=== PATIENT | female | born 1950 | race Caucasian/White ===

== ENCOUNTER 2016-05-12 07:06 | Outpatient (CLI) | payer MEDICARE, OTHER ==
[~2016-05-12] VITALS: Ht 160 cm; Wt 61.2 kg
[~2016-05-12 07:06] MED LIST: ACYC200C PO; ALPR1TAB6 PO; AMIO200T2 PO; AMLO5TAB2 PO; AMLO5TAB4 PO; AMOX1TAB10 PO; AMOX1TAB11 PO; ASPI-482 PO; ASPI81TA9 PO; AZIT250T6 PO; CALC0.25 PO; CETI10TA16 PO; CHOL20004 PO; DOXY100T PO; DOXY25TA PO; FLUT12HF2 IH; FLUT1DIS IH; FLUT1DIS5 IH; HYDR-2762 PO; HYDR-971 PO; IRON1TAB35 PO; LENA5CAP PO; MAGN400T3 PO; METH750T2 PO; MONT10TA9 PO; MULT1TAB52 PO; OMEG1CAP16 PO; PRED20TA PO; ROFL500T PO; TIOT18CA IH; VITA1TAB3 PO; WARF2TAB7 PO; WARF3TAB7 PO; WARF5TAB PO; ZOLP10TA4 PO
[2016-05-12 07:30] VITALS: BP 90/44
[2016-05-12] MEDS ORDERED: LIDOCAINE 1% / SOD BICARB 8.4% 20 ML VIAL. IJ ONE (07:50)
[2016-05-12] MEDS ORDERED: HEPARIN for ARTERIAL LINE 0 ML ONE (07:51)
[2016-05-12] MEDS ORDERED: IODIXANOL 320 MG/ML 100 ML VIAL. ONE (07:51)
[2016-05-12] MEDS ORDERED: IODIXANOL 320MG/ML 50ML VIAL. ONE (07:51)
[2016-05-12 08:00] VITALS: BP 96/47
[2016-05-12 08:09] LABS: BASO # 0.1 x10^3/uL (0.0-0.2); BASO % 3 % (0-3); EOS % 7 % (0-3); HEMATOCRIT 25.9 % (36.0-47.0); HEMOGLOBIN 8.3 g/dL (12.0-15.5); LYMPH # 0.4 x10^3/uL (1.0-4.8); LYMPH % 8 % (24-48); MEAN CORPUSCULAR HEMOGLOBIN 33 pg (25-35); MEAN CORPUSCULAR HGB CONC 32 g/dL (31-37); MEAN CORPUSCULAR VOLUME 102 fL (79-100); MONO % 19 % (0-9); NEUT % 63 % (31-73); PLATELET COUNT 92 x10^3/uL (140-400); RED BLOOD COUNT 2.53 x10^6/uL (3.50-5.40); WHITE BLOOD COUNT 4.8 x10^3/uL (4.0-11.0)
[2016-05-12 08:23] LABS: CREATININE 3.4 mg/dL (0.6-1.0); GFR 13.4; POTASSIUM 3.9 mmol/L (3.5-5.1)
[2016-05-12 08:26] LABS: PROTHROMBIN TIME PATIENT 42.5 SEC (11.7-14.0)
[2016-05-12 08:30] VITALS: BP 91/41
[2016-05-12 08:43] LABS: INR 4.8 (0.8-1.1)
[2016-05-12 09:00] VITALS: BP 100/48
[2016-05-12 09:12] LABS: PROTHROMBIN TIME PATIENT 43.9 SEC (11.7-14.0)
--- NOTE | 2016-05-12 09:58 | PDOC ---
Provider Note Provider Note IR Note: Angela was scheduled for SVF gram +/- intervention today. Her pre procedure INR was 4.8, repeated at 5.0. She is on low dose Coumadin at 2 mg daily. Will cancel procedure today. Home from [facility]. Hold po Coumadin. Reschedule 05/19/16. VILMA WOOD MD May 12, 2016 09:58
[2016-05-12] MEDS ORDERED: HEPARIN PF 500 UNIT/5 ML DISP.SYRIN. IV ONE (10:00)
[2016-05-12 11:08] LABS: % BASOS 1 % (0-3); % EOS 6 % (0-5); ANISOCYTOSIS MOD; PLT ESTIMATE DECREASED (ADEQUATE); POIKILOCYTOSIS PRESENT; POLYCHROMASIA PRESENT
[2016-05-12 11:09] LABS: BURR CELLS FEW; OVALOCYTES FEW; SCHISTOCYTES OCC; TEAR DROP CELLS FEW
== END 2016-05-12 09:50 | disposition home or self-care (01) ==
LOC: INTRAD 07:06
PROVIDERS: ATTEND Surgery Vascular Surgery
DX: N18.6 End stage renal disease (principal); Z53.8 Procedure and treatment not carried out for other reasons
CPT/HCPCS: 36415; 80048; 85007; 85027; 85610

== ENCOUNTER 2016-05-19 07:09 | Outpatient (CLI) | payer MEDICARE, OTHER ==
[2016-05-19] VITALS (9 sets, daily range): BP systolic 87–138; BP diastolic 56–69
[~2016-05-19] VITALS: Ht 157.5 cm; Wt 61.2 kg
[2016-05-19] MEDS ORDERED: IODIXANOL 320MG/ML 50ML VIAL. ONE (08:03)
[2016-05-19] MEDS ORDERED: LIDOCAINE 1% / SOD BICARB 8.4% 20 ML VIAL. IJ ONE ×2 (08:03→09:00)
[2016-05-19] MEDS ORDERED: IODIXANOL 320 MG/ML 100 ML VIAL. ONE (08:04)
[2016-05-19 08:05] LABS: BASO # 0.1 x10^3/uL (0.0-0.2); BASO % 2 % (0-3); EOS % 5 % (0-3); HEMATOCRIT 28.5 % (36.0-47.0); LYMPH # 0.5 x10^3/uL (1.0-4.8); LYMPH % 6 % (24-48); MEAN CORPUSCULAR HEMOGLOBIN 32 pg (25-35); MEAN CORPUSCULAR HGB CONC 32 g/dL (31-37); MEAN CORPUSCULAR VOLUME 102 fL (79-100); MONO % 10 % (0-9); NEUT % 77 % (31-73); PLATELET COUNT 127 x10^3/uL (140-400); RED BLOOD COUNT 2.79 x10^6/uL (3.50-5.40); RED CELL DISTRIBUTION WIDTH 22.4 % (11.5-14.5); WHITE BLOOD COUNT 7.8 x10^3/uL (4.0-11.0)
[2016-05-19 08:08] LABS: INR 1.2 (0.8-1.1); PROTHROMBIN TIME PATIENT 14.5 SEC (11.7-14.0)
--- NOTE | 2016-05-19 08:38 | PDOC1 ---
History and Physical Date of Procedure Date of Admission 05/19/16 Procedure Procedure Left arm AVF gram +/- intervention Indication Indication ESRD. Previously thrombosed AVF, s/p thrombectomy. AVF stenosis by U/S. AVF gram +/- intervention requested by Vascular Surgery. Past Medical History Past Medical History See Nursing pre procedure PMH Past Surgical History Past Surgical History See Nursing Pre procedure PSH. Current Medications Current Medications Current Medications Lidocaine/Sodium Bicarbonate (Buffered Lidocaine 1%) 20 ml STK-MED ONCE IJ ; Start 05/19/16 at 08:03; Stop 05/19/16 at 08:04; Status DC Iodixanol 50 ml 50 ml STK-MED ONCE .ROUTE ; Start 05/19/16 at 08:03; Stop at 08:04; Status DC Heparin Sodium/ Sodium Chloride 500 ml @ As Directed STK-MED ONCE .ROUTE ; Start 05/19/16 at 08:03; Stop 05/19/16 at 08:04; Status DC Iodixanol (Visipaque 320) 100 ml STK-MED ONCE .ROUTE ; Start 05/19/16 at 08:04; Stop 05/19/16 at 08:05; Status DC Active Scripts Active Prednisone 20 Mg Tablet 40 Mg PO DAILY Doxycycline Hyclate 100 Mg Tablet 100 Mg PO BID Reported Amiodarone Hcl 200 Mg Tablet 1 Tab PO DAILY Warfarin Sodium 2 Mg Tablet 2 Mg PO DAILY16 Acyclovir 200 Mg Capsule 200 Mg PO BID Magnesium Oxide 400 Mg Tablet 800 Mg PO BID Alprazolam 1 Mg Tablet 1 Mg PO PRN Q6HRS PRN Hydrocodone-Apap 7.5-325 (Hydrocodone Bit/Acetaminophen) 1 Each Tablet 1 Tab PO PRN Q6HRS PRN Advair 100-50 Diskus (Fluticasone/Salmeterol) 1 Each Disk.w.dev 1 Inh IH BID Vitron-C Tablet (Iron,Carbonyl/Ascorbic Acid) 1 Each Tablet.dr 1 Each PO DAILY Fish Oil 1,000 Mg Softgel ([place]-3 Fatty Acids/Fish Oil) 1 Each Capsule 1 Each PO DAILY Vitamin D-3 (Cholecalciferol (Vitamin D3)) 2,000 Unit Capsule 2,000 Unit PO DAILY Vitamin B Complex 1 Each Tablet 1 Each PO DAILY Multivitamins (Multivitamin) 1 Each Tablet 1 Tab PO DAILY Montelukast Sodium Tablet (Montelukast Sodium) 10 Mg Tablet 1 Tab PO DAILY Calcitriol 0.25 Mcg Capsule 1 Cap PO 3X/WEEK Revlimid (Lenalidomide) 5 Mg Capsule 5 Mg PO 3X/WEEK Methocarbamol 750 Mg Tablet 750 Mg PO PRN Spiriva (Tiotropium [place]) 18 Mcg Cap.w.dev 18 Mcg IH DAILY08 Allergies Allergies: Coded Allergies: No Known Drug Allergies (Unverified , 01/17/16) Physical Exam Lungs: Clear to auscultation Heart: Regular rate Psych/Mental Status: Mental status NL Vascular Strong thrill thruout patent left arm transposed brachiocephalic AVF Diagnostic Data/Imaging Images PMC AVF gram images from 04/22/16 reviewed. Assessment Assessment ESRD with stenosis within previously thrombosed AVF. Problems: Plan Plan AVF gram +/- intervention. VILMA WOOD MD May 19, 2016 08:38
[2016-05-19] MEDS ORDERED: FENTANYL PF 250 MCG/5 ML VIAL. ONE (08:39)
[2016-05-19] MEDS ORDERED: MIDAZOLAM HCL/PF 5 MG/5 ML VIAL ONE (08:39)
[2016-05-19] MEDS ORDERED: HEPARIN for IV BOLUS 10,000 UNIT/10 ML VIAL. ONE (08:58)
[2016-05-19] MEDS ORDERED: MIDAZOLAM HCL/PF 5 MG/5 ML VIAL IV ONE (09:00)
[2016-05-19] MEDS ORDERED: IODIXANOL 320 MG/ML 100 ML VIAL. IART ONE (09:00)
[2016-05-19] MEDS ORDERED: FENTANYL PF 250 MCG/5 ML VIAL. IV ONE (09:00)
[2016-05-19] MEDS ORDERED: HEPARIN for IV BOLUS 10,000 UNIT/10 ML VIAL. IART ONE (09:00)
--- NOTE | 2016-05-19 09:39 | PDOC ---
MODERATE SEDATION ASSESSMENT RISKS/ALTERNATIVES Risks/Alternatives Risks and alternatives of this type of sedation and procedure discussed with: RISK/ALTERNATIVES: Patient H & P ON CHART H & P H & P on chart and reviewed for co-morbid conditions and appropriate labs. H&P ON CHART: Yes STATUS PREG STATUS ASSESSED: N/A MEDS/ALLERGIES REVIEWED Meds/Allergies Reviewed Medications and Allergies including time and route of recently administered narcotics and sedatives. MEDS/ALLERGIES REVIEWED: Yes ASA RATING ASA RATING: III AIRWAY ASSESSMENT Airway Assessment Airway patency, oral function limitations, presence of caps, crowns, dentures, partials, and ability to extend neck assessed. AIRWAY ASSESSMENT: Yes MALLAMPATI SCORE MALLAMPATI SCORE: II PRE-SEDATION ASSESSMENT PRE-SEDATION ASSESSMENT: Yes VILMA WOOD MD May 19, 2016 09:39
--- NOTE | 2016-05-19 09:54 | PDOC ---
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 She is s/p creation of left arm BC AVF 07/16/15, followed by transposition and branch ligation 01/17/16. She is s/p AVF thrombectomy 04/22/16. She returns with U/S evidence of cephalic vein stenosis. AVF gram +/- intervention has been requested. Post-Procedure Diagnosis Post-Procedure Diagnosis Same Procedure Performed Procedure Performed Sono guided left arm transposed BC AVF gram. DCB PLANT CYTOLOGIST of cephalic outflow vein stenosis. Viabahn stent placement across post PLANT CYTOLOGIST cephalic vein rupture. Type of Anesthesia Type of Anesthesia Local + Mod sedation. Estimated Blood Loss EBL: Minimal Condition of Patient Condition of Patient Stable. Small left upper arm hematoma following cephalic vein post PLANT CYTOLOGIST rupture- ---hematoma limited with balloon occlusion, followed by covered stent deployment. Disposition Disposition Home from [facility] post recovery, if no further bleeding or other problem. F/U with Renal and Vascular Surgery. OK to use AVF for HD---patient prefers to wait until next week. OK to resume PO Coumadin tonight. Full report to follow. VILMA WOOD MD May 19, 2016 09:53
--- NOTE | 2016-05-20 08:00 | RAD ---
Left arm brachiocephalic AV fistulogram DCB MULTIMEDIA EDUCATIONAL SPECIALIST cephalic outflow vein Viabahn stent deployment across post angioplasty cephalic vein rupture Indication: 66-year-old female with end stage renal disease. A brachiocephalic AV fistula was initially created 07/16/2015, followed by transposition and a branch ligation 01/17/2016. AV fistula declot procedure was performed 04/22/2016. The patient now returns with elevated venous pressures and cephalic vein stenosis demonstrated at ultrasound. Fluoroscopy time: 5.9 minutes Kerma-area Product: 7 Gycm2 Contrast material: 80 cc Visipaque 320 Anesthesia: 37 minutes moderate sedation was provided utilizing a total of 3 mg Versed and 100 mcg fentanyl, IV. The patient was appropriately monitored by a qualified independent observer throughout the time of moderate sedation. Consent: The procedure was explained in its entirety to the patient and/or the patient's designated customer assistance representative by a member of the treatment team. This included a discussion of risks and benefits and commonly accepted alternatives to the procedure, as well as expected consequences of no treatment at all. Discussion of risks included, but was not limited to, those that are most frequent and those that are rare, but possibly severe or life-threatening, as well as the possibility of unforeseen complications. Sterility: All elements of maximal sterile barrier technique were utilized, including cap, mask, sterile gown, sterile gloves, large sterile sheet, appropriate hand hygiene, and 2% chlorhexidine for cutaneous antisepsis. Procedure: Informed consent was obtained from the patient. She was placed supine on the angiography table. Left upper arm was prepped and draped in the usual sterile fashion, utilizing all elements of maximal sterile barrier technique, as described above. Moderate sedation was provided with IV Versed and fentanyl. AV fistulogram: Preliminary physical examination revealed strongly palpable thrill throughout left arm brachiocephalic AV fistula. Preliminary ultrasound examination confirmed wide patency of the AV fistula, apart from a 3 to 4 cm segment of at least moderate cephalic vein stenosis at the level of upper-mid humerus. A site suitable for AV fistula sheath placement was selected, marked, and documented with a single hard copy ultrasound image. Using aseptic technique, local anesthesia, direct ultrasound guidance, and the micropuncture system, a 4 Estonian sheath was successfully introduced into the patient's left arm AV fistula, approximately 4 cm above AV anastomosis, with its tip directed centrally. Several hand injections of Visipaque 320 were performed and AV fistulogram DSA images were obtained from elbow through right atrium. Findings: Brachiocephalic AV anastomosis appears widely patent. A 3 to 4 cm segment of at least moderate smooth narrowing lies within transposed cephalic outflow vein, at the level of mid-upper humerus. No additional significant cephalic outflow vein stenosis was demonstrated. Left subclavian vein, innominate vein, and superior vena cava are widely patent. Right IJ port catheter and right IJ tunneled hemodialysis catheter are noted. DCB MULTIMEDIA EDUCATIONAL SPECIALIST followed by Viabahn stenting of cephalic outflow vein: Following the diagnostic AV fistula gram, the decision was made to proceed with balloon angioplasty of the significantly narrowed cephalic vein segment. The 4 Estonian AV fistula sheath was exchanged over a guidewire for a short 7 Estonian sheath. Following IV bolus administration of 2500 units heparin, a 7 mm x 40 mm request MULTIMEDIA EDUCATIONAL SPECIALIST balloon was advanced through the 7 Estonian sheath over a Bentson wire under fluoroscopic guidance, and was utilized to perform prolonged (5 minutes) medium pressure (15 nilay) balloon dilatation of the cephalic vein stenosis. The 7 mm conquest MULTIMEDIA EDUCATIONAL SPECIALIST balloon was then exchanged for a 7 mm x 60 mm [employer] paclitaxel-coated MULTIMEDIA EDUCATIONAL SPECIALIST balloon, which was inflated across the cephalic vein lesion to a peak pressure of 8 nilay for 3 minutes. The drug coated MULTIMEDIA EDUCATIONAL SPECIALIST balloon was then deflated and removed. Visipaque 320 was injected through the 7 Estonian sheath and post angioplasty DSA images were obtained. Those images revealed essentially complete resolution of the cephalic vein stenosis, however, extravasation of injected contrast material was seen at the angioplasty site, consistent with vessel perforation/rupture. The 7 mm conquest MULTIMEDIA EDUCATIONAL SPECIALIST balloon was rapidly reinserted through the 7 [place]ian sheath over the Bentson wire and was inflated across the site of rupture, preventing further extravasation. An 8 mm x 15 mm Viabahn covered stent was selected and was prepared for insertion. The Bentson wire was removed from the inflated conquest MULTIMEDIA EDUCATIONAL SPECIALIST balloon catheter, and was replaced with a grand slam microguidewire. The conquest MULTIMEDIA EDUCATIONAL SPECIALIST balloon was then rapidly deflated and was quickly exchanged over the grand slam wire through the 7 [place]ian sheath for the Viabahn covered stent, which was successfully deployed across the area of perforation. Post dilatation of the Viabahn stent was then performed utilizing a 7 mm conquest MULTIMEDIA EDUCATIONAL SPECIALIST balloon, which was then deflated and removed. Visipaque 320 was again injected through the 7 Estonian sheath and post stent DSA images were obtained, which revealed widely patent cephalic outflow vein, without further contrast extravasation. Patient tolerated the procedure well. The 7 [place]ian sheath was removed and hemostasis was achieved utilizing 2-0 silk in a pursestring fashion. Impression: 1. Transposed left brachiocephalic AV fistulogram was significant for a 3 to 4 cm segment of significant narrowing within cephalic outflow vein. Left upper extremity central veins appeared widely patent. 2. DCB MULTIMEDIA EDUCATIONAL SPECIALIST of cephalic outflow vein produced resolution of the stenosis, but resulted in focal vessel perforation/rupture with contrast extravasation----this was quickly controlled with balloon occlusion, followed by successful exclusion with Viabahn covered stent.
== END 2016-05-19 11:45 | disposition home or self-care (01) ==
LOC: INTRAD 07:09
PROVIDERS: ATTEND Surgery Vascular Surgery
DX: N18.6 End stage renal disease (principal); I42.9 Cardiomyopathy, unspecified; I10 Essential (primary) hypertension; J44.9 Chronic obstructive pulmonary disease, unspecified; D21.9 Benign neoplasm of connective and other soft tissue, unspecified; Z90.710 Acquired absence of both cervix and uterus; Z90.721 Acquired absence of ovaries, unilateral; N28.9 Disorder of kidney and ureter, unspecified; Z99.2 Dependence on renal dialysis; D56.9 Thalassemia, unspecified; F41.9 Anxiety disorder, unspecified; F32.9 Major depressive disorder, single episode, unspecified; F17.200 Nicotine dependence, unspecified, uncomplicated; D64.9 Anemia, unspecified; Z08 Encounter for follow-up examination after completed treatment for malignant neoplasm
CPT/HCPCS: 36147; 36415; 37238; 76937; 85027; 85610; C1758; C1769; C1894; C2623; J2250; J3010

== ENCOUNTER → 2016-05-20 | Outpatient (CLI) | payer MEDICARE, OTHER ==
[2016-05-19 11:20] VITALS: BP 138/64
--- NOTE | 2016-05-20 14:18 | KCIC ---
PROCEDURE Two-view chest HISTORY COPD with acute exacerbation, extreme shortness of air, previous smoker for 30 years COMPARISON March 12, 2016 FINDINGS Two views of the chest are submitted. There is right internal jugular venous catheter with tips in the region of right atrium. There is also right internal jugular port catheter with the tip in the region of superior vena cava. Heart size is considered within normal limits. There is atherosclerotic calcification near the aortic arch. There is no dependent pleural fluid or pneumothorax. There is emphysema. No lobar consolidation is identified. IMPRESSION 1. There is emphysema. No lobar infiltrate is identified. Electronically signed by: Cosmo Eli MD (May 20, 2016 14:16:49)
== END | disposition home or self-care (01) ==
LOC: KCIC 13:40
PROVIDERS: ATTEND Family Medicine
DX: J44.1 Chronic obstructive pulmonary disease with (acute) exacerbation (principal)
CPT/HCPCS: 71020

== ENCOUNTER → 2016-05-29 | Outpatient (CLI) | payer MEDICARE, OTHER ==
[2016-05-19 11:20] VITALS: BP 138/64
[2016-05-29 14:44] LABS: PROTHROMBIN TIME PATIENT 21.9 SEC (11.7-14.0)
== END | disposition home or self-care (01) ==
LOC: LAB 14:11
PROVIDERS: ATTEND Internal Medicine Nephrology
DX: N18.6 End stage renal disease (principal); Z99.2 Dependence on renal dialysis
CPT/HCPCS: 36415; 85610

== ENCOUNTER → 2016-07-23 | Outpatient (CLI) | payer MEDICARE, OTHER ==
[2016-05-19 11:20] VITALS: BP 138/64
--- NOTE | 2016-07-24 10:04 | CARD ---
APPROVED REPORT EXAM: Two-dimensional and M-mode echocardiogram with Doppler and color Doppler. Other Information Quality : Average Rhythm : NSR INDICATION Cardiomyopathy NICM 2D DIMENSIONS RVDd2.6 (2.9-3.5cm)Left Atrium(2D)3.2 (1.6-4.0cm) IVSd0.9 (0.7-1.1cm)Aortic Root(2D)2.7 (2.0-3.7cm) LVDd5.1 (3.9-5.9cm)LVOT Diameter2.1 (1.8-2.4cm) PWd0.9 (0.7-1.1cm)LVDs3.4 (2.5-4.0cm) SV75.5 mlLVEF(%)40.9 (>50%) Aortic Valve AoV Peak Kenneth.143.4cm/sAoV VTI22.1cm AO Peak GR.8.2mmHgLVOT Peak Kenneth.91.9cm/s LVOT VTI 15.90cmAO Mean GR.4mmHg CRISPIN (VMAX)2.16ty6TGU (VTI)2.39cm2 Mitral Valve MV E Uizxcajj62.0cm/sMV DECEL VPKR098aj MV A Thglfimp33.3cm/sMV E Mean Gr.1mmHg MV ZBI49ubB/A Ratio0.6 MV A Ptwgocip937zkQJR (PHT)2.93cm2 TDI E/Lateral E'12.1E/Medial E'10.5 Pulmonary Valve PV Peak Xpqosmdr11.6cm/sPV Peak Grad.4mmHg RVOT VTI15.8cm Tricuspid Valve TR P. Jzgdlcxz232re/sRAP NRRSYHEI6wvWb TR Peak Gr.72iwQsNNUE49rhYu LEFT VENTRICLE The left ventricle is normal size. There is normal left ventricular wall thickness. Left ventricle sy stolic function is mildly impaired. The Ejection Fraction is estimated at 40%. There is mild global h ypokinesis of the left ventricle. Tissue Doppler imaging reveals mild left ventricular diastolic dysf unction. Transmitral Doppler flow pattern is Grade I-abnormal relaxation pattern. RIGHT VENTRICLE The right ventricle is normal size. The right ventricular systolic function is normal. ATRIA The left atrium size is normal. The right atrium size is normal. The interatrial septum is intact wit h no evidence for an atrial septal defect or patent foramen ovale as noted on 2-D or Doppler imaging. AORTIC VALVE The aortic valve is normal in structure and function. The aortic valve is trileaflet. Doppler and Col or Flow revealed no significant aortic regurgitation. There is no significant aortic valvular stenosi s. MITRAL VALVE The mitral valve is normal in structure and function. There is no mitral valve stenosis. Doppler and Color Flow revealed mild mitral regurgitation. TRICUSPID VALVE The tricuspid valve is normal in structure and function. Doppler and Color Flow revealed mild tricusp id regurgitation. The PA pressure was estimated at 37 mmHg. There is no tricuspid valve stenosis. PULMONIC VALVE The pulmonic valve is not well visualized. Doppler and Color Flow revealed no pulmonic valvular regur gitation. There is no pulmonic valvular stenosis. GREAT VESSELS The aortic root is normal in size. The IVC is normal in size and collapses >50% with inspiration. PERICARDIAL EFFUSION There is no evidence of significant pericardial effusion. Critical Notification Critical Value: No <Conclusion> The left ventricle is normal size. Left ventricle systolic function is mildly impaired. The Ejection Fraction is estimated at 40%. There is mild global hypokinesis of the left ventricle. There is no significant aortic valvular stenosis. Doppler and Color Flow revealed no significant aortic regurgitation. Doppler and Color Flow revealed mild mitral regurgitation. Doppler and Color Flow revealed mild tricuspid regurgitation. The PA pressure was estimated at 37 mmHg.
== END | disposition home or self-care (01) ==
LOC: ECHO 13:05
PROVIDERS: ATTEND Nurse Practitioner
DX: I42.9 Cardiomyopathy, unspecified (principal); I34.0 Nonrheumatic mitral (valve) insufficiency; I07.1 Rheumatic tricuspid insufficiency
CPT/HCPCS: 93306

== ENCOUNTER → 2016-08-17 | Outpatient (CLI) | payer MEDICARE, OTHER ==
[2016-05-19 11:20] VITALS: BP 138/64
[~2016-08-17] MED LIST changes: +CEPH500C; +FOLI0.8T21 PO; +IOHEXOL 300 MG/ML 100ML VIAL. IV ONE; +MAGN400T22 PO; +MIRT45TA3 PO; +POTA20TA4; -ROFL500T PO; +ROFL500T7 PO; +TERB250T8; +TIOT4MIS2; +TRAZ50TA15; +VANC125C2 PO; +VITA150T PO; +WARF-78 PO; -WARF5TAB PO
--- NOTE | 2016-08-17 13:54 | KCIC ---
PQRS STATEMENT One or more of the following individualized dose reduction techniques were utilized for this study: 1.Automated exposure control 2.Adjustment of the mA and/or kV according to patient size 3.Use of iterative reconstruction technique CT NECK WITH CONTRAST HISTORY:Reason For Study Reason: TONGUE MASS. LUMP IN THROAT RT SIDE, HOARSENESS / Spl. Instructions: 80cc Omni 300-pt receiving dialysis after CT / History: COMPARISON: None TECHNIQUE: 2.5 mm contiguous axial images were obtained from the region of the paranasal sinuses through the thoracic inlet after the administration of iodinated intravenous contrast material. Additional sagittal and coronal reconstructions were performed. FINDINGS: There is a hyper enhancing solid mass at the base of the tongue centered slightly eccentric to the left. The mass measures 3.5 centimeters transverse by 4.0 centimeters AP by 2.3 centimeters AP. The mass appears to extend into the vallecula pushing the epiglottis posteriorly. This could is cause symptoms of dysphagia. A necrotic right level 2 lymph node measures 3.0 by 2.1 centimeters. On the left there is a partially necrotic node in the level 2 space that measures 2.0 x 1.6 centimeters. There are other numerous enlarged cervical lymph nodes bilaterally which demonstrate a small amount of central necrosis. There is centrilobular emphysema. Vascular structures are within normal limits. Mild carotid bulb calcifications are noted. Limited intracranial evaluation is within normal limits globes orbits are unremarkable. Paranasal sinuses and mastoid air cells are clear. 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 The mass extends into the valleculae a and pushes the epiglottis posteriorly. This could cause symptoms of dysphagia. - There are bilateral necrotic cervical lymph nodes likely representing metastatic disease. Electronically signed by: Vinay Campbell (Aug 17, 2016 13:53:04)
== END | disposition home or self-care (01) ==
LOC: KCIC CT 12:47
PROVIDERS: ATTEND Otolaryngology Plastic Surgery within the Head & Neck
DX: J02.9 Acute pharyngitis, unspecified (principal); R22.0 Localized swelling, mass and lump, head; R49.0 Dysphonia; H90.3 Sensorineural hearing loss, bilateral
CPT/HCPCS: 70492; Q9967

== ENCOUNTER 2016-08-31 18:01 | Emergency (ER) | payer MEDICARE, OTHER ==
[2016-05-19 11:20] VITALS: BP 138/64
[~2016-08-31] VITALS: Ht 160 cm; Wt 56.7 kg
[~2016-08-31 18:01] MED LIST changes: -CEPH500C; -FOLI0.8T21 PO; -IOHEXOL 300 MG/ML 100ML VIAL. IV ONE; -MAGN400T22 PO; -MIRT45TA3 PO; -POTA20TA4; +ROFL500T PO; -ROFL500T7 PO; -TERB250T8; -TIOT4MIS2; -TRAZ50TA15; -VANC125C2 PO; -VITA150T PO; -WARF-78 PO; +WARF5TAB PO
[2016-08-31] MEDS ORDERED: ACETAMINOPHEN 325 MG TABLET. PO ONE (19:00)
--- NOTE | 2016-08-31 19:00 | PHYS DOC ---
Past Medical History Past Medical History: Cancer, COPD, Hypertension, Renal Failure Additional Past Medical Histor: MULTIPLE MYELOMA, SHINGLES, BLOOD CLOTS IN ARM FROM CHEMO MED Past Surgical History: No Surgical History Additional Past Surgical Histo: Portacath in right chest for CA treatments, SHUNT LUE Alcohol Use: None Drug Use: None Adult General Chief Complaint Chief Complaint: SKIN PROBLEM HPI HPI Patient is a 66 year old female presents to emergency department stating that he can May she had fallen and hit her head. She states that this is happened in the middle the night and she felt fine and therefore was not seen. Patient states that within the last few weeks she's noticed this lump on the back of her head the left basal part proximal size 2 x 2 cm. Patient states he has increased pain and discomfort with dialysis. She states that they can be a throbbing 10 aching type pain. She states she has not taken anything for the pain and discomfort. She denies any blurred vision. She denies any loss of consciousness when she fell in May. Review of Systems Review of Systems Constitutional: Denies fever or chills [] Eyes: Denies change in visual acuity, redness, or eye pain [] HENT: Denies nasal congestion or sore throat [] Respiratory: Denies cough or shortness of breath [] Cardiovascular: No additional information not addressed in HPI [] GI: Denies abdominal pain, nausea, vomiting, bloody stools or diarrhea [] : Denies dysuria or hematuria [] Musculoskeletal: Denies back pain or joint pain [] Integument: Denies rash or skin lesions. C/o lump to the back of the head Neurologic: Denies headache, focal weakness or sensory changes [] Current Medications Current Medications Current Medications Medications (Trade) Dose Ordered Sig/[facility] Start Time Stop Time Status Last Admin Dose Admin Acetaminophen (Tylenol) 650 mg 1X ONCE 08/31/16 19:00 08/31/16 19:01 DC 08/31/16 19:00 650 MG Allergies Allergies Allergies Coded Allergies Type Severity Reaction Last Updated Verified No Known Drug Allergies 01/17/16 No Physical Exam Physical Exam Constitutional: Well developed, well nourished, no acute distress, non-toxic appearance. [] HENT: Normocephalic, atraumatic, bilateral external ears normal, oropharynx moist, no oral exudates, nose normal. Bilateral tympanic membranes appear to be normal. Eyes: PERRLA, EOMI, conjunctiva normal, no discharge. [] Neck: Normal range of motion, no tenderness, supple, no stridor. [] Cardiovascular:Heart rate regular rhythm, no murmur [] Lungs & Thorax: Bilateral breath sounds clear to auscultation [] Abdomen: Bowel sounds normal, soft, no tenderness, no masses, no pulsatile masses. [] Skin: Warm, dry, no erythema, no rash. Patient with a 2 cm x 2 cm soft lump noted on the back of the head. No redness drainage or discharge noted from the site. Back: No tenderness Extremities: No tenderness, no cyanosis, no clubbing, ROM intact, no edema. [] Neurologic: Alert and oriented X 3, normal motor function, normal sensory function, no focal deficits noted. Cranial nerves II through XII intact Psychologic: Affect normal, judgement normal, mood normal. [] Current Patient Data Vital Signs Vital Signs Date Time Temp Pulse Resp B/P Pulse Ox O2 Delivery O2 Flow Rate FiO2 08/31/16 18:37 97.9 80 20 92 Room Air 97.9 EKG EKG [] Radiology/Procedures Radiology/Procedures [][facility] [address] [place] [address] IMAGING REPORT Signed PATIENT: CHRIS MEJIA ACCOUNT: [id number] : 1950 LOCATION: ER AGE: 66 SEX: F EXAM STATUS: REG ER ORD. PHYSICIAN: RAVEN BILLINGSLEY APRN REASON: lump on the back of head increase pain with dialysis PROCEDURE: CT HEAD WO CONTRAST Examination: CT head without contrast. HISTORY History of lump in the back of the head, increasing pain with dialysis Exposure: One or more of the following dose reduction technique were utilized for this examination: 1. Automated exposure control. 2.Adjustment of MA and /or KV according to patient size. 3. Use of iterative reconstruction technique. COMPARISON None available. Findings : There is no evidence of midline shift. There is no acute intracranial bleed or extra-axial fluid collection identified.The ray-white matter differentiation is maintained. The visualized lateral ventricles, 3rd ventricle, 4th ventricle appropriate for age. The basal cisterns are not effaced. Visualized paranasal sinuses, mastoid air cells are clear. Impression: No acute intracranial findings. Electronically signed by: Eliseo Machuca (Aug 31, 2016 20:05:46) DICTATED and SIGNED BY: ELISEO MACHUCA MD DATE: 08/31/162004 CC: RAVEN BILLINGSLEY APRN; ELANA ACEVEDO MD ~ Course & Med Decision Making Course & Med Decision Making Pertinent Labs and Imaging studies reviewed. (See chart for details) CT scan of the head was negative for any abnormalities. Patient will be discharged home with recommendations to use Tylenol for pain and discomfort ice packs on the area on 20 minutes off 20 minutes several times a day. Also recommended patient to follow up with primary care physician in the next 3-5 days. Since symptoms to return back to emergency department been provided. Patient agrees with discharge instructions treatment regimens and follow-up recommendations. [] Dragon Disclaimer Dragon Disclaimer This electronic medical record was generated, in whole or in part, using a voice recognition dictation system. Departure Departure Impression: Primary Impression: Head lump Disposition: 01 HOME, SELF-CARE Condition: STABLE Patient Instructions: General Headache Without Cause, [id number] Additional Instructions: CT scan of the head was negative for any abnormalities. Tylenol for pain and discomfort. Follow-up to primary care physician in the next 3-5 days. Return back to the emergency department for signs and symptoms of become worse. RAVEN BILLINGSLEY APRN Aug 31, 2016 19:00
--- NOTE | 2016-08-31 20:07 | RAD ---
Examination: CT head without contrast. HISTORY History of lump in the back of the head, increasing pain with dialysis Exposure: One or more of the following dose reduction technique were utilized for this examination: 1. Automated exposure control. 2.Adjustment of MA and /or KV according to patient size. 3. Use of iterative reconstruction technique. COMPARISON None available. Findings : There is no evidence of midline shift. There is no acute intracranial bleed or extra-axial fluid collection identified.The ray-white matter differentiation is maintained. The visualized lateral ventricles, 3rd ventricle, 4th ventricle appropriate for age. The basal cisterns are not effaced. Visualized paranasal sinuses, mastoid air cells are clear. Impression: No acute intracranial findings. Electronically signed by: Eliseo Machuca (Aug 31, 2016 20:05:46)
== END 2016-08-31 20:25 | disposition home or self-care (01) ==
LOC: ER 18:01
DX: R22.0 Localized swelling, mass and lump, head (principal); J44.9 Chronic obstructive pulmonary disease, unspecified; I12.9 Hypertensive chronic kidney disease with stage 1 through stage 4 chronic kidney disease, or unspecified chronic kidney disease; N18.9 Chronic kidney disease, unspecified; Z99.2 Dependence on renal dialysis
CPT/HCPCS: 70450; 99284-25

== ENCOUNTER 2016-09-07 15:00 | Inpatient (IN) | payer MEDICARE, OTHER ==
[~2016-09-07] VITALS: Ht 160 cm; Wt 53.1 kg
[~2016-09-07 15:00] MED LIST changes: -ROFL500T PO; +ROFL500T7 PO; +WARF-78 PO; -WARF5TAB PO
[2016-09-07 18:04] LABS: BASO # 0.1 x10^3/uL (0.0-0.2); BASO % 0 % (0-3); EOS % 0 % (0-3); HEMATOCRIT 37.4 % (36.0-47.0); HEMOGLOBIN 11.9 g/dL (12.0-15.5); LYMPH # 0.4 x10^3/uL (1.0-4.8); LYMPH % 2 % (24-48); MEAN CORPUSCULAR HEMOGLOBIN 32 pg (25-35); MEAN CORPUSCULAR HGB CONC 32 g/dL (31-37); MEAN CORPUSCULAR VOLUME 102 fL (79-100); MONO % 13 % (0-9); NEUT % 85 % (31-73); PLATELET COUNT 231 x10^3/uL (140-400); RED BLOOD COUNT 3.66 x10^6/uL (3.50-5.40); RED CELL DISTRIBUTION WIDTH 15.8 % (11.5-14.5); WHITE BLOOD COUNT 25.9 x10^3/uL (4.0-11.0)
[2016-09-07] MEDS ORDERED: IOHEXOL 300 MG/ML 75 ML VIAL IV ONE (18:30)
[2016-09-07] MEDS ORDERED: CONTRAST GIVEN MC PRN (18:30)
--- NOTE | 2016-09-07 18:44 | ED.ADGEN ---
Past Medical History Past Medical History: Cancer, COPD, Renal Failure Additional Past Medical Histor: MULTIPLE MYELOMA, SHINGLES, BLOOD CLOTS IN ARM FROM CHEMO MED Past Surgical History: No Surgical History Additional Past Surgical Histo: Portacath in right chest for CA treatments, SHUNT LUE Alcohol Use: None Drug Use: None Adult General Chief Complaint Chief Complaint: MULTIPLE COMPLAINTS HPI HPI Patient is a 66 year old woman, history of end-stage renal disease on hemodialysis, multiple myeloma, DVT on anticoagulation, hypertension, hyperlipidemia, who presents to the emergency department with multiple complaints. Patient states that she began feeling ill, with generalized malaise , developed diarrhea she describes as loose brown stool yesterday. States he had also experienced diarrhea since that time, denies any blood in her stool, denies any vomiting, or nausea, however she has experienced crampy abdominal pain with diarrhea. Patient denies similar symptoms previously. Denies any recent travel, any surgery, any sick contacts or exposures. She was treated last week with an antibiotic for a "cold". Patient states that today after multiple sodas of diarrhea, when she stood up to use the telephone she became very dizzy, and she fell down, landing on "her whole body", in the kitchen rug. She denies striking her head or neck, denies loss of consciousness. States that she is feeling less dizzy now when lying down. She does not take any blood thinners. She denies any focal weakness in this or tingling, any headache, still is feeling cramping in her abdomen, and took an Imodium a few hours before coming to the ED, and has not had any diarrhea since that time. Patient did miss her dialysis session, due to the diarrhea and fall. Review of Systems Review of Systems Constitutional: Denies fever or chills. [] Eyes: Denies change in visual acuity. [] HENT: Denies nasal congestion or sore throat. [] Respiratory: Denies cough or shortness of breath. [] Cardiovascular: Denies chest pain or edema. [] GI: Abdominal pain, diarrhea, no nausea, no vomiting. No blood in stool. : Denies dysuria. [] Musculoskeletal: Denies back pain or joint pain. [] Integument: Denies rash. [] Neurologic: Denies headache, focal weakness or sensory changes. [] Endocrine: Denies polyuria or polydipsia. [] Lymphatic: Denies swollen glands. [] Psychiatric: Denies depression or anxiety. [] Current Medications Current Medications Current Medications Medications (Trade) Dose Ordered Sig/Seth Start Time Stop Time Status Last Admin Dose Admin Info (Do NOT chart on this entry -- for MONITORING) 1 each PRN DAILY PRN 09/07/16 18:30 09/09/16 18:29 Iohexol (Omnipaque 300 Mg/ml) 60 ml 1X ONCE 09/07/16 18:30 09/07/16 18:31 DC Allergies Allergies Allergies Coded Allergies Type Severity Reaction Last Updated Verified No Known Drug Allergies 01/17/16 No Physical Exam Physical Exam Constitutional: Well developed, well nourished, no acute distress, non-toxic appearance. [] HENT: Normocephalic, atraumatic, bilateral external ears normal, oropharynx moist, no oral exudates, nose normal. [] Eyes: PERRLA, EOMI, conjunctiva normal, no discharge. [] Neck: Normal range of motion, no tenderness, supple, no stridor. [] Cardiovascular:Heart rate regular rhythm, no murmur, S1, S2, rubs or gallops. [] Lungs & Thorax: Bilateral breath sounds clear to auscultation, no wheezing, rhonchi, rales. No chest or crepitus or tenderness. [] Abdomen: Bowel sounds normal, soft, moderate tenderness palpation diffusely, no rebound, rigidity, no guarding,, no masses, no pulsatile masses. [] Skin: Warm, dry, no erythema, no rash. [] Back: No tenderness, no CVA tenderness. [] Extremities: No tenderness, no cyanosis, no clubbing, ROM intact, no edema. [] Patient with AV fistula in place in the left upper extremity, with good thrill, site is clean dry and intact. Neurologic: Alert and oriented X 3, normal motor function, normal sensory function, no focal deficits noted. [] Psychologic: Affect normal, judgement normal, mood normal. [] Current Patient Data Vital Signs Vital Signs Date Time Temp Pulse Resp B/P Pulse Ox O2 Delivery O2 Flow Rate FiO2 09/07/16 20:30 87 18 101/56 95 Room Air 09/07/16 16:41 98.4 98.4 Lab Values Laboratory Tests Test 09/07/16 17:55 White Blood Count 25.9x10^3/uL (4.0-11.0) H Red Blood Count 3.66x10^6/uL (3.50-5.40) Hemoglobin 11.9g/dL (12.0-15.5) L Hematocrit 37.4% (36.0-47.0) Mean Corpuscular Volume 102fL (79-100) H Mean Corpuscular Hemoglobin 32pg (25-35) Mean Corpuscular Hemoglobin Concent 32g/dL (31-37) Red Cell Distribution Width 15.8% (11.5-14.5) H Platelet Count 231x10^3/uL (140-400) Neutrophils (%) (Auto) 85% (31-73) H Lymphocytes (%) (Auto) 2% (24-48) L Monocytes (%) (Auto) 13% (0-9) H Eosinophils (%) (Auto) 0% (0-3) Basophils (%) (Auto) 0% (0-3) Neutrophils # (Auto) 22.1x10^3uL (1.8-7.7) H Lymphocytes # (Auto) 0.4x10^3/uL (1.0-4.8) L Monocytes # (Auto) 3.3x10^3/uL (0.0-1.1) H Eosinophils # (Auto) 0.0x10^3/uL (0.0-0.7) Basophils # (Auto) 0.1x10^3/uL (0.0-0.2) Segmented Neutrophils % 90% (35-66) H Band Neutrophils % 1% (0-9) Lymphocytes % 1% (24-48) L Monocytes % 7% (0-10) Eosinophils % 1% (0-5) Platelet Estimate Adequate (ADEQUATE) Polychromasia Slight Ovalocytes Occ Crenated Cell Present Schistocytes Occ Sodium Level 132mmol/L (136-145) L Potassium Level 4.3mmol/L (3.5-5.1) Chloride Level 95mmol/L (98-107) L Carbon Dioxide Level 24mmol/L (21-32) Anion Gap 13 (6-14) Blood Urea Nitrogen 58mg/dL (7-20) H Creatinine 7.5mg/dL (0.6-1.0) H Estimated GFR (Cockcroft-Gault) 5.4 BUN/Creatinine Ratio 8 (6-20) Glucose Level 115mg/dL (70-99) H Calcium Level 9.2mg/dL (8.5-10.1) Total Bilirubin 0.5mg/dL (0.2-1.0) Aspartate Amino Transferase (AST) 12U/L (15-37) L Alanine Aminotransferase (ALT) 17U/L (14-59) Alkaline Phosphatase 84U/L (46-116) Total Protein 6.0g/dL (6.4-8.2) L Albumin 2.3g/dL (3.4-5.0) L Albumin/Globulin Ratio 0.6 (1.0-1.7) L Lipase 45U/L (73-393) L Laboratory Tests 09/07/16 17:55 Laboratory Tests 09/07/16 17:55 EKG EKG EC: Sinus rhythm, heart rate 89 bpm, left axis deviation with left anterior fascicular block noted, moderate baseline artifact noted, QTc of 432, MN 158, QRS of 114, evidence of left internal hypertrophy, abnormal ECG, does not meet STEMI criteria. As interpreted by me. [] Radiology/Procedures Radiology/Procedures [] [facility] [address] [place] [address] IMAGING REPORT Signed PATIENT: CHRIS MEJIA ACCOUNT: [id number] : 1950 LOCATION: ER AGE: 66 SEX: F EXAM STATUS: REG ER ORD. PHYSICIAN: BHAVIK OROZCO DO REASON: Dizziness/fall, NO CONTRAST PER RAD, LABS AND PT HX PROCEDURE: CT ABDOMEN PELVIS WO CONTRAST PROCEDURE CT abdomen pelvis without contrast. HISTORY Extreme diarrhea with standing or moving, abdominal pain, fall, history multiple myeloma TECHNIQUE Noncontrast CT imaging was performed of the abdomen pelvis, multiplanar reconstruction images submitted. Exposure: One or more of the following individualized dose reduction techniques were utilized for this exam: 1. Automated exposure control. 2. Adjustment of the mA and/or kV according to patient size. 3. Use of iterative reconstruction technique. COMPARISON None FINDINGS There is mild likely fibrotic change of the visualized right middle lobe near the base. Accurate evaluation of the abdominal visceral organs is limited without intravenous contrast. There is no obvious focal abnormality of the liver or spleen, splenic granulomas present. There is a small quantity of free fluid in the spleen. Gallbladder is present with mild dependent hyperdensity present. There is no hydronephrosis of either kidney. There is likely exophytic cyst of the inferior left kidney up to 1.4 centimeters. There is also a small simple cyst of the mid right kidney. There is a hyperdense lesion arising from the mid right kidney up to 1.6 centimeters, density measurements greater than adjacent renal parenchyma. There is scattered atherosclerotic calcification of the abdominal aorta as well as iliac arteries. There is no significant adrenal nodularity. Evaluation of pancreas is limited, could be somewhat hypodense without obvious defined focal fluid collection. Accurate evaluation of bowel is limited without oral contrast. However there is fairly prominent diffuse wall thickening of the colon from the ascending to the sigmoid colon with adjacent hazy and strandy inflammatory type change most notable ascending through the descending colon. No abscess or free air is identified. There is a small quantity of dependent free fluid in the pelvis. Urinary bladder is distended. IMPRESSION 1. There is diffuse prominent wall thickening most notable ascending through descending colon although also some involvement of the sigmoid colon. There is adjacent inflammatory type change most notable ascending through descending colon, overall findings of colitis. There is a small quantity of free fluid in the abdomen and pelvis, no free air identified. 2. There is distention of the urinary bladder. 3. There are bilateral renal cysts, also likely a hemorrhagic or proteinaceous cyst of the right kidney although a solid lesion would be difficult to exclude by this exam. 4. There is nonspecific dependent density in the gallbladder. Electronically signed by: Cosmo Rowland MD (September 07, 2016 20:25:46) DICTATED and SIGNED BY: ASTON ROWLAND MD DATE: 09/07/162024 CC: BHAVIK OROZCO DO; ELANA ACEVEDO MD ~ Impressions: [facility] [address] [place] [address] IMAGING REPORT Signed PATIENT: CHRIS MEJIA ACCOUNT: [id number] : 1950 LOCATION: ER AGE: 66 SEX: F EXAM STATUS: REG ER ORD. PHYSICIAN: BHAVIK OROZCO DO REASON: Dizziness/fall, PROCEDURE: CT HEAD AND CERVICAL SPINE WO PQRS STATEMENT One or more of the following individualized dose reduction techniques were utilized for this study: 1.Automated exposure control 2.Adjustment of the mA and/or kV according to patient size 3.Use of iterative reconstruction technique CT HEAD Indication: fall, dizziness and headache
priors sentReason: Dizziness/fall, / Spl. Instructions: / History: COMPARISON: None TECHNIQUE: 5 mm contiguous axial images were obtained from the skull base to the vertex in both bone and soft tissue algorithm. FINDINGS: No abnormal attenuation within the brain parenchyma. No evidence of acute intracranial hemorrhage. No extra-axial fluid collections. No mass effect or midline shift.][Ventricular size is appropriate. Basal cisterns are patent. No fractures identified. Globes and orbits are within normal limits. Paranasal sinuses and mastoid air cells are clear. IMPRESSION: No acute intracranial abnormality. PQRS STATEMENT One or more of the following individualized dose reduction techniques were utilized for this study: 1.Automated exposure control 2.Adjustment of the mA and/or kV according to patient size 3.Use of iterative reconstruction technique CT cervical spine Indication:fall, dizziness and headache
priors sent Reason: Dizziness/fall, / Spl. Instructions: / History: Comparison: None Technique: Multiple contiguous axial images were obtained through the cervical spine. Coronal and sagittal reformations were created. Findings: There is no cervical spine fracture. The occipital condyles articulate normally with the lateral masses of C1. The odontoid is intact. There is no cervical spine fracture. No perching of the facets. There is multilevel degenerative disc disease greatest at C5-C6. Visualized soft tissues of the neck demonstrates a possible fluid collection or mass in the right neck at approximately the level of the hyoid. This is incompletely imaged. Impression: - Negative for cervical spine fracture. - There is a possible fluid collection or mass in the right aspect of the neck but this is incompletely visualized. Recommend follow-up CT neck with contrast when clinically appropriate. Course & Med Decision Making Course & Med Decision Making Pertinent Labs and Imaging studies reviewed. (See chart for details) Patient with abdominal tenderness, and pulses diarrhea, also with fall and dizziness. Due to patient's risk for occult intracranial and cervical injury, CT of the head, and also CT of the neck obtained, did not reveal any evidence of abnormality. Patient's CT of the abdomen and pelvis revealed diffuse colitis , laboratory studies reveal a leukocytosis of 25. Patient has been antibiotics in the past month, prior to the development of this diarrhea. Findings as above discussed with Dr. Padilla of internal medicine, will cover patient for possible C. difficile colitis, and also with broad-spectrum coverage, will consult GI for additional evaluation, patient was accepted his service as a full admission to the medical telemetry floor. Patient was evaluated by Dr. Padilla in the emergency department. Patient was agreeable plan as stated, bridge orders entered per discussion, patient remained stable in the emergency department awaiting transport to the floor. Dragon Disclaimer Dragon Disclaimer This electronic medical record was generated, in whole or in part, using a voice recognition dictation system. Departure Impression: Primary Impression: Colitis Additional Impressions: Diarrhea Abdominal pain Disposition: 09 ADMITTED INPATIENT Admitting Physician: Radha Padilla Condition: IMPROVED Problem Qualifiers BHAVIK OROZCO DO September 07, 2016 18:44
[2016-09-07 18:46] LABS: CALCIUM 9.2 mg/dL (8.5-10.1); CREATININE 7.5 mg/dL (0.6-1.0); GFR 5.4; POTASSIUM 4.3 mmol/L (3.5-5.1)
[2016-09-07 18:52] LABS: ALBUMIN 2.3 g/dL (3.4-5.0); ALBUMIN/GLOBULIN RATIO 0.6 (1.0-1.7); TOTAL BILIRUBIN 0.5 mg/dL (0.2-1.0)
[2016-09-07 18:53] LABS: % EOS 1 % (0-5)
[2016-09-07 18:55] LABS: CRENATED RBC PRESENT; OVALOCYTES OCC; PLT ESTIMATE ADEQUATE (ADEQUATE); POLYCHROMASIA SLIGHT; SCHISTOCYTES OCC
--- NOTE | 2016-09-07 20:18 | RAD ---
PQRS STATEMENT One or more of the following individualized dose reduction techniques were utilized for this study: 1.Automated exposure control 2.Adjustment of the mA and/or kV according to patient size 3.Use of iterative reconstruction technique CT HEAD Indication: fall, dizziness and headache
priors sentReason: Dizziness/fall, / Spl. Instructions: / History: COMPARISON: None TECHNIQUE: 5 mm contiguous axial images were obtained from the skull base to the vertex in both bone and soft tissue algorithm. FINDINGS: No abnormal attenuation within the brain parenchyma. No evidence of acute intracranial hemorrhage. No extra-axial fluid collections. No mass effect or midline shift.][Ventricular size is appropriate. Basal cisterns are patent. No fractures identified. Globes and orbits are within normal limits. Paranasal sinuses and mastoid air cells are clear. IMPRESSION: No acute intracranial abnormality. PQRS STATEMENT One or more of the following individualized dose reduction techniques were utilized for this study: 1.Automated exposure control 2.Adjustment of the mA and/or kV according to patient size 3.Use of iterative reconstruction technique CT cervical spine Indication:fall, dizziness and headache
priors sent Reason: Dizziness/fall, / Spl. Instructions: / History: Comparison: None Technique: Multiple contiguous axial images were obtained through the cervical spine. Coronal and sagittal reformations were created. Findings: There is no cervical spine fracture. The occipital condyles articulate normally with the lateral masses of C1. The odontoid is intact. There is no cervical spine fracture. No perching of the facets. There is multilevel degenerative disc disease greatest at C5-C6. Visualized soft tissues of the neck demonstrates a possible fluid collection or mass in the right neck at approximately the level of the hyoid. This is incompletely imaged. Impression: - Negative for cervical spine fracture. - There is a possible fluid collection or mass in the right aspect of the neck but this is incompletely visualized. Recommend follow-up CT neck with contrast when clinically appropriate. Electronically signed by: Vinay Campbell (September 07, 2016 20:16:14)
--- NOTE | 2016-09-07 20:27 | RAD ---
PROCEDURE CT abdomen pelvis without contrast. HISTORY Extreme diarrhea with standing or moving, abdominal pain, fall, history multiple myeloma TECHNIQUE Noncontrast CT imaging was performed of the abdomen pelvis, multiplanar reconstruction images submitted. Exposure: One or more of the following individualized dose reduction techniques were utilized for this exam: 1. Automated exposure control. 2. Adjustment of the mA and/or kV according to patient size. 3. Use of iterative reconstruction technique. COMPARISON None FINDINGS There is mild likely fibrotic change of the visualized right middle lobe near the base. Accurate evaluation of the abdominal visceral organs is limited without intravenous contrast. There is no obvious focal abnormality of the liver or spleen, splenic granulomas present. There is a small quantity of free fluid in the spleen. Gallbladder is present with mild dependent hyperdensity present. There is no hydronephrosis of either kidney. There is likely exophytic cyst of the inferior left kidney up to 1.4 centimeters. There is also a small simple cyst of the mid right kidney. There is a hyperdense lesion arising from the mid right kidney up to 1.6 centimeters, density measurements greater than adjacent renal parenchyma. There is scattered atherosclerotic calcification of the abdominal aorta as well as iliac arteries. There is no significant adrenal nodularity. Evaluation of pancreas is limited, could be somewhat hypodense without obvious defined focal fluid collection. Accurate evaluation of bowel is limited without oral contrast. However there is fairly prominent diffuse wall thickening of the colon from the ascending to the sigmoid colon with adjacent hazy and strandy inflammatory type change most notable ascending through the descending colon. No abscess or free air is identified. There is a small quantity of dependent free fluid in the pelvis. Urinary bladder is distended. IMPRESSION 1. There is diffuse prominent wall thickening most notable ascending through descending colon although also some involvement of the sigmoid colon. There is adjacent inflammatory type change most notable ascending through descending colon, overall findings of colitis. There is a small quantity of free fluid in the abdomen and pelvis, no free air identified. 2. There is distention of the urinary bladder. 3. There are bilateral renal cysts, also likely a hemorrhagic or proteinaceous cyst of the right kidney although a solid lesion would be difficult to exclude by this exam. 4. There is nonspecific dependent density in the gallbladder. Electronically signed by: Cosmo Eli MD (September 07, 2016 20:25:46)
[2016-09-07] MEDS ORDERED: VANCOMYCIN 125 MG/2.5 ML ORAL SOLUTION. PO ONE (21:00)
[2016-09-07 22:50] LABS: BILIRUBIN,URINE NEGATIVE (NEG); GLUCOSE,URINE NEGATIVE (NEG); NITRITE,URINE NEGATIVE (NEG); PROTEIN,URINE 100 mg/dL (NEG-TRACE); UROBILINOGEN,URINE 0.2 mg/dL (0.2 mg/dL)
[2016-09-07 22:57] LABS: BARBITURATES NEG (NEG); BENZODIAZEPINES POS (NEG); CANNABINOIDS NEG (NEG); COCAINE NEG (NEG); METHADONE NEG (NEG); OPIATES POS (NEG); PHENCYCLIDINE NEG (NEG)
[2016-09-07] MEDS ORDERED: ONDANSETRON PF 4 MG/2 ML VIAL. IV PRN (23:00)
[2016-09-07] MEDS ORDERED: ACETAMINOPHEN 325 MG TABLET. PO PRN (23:00)
[2016-09-07] MEDS ORDERED: fentaNYL PF VIAL 100 MCG/2 ML VIAL IV PRN (23:00)
[2016-09-07 23:01] LABS: BACTERIA,URINE MODERATE /HPF (0-FEW); RBC,URINE 0 /HPF (0-2); WBC,URINE >40 /HPF (0-4)
[2016-09-08] VITALS (7 sets, daily range): BP systolic 89–111; BP diastolic 50–66
--- NOTE | 2016-09-08 00:09 | HP ---
ADMIT DATE: 09/07/2016 CHIEF COMPLAINT: Diarrhea. HISTORY OF PRESENT ILLNESS: The patient is a pleasant 66-year-old female, well known to our service. She is on dialysis now. She has some mild nausea, vomiting and severe diarrhea. She did receive some antibiotics recently. We suspect she has got C. diff. I have discussed the case with the ER physician. We are going to admit the patient with p.o. vancomycin and p.o. Flagyl and consult her catalyst operator. PAST MEDICAL HISTORY: End-stage renal disease on dialysis, diabetes, hypertension, hyperlipidemia. ALLERGIES: None. FAMILY HISTORY: Diabetes. SOCIAL HISTORY: She does not drink, smoke or take drugs. MEDICATIONS: Reviewed. REVIEW OF SYSTEMS: GENERAL: No history of weight change, weakness or fevers. SKIN: No bruising, hair changes or rashes. EYES: No blurred, double or loss of vision. NOSE AND THROAT: No history of nosebleeds, hoarseness or sore throat. HEART: No history of palpitations, chest pain or shortness of breath on exertion. LUNGS: Denies cough, hemoptysis, wheezing or shortness of breath. GASTROINTESTINAL: She complains of nausea and some severe diarrhea. GENITOURINARY: No history of frequency, urgency, hesitancy or nocturia. NEUROLOGIC: Denies history of numbness, tingling, tremor or weakness. PSYCHIATRIC: No history of panic, anxiety or depression. ENDOCRINE: No history of heat or cold intolerance, polyuria or polydipsia. EXTREMITIES: Denies muscle weakness, joint pain, pain on walking or stiffness. PHYSICAL EXAMINATION: VITAL SIGNS: Temperature afebrile, pulse 67, respirations 18, blood pressure 118/90. GENERAL: She is alert, cooperative. HEART: Normal S1, S2. LUNGS: Clear. ABDOMEN: Soft. Decreased bowel sounds, tender. EXTREMITIES: Trace edema. SKIN: No rashes. PSYCHIATRIC: She is stable. VASCULAR: Good capillary refill. ENDOCRINE: No thyromegaly. LYMPHATICS: No cervical nodes. HEMATOPOIETIC: No bruising. ASSESSMENT AND PLAN: Probable Clostridium difficile in an elderly female who has end-stage renal disease and received antibiotics for upper respiratory tract infection recently. We will start p.o. vancomycin, p.o. Flagyl. Consult her catalyst operator. Continue her home medicines, gentle IV fluids. ELLAL Vince GAMEZ DO DR: Frank JOB#: [id number] / [id number]
--- NOTE | 2016-09-08 01:00 | ACF ---
Admission Forms Criteria GASTROENTEROLOGY GRG Clinical Indications for Admission to Inpatient Care (Place 'X' for any and all applicable criteria): Hospital admission is needed for appropriate care of the patient because of ANY ONE of the following: [ ]I. Hemoperitoneum(7) [ ]II. Ascites requiring acute treatment indicated by ANY ONE of the following( 8)(9): [ ]a) Hemodynamic instability remaining after emergency or observation level care (as appropriate) [ ]b) Peritoneal signs present (eg, abdominal rigidity, rebound tenderness, absent bowel sounds) [ ]c) Tachypnea, Hypoxemia, or other respiratory symptoms remain after emergency or observation level care (as appropriate) [ ]d) Suspected infected ascites as indicated by ANY ONE of the following: [ ]i) Temperature greater than 100 degrees F (37.8 degrees C) [ ]ii) Abdominal pain or tenderness not relieved by paracentesis [ ]iii) Systemic signs of infection (eg, elevated WBC count, fever) [ ]iv) Ascitic fluid analysis consistent with infection ( eg, elevated WBC count): [ ]v) Vital sign abnormality [ ]III. Suspected acute intra-abdominal process indicated by ANY ONE of the following(1)(2)(3)(4)(5): [ ]a) Hemodynamic instability [ ]b) Peritoneal signs present (eg, abdominal rigidity, rebound tenderness, absent bowel sounds) [ ]c) Bowel obstruction suspected (eg, severe vomiting, abdominal distension) [ ]d) Suspected mesenteric ischemia or ischemic colitis(6) [ ]e) Other signs or symptoms of acute abdominal disease (eg, severe pain, free air): [ ]IV. Severe liver disease indicated by ANY ONE of the following(8)(9)(10)(11)( 12)(13)(14): [ ]a) Acute hepatitis (eg, transaminase level greater than 1000 IU/L) [ ]b) Acute elevation of prothrombin time to more than 50% above normal or INR greater than 1.5 [ ]c) Bilirubin greater than 20 mg/dL (342 micromoles/L) (15) [ ]d) New-onset or worsening hepatic encephalopathy [ ]e) Acute liver necrosis [ ]f) Vomiting or dehydration that is severe of persistent [ ]g) Hemodynamic instability due to liver disease [ ]h) Acute renal failure [ ]i) Hepatic abscess [ ]j) Dehydration that is severe or persistent [ ]k) Hepatic hydrothorax(21) [ ]l) Other indications of severe liver disease (eg, persistent fever , ingestion of hepatotoxin) [X]V. Severe diarrhea indicated by ANY ONE of the following(17)(18)(19)(20)(21)( 22)(23): [ ]a) High fever or other high-risk infection situation [ ]b) Intractable bloody diarrhea (eg, more than 6 bloody stools per day) [X]c) Suspected Clostridium difficile-associated diarrhea(24) [ ]d) Change in mental status that persists after emergency or observation level care (as appropriate) [ ]e) Severe dehydration (eg, greater than 9% loss of body weight in children) [ ]f) Inability to maintain hydration [ ]g) Peritoneal signs present (eg, abdominal rigidity, rebound tenderness, absent bowel sounds) [ ]h) Abdominal ischemia suspected(6) [ ]i) Hemodynamic instability that persists after emergency or observation level care (as appropriate) [ ]j) Severe electrolyte abnormalities requiring inpatient care [ ]k) Acute renal failure [ ]. Suspected toxic megacolon(5)(6) [ ]VII.Severe dysphagia indicated by ANY ONE of the following(25)(26): [ ]a) Suspected esophageal perforation or fistula(27) [ ]b) Suspected cause that requires inpatient care (eg, caustic ingestion, severe esophagitis) (28) [ ]c) Severe dehydration (eg, greater than 9% loss of body weight in children) [ ]d) Inability to manage secretions or maintain hydration [ ]e) Hemodynamic instability that persists after emergency or observation level care (as appropriate) [ ]f) Severe electrolyte abnormalities requiring inpatient care [ ]g) Acute renal failure [ ]VIII.Vomiting and ANY ONE of the following (29)(30)(31)(32): [ ]a) High fever or other high-risk infection situation [ ]b) Change in mental status that persists after emergency or observation level care (as appropriate) [ ]c) Severe dehydration (e.g., greater than 9% loss of body weight in children) [ ]d) Peritoneal signs present (e.g., abdominal rigidity, rebound tenderness, absent bowel sounds) [ ]e) Hemodynamic instability that persists after emergency or observation level care (as appropriate) [ ]f) Severe electrolyte abnormalities requiring inpatient care [ ]g) Acute renal failure [ ]h) Bowel obstruction suspected (e.g., severe vomiting, abdominal distension) [ ]i) Vomiting that is severe or persistent after medical treatment [ ]IX. Significant dehydration indicated by ANY ONE of the following(23)(24)(25) [ ]a) Clinical findings of severe dehydration indicated by ANY ONE of the following: [ ]i) Acute loss of weight from baseline (5% of body weight in adults, 9% in pediatric patients) [ ]ii) Hemodynamic instability [ ]iii) Acute renal failure [ ]iv) Serum sodium greater than 150 mEq/L (mmol/L) [ ]b) Dehydration that is persistent indicated by ALL of the following: [ ]i) Oral rehydration therapy not tolerated or insufficient to adequately correct dehydration [ ]ii) Appropriate intravenous treatment (eg, fluids) does not readily correct dehydration hours of (ie, after 12 to 24 of treatment) [ ]X. Gastroparesis and ANY ONE of the following(37)(38)(39): [ ]a) Dehydration that is severe or persistent [ ]b) Severe electrolyte abnormalities requiring inpatient care [ ]c) Acute renal failure [ ]d) Vomiting that is severe or persistent [ ]XI. Complications of transplanted liver indicated by ANY ONE of the following (40)(41): [ ]a) Acute graft rejection requiring inpatient management (eg, intravenous immunosuppression)(42) [ ]b) Failure of transplanted liver as indicated by ANY ONE of the following: [ ]i) Acute hepatitis (eg, transaminase level greater than 1000 International Units per liter (IU/L)) [ ]ii) Acute elevation of prothrombin time to more than 50% above baseline or INR greater than 1.5 [ ]iii) Bilirubin greater than 20 mg/dL (342 micromoles/L) [ ]iv) New-onset or worsening hepatic encephalopathy [ ]v) Acute elevation of serum ammonia level (eg, greater than 210 mcg/dL (150 micromoles/L)) [ ]vi) Acute liver necrosis [ ]c) Infection requiring inpatient management (eg, Hemodynamic instability, need for intravenous antimicrobial treatment)(43)(44)(45)(46)(47)(48)(49)(50) [ ]d) Other complication of transplanted liver (eg, thrombosis, autoimmune hepatitis, variceal bleeding) requiring inpatient management(51)(52) [ ]XII Complications of transplanted pancreas indicated by ANY ONE of the following(53): [ ]a) Acute graft rejection requiring inpatient management (eg, intravenous immunosuppression)(42)(54) [ ]b) Failure of transplanted pancreas as indicated by ANY ONE of the following: [ ]i) Serum amylase greater than 3 times the upper limit of normal or baseline [ ]ii) Serum lipase greater than 3 times the upper limit of normal or baseline [ ]iii) Imaging findings consistent with pancreatic inflammation or necrosis [ ]c) Infection requiring inpatient management (eg, Hemodynamic instability, need for intravenous antimicrobial treatment)(43)(44)(45)(46)(47)(48)(49)(50) [ ]d) Other complication of transplanted liver (eg, thrombosis, autoimmune hepatitis, variceal bleeding) requiring inpatient management(51)(52) [ ]X. Gastroenterology condition and ALL of the following: [ ]a) Symptom or finding for which emergency and observation care have failed or are not considered appropriate (Also use General Criteria: Observation Care as appropriate) [ ]b) Presence of ANY ONE of the following: [ ]i) A General Admission Criteria [ ]ii) A Pediatric General Admission Criteria. The original [facility] [employer] content created by [facility] has been revised. The portions of the content which have been revised are identified through the use of italic text or in bold,and [facility] has neither reviewed nor approved the modified material. All other unmodified content is copyright [facility]. Please see references footnoted in the original [facility] edition 2016 Admission Criteria Met?: Yes ALICE ACOSTA September 08, 2016 01:00
[2016-09-08] MEDS ORDERED: MIRT45TA3 PO (02:18)
[2016-09-08] MEDS ORDERED: ALPRAZolam 1 MG TABLET PO PRN (03:15)
[2016-09-08] MEDS ORDERED: DICYCLOMINE HCL 10 MG CAPSULE PO PRN (03:15)
[2016-09-08 05:08] LABS: BASO # 0.1 x10^3/uL (0.0-0.2); BASO % 0 % (0-3); EOS % 0 % (0-3); HEMATOCRIT 34.1 % (36.0-47.0); LYMPH # 0.5 x10^3/uL (1.0-4.8); LYMPH % 2 % (24-48); MEAN CORPUSCULAR HEMOGLOBIN 33 pg (25-35); MEAN CORPUSCULAR HGB CONC 32 g/dL (31-37); MEAN CORPUSCULAR VOLUME 101 fL (79-100); MONO % 12 % (0-9); NEUT % 85 % (31-73); PLATELET COUNT 218 x10^3/uL (140-400); RED BLOOD COUNT 3.37 x10^6/uL (3.50-5.40); RED CELL DISTRIBUTION WIDTH 16.3 % (11.5-14.5); WHITE BLOOD COUNT 25.5 x10^3/uL (4.0-11.0)
[2016-09-08 05:34] LABS: CALCIUM 8.3 mg/dL (8.5-10.1); CREATININE 7.9 mg/dL (0.6-1.0); GFR 5.1; POTASSIUM 4.3 mmol/L (3.5-5.1)
--- NOTE | 2016-09-08 06:25 | EKG ---
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
--- NOTE | 2016-09-08 09:14 | PDOC2 ---
GI CONSULT Reason For Consult: Colitis HPI: HPI: 66 y/o female evaluated in the ER for malaise, dizziness, and diarrhea. A rather poor historian, she relates that she has always had a little diarrhea ( about 2 loose stools daily) which has been much worse since Wednesday or Wednesday. She has even had to wear a diaper due to incontinence issues. She denies precipitating events, although she has had a h/o sore throat and "a cold" and it seems has taken multiple rounds of antibiotics for this. Additionally, she apparently had a biopsy of a mass on her tongue 3-4 days ago at [facility] and was told it was likely malignant. Has some lower abd cramping. Also has h/o heartburn and generally takes Tums TID. No previous EGD or colonoscopy. Denies n/v, hematochezia, melena. Estimates a 5-10 pound weight loss recently despite unchanged appetite. CT A/P showed colitis and C Diff is pending. She has been given vancomycin, Flagyl, and Rocephin. PMH: PMH: HTN, HLD, CHF, COPD, DVT, ESRD on HD MWF, multiple myeloma s/p stem cell transplant, herpes zoster, hysterectomy FH: Family History: No pertinent hx (denies GI cancers) Social History: Smoke: Quit ALCOHOL: none Drugs: None ROS: GEN: Denies fevers, chills, sweats HEENT: +sore throat CV: Denies chest pain RESP: +shortness of air +cough GI: Per HPI : Denies hematuria, dysuria ENDO: +weight loss NEURO: +dizziness MSK: +weakness SKIN: Denies jaundice, pruritus VItals: Vitals: Vital Signs Date Time Temp Pulse Resp B/P Pulse Ox O2 Delivery O2 Flow Rate FiO2 09/08/16 08:41 Room Air 09/08/16 07:30 97.7 78 14 99/50 95 97.7 Labs: Labs: Laboratory Tests Test 09/07/16 17:55 09/07/16 22:44 09/08/16 04:30 White Blood Count 25.9x10^3/uL (4.0-11.0) 25.5x10^3/uL (4.0-11.0) Red Blood Count 3.66x10^6/uL (3.50-5.40) 3.37x10^6/uL (3.50-5.40) Hemoglobin 11.9g/dL (12.0-15.5) 11.0g/dL (12.0-15.5) Hematocrit 37.4% (36.0-47.0) 34.1% (36.0-47.0) Mean Corpuscular Volume 102fL (79-100) 101fL (79-100) Mean Corpuscular Hemoglobin 32pg (25-35) 33pg (25-35) Mean Corpuscular Hemoglobin Concent 32g/dL (31-37) 32g/dL (31-37) Red Cell Distribution Width 15.8% (11.5-14.5) 16.3% (11.5-14.5) Platelet Count 231x10^3/uL (140-400) 218x10^3/uL (140-400) Neutrophils (%) (Auto) 85% (31-73) 85% (31-73) Lymphocytes (%) (Auto) 2% (24-48) 2% (24-48) Monocytes (%) (Auto) 13% (0-9) 12% (0-9) Eosinophils (%) (Auto) 0% (0-3) 0% (0-3) Basophils (%) (Auto) 0% (0-3) 0% (0-3) Neutrophils # (Auto) 22.1x10^3uL (1.8-7.7) 21.8x10^3uL (1.8-7.7) Lymphocytes # (Auto) 0.4x10^3/uL (1.0-4.8) 0.5x10^3/uL (1.0-4.8) Monocytes # (Auto) 3.3x10^3/uL (0.0-1.1) 3.1x10^3/uL (0.0-1.1) Eosinophils # (Auto) 0.0x10^3/uL (0.0-0.7) 0.0x10^3/uL (0.0-0.7) Basophils # (Auto) 0.1x10^3/uL (0.0-0.2) 0.1x10^3/uL (0.0-0.2) Segmented Neutrophils % 90% (35-66) Band Neutrophils % 1% (0-9) Lymphocytes % 1% (24-48) Monocytes % 7% (0-10) Eosinophils % 1% (0-5) Platelet Estimate Adequate (ADEQUATE) Polychromasia Slight Ovalocytes Occ Crenated Cell Present Schistocytes Occ Sodium Level 132mmol/L (136-145) 131mmol/L (136-145) Potassium Level 4.3mmol/L (3.5-5.1) 4.3mmol/L (3.5-5.1) Chloride Level 95mmol/L (98-107) 97mmol/L (98-107) Carbon Dioxide Level 24mmol/L (21-32) 21mmol/L (21-32) Anion Gap 13 (6-14) 13 (6-14) Blood Urea Nitrogen 58mg/dL (7-20) 67mg/dL (7-20) Creatinine 7.5mg/dL (0.6-1.0) 7.9mg/dL (0.6-1.0) Estimated GFR (Cockcroft-Gault) 5.4 5.1 BUN/Creatinine Ratio 8 (6-20) Glucose Level 115mg/dL (70-99) 109mg/dL (70-99) Calcium Level 9.2mg/dL (8.5-10.1) 8.3mg/dL (8.5-10.1) Total Bilirubin 0.5mg/dL (0.2-1.0) Aspartate Amino Transf (AST/SGOT) 12U/L (15-37) Alanine Aminotransferase (ALT/SGPT) 17U/L (14-59) Alkaline Phosphatase 84U/L (46-116) Total Protein 6.0g/dL (6.4-8.2) Albumin 2.3g/dL (3.4-5.0) Albumin/Globulin Ratio 0.6 (1.0-1.7) Lipase 45U/L (73-393) Urine Collection Type Unknown Urine Color Yellow Urine Clarity Clear Urine pH 6.0 Urine Specific [place] 1.015 Urine Protein 100mg/dL (NEG-TRACE) Urine Glucose (UA) Negativemg/dL (NEG) Urine Ketones (Stick) Negativemg/dL (NEG) Urine Blood Negative (NEG) Urine Nitrite Negative (NEG) Urine Bilirubin Negative (NEG) Urine Urobilinogen Dipstick 0.2mg/dL (0.2 mg/dL) Urine Leukocyte Esterase Moderate (NEG) Urine RBC 0/HPF (0-2) Urine WBC >40/HPF (0-4) Urine Bacteria Moderate/HPF (0-FEW) Urine Mucus Mod/LPF Urine Opiates Screen Pos (NEG) Urine Methadone Screen Neg (NEG) Urine Barbiturates Neg (NEG) Urine Phencyclidine Screen Neg (NEG) Urine Amphetamine/Methamphetamine Neg (NEG) Urine Benzodiazepines Screen Pos (NEG) Urine Cocaine Screen Neg (NEG) Urine Cannabinoids Screen Neg (NEG) Urine Ethyl Alcohol Neg (NEG) Allergies: Coded Allergies: No Known Drug Allergies (Unverified , 01/17/16) Medications: Current Medications Medications (Trade) Dose Ordered Sig/Seth Route PRN Reason Start Time Stop Time Status Last Admin Dose Admin Vancomycin HCl 125 mg 125 mg 1X ONCE PO 09/07/16 21:00 09/07/16 21:01 DC 09/07/16 20:58 Ceftriaxone Sodium 50 ml @ 100 mls/hr 1X ONCE IV 09/07/16 21:00 09/07/16 21:29 DC 09/07/16 20:58 Metronidazole 100 ml @ 100 mls/hr 1X ONCE IV 09/07/16 21:00 09/07/16 21:59 DC 09/07/16 21:40 Metronidazole (FLAGYL 500Mmg PREMIX) 100 ml @ 100 mls/hr Q8HRS IV 09/08/16 06:00 09/08/16 06:32 Ondansetron HCl (Zofran) 4 mg PRN Q8HRS PRN IV NAUSEA/VOMITING 09/07/16 23:00 09/08/16 22:59 09/08/16 00:02 Fentanyl Citrate (Fentanyl 2ml Vial) 50 mcg PRN Q2HR PRN IV SEVERE PAIN 09/07/16 23:00 09/08/16 22:59 09/08/16 00:01 Alprazolam (Xanax) 1 mg PRN Q6HRS PRN PO ANXIETY / AGITATION 09/08/16 03:15 09/08/16 03:29 Dicyclomine HCl (Bentyl) 10 mg PRN QID PRN PO GI SYMPTOMS 09/08/16 03:15 09/08/16 03:29 Imaging: Imaging: Head, C spine CT 09/07/16 IMPRESSION: No acute intracranial abnormality. Impression: - Negative for cervical spine fracture. - There is a possible fluid collection or mass in the right aspect of the neck but this is incompletely visualized. Recommend follow-up CT neck with contrast when clinically appropriate. CT A/P w/o contrast 09/07/16 IMPRESSION 1. There is diffuse prominent wall thickening most notable ascending through descending colon although also some involvement of the sigmoid colon. There is adjacent inflammatory type change most notable ascending through descending colon, overall findings of colitis. There is a small quantity of free fluid in the abdomen and pelvis, no free air identified. 2. There is distention of the urinary bladder. 3. There are bilateral renal cysts, also likely a hemorrhagic or proteinaceous cyst of the right kidney although a solid lesion would be difficult to exclude by this exam. 4. There is nonspecific dependent density in the gallbladder. PE: GEN: NAD, sitting on edge of bed eating breakfast HEENT: Atraumatic, PERRL LUNGS: decreased, wet cough HEART: RRR ABD: NABS, S/ND, BLQ/suprapubic discomfort EXTREMITY: No edema SKIN: No rashes, no jaundice NEURO/PSYCH: A & O 3 A/P: A/P: Diarrhea, colitis, lower abd discomfort, leukocytosis -onset over the weekend, has taken a few rounds of antibiotics for sore throat -CT as above, C Diff pending -has been give Flagyl and vanco here for suspected C Diff Heartburn -takes Tums TID, no previous EGD ?tongue mass -reports recent biopsy at [facility], was told likely malignant -per primary CRC screen -no previous colonoscopy -- Would continue PO vanco, await C Diff. Note also on Rocephin for UTI. Will add PPI for heartburn. Other per Dr. Spence. MOMO TOVAR September 08, 2016 09:14
[2016-09-08] MEDS: VANCOMYCIN 125 MG/2.5 ML ORAL SOLUTION. PO SCH ×4 (09:36→21:00)
[2016-09-08] MEDS ORDERED: MAGNESIUM SULFATE 2GM 50 ML IV PRN (10:00)
--- NOTE | 2016-09-08 10:04 | PDOC2 ---
CONSULT Date of Consult Date of Consult DATE: 09/08/16 TIME: 09:53 Reason for Consult Reason for Consult: ESRD Referring Physician Referring Physician: Dr Padilla Identification/Chief Complaint Chief Complaint NVD and Throat tumor Problems: Source Source: Chart review, Patient History of Present Illness Reason for Visit: as dictated Past Medical History Cardiovascular: HTN Pulmonary: COPD GI: No pertinent hx, Constipation Heme/Onc: Anemia NOS, Cancer, Other Hepatobiliary: No pertinent hx Psych: Anxiety Rheumatologic: No pertinent hx Infectious disease: No pertinent hx Renal/: Chronic renal failure Endocrine: No pertinent hx, Hyperparathyroidism Past Surgical History Past Surgical History: Hysterectomy, Other Family History Family History: Diabetes, Hypertension Social History Quit ALCOHOL: none Drugs: None Lives: with Family Current Problem List Problem List Problems Medical Problems: (1) Abdominal pain Status: Acute (2) Colitis Status: Acute (3) Diarrhea Status: Acute Current Medications Current Medications Current Medications Iohexol (Omnipaque 300 Mg/ml) 60 ml 1X ONCE IV ; Start 09/07/16 at 18:30; Stop 09/07/16 at 18:31; Status DC Info (Do NOT chart on this entry -- for MONITORING) 1 each PRN DAILY PRN MC SEE COMMENTS; Start 09/07/16 at 18:30; Stop 09/09/16 at 18:29 Vancomycin HCl 125 mg [id number] PO Last administered on 09/08/16 09:36; Admin Dose 125 MG; Start 09/08/16 at 09:00 Vancomycin HCl 125 mg 125 mg 1X ONCE PO Last administered on 09/07/16 20:58; Admin Dose 125 MG; Start 09/07/16 at 21:00; Stop 09/07/16 at 21:01; Status DC Ceftriaxone Sodium 50 ml @ 100 mls/hr 1X ONCE IV Last administered on 20:58; Admin Dose 100 MLS/HR; Start 09/07/16 at 21:00; Stop 09/07/16 at 21:29 ; Status DC Ceftriaxone Sodium 1 gm/ Sodium Chloride 50 ml @ 100 mls/hr Q24H IV ; Start 09/08/16 at 21:00 Metronidazole 100 ml @ 100 mls/hr 1X ONCE IV Last administered on 09/07/16 21 :40; Admin Dose 100 MLS/HR; Start 09/07/16 at 21:00; Stop 09/07/16 at 21:59; Status DC Metronidazole (FLAGYL 500Mmg PREMIX) 100 ml @ 100 mls/hr Q8HRS IV Last administered on 09/08/16 06:32; Admin Dose 100 MLS/HR; Start 09/08/16 at 06:00; Stop 09/08/16 at 09:01; Status DC Ondansetron HCl (Zofran) 4 mg PRN Q8HRS PRN IV NAUSEA/VOMITING Last administered on 09/08/16 00:02; Admin Dose 4 MG; Start 09/07/16 at 23:00; Stop at 22:59 Fentanyl Citrate (Fentanyl 2ml Vial) 50 mcg PRN Q2HR PRN IV SEVERE PAIN Last administered on 09/08/16 00:01; Admin Dose 50 MCG; Start 09/07/16 at 23:00; Stop 09/08/16 at 22:59 Acetaminophen (Tylenol) 650 mg PRN Q4HRS PRN PO FEVER; Start 09/07/16 at 23:00; Stop 09/08/16 at 22:59 Alprazolam (Xanax) 1 mg PRN Q6HRS PRN PO ANXIETY / AGITATION Last administered on 09/08/16 03:29; Admin Dose 1 MG; Start 09/08/16 at 03:15 Dicyclomine HCl (Bentyl) 10 mg PRN QID PRN PO GI SYMPTOMS Last administered on 09/08/16 03:29; Admin Dose 10 MG; Start 09/08/16 at 03:15 Active Scripts Active Prednisone 20 Mg Tablet 40 Mg PO DAILY Doxycycline Hyclate 100 Mg Tablet 100 Mg PO BID Reported Mirtazapine 45 Mg Tablet 45 Mg PO HS Amiodarone Hcl 200 Mg Tablet 1 Tab PO DAILY Warfarin Sodium 2 Mg Tablet 2 Mg PO DAILY16 Acyclovir 200 Mg Capsule 200 Mg PO BID Magnesium Oxide 400 Mg Tablet 800 Mg PO BID Alprazolam 1 Mg Tablet 1 Mg PO PRN Q6HRS PRN Hydrocodone-Apap 7.5-325 (Hydrocodone Bit/Acetaminophen) 1 Each Tablet 1 Tab PO PRN Q6HRS PRN Advair 100-50 Diskus (Fluticasone/Salmeterol) 1 Each Disk.w.dev 1 Inh IH BID Vitron-C Tablet (Iron,Carbonyl/Ascorbic Acid) 1 Each Tablet.dr 1 Each PO DAILY Fish Oil 1,000 Mg Softgel ([place]-3 Fatty Acids/Fish Oil) 1 Each Capsule 1 Each PO DAILY Vitamin D-3 (Cholecalciferol (Vitamin D3)) 2,000 Unit Capsule 2,000 Unit PO DAILY Vitamin B Complex 1 Each Tablet 1 Each PO DAILY Multivitamins (Multivitamin) 1 Each Tablet 1 Tab PO DAILY Montelukast Sodium Tablet (Montelukast Sodium) 10 Mg Tablet 1 Tab PO DAILY Calcitriol 0.25 Mcg Capsule 1 Cap PO 3X/WEEK Revlimid (Lenalidomide) 5 Mg Capsule 5 Mg PO 3X/WEEK Methocarbamol 750 Mg Tablet 750 Mg PO PRN Spiriva (Tiotropium [place]) 18 Mcg Cap.w.dev 18 Mcg IH DAILY08 Allergies Allergies: Coded Allergies: No Known Drug Allergies (Unverified , 01/17/16) ROS Review of System GEN: no Fevers no Chills EYES: no new Visual Complaints ENT: no EN Drainage no Hearing deficiets Hoarseness CVS: no Orthopnea no CP RESP: no SOB no LOVELACE GI: + Nausea + Vomiting + Diarrhea : no Dysuria no Urgency HEME: no easy bruising no Palp Ly Nodes NEURO no Focal Weakness no Sz PSYCH: no Suicidal Ideation no Depression SKIN: no Rashes ENDO: no Polyuria or Polydipsia no Hot/Cold Intolerance MU SK: ch Arthraigia no Myalgia Physical Exam Physical Exam General Appearance: Awake Alert Oriented x 3 In no Distress Eyes: VIsion Unchanged Conjunctiva Normal EN: No EN Drainage Mucous Memb. moist Neck: no JVD min JVP Supple no Thyromegaly CVS: S1 S2 soft Murmur No Gallop No Rub no Edema Resp: no Rales no Rhonchi no Acc. Muscle use GI: BAS +ve NO Bruit Non Tender Non Distended : no CVA tenderness; no Suprapubic Tenderness SKIN: no Rashes Breast Exam deferred Mu.Sk: Adequate ROM min Muscle Atrophy Heme: Unable to palpate Obvious LAD no palp Splenomegaly NEURO: Good Strength and Tone Cranial Nerves II - XII grossly intact Psych: somewhat Depressed no Active hallucination Vital Signs Vital Signs Date Time Temp Pulse Resp B/P Pulse Ox O2 Delivery O2 Flow Rate FiO2 09/08/16 08:41 Room Air 09/08/16 07:30 97.7 78 14 99/50 95 97.7 Assessment & Plan ESRD: Current FLuid and E-lyte status does not necessitate emergent need for Dialysis. Will re-evaluate for Dialysis in am and continue on MWF schedule. Vol dpeltion - IVF if needed Marginal Na - IV NS x 1 , ? due to Poor PO intake and NVD/ Vol depeltion Anemia: no Epogen for hgb > 10 for now; Transfuse with next HD as needed. HTN: Current BP meds reviewed. See orders for changes. ? NEck Mass/ Tumor - OK to Use IVC if needed - Next HD in am hypAlbuminemia - POOR PO intake as reported by pt . Discussed Plan of Care and prognosis etc. at length with family. Labs Labs Laboratory Tests Test 09/07/16 17:55 09/07/16 22:44 09/08/16 04:30 White Blood Count 25.9x10^3/uL (4.0-11.0) 25.5x10^3/uL (4.0-11.0) Red Blood Count 3.66x10^6/uL (3.50-5.40) 3.37x10^6/uL (3.50-5.40) Hemoglobin 11.9g/dL (12.0-15.5) 11.0g/dL (12.0-15.5) Hematocrit 37.4% (36.0-47.0) 34.1% (36.0-47.0) Mean Corpuscular Volume 102fL (79-100) 101fL (79-100) Mean Corpuscular Hemoglobin 32pg (25-35) 33pg (25-35) Mean Corpuscular Hemoglobin Concent 32g/dL (31-37) 32g/dL (31-37) Red Cell Distribution Width 15.8% (11.5-14.5) 16.3% (11.5-14.5) Platelet Count 231x10^3/uL (140-400) 218x10^3/uL (140-400) Neutrophils (%) (Auto) 85% (31-73) 85% (31-73) Lymphocytes (%) (Auto) 2% (24-48) 2% (24-48) Monocytes (%) (Auto) 13% (0-9) 12% (0-9) Eosinophils (%) (Auto) 0% (0-3) 0% (0-3) Basophils (%) (Auto) 0% (0-3) 0% (0-3) Neutrophils # (Auto) 22.1x10^3uL (1.8-7.7) 21.8x10^3uL (1.8-7.7) Lymphocytes # (Auto) 0.4x10^3/uL (1.0-4.8) 0.5x10^3/uL (1.0-4.8) Monocytes # (Auto) 3.3x10^3/uL (0.0-1.1) 3.1x10^3/uL (0.0-1.1) Eosinophils # (Auto) 0.0x10^3/uL (0.0-0.7) 0.0x10^3/uL (0.0-0.7) Basophils # (Auto) 0.1x10^3/uL (0.0-0.2) 0.1x10^3/uL (0.0-0.2) Segmented Neutrophils % 90% (35-66) Band Neutrophils % 1% (0-9) Lymphocytes % 1% (24-48) Monocytes % 7% (0-10) Eosinophils % 1% (0-5) Platelet Estimate Adequate (ADEQUATE) Polychromasia Slight Ovalocytes Occ Crenated Cell Present Schistocytes Occ Sodium Level 132mmol/L (136-145) 131mmol/L (136-145) Potassium Level 4.3mmol/L (3.5-5.1) 4.3mmol/L (3.5-5.1) Chloride Level 95mmol/L (98-107) 97mmol/L (98-107) Carbon Dioxide Level 24mmol/L (21-32) 21mmol/L (21-32) Anion Gap 13 (6-14) 13 (6-14) Blood Urea Nitrogen 58mg/dL (7-20) 67mg/dL (7-20) Creatinine 7.5mg/dL (0.6-1.0) 7.9mg/dL (0.6-1.0) Estimated GFR (Cockcroft-Gault) 5.4 5.1 BUN/Creatinine Ratio 8 (6-20) Glucose Level 115mg/dL (70-99) 109mg/dL (70-99) Calcium Level 9.2mg/dL (8.5-10.1) 8.3mg/dL (8.5-10.1) Total Bilirubin 0.5mg/dL (0.2-1.0) Aspartate Amino Transf (AST/SGOT) 12U/L (15-37) Alanine Aminotransferase (ALT/SGPT) 17U/L (14-59) Alkaline Phosphatase 84U/L (46-116) Total Protein 6.0g/dL (6.4-8.2) Albumin 2.3g/dL (3.4-5.0) Albumin/Globulin Ratio 0.6 (1.0-1.7) Lipase 45U/L (73-393) Urine Collection Type Unknown Urine Color Yellow Urine Clarity Clear Urine pH 6.0 Urine Specific [place] 1.015 Urine Protein 100mg/dL (NEG-TRACE) Urine Glucose (UA) Negativemg/dL (NEG) Urine Ketones (Stick) Negativemg/dL (NEG) Urine Blood Negative (NEG) Urine Nitrite Negative (NEG) Urine Bilirubin Negative (NEG) Urine Urobilinogen Dipstick 0.2mg/dL (0.2 mg/dL) Urine Leukocyte Esterase Moderate (NEG) Urine RBC 0/HPF (0-2) Urine WBC >40/HPF (0-4) Urine Bacteria Moderate/HPF (0-FEW) Urine Mucus Mod/LPF Urine Opiates Screen Pos (NEG) Urine Methadone Screen Neg (NEG) Urine Barbiturates Neg (NEG) Urine Phencyclidine Screen Neg (NEG) Urine Amphetamine/Methamphetamine Neg (NEG) Urine Benzodiazepines Screen Pos (NEG) Urine Cocaine Screen Neg (NEG) Urine Cannabinoids Screen Neg (NEG) Urine Ethyl Alcohol Neg (NEG) Laboratory Tests Test 09/07/16 17:55 09/07/16 22:44 09/08/16 04:30 White Blood Count 25.9x10^3/uL (4.0-11.0) 25.5x10^3/uL (4.0-11.0) Red Blood Count 3.66x10^6/uL (3.50-5.40) 3.37x10^6/uL (3.50-5.40) Hemoglobin 11.9g/dL (12.0-15.5) 11.0g/dL (12.0-15.5) Hematocrit 37.4% (36.0-47.0) 34.1% (36.0-47.0) Mean Corpuscular Volume 102fL (79-100) 101fL (79-100) Mean Corpuscular Hemoglobin 32pg (25-35) 33pg (25-35) Mean Corpuscular Hemoglobin Concent 32g/dL (31-37) 32g/dL (31-37) Red Cell Distribution Width 15.8% (11.5-14.5) 16.3% (11.5-14.5) Platelet Count 231x10^3/uL (140-400) 218x10^3/uL (140-400) Neutrophils (%) (Auto) 85% (31-73) 85% (31-73) Lymphocytes (%) (Auto) 2% (24-48) 2% (24-48) Monocytes (%) (Auto) 13% (0-9) 12% (0-9) Eosinophils (%) (Auto) 0% (0-3) 0% (0-3) Basophils (%) (Auto) 0% (0-3) 0% (0-3) Neutrophils # (Auto) 22.1x10^3uL (1.8-7.7) 21.8x10^3uL (1.8-7.7) Lymphocytes # (Auto) 0.4x10^3/uL (1.0-4.8) 0.5x10^3/uL (1.0-4.8) Monocytes # (Auto) 3.3x10^3/uL (0.0-1.1) 3.1x10^3/uL (0.0-1.1) Eosinophils # (Auto) 0.0x10^3/uL (0.0-0.7) 0.0x10^3/uL (0.0-0.7) Basophils # (Auto) 0.1x10^3/uL (0.0-0.2) 0.1x10^3/uL (0.0-0.2) Segmented Neutrophils % 90% (35-66) Band Neutrophils % 1% (0-9) Lymphocytes % 1% (24-48) Monocytes % 7% (0-10) Eosinophils % 1% (0-5) Platelet Estimate Adequate (ADEQUATE) Polychromasia Slight Ovalocytes Occ Crenated Cell Present Schistocytes Occ Sodium Level 132mmol/L (136-145) 131mmol/L (136-145) Potassium Level 4.3mmol/L (3.5-5.1) 4.3mmol/L (3.5-5.1) Chloride Level 95mmol/L (98-107) 97mmol/L (98-107) Carbon Dioxide Level 24mmol/L (21-32) 21mmol/L (21-32) Anion Gap 13 (6-14) 13 (6-14) Blood Urea Nitrogen 58mg/dL (7-20) 67mg/dL (7-20) Creatinine 7.5mg/dL (0.6-1.0) 7.9mg/dL (0.6-1.0) Estimated GFR (Cockcroft-Gault) 5.4 5.1 BUN/Creatinine Ratio 8 (6-20) Glucose Level 115mg/dL (70-99) 109mg/dL (70-99) Calcium Level 9.2mg/dL (8.5-10.1) 8.3mg/dL (8.5-10.1) Total Bilirubin 0.5mg/dL (0.2-1.0) Aspartate Amino Transf (AST/SGOT) 12U/L (15-37) Alanine Aminotransferase (ALT/SGPT) 17U/L (14-59) Alkaline Phosphatase 84U/L (46-116) Total Protein 6.0g/dL (6.4-8.2) Albumin 2.3g/dL (3.4-5.0) Albumin/Globulin Ratio 0.6 (1.0-1.7) Lipase 45U/L (73-393) Urine Collection Type Unknown Urine Color Yellow Urine Clarity Clear Urine pH 6.0 Urine Specific [place] 1.015 Urine Protein 100mg/dL (NEG-TRACE) Urine Glucose (UA) Negativemg/dL (NEG) Urine Ketones (Stick) Negativemg/dL (NEG) Urine Blood Negative (NEG) Urine Nitrite Negative (NEG) Urine Bilirubin Negative (NEG) Urine Urobilinogen Dipstick 0.2mg/dL (0.2 mg/dL) Urine Leukocyte Esterase Moderate (NEG) Urine RBC 0/HPF (0-2) Urine WBC >40/HPF (0-4) Urine Bacteria Moderate/HPF (0-FEW) Urine Mucus Mod/LPF Urine Opiates Screen Pos (NEG) Urine Methadone Screen Neg (NEG) Urine Barbiturates Neg (NEG) Urine Phencyclidine Screen Neg (NEG) Urine Amphetamine/Methamphetamine Neg (NEG) Urine Benzodiazepines Screen Pos (NEG) Urine Cocaine Screen Neg (NEG) Urine Cannabinoids Screen Neg (NEG) Urine Ethyl Alcohol Neg (NEG) Images Images 1. There is diffuse prominent wall thickening most notable ascending through descending colon although also some involvement of the sigmoid colon. There is adjacent inflammatory type change most notable ascending through descending colon, overall findings of colitis. There is a small quantity of free fluid in the abdomen and pelvis, no free air identified. 2. There is distention of the urinary bladder. 3. There are bilateral renal cysts, also likely a hemorrhagic or proteinaceous cyst of the right kidney although a solid lesion would be difficult to exclude by this exam. 4. There is nonspecific dependent density in the gallbladder. Impression: - Negative for cervical spine fracture. - There is a possible fluid collection or mass in the right aspect of the neck but this is incompletely visualized. Recommend follow-up CT neck with contrast when clinically appropriate. EJ CARROLL MD September 08, 2016 10:04
[2016-09-08] MEDS ORDERED: IV NORMAL SALINE 500ML BAG 500 ML IV PRN (10:15)
[2016-09-08] MEDS ORDERED: IV NORMAL SALINE 1000ML BAG 1,000 ML IV SCH (10:15)
--- NOTE | 2016-09-08 12:49 | PDOC ---
PROGRESS NOTES Chief Complaint Chief Complaint 1. Diarrhea/Colitis 2. End-stage renal disease on dialysis 3. Diabetes 4. Hypertension 5. Hyperlipidemia History of Present Illness History of Present Illness Patient stable and in no distress. Continues to have diarrhea. Patient mentioned today she will have dialysis. Educated patient on possible C. Diff causing colitis. Vitals Vitals Vital Signs Date Time Temp Pulse Resp B/P Pulse Ox O2 Delivery O2 Flow Rate FiO2 09/08/16 10:43 72 16 90/51 94 Room Air 09/08/16 07:30 97.7 97.7 Physical Exam General: Alert, Oriented X3, Cooperative Heart: Regular rate, Normal S1, Normal S2 Lungs: Clear, Other Abdomen: No hepatosplenomegaly, No masses Extremities: No clubbing, No cyanosis Skin: No breakdown, No significant lesion Labs LABS Laboratory Tests Test 09/07/16 17:55 09/07/16 22:44 09/08/16 04:30 White Blood Count 25.9x10^3/uL (4.0-11.0) 25.5x10^3/uL (4.0-11.0) Red Blood Count 3.66x10^6/uL (3.50-5.40) 3.37x10^6/uL (3.50-5.40) Hemoglobin 11.9g/dL (12.0-15.5) 11.0g/dL (12.0-15.5) Hematocrit 37.4% (36.0-47.0) 34.1% (36.0-47.0) Mean Corpuscular Volume 102fL (79-100) 101fL (79-100) Mean Corpuscular Hemoglobin 32pg (25-35) 33pg (25-35) Mean Corpuscular Hemoglobin Concent 32g/dL (31-37) 32g/dL (31-37) Red Cell Distribution Width 15.8% (11.5-14.5) 16.3% (11.5-14.5) Platelet Count 231x10^3/uL (140-400) 218x10^3/uL (140-400) Neutrophils (%) (Auto) 85% (31-73) 85% (31-73) Lymphocytes (%) (Auto) 2% (24-48) 2% (24-48) Monocytes (%) (Auto) 13% (0-9) 12% (0-9) Eosinophils (%) (Auto) 0% (0-3) 0% (0-3) Basophils (%) (Auto) 0% (0-3) 0% (0-3) Neutrophils # (Auto) 22.1x10^3uL (1.8-7.7) 21.8x10^3uL (1.8-7.7) Lymphocytes # (Auto) 0.4x10^3/uL (1.0-4.8) 0.5x10^3/uL (1.0-4.8) Monocytes # (Auto) 3.3x10^3/uL (0.0-1.1) 3.1x10^3/uL (0.0-1.1) Eosinophils # (Auto) 0.0x10^3/uL (0.0-0.7) 0.0x10^3/uL (0.0-0.7) Basophils # (Auto) 0.1x10^3/uL (0.0-0.2) 0.1x10^3/uL (0.0-0.2) Segmented Neutrophils % 90% (35-66) Band Neutrophils % 1% (0-9) Lymphocytes % 1% (24-48) Monocytes % 7% (0-10) Eosinophils % 1% (0-5) Platelet Estimate Adequate (ADEQUATE) Polychromasia Slight Ovalocytes Occ Crenated Cell Present Schistocytes Occ Sodium Level 132mmol/L (136-145) 131mmol/L (136-145) Potassium Level 4.3mmol/L (3.5-5.1) 4.3mmol/L (3.5-5.1) Chloride Level 95mmol/L (98-107) 97mmol/L (98-107) Carbon Dioxide Level 24mmol/L (21-32) 21mmol/L (21-32) Anion Gap 13 (6-14) 13 (6-14) Blood Urea Nitrogen 58mg/dL (7-20) 67mg/dL (7-20) Creatinine 7.5mg/dL (0.6-1.0) 7.9mg/dL (0.6-1.0) Estimated GFR (Cockcroft-Gault) 5.4 5.1 BUN/Creatinine Ratio 8 (6-20) Glucose Level 115mg/dL (70-99) 109mg/dL (70-99) Calcium Level 9.2mg/dL (8.5-10.1) 8.3mg/dL (8.5-10.1) Total Bilirubin 0.5mg/dL (0.2-1.0) Aspartate Amino Transf (AST/SGOT) 12U/L (15-37) Alanine Aminotransferase (ALT/SGPT) 17U/L (14-59) Alkaline Phosphatase 84U/L (46-116) Total Protein 6.0g/dL (6.4-8.2) Albumin 2.3g/dL (3.4-5.0) Albumin/Globulin Ratio 0.6 (1.0-1.7) Lipase 45U/L (73-393) Urine Collection Type Unknown Urine Color Yellow Urine Clarity Clear Urine pH 6.0 Urine Specific Allen 1.015 Urine Protein 100mg/dL (NEG-TRACE) Urine Glucose (UA) Negativemg/dL (NEG) Urine Ketones (Stick) Negativemg/dL (NEG) Urine Blood Negative (NEG) Urine Nitrite Negative (NEG) Urine Bilirubin Negative (NEG) Urine Urobilinogen Dipstick 0.2mg/dL (0.2 mg/dL) Urine Leukocyte Esterase Moderate (NEG) Urine RBC 0/HPF (0-2) Urine WBC >40/HPF (0-4) Urine Bacteria Moderate/HPF (0-FEW) Urine Mucus Mod/LPF Urine Opiates Screen Pos (NEG) Urine Methadone Screen Neg (NEG) Urine Barbiturates Neg (NEG) Urine Phencyclidine Screen Neg (NEG) Urine Amphetamine/Methamphetamine Neg (NEG) Urine Benzodiazepines Screen Pos (NEG) Urine Cocaine Screen Neg (NEG) Urine Cannabinoids Screen Neg (NEG) Urine Ethyl Alcohol Neg (NEG) Review of Systems Review of Systems No LUNDBERG/blurry vision No vomiting Assessment and Plan Assessmemt and Plan Problems Medical Problems: (1) Abdominal pain Status: Acute (2) Colitis Status: Acute (3) Diarrhea Status: Acute 4. End-stage renal disease on dialysis 5. Diabetes 6. Hypertension 7. Hyperlipidemia Plan: -Continue current medications and adjust accordingly -Vancomycin 125 mg qd PO for C. Diff coverage -Await C. Diff results from lab -Consult GI for diarrhea if C. Diff results are negative -Dialyze patient today because of ESRD -Involve PT/OT with patient Problems: Comment Review of Relevant I have reviewed the following items molly (where applicable) has been applied. Labs Laboratory Tests Test 09/07/16 17:55 09/07/16 22:44 09/08/16 04:30 White Blood Count 25.9x10^3/uL (4.0-11.0) 25.5x10^3/uL (4.0-11.0) Red Blood Count 3.66x10^6/uL (3.50-5.40) 3.37x10^6/uL (3.50-5.40) Hemoglobin 11.9g/dL (12.0-15.5) 11.0g/dL (12.0-15.5) Hematocrit 37.4% (36.0-47.0) 34.1% (36.0-47.0) Mean Corpuscular Volume 102fL (79-100) 101fL (79-100) Mean Corpuscular Hemoglobin 32pg (25-35) 33pg (25-35) Mean Corpuscular Hemoglobin Concent 32g/dL (31-37) 32g/dL (31-37) Red Cell Distribution Width 15.8% (11.5-14.5) 16.3% (11.5-14.5) Platelet Count 231x10^3/uL (140-400) 218x10^3/uL (140-400) Neutrophils (%) (Auto) 85% (31-73) 85% (31-73) Lymphocytes (%) (Auto) 2% (24-48) 2% (24-48) Monocytes (%) (Auto) 13% (0-9) 12% (0-9) Eosinophils (%) (Auto) 0% (0-3) 0% (0-3) Basophils (%) (Auto) 0% (0-3) 0% (0-3) Neutrophils # (Auto) 22.1x10^3uL (1.8-7.7) 21.8x10^3uL (1.8-7.7) Lymphocytes # (Auto) 0.4x10^3/uL (1.0-4.8) 0.5x10^3/uL (1.0-4.8) Monocytes # (Auto) 3.3x10^3/uL (0.0-1.1) 3.1x10^3/uL (0.0-1.1) Eosinophils # (Auto) 0.0x10^3/uL (0.0-0.7) 0.0x10^3/uL (0.0-0.7) Basophils # (Auto) 0.1x10^3/uL (0.0-0.2) 0.1x10^3/uL (0.0-0.2) Segmented Neutrophils % 90% (35-66) Band Neutrophils % 1% (0-9) Lymphocytes % 1% (24-48) Monocytes % 7% (0-10) Eosinophils % 1% (0-5) Platelet Estimate Adequate (ADEQUATE) Polychromasia Slight Ovalocytes Occ Crenated Cell Present Schistocytes Occ Sodium Level 132mmol/L (136-145) 131mmol/L (136-145) Potassium Level 4.3mmol/L (3.5-5.1) 4.3mmol/L (3.5-5.1) Chloride Level 95mmol/L (98-107) 97mmol/L (98-107) Carbon Dioxide Level 24mmol/L (21-32) 21mmol/L (21-32) Anion Gap 13 (6-14) 13 (6-14) Blood Urea Nitrogen 58mg/dL (7-20) 67mg/dL (7-20) Creatinine 7.5mg/dL (0.6-1.0) 7.9mg/dL (0.6-1.0) Estimated GFR (Cockcroft-Gault) 5.4 5.1 BUN/Creatinine Ratio 8 (6-20) Glucose Level 115mg/dL (70-99) 109mg/dL (70-99) Calcium Level 9.2mg/dL (8.5-10.1) 8.3mg/dL (8.5-10.1) Total Bilirubin 0.5mg/dL (0.2-1.0) Aspartate Amino Transf (AST/SGOT) 12U/L (15-37) Alanine Aminotransferase (ALT/SGPT) 17U/L (14-59) Alkaline Phosphatase 84U/L (46-116) Total Protein 6.0g/dL (6.4-8.2) Albumin 2.3g/dL (3.4-5.0) Albumin/Globulin Ratio 0.6 (1.0-1.7) Lipase 45U/L (73-393) Urine Collection Type Unknown Urine Color Yellow Urine Clarity Clear Urine pH 6.0 Urine Specific Allen 1.015 Urine Protein 100mg/dL (NEG-TRACE) Urine Glucose (UA) Negativemg/dL (NEG) Urine Ketones (Stick) Negativemg/dL (NEG) Urine Blood Negative (NEG) Urine Nitrite Negative (NEG) Urine Bilirubin Negative (NEG) Urine Urobilinogen Dipstick 0.2mg/dL (0.2 mg/dL) Urine Leukocyte Esterase Moderate (NEG) Urine RBC 0/HPF (0-2) Urine WBC >40/HPF (0-4) Urine Bacteria Moderate/HPF (0-FEW) Urine Mucus Mod/LPF Urine Opiates Screen Pos (NEG) Urine Methadone Screen Neg (NEG) Urine Barbiturates Neg (NEG) Urine Phencyclidine Screen Neg (NEG) Urine Amphetamine/Methamphetamine Neg (NEG) Urine Benzodiazepines Screen Pos (NEG) Urine Cocaine Screen Neg (NEG) Urine Cannabinoids Screen Neg (NEG) Urine Ethyl Alcohol Neg (NEG) Laboratory Tests Test 09/07/16 17:55 09/07/16 22:44 09/08/16 04:30 White Blood Count 25.9x10^3/uL (4.0-11.0) 25.5x10^3/uL (4.0-11.0) Red Blood Count 3.66x10^6/uL (3.50-5.40) 3.37x10^6/uL (3.50-5.40) Hemoglobin 11.9g/dL (12.0-15.5) 11.0g/dL (12.0-15.5) Hematocrit 37.4% (36.0-47.0) 34.1% (36.0-47.0) Mean Corpuscular Volume 102fL (79-100) 101fL (79-100) Mean Corpuscular Hemoglobin 32pg (25-35) 33pg (25-35) Mean Corpuscular Hemoglobin Concent 32g/dL (31-37) 32g/dL (31-37) Red Cell Distribution Width 15.8% (11.5-14.5) 16.3% (11.5-14.5) Platelet Count 231x10^3/uL (140-400) 218x10^3/uL (140-400) Neutrophils (%) (Auto) 85% (31-73) 85% (31-73) Lymphocytes (%) (Auto) 2% (24-48) 2% (24-48) Monocytes (%) (Auto) 13% (0-9) 12% (0-9) Eosinophils (%) (Auto) 0% (0-3) 0% (0-3) Basophils (%) (Auto) 0% (0-3) 0% (0-3) Neutrophils # (Auto) 22.1x10^3uL (1.8-7.7) 21.8x10^3uL (1.8-7.7) Lymphocytes # (Auto) 0.4x10^3/uL (1.0-4.8) 0.5x10^3/uL (1.0-4.8) Monocytes # (Auto) 3.3x10^3/uL (0.0-1.1) 3.1x10^3/uL (0.0-1.1) Eosinophils # (Auto) 0.0x10^3/uL (0.0-0.7) 0.0x10^3/uL (0.0-0.7) Basophils # (Auto) 0.1x10^3/uL (0.0-0.2) 0.1x10^3/uL (0.0-0.2) Segmented Neutrophils % 90% (35-66) Band Neutrophils % 1% (0-9) Lymphocytes % 1% (24-48) Monocytes % 7% (0-10) Eosinophils % 1% (0-5) Platelet Estimate Adequate (ADEQUATE) Polychromasia Slight Ovalocytes Occ Crenated Cell Present Schistocytes Occ Sodium Level 132mmol/L (136-145) 131mmol/L (136-145) Potassium Level 4.3mmol/L (3.5-5.1) 4.3mmol/L (3.5-5.1) Chloride Level 95mmol/L (98-107) 97mmol/L (98-107) Carbon Dioxide Level 24mmol/L (21-32) 21mmol/L (21-32) Anion Gap 13 (6-14) 13 (6-14) Blood Urea Nitrogen 58mg/dL (7-20) 67mg/dL (7-20) Creatinine 7.5mg/dL (0.6-1.0) 7.9mg/dL (0.6-1.0) Estimated GFR (Cockcroft-Gault) 5.4 5.1 BUN/Creatinine Ratio 8 (6-20) Glucose Level 115mg/dL (70-99) 109mg/dL (70-99) Calcium Level 9.2mg/dL (8.5-10.1) 8.3mg/dL (8.5-10.1) Total Bilirubin 0.5mg/dL (0.2-1.0) Aspartate Amino Transf (AST/SGOT) 12U/L (15-37) Alanine Aminotransferase (ALT/SGPT) 17U/L (14-59) Alkaline Phosphatase 84U/L (46-116) Total Protein 6.0g/dL (6.4-8.2) Albumin 2.3g/dL (3.4-5.0) Albumin/Globulin Ratio 0.6 (1.0-1.7) Lipase 45U/L (73-393) Urine Collection Type Unknown Urine Color Yellow Urine Clarity Clear Urine pH 6.0 Urine Specific Allen 1.015 Urine Protein 100mg/dL (NEG-TRACE) Urine Glucose (UA) Negativemg/dL (NEG) Urine Ketones (Stick) Negativemg/dL (NEG) Urine Blood Negative (NEG) Urine Nitrite Negative (NEG) Urine Bilirubin Negative (NEG) Urine Urobilinogen Dipstick 0.2mg/dL (0.2 mg/dL) Urine Leukocyte Esterase Moderate (NEG) Urine RBC 0/HPF (0-2) Urine WBC >40/HPF (0-4) Urine Bacteria Moderate/HPF (0-FEW) Urine Mucus Mod/LPF Urine Opiates Screen Pos (NEG) Urine Methadone Screen Neg (NEG) Urine Barbiturates Neg (NEG) Urine Phencyclidine Screen Neg (NEG) Urine Amphetamine/Methamphetamine Neg (NEG) Urine Benzodiazepines Screen Pos (NEG) Urine Cocaine Screen Neg (NEG) Urine Cannabinoids Screen Neg (NEG) Urine Ethyl Alcohol Neg (NEG) Medications Current Medications Iohexol (Omnipaque 300 Mg/ml) 60 ml 1X ONCE IV ; Start 09/07/16 at 18:30; Stop 09/07/16 at 18:31; Status DC Info (Do NOT chart on this entry -- for MONITORING) 1 each PRN DAILY PRN MC SEE COMMENTS; Start 09/07/16 at 18:30; Stop 09/09/16 at 18:29 Vancomycin HCl 125 mg [id number] PO Last administered on 09/08/16 09:36; Start 09/08/16 at 09:00 Vancomycin HCl 125 mg 125 mg 1X ONCE PO Last administered on 09/07/16 20:58; Start 09/07/16 at 21:00; Stop 09/07/16 at 21:01; Status DC Ceftriaxone Sodium 50 ml @ 100 mls/hr 1X ONCE IV Last administered on 20:58; Start 09/07/16 at 21:00; Stop 09/07/16 at 21:29; Status DC Ceftriaxone Sodium 1 gm/ Sodium Chloride 50 ml @ 100 mls/hr Q24H IV ; Start 09/08/16 at 21:00 Metronidazole 100 ml @ 100 mls/hr 1X ONCE IV Last administered on 09/07/16 21 :40; Start 09/07/16 at 21:00; Stop 09/07/16 at 21:59; Status DC Metronidazole (FLAGYL 500Mmg PREMIX) 100 ml @ 100 mls/hr Q8HRS IV Last administered on 09/08/16 06:32; Start 09/08/16 at 06:00; Stop 09/08/16 at 09:01; Status DC Ondansetron HCl (Zofran) 4 mg PRN Q8HRS PRN IV NAUSEA/VOMITING Last administered on 09/08/16 00:02; Start 09/07/16 at 23:00; Stop 09/08/16 at 22:59 Fentanyl Citrate (Fentanyl 2ml Vial) 50 mcg PRN Q2HR PRN IV SEVERE PAIN Last administered on 09/08/16 00:01; Start 09/07/16 at 23:00; Stop 09/08/16 at 22:59 Acetaminophen (Tylenol) 650 mg PRN Q4HRS PRN PO FEVER; Start 09/07/16 at 23:00; Stop 09/08/16 at 22:59 Alprazolam (Xanax) 1 mg PRN Q6HRS PRN PO ANXIETY / AGITATION Last administered on 09/08/16 03:29; Start 09/08/16 at 03:15 Dicyclomine HCl 10 mg 10 mg PRN QID PRN PO GI SYMPTOMS Last administered on 09/08 03:29; Start 09/08/16 at 03:15 Magnesium Sulfate/ Dextrose 50 ml @ 25 mls/hr PRN DAILY PRN IV for Mag < 1.7 on am labs; Start 09/08/16 at 10:00 Sodium Chloride 500 ml @ 0 mls/hr PRN QID PRN IV for MAP < 65 or SBP < 100 Last administered on 09/08/16 10:31; Start 09/08/16 at 10:15 Sodium Chloride (Iv Sodium Chloride 0.9% 1000ml Bag) 1,000 ml @ 100 mls/hr Q10H IV Last administered on 09/08/16 10:31; Start 09/08/16 at 10:15; Stop at 20:14 Active Scripts Active Prednisone 20 Mg Tablet 40 Mg PO DAILY Doxycycline Hyclate 100 Mg Tablet 100 Mg PO BID Reported Mirtazapine 45 Mg Tablet 45 Mg PO HS Amiodarone Hcl 200 Mg Tablet 1 Tab PO DAILY Warfarin Sodium 2 Mg Tablet 2 Mg PO DAILY16 Acyclovir 200 Mg Capsule 200 Mg PO BID Magnesium Oxide 400 Mg Tablet 800 Mg PO BID Alprazolam 1 Mg Tablet 1 Mg PO PRN Q6HRS PRN Hydrocodone-Apap 7.5-325 (Hydrocodone Bit/Acetaminophen) 1 Each Tablet 1 Tab PO PRN Q6HRS PRN Advair 100-50 Diskus (Fluticasone/Salmeterol) 1 Each Disk.w.dev 1 Inh IH BID Vitron-C Tablet (Iron,Carbonyl/Ascorbic Acid) 1 Each Tablet.dr 1 Each PO DAILY Fish Oil 1,000 Mg Softgel ([place]-3 Fatty Acids/Fish Oil) 1 Each Capsule 1 Each PO DAILY Vitamin D-3 (Cholecalciferol (Vitamin D3)) 2,000 Unit Capsule 2,000 Unit PO DAILY Vitamin B Complex 1 Each Tablet 1 Each PO DAILY Multivitamins (Multivitamin) 1 Each Tablet 1 Tab PO DAILY Montelukast Sodium Tablet (Montelukast Sodium) 10 Mg Tablet 1 Tab PO DAILY Calcitriol 0.25 Mcg Capsule 1 Cap PO 3X/WEEK Revlimid (Lenalidomide) 5 Mg Capsule 5 Mg PO 3X/WEEK Methocarbamol 750 Mg Tablet 750 Mg PO PRN Spiriva (Tiotropium [place]) 18 Mcg Cap.w.dev 18 Mcg IH DAILY08 Vitals/I & O Vital Sign - Last 24 Hours 09/07/16 09/07/16 09/07/16 09/07/16 16:41 17:30 18:30 19:30 Temp 98.4 98.4 Pulse 89 89 86 88 Resp 16 18 B/P 102/51 96/55 101/56 102/50 Pulse Ox 100 96 97 96 O2 Delivery Room Air Room Air Room Air Room Air 09/07/16 09/07/16 09/08/16 09/08/16 20:30 21:30 00:01 00:35 Pulse 87 86 Resp 22 B/P 101/56 106/53 Pulse Ox 95 95 95 96 O2 Delivery Room Air Room Air Room Air Room Air 09/08/16 09/08/16 09/08/16 09/08/16 00:38 00:38 01:40 03:07 Temp 98.5 98.5 98.6 98.5 98.5 98.6 Pulse 84 84 83 Resp 18 B/P 95/50 95/50 111/66 Pulse Ox 96 96 94 O2 Delivery Room Air Room Air Room Air Room Air 09/08/16 09/08/16 09/08/16 07:30 08:41 10:43 Temp 97.7 97.7 Pulse 78 72 Resp 16 B/P 99/50 90/51 Pulse Ox 95 94 O2 Delivery Room Air Room Air Room Air Intake and Output 09/07/16 09/07/16 09/08/16 15:00 23:00 07:00 Intake Total 150 ml Balance 150 ml ELLA GAMEZL K III DO September 08, 2016 12:49
[2016-09-08] MEDS ORDERED: DIALYSIS PATIENT. MC PRN (16:15)
[2016-09-08] MEDS ORDERED: TIOT18CA IH (18:10)
[2016-09-08] MEDS ORDERED: VITA150T PO (18:10)
[2016-09-08] MEDS ORDERED: FOLI0.8T21 PO (18:10)
[2016-09-08] MEDS ORDERED: MAGN400T22 PO (18:11)
--- NOTE | 2016-09-09 00:37 | CONS ---
DATE OF CONSULTATION: PRIMARY PHYSICIAN: Dr. Padilla and . REASON FOR CONSULTATION: ESRD dialysis. HISTORY OF PRESENT ILLNESS: The patient is a 66-year-old old female who I have known since her days. She was known to have underlying multiple myeloma and was treated for the same. She had gone out to eat over the weekend and developed nausea, vomiting, diarrhea and presented to the ER for further evaluation. She was pretty weak, dizzy and lightheaded. She thinks she may have sustained a fall in the kitchen. The patient claims that she had upper respiratory tract infection, was treated with antibiotics recently and was also seen by ENT doctor. She claims she has a tumor in her neck that is being investigated. Her p.o. intake recently had been somewhat poor. She did have some cramping abdominal pain also. She is now admitted and she missed her dialysis yesterday; however, blood pressure is 99/55, she is feeling weak and fatigued. She has had another bout of nausea, vomiting. PAST MEDICAL HISTORY: Other than as outlined in her electronic renal consult note includes multiple myeloma, cardiomyopathy, history of DVTs, sleep apnea, GERD, now possible neck cancer, history of fibroids, status post hysterectomy, salpingo-oophorectomy, also appeared she has started dialysis, questionable history of thalassemia. For rest of details, see electronic records. EJ CARROLL MD DR: FRANCISCO JAVIER/kadie JOB#: [id number] / [id number]
[2016-09-09] MEDS ORDERED: POTA20TA4 (05:57)
[2016-09-09] MEDS ORDERED: TRAZ50TA15 (05:57)
[2016-09-09] MEDS ORDERED: CEPH500C (05:57)
[2016-09-09] MEDS ORDERED: TERB250T8 (05:57)
[2016-09-09] MEDS ORDERED: TIOT4MIS2 (05:57)
[2016-09-09 06:42] LABS: BASO % 0 % (0-3); EOS % 0 % (0-3); HEMATOCRIT 31.4 % (36.0-47.0); HEMOGLOBIN 10.3 g/dL (12.0-15.5); LYMPH # 0.6 x10^3/uL (1.0-4.8); LYMPH % 2 % (24-48); MEAN CORPUSCULAR HEMOGLOBIN 33 pg (25-35); MEAN CORPUSCULAR HGB CONC 33 g/dL (31-37); MEAN CORPUSCULAR VOLUME 100 fL (79-100); MONO % 9 % (0-9); NEUT % 89 % (31-73); PLATELET COUNT 233 x10^3/uL (140-400); RED BLOOD COUNT 3.16 x10^6/uL (3.50-5.40); RED CELL DISTRIBUTION WIDTH 16.4 % (11.5-14.5); WHITE BLOOD COUNT 25.3 x10^3/uL (4.0-11.0)
[2016-09-09 06:47] LABS: ALBUMIN 1.8 g/dL (3.4-5.0); CALCIUM 7.3 mg/dL (8.5-10.1); CREATININE 8.2 mg/dL (0.6-1.0); GFR 4.9; PHOSPHORUS 4.9 mg/dL (2.6-4.7); POTASSIUM 3.7 mmol/L (3.5-5.1)
[2016-09-09 07:00] VITALS: BP 94/45
[2016-09-09] MEDS: VANCOMYCIN 125 MG/2.5 ML ORAL SOLUTION. PO SCH ×4 (07:53→21:17)
--- NOTE | 2016-09-09 09:53 | PDOC ---
G I PROGRESS NOTE Subjective Mostly small volume "squirts" with occasional larger volume stools. Continence issues. Physical Exam Lungs clear. RRR Abdomen soft, not distended nor tender. Review of Relevant I have reviewed the following items molly (where applicable) has been applied. Labs Laboratory Tests Test 09/07/16 17:55 09/07/16 22:44 09/08/16 01:06 09/08/16 04:30 White Blood Count 25.9x10^3/uL (4.0-11.0) 25.5x10^3/uL (4.0-11.0) Red Blood Count 3.66x10^6/uL (3.50-5.40) 3.37x10^6/uL (3.50-5.40) Hemoglobin 11.9g/dL (12.0-15.5) 11.0g/dL (12.0-15.5) Hematocrit 37.4% (36.0-47.0) 34.1% (36.0-47.0) Mean Corpuscular Volume 102fL (79-100) 101fL (79-100) Mean Corpuscular Hemoglobin 32pg (25-35) 33pg (25-35) Mean Corpuscular Hemoglobin Concent 32g/dL (31-37) 32g/dL (31-37) Red Cell Distribution Width 15.8% (11.5-14.5) 16.3% (11.5-14.5) Platelet Count 231x10^3/uL (140-400) 218x10^3/uL (140-400) Neutrophils (%) (Auto) 85% (31-73) 85% (31-73) Lymphocytes (%) (Auto) 2% (24-48) 2% (24-48) Monocytes (%) (Auto) 13% (0-9) 12% (0-9) Eosinophils (%) (Auto) 0% (0-3) 0% (0-3) Basophils (%) (Auto) 0% (0-3) 0% (0-3) Neutrophils # (Auto) 22.1x10^3uL (1.8-7.7) 21.8x10^3uL (1.8-7.7) Lymphocytes # (Auto) 0.4x10^3/uL (1.0-4.8) 0.5x10^3/uL (1.0-4.8) Monocytes # (Auto) 3.3x10^3/uL (0.0-1.1) 3.1x10^3/uL (0.0-1.1) Eosinophils # (Auto) 0.0x10^3/uL (0.0-0.7) 0.0x10^3/uL (0.0-0.7) Basophils # (Auto) 0.1x10^3/uL (0.0-0.2) 0.1x10^3/uL (0.0-0.2) Segmented Neutrophils % 90% (35-66) Band Neutrophils % 1% (0-9) Lymphocytes % 1% (24-48) Monocytes % 7% (0-10) Eosinophils % 1% (0-5) Platelet Estimate Adequate (ADEQUATE) Polychromasia Slight Ovalocytes Occ Crenated Cell Present Schistocytes Occ Sodium Level 132mmol/L (136-145) 131mmol/L (136-145) Potassium Level 4.3mmol/L (3.5-5.1) 4.3mmol/L (3.5-5.1) Chloride Level 95mmol/L (98-107) 97mmol/L (98-107) Carbon Dioxide Level 24mmol/L (21-32) 21mmol/L (21-32) Anion Gap 13 (6-14) 13 (6-14) Blood Urea Nitrogen 58mg/dL (7-20) 67mg/dL (7-20) Creatinine 7.5mg/dL (0.6-1.0) 7.9mg/dL (0.6-1.0) Estimated GFR (Cockcroft-Gault) 5.4 5.1 BUN/Creatinine Ratio 8 (6-20) Glucose Level 115mg/dL (70-99) 109mg/dL (70-99) Calcium Level 9.2mg/dL (8.5-10.1) 8.3mg/dL (8.5-10.1) Total Bilirubin 0.5mg/dL (0.2-1.0) Aspartate Amino Transf (AST/SGOT) 12U/L (15-37) Alanine Aminotransferase (ALT/SGPT) 17U/L (14-59) Alkaline Phosphatase 84U/L (46-116) Total Protein 6.0g/dL (6.4-8.2) Albumin 2.3g/dL (3.4-5.0) Albumin/Globulin Ratio 0.6 (1.0-1.7) Lipase 45U/L (73-393) Urine Collection Type Unknown Urine Color Yellow Urine Clarity Clear Urine pH 6.0 Urine Specific [place] 1.015 Urine Protein 100mg/dL (NEG-TRACE) Urine Glucose (UA) Negativemg/dL (NEG) Urine Ketones (Stick) Negativemg/dL (NEG) Urine Blood Negative (NEG) Urine Nitrite Negative (NEG) Urine Bilirubin Negative (NEG) Urine Urobilinogen Dipstick 0.2mg/dL (0.2 mg/dL) Urine Leukocyte Esterase Moderate (NEG) Urine RBC 0/HPF (0-2) Urine WBC >40/HPF (0-4) Urine Bacteria Moderate/HPF (0-FEW) Urine Mucus Mod/LPF Urine Opiates Screen Pos (NEG) Urine Methadone Screen Neg (NEG) Urine Barbiturates Neg (NEG) Urine Phencyclidine Screen Neg (NEG) Urine Amphetamine/Methamphetamine Neg (NEG) Urine Benzodiazepines Screen Pos (NEG) Urine Cocaine Screen Neg (NEG) Urine Cannabinoids Screen Neg (NEG) Urine Ethyl Alcohol Neg (NEG) Clostridium difficile Toxin (PCR) Positive (Negative) Test 09/09/16 05:45 White Blood Count 25.3x10^3/uL (4.0-11.0) Red Blood Count 3.16x10^6/uL (3.50-5.40) Hemoglobin 10.3g/dL (12.0-15.5) Hematocrit 31.4% (36.0-47.0) Mean Corpuscular Volume 100fL (79-100) Mean Corpuscular Hemoglobin 33pg (25-35) Mean Corpuscular Hemoglobin Concent 33g/dL (31-37) Red Cell Distribution Width 16.4% (11.5-14.5) Platelet Count 233x10^3/uL (140-400) Neutrophils (%) (Auto) 89% (31-73) Lymphocytes (%) (Auto) 2% (24-48) Monocytes (%) (Auto) 9% (0-9) Eosinophils (%) (Auto) 0% (0-3) Basophils (%) (Auto) 0% (0-3) Neutrophils # (Auto) 22.5x10^3uL (1.8-7.7) Lymphocytes # (Auto) 0.6x10^3/uL (1.0-4.8) Monocytes # (Auto) 2.1x10^3/uL (0.0-1.1) Eosinophils # (Auto) 0.1x10^3/uL (0.0-0.7) Basophils # (Auto) 0.0x10^3/uL (0.0-0.2) Sodium Level 134mmol/L (136-145) Potassium Level 3.7mmol/L (3.5-5.1) Chloride Level 100mmol/L (98-107) Carbon Dioxide Level 20mmol/L (21-32) Anion Gap 14 (6-14) Blood Urea Nitrogen 74mg/dL (7-20) Creatinine 8.2mg/dL (0.6-1.0) Estimated GFR (Cockcroft-Gault) 4.9 Glucose Level 88mg/dL (70-99) Calcium Level 7.3mg/dL (8.5-10.1) Phosphorus Level 4.9mg/dL (2.6-4.7) Magnesium Level 2.4mg/dL (1.8-2.4) Albumin 1.8g/dL (3.4-5.0) Laboratory Tests Test 09/09/16 05:45 White Blood Count 25.3x10^3/uL (4.0-11.0) Red Blood Count 3.16x10^6/uL (3.50-5.40) Hemoglobin 10.3g/dL (12.0-15.5) Hematocrit 31.4% (36.0-47.0) Mean Corpuscular Volume 100fL (79-100) Mean Corpuscular Hemoglobin 33pg (25-35) Mean Corpuscular Hemoglobin Concent 33g/dL (31-37) Red Cell Distribution Width 16.4% (11.5-14.5) Platelet Count 233x10^3/uL (140-400) Neutrophils (%) (Auto) 89% (31-73) Lymphocytes (%) (Auto) 2% (24-48) Monocytes (%) (Auto) 9% (0-9) Eosinophils (%) (Auto) 0% (0-3) Basophils (%) (Auto) 0% (0-3) Neutrophils # (Auto) 22.5x10^3uL (1.8-7.7) Lymphocytes # (Auto) 0.6x10^3/uL (1.0-4.8) Monocytes # (Auto) 2.1x10^3/uL (0.0-1.1) Eosinophils # (Auto) 0.1x10^3/uL (0.0-0.7) Basophils # (Auto) 0.0x10^3/uL (0.0-0.2) Sodium Level 134mmol/L (136-145) Potassium Level 3.7mmol/L (3.5-5.1) Chloride Level 100mmol/L (98-107) Carbon Dioxide Level 20mmol/L (21-32) Anion Gap 14 (6-14) Blood Urea Nitrogen 74mg/dL (7-20) Creatinine 8.2mg/dL (0.6-1.0) Estimated GFR (Cockcroft-Gault) 4.9 Glucose Level 88mg/dL (70-99) Calcium Level 7.3mg/dL (8.5-10.1) Phosphorus Level 4.9mg/dL (2.6-4.7) Magnesium Level 2.4mg/dL (1.8-2.4) Albumin 1.8g/dL (3.4-5.0) Still leukocytosis. Medications Current Medications Iohexol (Omnipaque 300 Mg/ml) 60 ml 1X ONCE IV ; Start 09/07/16 at 18:30; Stop 09/07/16 at 18:31; Status DC Info (Do NOT chart on this entry -- for MONITORING) 1 each PRN DAILY PRN MC SEE COMMENTS; Start 09/07/16 at 18:30; Stop 09/09/16 at 18:29 Vancomycin HCl 125 mg [id number] PO Last administered on 09/09/16 07:53; Start 09/08/16 at 09:00 Vancomycin HCl 125 mg 125 mg 1X ONCE PO Last administered on 09/07/16 20:58; Start 09/07/16 at 21:00; Stop 09/07/16 at 21:01; Status DC Ceftriaxone Sodium 50 ml @ 100 mls/hr 1X ONCE IV Last administered on 20:58; Start 09/07/16 at 21:00; Stop 09/07/16 at 21:29; Status DC Ceftriaxone Sodium 1 gm/ Sodium Chloride 50 ml @ 100 mls/hr Q24H IV Last administered on 09/08/16 21:00; Start 09/08/16 at 21:00 Metronidazole 100 ml @ 100 mls/hr 1X ONCE IV Last administered on 09/07/16 21 :40; Start 09/07/16 at 21:00; Stop 09/07/16 at 21:59; Status DC Metronidazole (FLAGYL 500Mmg PREMIX) 100 ml @ 100 mls/hr Q8HRS IV Last administered on 09/08/16 06:32; Start 09/08/16 at 06:00; Stop 09/08/16 at 09:01; Status DC Ondansetron HCl (Zofran) 4 mg PRN Q8HRS PRN IV NAUSEA/VOMITING Last administered on 09/08/16 00:02; Start 09/07/16 at 23:00; Stop 09/08/16 at 22:59; Status DC Fentanyl Citrate (Fentanyl 2ml Vial) 50 mcg PRN Q2HR PRN IV SEVERE PAIN Last administered on 09/08/16 00:01; Start 09/07/16 at 23:00; Stop 09/08/16 at 22:59; Status DC Acetaminophen (Tylenol) 650 mg PRN Q4HRS PRN PO FEVER; Start 09/07/16 at 23:00; Stop 09/08/16 at 22:59; Status DC Alprazolam (Xanax) 1 mg PRN Q6HRS PRN PO ANXIETY / AGITATION Last administered on 09/08/16 03:29; Start 09/08/16 at 03:15 Dicyclomine HCl 10 mg 10 mg PRN QID PRN PO GI SYMPTOMS Last administered on 09/08 03:29; Start 09/08/16 at 03:15 Magnesium Sulfate/ Dextrose 50 ml @ 25 mls/hr PRN DAILY PRN IV for Mag < 1.7 on am labs; Start 09/08/16 at 10:00 Sodium Chloride 500 ml @ 0 mls/hr PRN QID PRN IV for MAP < 65 or SBP < 100 Last administered on 09/08/16 10:31; Start 09/08/16 at 10:15 Sodium Chloride (Iv Sodium Chloride 0.9% 1000ml Bag) 1,000 ml @ 100 mls/hr Q10H IV Last administered on 09/08/16 10:31; Start 09/08/16 at 10:15; Stop at 20:14; Status DC Info (PHARMACY MONITORING -- do not chart) 1 each PRN DAILY PRN MC SEE COMMENTS ; Start 09/08/16 at 16:15 Active Scripts Active Reported Terbinafine Hcl 250 Mg Tablet Trazodone Hcl 50 Mg Tablet Klor-Con M20 (Potassium Chloride) 20 Meq Tab.er.prt Spiriva Respimat (Tiotropium [place]) 4 Gm Mist.inhal Cephalexin 500 Mg Capsule Mag-Oxide (Magnesium Oxide) 400 Mg Tablet 400 Mg PO [id number] Emily-Ayesha Tablet (Folic Acid/Vitamin B Comp W-C) 0.8 Mg Tablet 0.8 Mg PO DAILY Spiriva (Tiotropium [place]) 18 Mcg Cap.w.dev 1 Cap IH DAILY Super B Complex (Vitamin B Complex & Vit C No.4) 150 Mg Tablet 150 Mg PO DAILY Mirtazapine 45 Mg Tablet 45 Mg PO HS Amiodarone Hcl 200 Mg Tablet 1 Tab PO DAILY Warfarin Sodium 2 Mg Tablet 2 Mg PO DAILY16 Acyclovir 200 Mg Capsule 200 Mg PO BID Alprazolam 1 Mg Tablet 1 Mg PO PRN Q6HRS PRN Hydrocodone-Apap 7.5-325 (Hydrocodone Bit/Acetaminophen) 1 Each Tablet 1 Tab PO PRN Q6HRS PRN Advair 100-50 Diskus (Fluticasone/Salmeterol) 1 Each Disk.w.dev 1 Inh IH BID Vitron-C Tablet (Iron,Carbonyl/Ascorbic Acid) 1 Each Tablet.dr 1 Each PO DAILY Fish Oil 1,000 Mg Softgel ([place]-3 Fatty Acids/Fish Oil) 1 Each Capsule 1 Each PO DAILY Vitamin D-3 (Cholecalciferol (Vitamin D3)) 2,000 Unit Capsule 2,000 Unit PO DAILY Multivitamins (Multivitamin) 1 Each Tablet 1 Tab PO DAILY Montelukast Sodium Tablet (Montelukast Sodium) 10 Mg Tablet 1 Tab PO DAILY Calcitriol 0.25 Mcg Capsule 1 Cap PO 3X/WEEK Revlimid (Lenalidomide) 5 Mg Capsule 5 Mg PO 3X/WEEK Methocarbamol 750 Mg Tablet 750 Mg PO PRN Vitals/I & O Vital Sign - Last 24 Hours 09/08/16 09/08/16 09/08/16 09/08/16 10:43 14:25 19:00 20:00 Temp 97.6 98.4 97.6 98.4 Pulse 72 76 73 Resp 16 17 20 B/P 90/51 89/52 100/58 Pulse Ox 94 93 92 O2 Delivery Room Air Room Air Room Air Room Air 09/08/16 09/09/16 09/09/16 23:00 07:00 08:00 Temp 97.8 97.8 97.8 97.8 Pulse 74 75 Resp 20 18 B/P 102/52 94/45 Pulse Ox 93 96 O2 Delivery Room Air Room Air Room Air Intake and Output 09/08/16 09/08/16 09/09/16 14:59 22:59 06:59 Intake Total 500 ml 200 ml Output Total 300 ml Balance 500 ml -100 ml Problem List Problems Medical Problems: (1) Abdominal pain Status: Acute (2) Colitis Status: Acute (3) Diarrhea Status: Acute Assessment C.diff, likely improved with fewer large stools. Plan of Care: Continue current Tx, Mgmt Plan of Care Note At least 2 weeks of vanc. CHELSEA GIORDANO MD September 09, 2016 09:53
--- NOTE | 2016-09-09 10:36 | PDOC ---
Infectious Disease Note Vital Sign Vital Signs Vital Signs Date Time Temp Pulse Resp B/P Pulse Ox O2 Delivery O2 Flow Rate FiO2 09/09/16 08:00 Room Air 09/09/16 07:00 97.8 75 18 94/45 96 97.8 Labs Lab Laboratory Tests Test 09/09/16 05:45 White Blood Count 25.3x10^3/uL (4.0-11.0) Red Blood Count 3.16x10^6/uL (3.50-5.40) Hemoglobin 10.3g/dL (12.0-15.5) Hematocrit 31.4% (36.0-47.0) Mean Corpuscular Volume 100fL (79-100) Mean Corpuscular Hemoglobin 33pg (25-35) Mean Corpuscular Hemoglobin Concent 33g/dL (31-37) Red Cell Distribution Width 16.4% (11.5-14.5) Platelet Count 233x10^3/uL (140-400) Neutrophils (%) (Auto) 89% (31-73) Lymphocytes (%) (Auto) 2% (24-48) Monocytes (%) (Auto) 9% (0-9) Eosinophils (%) (Auto) 0% (0-3) Basophils (%) (Auto) 0% (0-3) Neutrophils # (Auto) 22.5x10^3uL (1.8-7.7) Lymphocytes # (Auto) 0.6x10^3/uL (1.0-4.8) Monocytes # (Auto) 2.1x10^3/uL (0.0-1.1) Eosinophils # (Auto) 0.1x10^3/uL (0.0-0.7) Basophils # (Auto) 0.0x10^3/uL (0.0-0.2) Sodium Level 134mmol/L (136-145) Potassium Level 3.7mmol/L (3.5-5.1) Chloride Level 100mmol/L (98-107) Carbon Dioxide Level 20mmol/L (21-32) Anion Gap 14 (6-14) Blood Urea Nitrogen 74mg/dL (7-20) Creatinine 8.2mg/dL (0.6-1.0) Estimated GFR (Cockcroft-Gault) 4.9 Glucose Level 88mg/dL (70-99) Calcium Level 7.3mg/dL (8.5-10.1) Phosphorus Level 4.9mg/dL (2.6-4.7) Magnesium Level 2.4mg/dL (1.8-2.4) Albumin 1.8g/dL (3.4-5.0) Objective Assessment C diff colitis COPD ESRD Leukocytosis Plan Plan of Care po vanc supportive care avoid antibiotics education done recurrence education done TIFFANIE CARROLL MD September 09, 2016 10:36
[2016-09-09 10:50] VITALS: BP 98/49
[2016-09-09] MEDS ORDERED: ONDANSETRON PF 4 MG/2 ML VIAL. IV PRN (11:00)
[2016-09-09] MEDS ORDERED: ACETAMINOPHEN 325 MG TABLET. PO PRN (11:00)
[2016-09-09] MEDS: AMIODARONE HCL 200 MG TABLET. PO SCH (11:07)
[2016-09-09] MEDS: MAGNESIUM OXIDE 400 MG TABLET PO SCH ×2 (11:18→16:36)
[2016-09-09] MEDS: FERROUS SULFATE 325 MG TABLET. PO SCH (11:18)
[2016-09-09] MEDS: MONTELUKAST SODIUM 10 MG TABLET. PO SCH (11:18)
[2016-09-09] MEDS: FOLIC/VIT B COMP W-C (RENAL) TABLET. PO SCH (11:18)
[2016-09-09] MEDS: ASCORBIC ACID 500 MG TABLET PO SCH (11:18)
[2016-09-09] MEDS: CALCITRIOL 0.25 MCG CAPSULE. PO SCH (11:18)
[2016-09-09] MEDS: ACYCLOVIR 200 MG CAPSULE. PO SCH ×2 (11:18→21:15)
[2016-09-09] MEDS: OMEGA-3 FATTY ACIDS/FISH OIL 1,000 MG CAPSULE. PO SCH (11:18)
[2016-09-09] MEDS: CHOLECALCIFEROL (VITAMIN D3) 1,000 UNIT TABLET PO SCH (11:18)
[2016-09-09] MEDS: VITAMIN B COMPLEX TABLET. PO SCH (11:18)
[2016-09-09] MEDS: BUDESONIDE 0.5 MG/2 ML NEBU. NEB SCH ×2 (11:30→19:24)
[2016-09-09] MEDS: IPRATRPIUM/ALBUTEROL 0.5/2.5MG 3 ML NEBU. NEB SCH ×3 (12:00→19:24)
[2016-09-09] MEDS: ALPRAZolam 1 MG TABLET PO PRN (12:17)
--- NOTE | 2016-09-09 13:08 | PDOC ---
SUBJECTIVE ROS ESRD Pt was in HD suite but found to have clotted access; she feels like "Crap" unable to elaborate if due to diarrhea or lack of dialysis CVS: no Orthopnea, no CP RESP: no SOB, no LOVELACE GI: min Nausea, no Vomiting + Diarrhea : no Dysuria, no Urgency OBJECTIVE Vital Signs Vital Signs Date Time Temp Pulse Resp B/P Pulse Ox O2 Delivery O2 Flow Rate FiO2 09/09/16 10:50 97.8 74 18 98/49 96 Room Air 97.8 I & 0 Intake and Output 09/09/16 07:00 Intake Total 700 ml Output Total 300 ml Balance 400 ml Intake Oral 700 ml Output Urine Total 300 ml # Bowel Movements 2 PHYSICAL EXAM Physical Exam General Appearance: Awake Alert Oriented x 3 In no Distress Eyes: VIsion Unchanged Conjunctiva Normal EN: No EN Drainage Mucous Memb. moist Neck: no JVD min JVP Supple no Thyromegaly CVS: S1 S2 soft Murmur No Gallop No Rub no Edema Resp: no Rales no Rhonchi no Acc. Muscle use GI: BAS +ve NO Bruit Non Tender Non Distended : no CVA tenderness; no Suprapubic Tenderness SKIN: no Rashes Breast Exam deferred Mu.Sk: Adequate ROM min Muscle Atrophy Heme: Unable to palpate Obvious LAD no palp Splenomegaly NEURO: Good Strength and Tone Cranial Nerves II - XII grossly intact Psych: somewhat Depressed no Active hallucination Assessment & Plan ESRD: Dialysis as below after HD Access is avail F 180 NR 3.0 Hrs 4 K 2.5 Ca 140 Na 40 HC03 Qb 350 + Qd 500+ Heparin 0 Units Uf 0 Kgs or to dry weight as tolerated May give 25-50 gms of 25% Albumin if needed to maintain Hemodynamic stability Treatment plan reviewed and discussed with cras Vol depletion - IVF with bicarb if needed (cathryn if unable to get HD later) Clotted AV Access - Declott vs Temp line today by IR Marginal Na - better today ^ THirst - suspect VOl Dpeltion - IVF as ordered Mild MEt Acidosis - suspect due to Diarrhea ; IVF with bicarb if needed (cathryn if unable to get HD later) Anemia: no Epogen for hgb > 10 for now; Transfuse with next HD as needed. HypoTN: IVF bolus as ordered ? NEck Mass/ Tumor - OK to Use IVC if needed - Next HD in am hypAlbuminemia - POOR PO intake as reported by pt . Discussed Plan of Care and prognosis etc. at length with family. COMMENT/RELEVANT DATA Meds Current Medications Medications (Trade) Dose Ordered Sig/Seth Start Time Stop Time Status Last Admin Dose Admin Acetaminophen (Tylenol) 650 mg PRN Q6HRS PRN 09/09/16 11:00 Acetaminophen/ Hydrocodone Bitart (Lortab 7.5/325) 1 tab PRN Q6HRS PRN 09/09/16 11:00 Acyclovir (Zovirax) 200 mg BID 09/09/16 11:30 09/09/16 11:18 200 MG Albuterol/ Ipratropium (Duoneb) 3 ml RTQID 09/09/16 12:00 Alprazolam (Xanax) 1 mg PRN Q6HRS PRN 09/09/16 11:00 09/09/16 12:17 1 MG Amiodarone HCl (Cordarone) 200 mg DAILY 09/09/16 11:30 Ascorbic Acid (Vitamin C) 500 mg DAILY 09/09/16 11:30 09/09/16 11:18 500 MG Budesonide (Pulmicort) 0.5 mg RTBID 09/09/16 11:30 Calcitriol (Rocaltrol) 0.25 mcg 3X/WEEK 09/09/16 11:30 09/09/16 11:18 0.25 MCG Ceftriaxone Sodium 1 gm/ Sodium Chloride 50 ml @ 100 mls/hr Q24H 09/08/16 21:00 09/09/16 10:37 DC 09/08/16 21:00 100 MLS/HR Ceftriaxone Sodium 50 ml @ 100 mls/hr 1X ONCE 09/07/16 21:00 09/07/16 21:29 DC 09/07/16 20:58 100 MLS/HR Dicyclomine HCl 10 mg 10 mg PRN QID PRN 09/08/16 03:15 09/08/16 03:29 10 MG Fentanyl Citrate (Fentanyl 2ml Vial) 50 mcg PRN Q2HR PRN 09/07/16 23:00 09/08/16 22:59 DC 09/08/16 00:01 50 MCG Ferrous Sulfate (Feosol) 325 mg [id number] 09/09/16 11:30 09/09/16 11:18 325 MG Fish Oil (Fish Oil) 1,000 mg DAILY 09/09/16 11:30 09/09/16 11:18 1,000 MG Info (Do NOT chart on this entry -- for MONITORING) 1 each PRN DAILY PRN 09/07/16 18:30 09/09/16 18:29 Info (PHARMACY MONITORING -- do not chart) 1 each PRN DAILY PRN 09/08/16 16:15 Iohexol (Omnipaque 300 Mg/ml) 60 ml 1X ONCE 09/07/16 18:30 09/07/16 18:31 DC Magnesium Oxide (Magnesium Oxide) 400 mg [id number] 09/09/16 11:30 09/09/16 11:18 400 MG Magnesium Sulfate/ Dextrose 50 ml @ 25 mls/hr PRN DAILY PRN 09/08/16 10:00 Metronidazole (FLAGYL 500Mmg PREMIX) 100 ml @ 100 mls/hr Q8HRS 09/08/16 06:00 09/08/16 09:01 DC 09/08/16 06:32 100 MLS/HR Mirtazapine (Remeron) 45 mg QHS 09/09/16 21:00 Montelukast Sodium (Singulair) 10 mg DAILY 09/09/16 11:30 09/09/16 11:18 10 MG Multivitamins (Thera M Plus) 1 tab DAILY 09/10/16 09:00 Non-Formulary Medication 1 cap DAILY 09/10/16 09:00 UNV Ondansetron HCl (Zofran) 4 mg PRN Q6HRS PRN 09/09/16 11:00 Sodium Chloride (Iv Sodium Chloride 0.9% 1000ml Bag) 1,000 ml @ 100 mls/hr Q10H 09/08/16 10:15 09/08/16 20:14 DC 09/08/16 10:31 100 MLS/HR Vancomycin HCl 125 mg 125 mg 1X ONCE 09/07/16 21:00 09/07/16 21:01 DC 09/07/16 20:58 125 MG Vitamin B Complex (Carter B) 1 tab DAILY 09/09/16 11:30 09/09/16 11:18 1 TAB Vitamin B Complex/ Vitamin C (Emily-Ayesha) 1 tab DAILY 09/09/16 11:30 09/09/16 11:18 1 TAB Vitamin D (Vitamin D3) 2,000 unit DAILY 09/09/16 11:30 09/09/16 11:18 2,000 UNIT Lab Laboratory Tests Test 09/09/16 05:45 White Blood Count 25.3x10^3/uL (4.0-11.0) Red Blood Count 3.16x10^6/uL (3.50-5.40) Hemoglobin 10.3g/dL (12.0-15.5) Hematocrit 31.4% (36.0-47.0) Mean Corpuscular Volume 100fL (79-100) Mean Corpuscular Hemoglobin 33pg (25-35) Mean Corpuscular Hemoglobin Concent 33g/dL (31-37) Red Cell Distribution Width 16.4% (11.5-14.5) Platelet Count 233x10^3/uL (140-400) Neutrophils (%) (Auto) 89% (31-73) Lymphocytes (%) (Auto) 2% (24-48) Monocytes (%) (Auto) 9% (0-9) Eosinophils (%) (Auto) 0% (0-3) Basophils (%) (Auto) 0% (0-3) Neutrophils # (Auto) 22.5x10^3uL (1.8-7.7) Lymphocytes # (Auto) 0.6x10^3/uL (1.0-4.8) Monocytes # (Auto) 2.1x10^3/uL (0.0-1.1) Eosinophils # (Auto) 0.1x10^3/uL (0.0-0.7) Basophils # (Auto) 0.0x10^3/uL (0.0-0.2) Sodium Level 134mmol/L (136-145) Potassium Level 3.7mmol/L (3.5-5.1) Chloride Level 100mmol/L (98-107) Carbon Dioxide Level 20mmol/L (21-32) Anion Gap 14 (6-14) Blood Urea Nitrogen 74mg/dL (7-20) Creatinine 8.2mg/dL (0.6-1.0) Estimated GFR (Cockcroft-Gault) 4.9 Glucose Level 88mg/dL (70-99) Calcium Level 7.3mg/dL (8.5-10.1) Phosphorus Level 4.9mg/dL (2.6-4.7) Magnesium Level 2.4mg/dL (1.8-2.4) Albumin 1.8g/dL (3.4-5.0) EJ CARROLL MD September 09, 2016 13:08
--- NOTE | 2016-09-09 13:40 | PDOC ---
PROGRESS NOTES Chief Complaint Chief Complaint 1. cdiff colitis 2. stable Chronic systolic HF; LVEF 40% per cath 03/16/16. 3. sepsis with 1 4. H/o NSVT on Amiodarone therapy 5. ESRD on HD MWF 6. Anemia with ESRD 7. Multiple myeloma on remission 8. H/o DVT on warfarin therapy 9. DLP 10. Hypothyroidism 11. 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 Nonischemic Cardiomyopathy plan: fu with gi, id, renal on vanco qid hd MWF hold coumadin will discuss with pt tmr to see if want onco consult cont home meds History of Present Illness History of Present Illness still severe diarrhea looks very tired and miserable with diarrhea saying not taking coumadin since she was found recurrent tongue Ca ,but no treatment yet Vitals Vitals Vital Signs Date Time Temp Pulse Resp B/P Pulse Ox O2 Delivery O2 Flow Rate FiO2 09/09/16 10:50 97.8 74 18 98/49 96 Room Air 97.8 Physical Exam General: Alert, Oriented X3, Cooperative Heart: Regular rate, Normal S1, Normal S2 Lungs: Clear, Other Abdomen: Normal bowel sounds, Soft, No hepatosplenomegaly, No masses Extremities: No clubbing, No cyanosis Skin: No breakdown, No significant lesion Labs LABS Laboratory Tests Test 09/09/16 05:45 White Blood Count 25.3x10^3/uL (4.0-11.0) Red Blood Count 3.16x10^6/uL (3.50-5.40) Hemoglobin 10.3g/dL (12.0-15.5) Hematocrit 31.4% (36.0-47.0) Mean Corpuscular Volume 100fL (79-100) Mean Corpuscular Hemoglobin 33pg (25-35) Mean Corpuscular Hemoglobin Concent 33g/dL (31-37) Red Cell Distribution Width 16.4% (11.5-14.5) Platelet Count 233x10^3/uL (140-400) Neutrophils (%) (Auto) 89% (31-73) Lymphocytes (%) (Auto) 2% (24-48) Monocytes (%) (Auto) 9% (0-9) Eosinophils (%) (Auto) 0% (0-3) Basophils (%) (Auto) 0% (0-3) Neutrophils # (Auto) 22.5x10^3uL (1.8-7.7) Lymphocytes # (Auto) 0.6x10^3/uL (1.0-4.8) Monocytes # (Auto) 2.1x10^3/uL (0.0-1.1) Eosinophils # (Auto) 0.1x10^3/uL (0.0-0.7) Basophils # (Auto) 0.0x10^3/uL (0.0-0.2) Sodium Level 134mmol/L (136-145) Potassium Level 3.7mmol/L (3.5-5.1) Chloride Level 100mmol/L (98-107) Carbon Dioxide Level 20mmol/L (21-32) Anion Gap 14 (6-14) Blood Urea Nitrogen 74mg/dL (7-20) Creatinine 8.2mg/dL (0.6-1.0) Estimated GFR (Cockcroft-Gault) 4.9 Glucose Level 88mg/dL (70-99) Calcium Level 7.3mg/dL (8.5-10.1) Phosphorus Level 4.9mg/dL (2.6-4.7) Magnesium Level 2.4mg/dL (1.8-2.4) Albumin 1.8g/dL (3.4-5.0) Review of Systems Review of Systems no fever, chills, sob or chest pain Assessment and Plan Assessmemt and Plan Problems Medical Problems: (1) Abdominal pain Status: Acute (2) Colitis Status: Acute (3) Diarrhea Status: Acute Problems: Comment Review of Relevant I have reviewed the following items molly (where applicable) has been applied. Labs Laboratory Tests Test 09/07/16 17:55 09/07/16 22:44 09/08/16 01:06 09/08/16 04:30 White Blood Count 25.9x10^3/uL (4.0-11.0) 25.5x10^3/uL (4.0-11.0) Red Blood Count 3.66x10^6/uL (3.50-5.40) 3.37x10^6/uL (3.50-5.40) Hemoglobin 11.9g/dL (12.0-15.5) 11.0g/dL (12.0-15.5) Hematocrit 37.4% (36.0-47.0) 34.1% (36.0-47.0) Mean Corpuscular Volume 102fL (79-100) 101fL (79-100) Mean Corpuscular Hemoglobin 32pg (25-35) 33pg (25-35) Mean Corpuscular Hemoglobin Concent 32g/dL (31-37) 32g/dL (31-37) Red Cell Distribution Width 15.8% (11.5-14.5) 16.3% (11.5-14.5) Platelet Count 231x10^3/uL (140-400) 218x10^3/uL (140-400) Neutrophils (%) (Auto) 85% (31-73) 85% (31-73) Lymphocytes (%) (Auto) 2% (24-48) 2% (24-48) Monocytes (%) (Auto) 13% (0-9) 12% (0-9) Eosinophils (%) (Auto) 0% (0-3) 0% (0-3) Basophils (%) (Auto) 0% (0-3) 0% (0-3) Neutrophils # (Auto) 22.1x10^3uL (1.8-7.7) 21.8x10^3uL (1.8-7.7) Lymphocytes # (Auto) 0.4x10^3/uL (1.0-4.8) 0.5x10^3/uL (1.0-4.8) Monocytes # (Auto) 3.3x10^3/uL (0.0-1.1) 3.1x10^3/uL (0.0-1.1) Eosinophils # (Auto) 0.0x10^3/uL (0.0-0.7) 0.0x10^3/uL (0.0-0.7) Basophils # (Auto) 0.1x10^3/uL (0.0-0.2) 0.1x10^3/uL (0.0-0.2) Segmented Neutrophils % 90% (35-66) Band Neutrophils % 1% (0-9) Lymphocytes % 1% (24-48) Monocytes % 7% (0-10) Eosinophils % 1% (0-5) Platelet Estimate Adequate (ADEQUATE) Polychromasia Slight Ovalocytes Occ Crenated Cell Present Schistocytes Occ Sodium Level 132mmol/L (136-145) 131mmol/L (136-145) Potassium Level 4.3mmol/L (3.5-5.1) 4.3mmol/L (3.5-5.1) Chloride Level 95mmol/L (98-107) 97mmol/L (98-107) Carbon Dioxide Level 24mmol/L (21-32) 21mmol/L (21-32) Anion Gap 13 (6-14) 13 (6-14) Blood Urea Nitrogen 58mg/dL (7-20) 67mg/dL (7-20) Creatinine 7.5mg/dL (0.6-1.0) 7.9mg/dL (0.6-1.0) Estimated GFR (Cockcroft-Gault) 5.4 5.1 BUN/Creatinine Ratio 8 (6-20) Glucose Level 115mg/dL (70-99) 109mg/dL (70-99) Calcium Level 9.2mg/dL (8.5-10.1) 8.3mg/dL (8.5-10.1) Total Bilirubin 0.5mg/dL (0.2-1.0) Aspartate Amino Transf (AST/SGOT) 12U/L (15-37) Alanine Aminotransferase (ALT/SGPT) 17U/L (14-59) Alkaline Phosphatase 84U/L (46-116) Total Protein 6.0g/dL (6.4-8.2) Albumin 2.3g/dL (3.4-5.0) Albumin/Globulin Ratio 0.6 (1.0-1.7) Lipase 45U/L (73-393) Urine Collection Type Unknown Urine Color Yellow Urine Clarity Clear Urine pH 6.0 Urine Specific [place] 1.015 Urine Protein 100mg/dL (NEG-TRACE) Urine Glucose (UA) Negativemg/dL (NEG) Urine Ketones (Stick) Negativemg/dL (NEG) Urine Blood Negative (NEG) Urine Nitrite Negative (NEG) Urine Bilirubin Negative (NEG) Urine Urobilinogen Dipstick 0.2mg/dL (0.2 mg/dL) Urine Leukocyte Esterase Moderate (NEG) Urine RBC 0/HPF (0-2) Urine WBC >40/HPF (0-4) Urine Bacteria Moderate/HPF (0-FEW) Urine Mucus Mod/LPF Urine Opiates Screen Pos (NEG) Urine Methadone Screen Neg (NEG) Urine Barbiturates Neg (NEG) Urine Phencyclidine Screen Neg (NEG) Urine Amphetamine/Methamphetamine Neg (NEG) Urine Benzodiazepines Screen Pos (NEG) Urine Cocaine Screen Neg (NEG) Urine Cannabinoids Screen Neg (NEG) Urine Ethyl Alcohol Neg (NEG) Clostridium difficile Toxin (PCR) Positive (Negative) Test 09/09/16 05:45 White Blood Count 25.3x10^3/uL (4.0-11.0) Red Blood Count 3.16x10^6/uL (3.50-5.40) Hemoglobin 10.3g/dL (12.0-15.5) Hematocrit 31.4% (36.0-47.0) Mean Corpuscular Volume 100fL (79-100) Mean Corpuscular Hemoglobin 33pg (25-35) Mean Corpuscular Hemoglobin Concent 33g/dL (31-37) Red Cell Distribution Width 16.4% (11.5-14.5) Platelet Count 233x10^3/uL (140-400) Neutrophils (%) (Auto) 89% (31-73) Lymphocytes (%) (Auto) 2% (24-48) Monocytes (%) (Auto) 9% (0-9) Eosinophils (%) (Auto) 0% (0-3) Basophils (%) (Auto) 0% (0-3) Neutrophils # (Auto) 22.5x10^3uL (1.8-7.7) Lymphocytes # (Auto) 0.6x10^3/uL (1.0-4.8) Monocytes # (Auto) 2.1x10^3/uL (0.0-1.1) Eosinophils # (Auto) 0.1x10^3/uL (0.0-0.7) Basophils # (Auto) 0.0x10^3/uL (0.0-0.2) Sodium Level 134mmol/L (136-145) Potassium Level 3.7mmol/L (3.5-5.1) Chloride Level 100mmol/L (98-107) Carbon Dioxide Level 20mmol/L (21-32) Anion Gap 14 (6-14) Blood Urea Nitrogen 74mg/dL (7-20) Creatinine 8.2mg/dL (0.6-1.0) Estimated GFR (Cockcroft-Gault) 4.9 Glucose Level 88mg/dL (70-99) Calcium Level 7.3mg/dL (8.5-10.1) Phosphorus Level 4.9mg/dL (2.6-4.7) Magnesium Level 2.4mg/dL (1.8-2.4) Albumin 1.8g/dL (3.4-5.0) Laboratory Tests Test 09/09/16 05:45 White Blood Count 25.3x10^3/uL (4.0-11.0) Red Blood Count 3.16x10^6/uL (3.50-5.40) Hemoglobin 10.3g/dL (12.0-15.5) Hematocrit 31.4% (36.0-47.0) Mean Corpuscular Volume 100fL (79-100) Mean Corpuscular Hemoglobin 33pg (25-35) Mean Corpuscular Hemoglobin Concent 33g/dL (31-37) Red Cell Distribution Width 16.4% (11.5-14.5) Platelet Count 233x10^3/uL (140-400) Neutrophils (%) (Auto) 89% (31-73) Lymphocytes (%) (Auto) 2% (24-48) Monocytes (%) (Auto) 9% (0-9) Eosinophils (%) (Auto) 0% (0-3) Basophils (%) (Auto) 0% (0-3) Neutrophils # (Auto) 22.5x10^3uL (1.8-7.7) Lymphocytes # (Auto) 0.6x10^3/uL (1.0-4.8) Monocytes # (Auto) 2.1x10^3/uL (0.0-1.1) Eosinophils # (Auto) 0.1x10^3/uL (0.0-0.7) Basophils # (Auto) 0.0x10^3/uL (0.0-0.2) Sodium Level 134mmol/L (136-145) Potassium Level 3.7mmol/L (3.5-5.1) Chloride Level 100mmol/L (98-107) Carbon Dioxide Level 20mmol/L (21-32) Anion Gap 14 (6-14) Blood Urea Nitrogen 74mg/dL (7-20) Creatinine 8.2mg/dL (0.6-1.0) Estimated GFR (Cockcroft-Gault) 4.9 Glucose Level 88mg/dL (70-99) Calcium Level 7.3mg/dL (8.5-10.1) Phosphorus Level 4.9mg/dL (2.6-4.7) Magnesium Level 2.4mg/dL (1.8-2.4) Albumin 1.8g/dL (3.4-5.0) Medications Current Medications Iohexol (Omnipaque 300 Mg/ml) 60 ml 1X ONCE IV ; Start 09/07/16 at 18:30; Stop 09/07/16 at 18:31; Status DC Info (Do NOT chart on this entry -- for MONITORING) 1 each PRN DAILY PRN MC SEE COMMENTS; Start 09/07/16 at 18:30; Stop 09/09/16 at 18:29 Vancomycin HCl 125 mg [id number] PO Last administered on 09/09/16 11:17; Start 09/08/16 at 09:00 Vancomycin HCl 125 mg 125 mg 1X ONCE PO Last administered on 09/07/16 20:58; Start 09/07/16 at 21:00; Stop 09/07/16 at 21:01; Status DC Ceftriaxone Sodium 50 ml @ 100 mls/hr 1X ONCE IV Last administered on 20:58; Start 09/07/16 at 21:00; Stop 09/07/16 at 21:29; Status DC Ceftriaxone Sodium 1 gm/ Sodium Chloride 50 ml @ 100 mls/hr Q24H IV Last administered on 09/08/16 21:00; Start 09/08/16 at 21:00; Stop 09/09/16 at 10:37; Status DC Metronidazole 100 ml @ 100 mls/hr 1X ONCE IV Last administered on 09/07/16 21 :40; Start 09/07/16 at 21:00; Stop 09/07/16 at 21:59; Status DC Metronidazole (FLAGYL 500Mmg PREMIX) 100 ml @ 100 mls/hr Q8HRS IV Last administered on 09/08/16 06:32; Start 09/08/16 at 06:00; Stop 09/08/16 at 09:01; Status DC Ondansetron HCl (Zofran) 4 mg PRN Q8HRS PRN IV NAUSEA/VOMITING Last administered on 09/08/16 00:02; Start 09/07/16 at 23:00; Stop 09/08/16 at 22:59; Status DC Fentanyl Citrate (Fentanyl 2ml Vial) 50 mcg PRN Q2HR PRN IV SEVERE PAIN Last administered on 09/08/16 00:01; Start 09/07/16 at 23:00; Stop 09/08/16 at 22:59; Status DC Acetaminophen (Tylenol) 650 mg PRN Q4HRS PRN PO FEVER; Start 09/07/16 at 23:00; Stop 09/08/16 at 22:59; Status DC Alprazolam (Xanax) 1 mg PRN Q6HRS PRN PO ANXIETY / AGITATION Last administered on 09/08/16 03:29; Start 09/08/16 at 03:15; Stop 09/09/16 at 11:00; Status DC Dicyclomine HCl 10 mg 10 mg PRN QID PRN PO GI SYMPTOMS Last administered on 09/08 03:29; Start 09/08/16 at 03:15 Magnesium Sulfate/ Dextrose 50 ml @ 25 mls/hr PRN DAILY PRN IV for Mag < 1.7 on am labs; Start 09/08/16 at 10:00 Sodium Chloride 500 ml @ 0 mls/hr PRN QID PRN IV for MAP < 65 or SBP < 100 Last administered on 09/08/16 10:31; Start 09/08/16 at 10:15 Sodium Chloride (Iv Sodium Chloride 0.9% 1000ml Bag) 1,000 ml @ 100 mls/hr Q10H IV Last administered on 09/08/16 10:31; Start 09/08/16 at 10:15; Stop at 20:14; Status DC Info (PHARMACY MONITORING -- do not chart) 1 each PRN DAILY PRN MC SEE COMMENTS ; Start 09/08/16 at 16:15 Acyclovir (Zovirax) 200 mg BID PO Last administered on 09/09/16 11:18; Start at 11:30 Alprazolam (Xanax) 1 mg PRN Q6HRS PRN PO ANXIETY / AGITATION Last administered on 09/09/16 12:17; Start 09/09/16 at 11:00 Amiodarone HCl (Cordarone) 200 mg DAILY PO ; Start 09/09/16 at 11:30 Calcitriol (Rocaltrol) 0.25 mcg 3X/WEEK PO Last administered on 09/09/16 11:18 ; Start 09/09/16 at 11:30 Vitamin B Complex/ Vitamin C (Emily-Ayesha) 1 tab DAILY PO Last administered on 11:18; Start 09/09/16 at 11:30 Acetaminophen/ Hydrocodone Bitart (Lortab 7.5/325) 1 tab PRN Q6HRS PRN PO PAIN ; Start 09/09/16 at 11:00 Magnesium Oxide (Magnesium Oxide) 400 mg [id number] PO Last administered on 11:18; Start 09/09/16 at 11:30 Montelukast Sodium (Singulair) 10 mg DAILY PO Last administered on 09/09/16 11: 18; Start 09/09/16 at 11:30 Vitamin D (Vitamin D3) 2,000 unit DAILY PO Last administered on 09/09/16 11:18 ; Start 09/09/16 at 11:30 Non-Formulary Medication 1 inh BID IH ; Start 09/09/16 at 21:00; Status UNV Non-Formulary Medication 1 each DAILY PO ; Start 09/10/16 at 09:00; Status UNV Non-Formulary Medication 5 mg 3X/WEEK PO ; Start 09/11/16 at 09:00; Status UNV Mirtazapine (Remeron) 45 mg QHS PO ; Start 09/09/16 at 21:00 Multivitamins (Thera M Plus) 1 tab DAILY PO ; Start 09/10/16 at 09:00 Fish Oil (Fish Oil) 1,000 mg DAILY PO Last administered on 09/09/16 11:18; Start 09/09/16 at 11:30 Non-Formulary Medication 1 cap DAILY IH ; Start 09/10/16 at 09:00; Status UNV Vitamin B Complex (Carter B) 1 tab DAILY PO Last administered on 09/09/16 11:18; Start 09/09/16 at 11:30 Acetaminophen (Tylenol) 650 mg PRN Q6HRS PRN PO FEVER; Start 09/09/16 at 11:00 Ondansetron HCl (Zofran) 4 mg PRN Q6HRS PRN IV NAUSEA/VOMITING; Start 09/09/16 at 11:00 Albuterol/ Ipratropium (Duoneb) 3 ml RTQID NEB ; Start 09/09/16 at 12:00 Budesonide (Pulmicort) 0.5 mg RTBID NEB ; Start 09/09/16 at 11:30 Ferrous Sulfate (Feosol) 325 mg DAILYWBKFT PO Last administered on 09/09/16 11: 18; Start 09/09/16 at 11:30 Ascorbic Acid 500 mg 500 mg DAILY PO Last administered on 09/09/16 11:18; Start 09/09/16 at 11:30 Sodium Bicarbonate/ Dextrose 1,150 ml @ 100 mls/hr [id number] IV ; Start 09/09/16 at 14:00 Active Scripts Active Reported Terbinafine Hcl 250 Mg Tablet Trazodone Hcl 50 Mg Tablet Klor-Con M20 (Potassium Chloride) 20 Meq Tab.er.prt Spiriva Respimat (Tiotropium [place]) 4 Gm Mist.inhal Cephalexin 500 Mg Capsule Mag-Oxide (Magnesium Oxide) 400 Mg Tablet 400 Mg PO [id number] Emily-Ayesha Tablet (Folic Acid/Vitamin B Comp W-C) 0.8 Mg Tablet 0.8 Mg PO DAILY Spiriva (Tiotropium [place]) 18 Mcg Cap.w.dev 1 Cap IH DAILY Super B Complex (Vitamin B Complex & Vit C No.4) 150 Mg Tablet 150 Mg PO DAILY Mirtazapine 45 Mg Tablet 45 Mg PO HS Amiodarone Hcl 200 Mg Tablet 1 Tab PO DAILY Warfarin Sodium 2 Mg Tablet 2 Mg PO DAILY16 Acyclovir 200 Mg Capsule 200 Mg PO BID Alprazolam 1 Mg Tablet 1 Mg PO PRN Q6HRS PRN Hydrocodone-Apap 7.5-325 (Hydrocodone Bit/Acetaminophen) 1 Each Tablet 1 Tab PO PRN Q6HRS PRN Advair 100-50 Diskus (Fluticasone/Salmeterol) 1 Each Disk.w.dev 1 Inh IH BID Vitron-C Tablet (Iron,Carbonyl/Ascorbic Acid) 1 Each Tablet.dr 1 Each PO DAILY Fish Oil 1,000 Mg Softgel ([place]-3 Fatty Acids/Fish Oil) 1 Each Capsule 1 Each PO DAILY Vitamin D-3 (Cholecalciferol (Vitamin D3)) 2,000 Unit Capsule 2,000 Unit PO DAILY Multivitamins (Multivitamin) 1 Each Tablet 1 Tab PO DAILY Montelukast Sodium Tablet (Montelukast Sodium) 10 Mg Tablet 1 Tab PO DAILY Calcitriol 0.25 Mcg Capsule 1 Cap PO 3X/WEEK Revlimid (Lenalidomide) 5 Mg Capsule 5 Mg PO 3X/WEEK Methocarbamol 750 Mg Tablet 750 Mg PO PRN Vitals/I & O Vital Sign - Last 24 Hours 09/08/16 09/08/16 09/08/16 09/08/16 14:25 19:00 20:00 23:00 Temp 97.6 98.4 97.8 97.6 98.4 97.8 Pulse 76 73 74 Resp 17 20 20 B/P 89/52 100/58 102/52 Pulse Ox 93 92 93 O2 Delivery Room Air Room Air Room Air Room Air 09/09/16 09/09/16 09/09/16 07:00 08:00 10:50 Temp 97.8 97.8 97.8 97.8 Pulse 75 74 Resp 18 18 B/P 94/45 98/49 Pulse Ox 96 96 O2 Delivery Room Air Room Air Room Air Intake and Output 09/08/16 09/08/16 09/09/16 15:00 23:00 07:00 Intake Total 500 ml 200 ml Output Total 300 ml Balance 500 ml -100 ml Nutrition Consultation Dietary Evaluation: Recommendations by RD: Increase Calorie Intake, Protein supplementation Comments: Novasource renal TID - 475kcal and 21.6g protein per serving Expected Outcomes/Goals: to meet >75% est nutr needs Malnutrition Findings: Body Fat Depletion (Non Severe: Mild Depletion Weight Status: Appropriate ENA QUEEN MD September 09, 2016 13:40
[2016-09-09] MEDS ORDERED: SODIUM BICARBONATE VIAL 150 MEQ in IV DEXTROSE 5% 1,000 ML IV SCH (14:00)
[2016-09-09 15:05] VITALS: BP 99/51
[2016-09-09 19:00] VITALS: BP 101/56
[2016-09-09] MEDS ORDERED: NON FORMULARY ITEM (Fluticasone/Salmeterol (Advair 100-50 Diskus) 1 INH) IH SCH (21:00)
[2016-09-09] MEDS: MIRTAZAPINE 15 MG TABLET PO SCH (21:16)
[2016-09-09 23:00] VITALS: BP 95/52
--- NOTE | 2016-09-09 23:51 | CONS ---
DATE OF CONSULTATION: 09/09/2016 REQUESTING PHYSICIAN: Dr. Padilla. REASON FOR CONSULTATION: C. diff colitis. HISTORY OF PRESENT ILLNESS: This is a 66-year-old female who has end-stage renal disease on hemodialysis, who also has COPD and recurrent antibiotic use. In fact, she says a week or two ago, she had a sore throat and she got antibiotics. The patient came in with abdominal cramping and diarrhea. The patient's CT showed extensive colitis, C. diff is positive. The patient is currently receiving Rocephin and p.o. vancomycin and consult has been requested. PAST MEDICAL HISTORY: Positive for diabetes mellitus, hypertension, hyperlipidemia, end-stage renal disease and COPD. ALLERGIES: No known drug allergies. SOCIAL HISTORY: Negative for smoking, alcohol, illicit drug use. CURRENT MEDICATIONS: Reviewed. REVIEW OF SYSTEMS: As per HPI, all other systems reviewed are negative. PHYSICAL EXAMINATION: GENERAL: Alert, oriented female, not in distress. VITAL SIGNS: Stable, afebrile. HEENT: NAD. NECK: Supple, no JVP, no lymphadenopathy. LUNGS: Clear. HEART: S1, S2 regular. ABDOMEN: Soft, mild diffuse tenderness present. No rebound, guarding. No organomegaly. EXTREMITIES: No edema, cyanosis. SKIN: Unremarkable. NEUROLOGIC: The patient is neurologically intact. LABORATORY DATA: White count is 25,000. BUN 74, creatinine 8.2. Urinalysis showed more than 40 wbc's. C. diff is positive. CT scan of the abdomen and pelvis noted. IMPRESSION: 1. Clostridium difficile colitis. 2. Leukocytosis. 3. End-stage renal disease, on hemodialysis. 4. Multiple myeloma. 5. Chronic obstructive pulmonary disease. PLAN: I would discontinue Rocephin. Continue p.o. vancomycin. Supportive care. The patient is going to need to avoid antibiotics, i.e. as I discussed sore throat was not a good enough reason to take antibiotics or bronchitis is not good enough to take antibiotics because she will continue to have problem with C. diff. Again recurrence on C. diff education done. We will continue to follow and adjust as more as things change. Thank you very much, Dr. Padilla for giving me the opportunity to participate in this patient's care. TIFFANIE CARROLL MD DR: CURLY/kadie JOB#: [id number] / [id number]
[2016-09-10] VITALS (9 sets, daily range): BP systolic 91–121; BP diastolic 41–76
[2016-09-10] MEDS: BUDESONIDE 0.5 MG/2 ML NEBU. NEB SCH ×2 (07:21→19:51)
[2016-09-10] MEDS: IPRATRPIUM/ALBUTEROL 0.5/2.5MG 3 ML NEBU. NEB SCH ×4 (07:21→19:51)
[2016-09-10 07:30] LABS: ALBUMIN 1.9 g/dL (3.4-5.0); CALCIUM 7.6 mg/dL (8.5-10.1); CREATININE 7.9 mg/dL (0.6-1.0); GFR 5.1; PHOSPHORUS 4.1 mg/dL (2.6-4.7)
[2016-09-10 07:42] LABS: POTASSIUM 2.9 mmol/L (3.5-5.1)
[2016-09-10] MEDS: FERROUS SULFATE 325 MG TABLET. PO SCH (08:00)
[2016-09-10 08:05] LABS: INR 1.2 (0.8-1.1); PROTHROMBIN TIME PATIENT 14.6 SEC (11.7-14.0)
[2016-09-10 08:09] LABS: BASO # 0.1 x10^3/uL (0.0-0.2); BASO % 0 % (0-3); EOS % 1 % (0-3); HEMATOCRIT 31.5 % (36.0-47.0); HEMOGLOBIN 10.2 g/dL (12.0-15.5); LYMPH # 0.5 x10^3/uL (1.0-4.8); LYMPH % 3 % (24-48); MEAN CORPUSCULAR HEMOGLOBIN 32 pg (25-35); MEAN CORPUSCULAR HGB CONC 32 g/dL (31-37); MEAN CORPUSCULAR VOLUME 100 fL (79-100); MONO % 8 % (0-9); NEUT % 88 % (31-73); PLATELET COUNT 240 x10^3/uL (140-400); RED BLOOD COUNT 3.15 x10^6/uL (3.50-5.40); RED CELL DISTRIBUTION WIDTH 16.4 % (11.5-14.5); WHITE BLOOD COUNT 16.6 x10^3/uL (4.0-11.0)
[2016-09-10] MEDS: MULTIVITAMIN with MINERAL TABLET. PO SCH (09:00)
[2016-09-10] MEDS ORDERED: NON FORMULARY ITEM (Tiotropium Bromide (Spiriva) 1 CAP) IH SCH (09:00)
[2016-09-10] MEDS: OMEGA-3 FATTY ACIDS/FISH OIL 1,000 MG CAPSULE. PO SCH (09:00)
[2016-09-10] MEDS: FOLIC/VIT B COMP W-C (RENAL) TABLET. PO SCH (09:00)
[2016-09-10] MEDS ORDERED: IRON CARBONYL PO SCH (09:00)
[2016-09-10] MEDS: VITAMIN B COMPLEX TABLET. PO SCH (09:00)
[2016-09-10] MEDS: VANCOMYCIN 125 MG/2.5 ML ORAL SOLUTION. PO SCH ×4 (09:00→20:35)
[2016-09-10] MEDS: CHOLECALCIFEROL (VITAMIN D3) 1,000 UNIT TABLET PO SCH (09:00)
[2016-09-10] MEDS ORDERED: ASCORBIC ACID PO SCH (09:00)
[2016-09-10] MEDS: MAGNESIUM OXIDE 400 MG TABLET PO SCH ×2 (09:00→16:00)
[2016-09-10] MEDS: MONTELUKAST SODIUM 10 MG TABLET. PO SCH (09:00)
[2016-09-10] MEDS: ASCORBIC ACID 500 MG TABLET PO SCH (09:00)
[2016-09-10] MEDS ORDERED: IODIXANOL 320 MG/ML 100 ML VIAL. ONE (09:54)
[2016-09-10] MEDS ORDERED: LIDOCAINE 1% / SOD BICARB 8.4% 20 ML VIAL. IJ ONE ×2 (09:54→12:15)
[2016-09-10] MEDS ORDERED: IODIXANOL 320MG/ML 50ML VIAL. ONE (09:54)
--- NOTE | 2016-09-10 10:10 | PDOC ---
Infectious Disease Note Subjective Subjective pt is bit confused, HD graft is not working ROS ROS GEN: Denies fevers, chills, sweats HEENT: Denies blurred vision, sore throat CV: Denies chest pain RESP: Denies shortness of air, cough GI: Denies n/v/d NEURO: Denies confusion, dizziness MSK: Denies weakness, joint pain/swelling Vital Sign Vital Signs Vital Signs Date Time Temp Pulse Resp B/P (MAP) Pulse Ox O2 Delivery O2 Flow Rate FiO2 09/10/16 07:22 Room Air 09/10/16 07:00 98.0 77 16 112/76 (88) 94 98.0 Physical Exam PHYSICAL EXAM GENERAL: NAD, Alert HEENT: PERRL, OC/OP NECK: Supple, no JVD, no LN LUNGS: Clear HEART: S1S2, no gallop, no murmur ABD: Soft, NT, no organomegaly, no rebound EXT: No edema, no cyanosis NOTE TAKER: Alert, oriented x 3, no focal neurologic deficit SKIN: No rash IV: ok Labs Lab Laboratory Tests Test 09/10/16 05:50 White Blood Count 16.6 x10^3/uL (4.0-11.0) Red Blood Count 3.15 x10^6/uL (3.50-5.40) Hemoglobin 10.2 g/dL (12.0-15.5) Hematocrit 31.5 % (36.0-47.0) Mean Corpuscular Volume 100 fL (79-100) Mean Corpuscular Hemoglobin 32 pg (25-35) Mean Corpuscular Hemoglobin Concent 32 g/dL (31-37) Red Cell Distribution Width 16.4 % (11.5-14.5) Platelet Count 240 x10^3/uL (140-400) Neutrophils (%) (Auto) 88 % (31-73) Lymphocytes (%) (Auto) 3 % (24-48) Monocytes (%) (Auto) 8 % (0-9) Eosinophils (%) (Auto) 1 % (0-3) Basophils (%) (Auto) 0 % (0-3) Neutrophils # (Auto) 14.6 x10^3uL (1.8-7.7) Lymphocytes # (Auto) 0.5 x10^3/uL (1.0-4.8) Monocytes # (Auto) 1.4 x10^3/uL (0.0-1.1) Eosinophils # (Auto) 0.1 x10^3/uL (0.0-0.7) Basophils # (Auto) 0.1 x10^3/uL (0.0-0.2) Prothrombin Time 14.6 SEC (11.7-14.0) Prothromb Time International Ratio 1.2 (0.8-1.1) Sodium Level 137 mmol/L (136-145) Potassium Level 2.9 mmol/L (3.5-5.1) Chloride Level 98 mmol/L (98-107) Carbon Dioxide Level 26 mmol/L (21-32) Anion Gap 13 (6-14) Blood Urea Nitrogen 73 mg/dL (7-20) Creatinine 7.9 mg/dL (0.6-1.0) Estimated GFR (Cockcroft-Gault) 5.1 Glucose Level 93 mg/dL (70-99) Calcium Level 7.6 mg/dL (8.5-10.1) Phosphorus Level 4.1 mg/dL (2.6-4.7) Magnesium Level 2.4 mg/dL (1.8-2.4) Albumin 1.9 g/dL (3.4-5.0) Objective Assessment C diff colitis COPD ESRD Leukocytosis Plan Plan of Care po vanc supportive care avoid antibiotics education done recurrence education done TIFFANIE CARROLL MD September 10, 2016 10:10
[2016-09-10] MEDS ORDERED: MIDAZOLAM HCL/PF 5 MG/5 ML VIAL. ONE (10:52)
[2016-09-10] MEDS ORDERED: fentaNYL PF VIAL 250 MCG/5 ML VIAL ONE (10:52)
[2016-09-10] MEDS ORDERED: HEPARIN for IV BOLUS 10,000 UNIT/10 ML VIAL. ONE (10:52)
[2016-09-10] MEDS ORDERED: ALTEPLASE 2 MG VIAL INT CAT ONE (11:15)
--- NOTE | 2016-09-10 11:24 | PDOC ---
Objective: Objective: Per RN - AV shunt clotted, out of room for this. Problems w/ IV access. Confused. Ongoing diarrhea - 10 stools charted. Vital Signs: Vital Signs Date Time Temp Pulse Resp B/P (MAP) Pulse Ox O2 Delivery O2 Flow Rate FiO2 09/10/16 11:00 off unit 09/10/16 07:00 98.0 77 16 112/76 (88) 94 98.0 Labs: Laboratory Tests Test 09/10/16 05:50 White Blood Count 16.6 x10^3/uL Red Blood Count 3.15 x10^6/uL Hemoglobin 10.2 g/dL Hematocrit 31.5 % Mean Corpuscular Volume 100 fL Mean Corpuscular Hemoglobin 32 pg Mean Corpuscular Hemoglobin Concent 32 g/dL Red Cell Distribution Width 16.4 % Platelet Count 240 x10^3/uL Neutrophils (%) (Auto) 88 % Lymphocytes (%) (Auto) 3 % Monocytes (%) (Auto) 8 % Eosinophils (%) (Auto) 1 % Basophils (%) (Auto) 0 % Neutrophils # (Auto) 14.6 x10^3uL Lymphocytes # (Auto) 0.5 x10^3/uL Monocytes # (Auto) 1.4 x10^3/uL Eosinophils # (Auto) 0.1 x10^3/uL Basophils # (Auto) 0.1 x10^3/uL Prothrombin Time 14.6 SEC Prothromb Time International Ratio 1.2 Sodium Level 137 mmol/L Potassium Level 2.9 mmol/L Chloride Level 98 mmol/L Carbon Dioxide Level 26 mmol/L Anion Gap 13 Blood Urea Nitrogen 73 mg/dL Creatinine 7.9 mg/dL Estimated GFR (Cockcroft-Gault) 5.1 Glucose Level 93 mg/dL Calcium Level 7.6 mg/dL Phosphorus Level 4.1 mg/dL Magnesium Level 2.4 mg/dL Albumin 1.9 g/dL PE: no exam A/P: C Diff -ID following on po vanc -leukocytosis improved ESRD on HD -AV shunt clotted Hypokalemia Confusion -- Continue vanc for C Diff, will review w/ Dr. Spence. MOMO TOVAR September 10, 2016 11:24
[2016-09-10] MEDS ORDERED: MIDAZOLAM HCL/PF 5 MG/5 ML VIAL. IV ONE (12:15)
[2016-09-10] MEDS ORDERED: IODIXANOL 320 MG/ML 100 ML VIAL. IV ONE (12:15)
[2016-09-10] MEDS ORDERED: HEPARIN for IV BOLUS 10,000 UNIT/10 ML VIAL. IV ONE (12:15)
[2016-09-10] MEDS ORDERED: fentaNYL PF VIAL 100 MCG/2 ML VIAL IV ONE (12:15)
--- NOTE | 2016-09-10 12:15 | PDOC ---
PROGRESS NOTES Chief Complaint Chief Complaint 1. cdiff colitis 2. delirium with ESRD, sepsis 3. sepsis with 1 4. H/o NSVT on Amiodarone therapy 5. ESRD on HD MWF 6. Anemia with ESRD 7. Multiple myeloma on remission 8. H/o DVT on warfarin therapy 9. DLP 10. Hypothyroidism 11. 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 Nonischemic Cardiomyopathy 15. non function AVF 09/09 16. HYPOKalemia 17. stable Chronic systolic HF; LVEF 40% per cath 03/16/16. plan: fu with gi, id, renal, vascular, angiogram and maybe thrombolysis as per vascular 09/10 on vanco qid hd MWF hold coumadin will discuss with pt tmr to see if want onco consult cont home meds replete K History of Present Illness History of Present Illness still severe diarrhea looks very tired and miserable with diarrhea saying not taking coumadin since she was found recurrent tongue Ca ,but no treatment yet HD AVF not working on 09/09 with clots, angiogram 09/10 confused on 09/10 Vitals Vitals Vital Signs Date Time Temp Pulse Resp B/P (MAP) Pulse Ox O2 Delivery O2 Flow Rate FiO2 09/10/16 11:00 off unit 09/10/16 07:00 98.0 77 16 112/76 (88) 94 98.0 Physical Exam General: Alert, Oriented X3, Cooperative Heart: Regular rate, Normal S1, Normal S2 Lungs: Clear, Other Abdomen: Normal bowel sounds, Soft, No hepatosplenomegaly, No masses Extremities: No clubbing, No cyanosis Skin: No breakdown, No significant lesion Labs LABS Laboratory Tests Test 09/10/16 05:50 White Blood Count 16.6 x10^3/uL (4.0-11.0) Red Blood Count 3.15 x10^6/uL (3.50-5.40) Hemoglobin 10.2 g/dL (12.0-15.5) Hematocrit 31.5 % (36.0-47.0) Mean Corpuscular Volume 100 fL (79-100) Mean Corpuscular Hemoglobin 32 pg (25-35) Mean Corpuscular Hemoglobin Concent 32 g/dL (31-37) Red Cell Distribution Width 16.4 % (11.5-14.5) Platelet Count 240 x10^3/uL (140-400) Neutrophils (%) (Auto) 88 % (31-73) Lymphocytes (%) (Auto) 3 % (24-48) Monocytes (%) (Auto) 8 % (0-9) Eosinophils (%) (Auto) 1 % (0-3) Basophils (%) (Auto) 0 % (0-3) Neutrophils # (Auto) 14.6 x10^3uL (1.8-7.7) Lymphocytes # (Auto) 0.5 x10^3/uL (1.0-4.8) Monocytes # (Auto) 1.4 x10^3/uL (0.0-1.1) Eosinophils # (Auto) 0.1 x10^3/uL (0.0-0.7) Basophils # (Auto) 0.1 x10^3/uL (0.0-0.2) Prothrombin Time 14.6 SEC (11.7-14.0) Prothromb Time International Ratio 1.2 (0.8-1.1) Sodium Level 137 mmol/L (136-145) Potassium Level 2.9 mmol/L (3.5-5.1) Chloride Level 98 mmol/L (98-107) Carbon Dioxide Level 26 mmol/L (21-32) Anion Gap 13 (6-14) Blood Urea Nitrogen 73 mg/dL (7-20) Creatinine 7.9 mg/dL (0.6-1.0) Estimated GFR (Cockcroft-Gault) 5.1 Glucose Level 93 mg/dL (70-99) Calcium Level 7.6 mg/dL (8.5-10.1) Phosphorus Level 4.1 mg/dL (2.6-4.7) Magnesium Level 2.4 mg/dL (1.8-2.4) Albumin 1.9 g/dL (3.4-5.0) Review of Systems Review of Systems no fever, chills, sob or chest pain Assessment and Plan Assessmemt and Plan Problems Medical Problems: (1) Abdominal pain Status: Acute (2) Colitis Status: Acute (3) Diarrhea Status: Acute Problems: Comment Review of Relevant I have reviewed the following items molly (where applicable) has been applied. Labs Laboratory Tests Test 09/09/16 05:45 09/10/16 05:50 White Blood Count 25.3 x10^3/uL (4.0-11.0) 16.6 x10^3/uL (4.0-11.0) Red Blood Count 3.16 x10^6/uL (3.50-5.40) 3.15 x10^6/uL (3.50-5.40) Hemoglobin 10.3 g/dL (12.0-15.5) 10.2 g/dL (12.0-15.5) Hematocrit 31.4 % (36.0-47.0) 31.5 % (36.0-47.0) Mean Corpuscular Volume 100 fL (79-100) 100 fL (79-100) Mean Corpuscular Hemoglobin 33 pg (25-35) 32 pg (25-35) Mean Corpuscular Hemoglobin Concent 33 g/dL (31-37) 32 g/dL (31-37) Red Cell Distribution Width 16.4 % (11.5-14.5) 16.4 % (11.5-14.5) Platelet Count 233 x10^3/uL (140-400) 240 x10^3/uL (140-400) Neutrophils (%) (Auto) 89 % (31-73) 88 % (31-73) Lymphocytes (%) (Auto) 2 % (24-48) 3 % (24-48) Monocytes (%) (Auto) 9 % (0-9) 8 % (0-9) Eosinophils (%) (Auto) 0 % (0-3) 1 % (0-3) Basophils (%) (Auto) 0 % (0-3) 0 % (0-3) Neutrophils # (Auto) 22.5 x10^3uL (1.8-7.7) 14.6 x10^3uL (1.8-7.7) Lymphocytes # (Auto) 0.6 x10^3/uL (1.0-4.8) 0.5 x10^3/uL (1.0-4.8) Monocytes # (Auto) 2.1 x10^3/uL (0.0-1.1) 1.4 x10^3/uL (0.0-1.1) Eosinophils # (Auto) 0.1 x10^3/uL (0.0-0.7) 0.1 x10^3/uL (0.0-0.7) Basophils # (Auto) 0.0 x10^3/uL (0.0-0.2) 0.1 x10^3/uL (0.0-0.2) Sodium Level 134 mmol/L (136-145) 137 mmol/L (136-145) Potassium Level 3.7 mmol/L (3.5-5.1) 2.9 mmol/L (3.5-5.1) Chloride Level 100 mmol/L (98-107) 98 mmol/L (98-107) Carbon Dioxide Level 20 mmol/L (21-32) 26 mmol/L (21-32) Anion Gap 14 (6-14) 13 (6-14) Blood Urea Nitrogen 74 mg/dL (7-20) 73 mg/dL (7-20) Creatinine 8.2 mg/dL (0.6-1.0) 7.9 mg/dL (0.6-1.0) Estimated GFR (Cockcroft-Gault) 4.9 5.1 Glucose Level 88 mg/dL (70-99) 93 mg/dL (70-99) Calcium Level 7.3 mg/dL (8.5-10.1) 7.6 mg/dL (8.5-10.1) Phosphorus Level 4.9 mg/dL (2.6-4.7) 4.1 mg/dL (2.6-4.7) Magnesium Level 2.4 mg/dL (1.8-2.4) 2.4 mg/dL (1.8-2.4) Albumin 1.8 g/dL (3.4-5.0) 1.9 g/dL (3.4-5.0) Prothrombin Time 14.6 SEC (11.7-14.0) Prothromb Time International Ratio 1.2 (0.8-1.1) Laboratory Tests Test 09/10/16 05:50 White Blood Count 16.6 x10^3/uL (4.0-11.0) Red Blood Count 3.15 x10^6/uL (3.50-5.40) Hemoglobin 10.2 g/dL (12.0-15.5) Hematocrit 31.5 % (36.0-47.0) Mean Corpuscular Volume 100 fL (79-100) Mean Corpuscular Hemoglobin 32 pg (25-35) Mean Corpuscular Hemoglobin Concent 32 g/dL (31-37) Red Cell Distribution Width 16.4 % (11.5-14.5) Platelet Count 240 x10^3/uL (140-400) Neutrophils (%) (Auto) 88 % (31-73) Lymphocytes (%) (Auto) 3 % (24-48) Monocytes (%) (Auto) 8 % (0-9) Eosinophils (%) (Auto) 1 % (0-3) Basophils (%) (Auto) 0 % (0-3) Neutrophils # (Auto) 14.6 x10^3uL (1.8-7.7) Lymphocytes # (Auto) 0.5 x10^3/uL (1.0-4.8) Monocytes # (Auto) 1.4 x10^3/uL (0.0-1.1) Eosinophils # (Auto) 0.1 x10^3/uL (0.0-0.7) Basophils # (Auto) 0.1 x10^3/uL (0.0-0.2) Prothrombin Time 14.6 SEC (11.7-14.0) Prothromb Time International Ratio 1.2 (0.8-1.1) Sodium Level 137 mmol/L (136-145) Potassium Level 2.9 mmol/L (3.5-5.1) Chloride Level 98 mmol/L (98-107) Carbon Dioxide Level 26 mmol/L (21-32) Anion Gap 13 (6-14) Blood Urea Nitrogen 73 mg/dL (7-20) Creatinine 7.9 mg/dL (0.6-1.0) Estimated GFR (Cockcroft-Gault) 5.1 Glucose Level 93 mg/dL (70-99) Calcium Level 7.6 mg/dL (8.5-10.1) Phosphorus Level 4.1 mg/dL (2.6-4.7) Magnesium Level 2.4 mg/dL (1.8-2.4) Albumin 1.9 g/dL (3.4-5.0) Microbiology 09/07/16 Urine Culture - Preliminary, Resulted 09/07/16 Urine Culture Result 1 (DIRK) - Preliminary, Resulted Medications Current Medications Iohexol (Omnipaque 300 Mg/ml) 60 ml 1X ONCE IV ; Start 09/07/16 at 18:30; Stop 09/07/16 at 18:31; Status DC Info (Do NOT chart on this entry -- for MONITORING) 1 each PRN DAILY PRN MC SEE COMMENTS; Start 09/07/16 at 18:30; Stop 09/09/16 at 18:29; Status DC Vancomycin HCl 125 mg [id number] PO Last administered on 09/09/16 21:17; Start 09/08/16 at 09:00 Vancomycin HCl 125 mg 1X ONCE PO Last administered on 09/07/16 20:58; Start at 21:00; Stop 09/07/16 at 21:01; Status DC Ceftriaxone Sodium 50 ml @ 100 mls/hr 1X ONCE IV Last administered on 20:58; Start 09/07/16 at 21:00; Stop 09/07/16 at 21:29; Status DC Ceftriaxone Sodium 1 gm/ Sodium Chloride 50 ml @ 100 mls/hr Q24H IV Last administered on 09/08/16 21:00; Start 09/08/16 at 21:00; Stop 09/09/16 at 10:37; Status DC Metronidazole 100 ml @ 100 mls/hr 1X ONCE IV Last administered on 09/07/16 21 :40; Start 09/07/16 at 21:00; Stop 09/07/16 at 21:59; Status DC Metronidazole 100 ml @ 100 mls/hr Q8HRS IV Last administered on 09/08/16 06:32 ; Start 09/08/16 at 06:00; Stop 09/08/16 at 09:01; Status DC Ondansetron HCl (Zofran) 4 mg PRN Q8HRS PRN IV NAUSEA/VOMITING Last administered on 09/08/16 00:02; Start 09/07/16 at 23:00; Stop 09/08/16 at 22:59; Status DC Fentanyl Citrate (Fentanyl 2ml Vial) 50 mcg PRN Q2HR PRN IV SEVERE PAIN Last administered on 09/08/16 00:01; Start 09/07/16 at 23:00; Stop 09/08/16 at 22:59; Status DC Acetaminophen (Tylenol) 650 mg PRN Q4HRS PRN PO FEVER; Start 09/07/16 at 23:00; Stop 09/08/16 at 22:59; Status DC Alprazolam (Xanax) 1 mg PRN Q6HRS PRN PO ANXIETY / AGITATION Last administered on 09/08/16 03:29; Start 09/08/16 at 03:15; Stop 09/09/16 at 11:00; Status DC Dicyclomine HCl (Bentyl) 10 mg PRN QID PRN PO GI SYMPTOMS Last administered on 09/08/16 03:29; Start 09/08/16 at 03:15 Magnesium Sulfate/ Dextrose 50 ml @ 25 mls/hr PRN DAILY PRN IV for Mag < 1.7 on am labs; Start 09/08/16 at 10:00 Sodium Chloride 500 ml @ 0 mls/hr PRN QID PRN IV for MAP < 65 or SBP < 100 Last administered on 09/08/16 10:31; Start 09/08/16 at 10:15 Sodium Chloride 1,000 ml @ 100 mls/hr Q10H IV Last administered on 09/08/16 10 :31; Start 09/08/16 at 10:15; Stop 09/08/16 at 20:14; Status DC Info (PHARMACY MONITORING -- do not chart) 1 each PRN DAILY PRN MC SEE COMMENTS ; Start 09/08/16 at 16:15 Acyclovir (Zovirax) 200 mg BID PO Last administered on 09/09/16 21:15; Start at 11:30 Alprazolam (Xanax) 1 mg PRN Q6HRS PRN PO ANXIETY / AGITATION Last administered on 09/09/16 12:17; Start 09/09/16 at 11:00 Amiodarone HCl (Cordarone) 200 mg DAILY PO ; Start 09/09/16 at 11:30 Calcitriol (Rocaltrol) 0.25 mcg 3X/WEEK PO Last administered on 09/09/16 11:18 ; Start 09/09/16 at 11:30 Vitamin B Complex/ Vitamin C (Emily-Ayesha) 1 tab DAILY PO Last administered on 11:18; Start 09/09/16 at 11:30 Acetaminophen/ Hydrocodone Bitart (Lortab 7.5/325) 1 tab PRN Q6HRS PRN PO PAIN ; Start 09/09/16 at 11:00 Magnesium Oxide (Magnesium Oxide) 400 mg [id number] PO Last administered on 16:36; Start 09/09/16 at 11:30 Montelukast Sodium (Singulair) 10 mg DAILY PO Last administered on 09/09/16 11: 18; Start 09/09/16 at 11:30 Vitamin D (Vitamin D3) 2,000 unit DAILY PO Last administered on 09/09/16 11:18 ; Start 09/09/16 at 11:30 Non-Formulary Medication 1 inh BID IH ; Start 09/09/16 at 21:00; Status UNV Non-Formulary Medication 1 each DAILY PO ; Start 09/10/16 at 09:00; Status UNV Non-Formulary Medication 5 mg 3X/WEEK PO ; Start 09/11/16 at 09:00; Status UNV Mirtazapine (Remeron) 45 mg QHS PO Last administered on 09/09/16 21:16; Start 09/09/16 at 21:00 Multivitamins (Thera M Plus) 1 tab DAILY PO ; Start 09/10/16 at 09:00 Fish Oil (Fish Oil) 1,000 mg DAILY PO Last administered on 09/09/16 11:18; Start 09/09/16 at 11:30 Non-Formulary Medication 1 cap DAILY IH ; Start 09/10/16 at 09:00; Status UNV Vitamin B Complex (Carter B) 1 tab DAILY PO Last administered on 09/09/16 11:18; Start 09/09/16 at 11:30 Acetaminophen (Tylenol) 650 mg PRN Q6HRS PRN PO FEVER; Start 09/09/16 at 11:00 Ondansetron HCl (Zofran) 4 mg PRN Q6HRS PRN IV NAUSEA/VOMITING; Start 09/09/16 at 11:00 Albuterol/ Ipratropium (Duoneb) 3 ml RTQID NEB Last administered on 09/10/16 07 :21; Start 09/09/16 at 12:00 Budesonide (Pulmicort) 0.5 mg RTBID NEB Last administered on 09/10/16 07:21; Start 09/09/16 at 11:30 Ferrous Sulfate (Feosol) 325 mg [id number] PO Last administered on 09/09/16 11: 18; Start 09/09/16 at 11:30 Ascorbic Acid (Vitamin C) 500 mg DAILY PO Last administered on 09/09/16 11:18; Start 09/09/16 at 11:30 Sodium Bicarbonate 150 meq/Dextrose 1,150 ml @ 100 mls/hr [id number] IV Last administered on 09/09/16 14:00; Start 09/09/16 at 14:00; Stop 09/10/16 at 01:29; Status DC Potassium Chloride 100 ml @ 100 mls/hr Q1H IV ; Start 09/10/16 at 09:00; Stop at 12:59 Iodixanol (Visipaque 320) 50 ml STK-MED ONCE .ROUTE ; Start 09/10/16 at 09:54; Stop 09/10/16 at 09:55; Status DC Lidocaine/Sodium Bicarbonate (Buffered Lidocaine 1%) 20 ml STK-MED ONCE IJ ; Start 09/10/16 at 09:54; Stop 09/10/16 at 09:55; Status DC Heparin Sodium/ Sodium Chloride 1,000 ml @ As Directed STK-MED ONCE .ROUTE ; Start 09/10/16 at 09:54; Stop 09/10/16 at 09:55; Status DC Iodixanol (Visipaque 320) 100 ml STK-MED ONCE .ROUTE ; Start 09/10/16 at 09:54; Stop 09/10/16 at 09:55; Status DC Heparin Sodium (Porcine) (Heparin Sodium) 10,000 unit STK-MED ONCE .ROUTE ; Start 09/10/16 at 10:52; Stop 09/10/16 at 10:53; Status DC Midazolam HCl (Versed) 5 mg STK-MED ONCE .ROUTE ; Start 09/10/16 at 10:52; Stop 09/10/16 at 10:53; Status DC Fentanyl Citrate (Fentanyl 5ml Vial) 250 mcg STK-MED ONCE .ROUTE ; Start at 10:52; Stop 09/10/16 at 10:53; Status DC Alteplase, Recombinant (Cathflo) 6 mg 1X ONCE INT CAT ; Start 09/10/16 at 11:15 ; Stop 09/10/16 at 11:16; Status DC Active Scripts Active Reported Terbinafine Hcl 250 Mg Tablet Trazodone Hcl 50 Mg Tablet Klor-Con M20 (Potassium Chloride) 20 Meq Tab.er.prt Spiriva Respimat (Tiotropium [place]) 4 Gm Mist.inhal Cephalexin 500 Mg Capsule Mag-Oxide (Magnesium Oxide) 400 Mg Tablet 400 Mg PO [id number] Emily-Ayesha Tablet (Folic Acid/Vitamin B Comp W-C) 0.8 Mg Tablet 0.8 Mg PO DAILY Spiriva (Tiotropium [place]) 18 Mcg Cap.w.dev 1 Cap IH DAILY Super B Complex (Vitamin B Complex & Vit C No.4) 150 Mg Tablet 150 Mg PO DAILY Mirtazapine 45 Mg Tablet 45 Mg PO HS Amiodarone Hcl 200 Mg Tablet 1 Tab PO DAILY Warfarin Sodium 2 Mg Tablet 2 Mg PO DAILY16 Acyclovir 200 Mg Capsule 200 Mg PO BID Alprazolam 1 Mg Tablet 1 Mg PO PRN Q6HRS PRN Hydrocodone-Apap 7.5-325 (Hydrocodone Bit/Acetaminophen) 1 Each Tablet 1 Tab PO PRN Q6HRS PRN Advair 100-50 Diskus (Fluticasone/Salmeterol) 1 Each Disk.w.dev 1 Inh IH BID Vitron-C Tablet (Iron,Carbonyl/Ascorbic Acid) 1 Each Tablet. 1 Each PO DAILY Fish Oil 1,000 Mg Softgel (Jansen-3 Fatty Acids/Fish Oil) 1 Each Capsule 1 Each PO DAILY Vitamin D-3 (Cholecalciferol (Vitamin D3)) 2,000 Unit Capsule 2,000 Unit PO DAILY Multivitamins (Multivitamin) 1 Each Tablet 1 Tab PO DAILY Montelukast Sodium Tablet (Montelukast Sodium) 10 Mg Tablet 1 Tab PO DAILY Calcitriol 0.25 Mcg Capsule 1 Cap PO 3X/WEEK Revlimid (Lenalidomide) 5 Mg Capsule 5 Mg PO 3X/WEEK Methocarbamol 750 Mg Tablet 750 Mg PO PRN Vitals/I & O Vital Sign - Last 24 Hours 09/09/16 09/09/16 09/09/16 09/09/16 15:05 15:41 19:00 19:26 Temp 97.8 97.5 97.8 97.5 Pulse 74 78 Resp 18 18 B/P (MAP) 99/51 (67) 101/56 (71) Pulse Ox 96 92 94 92 O2 Delivery Nasal Cannula Room Air Room Air Room Air 09/09/16 09/09/16 09/09/16 09/10/16 19:28 20:00 23:00 02:45 Temp 97.7 96.8 97.7 96.8 Pulse 79 82 Resp 18 18 B/P (MAP) 95/52 (66) 111/60 (77) Pulse Ox 92 92 91 O2 Delivery Room Air Room Air Room Air Room Air 09/10/16 09/10/16 09/10/16 09/10/16 07:00 07:22 08:00 11:00 Temp 98.0 98.0 Pulse 77 Resp 16 B/P (MAP) 112/76 (88) Pulse Ox 94 O2 Delivery Room Air Room Air Room Air off unit Intake and Output 09/09/16 09/09/16 09/10/16 15:00 23:00 07:00 Intake Total 240 ml 250 ml Balance 240 ml 250 ml Nutrition Consultation Dietary Evaluation: Recommendations by RD: Increase Calorie Intake, Protein supplementation Comments: Novasource renal TID - 475kcal and 21.6g protein per serving Expected Outcomes/Goals: to meet >75% est nutr needs Malnutrition Findings: Body Fat Depletion (Non Severe: Mild Depletion Weight Status: Appropriate ENA QUEEN MD September 10, 2016 12:15
--- NOTE | 2016-09-10 12:57 | PDOC ---
MODERATE SEDATION ASSESSMENT RISKS/ALTERNATIVES Risks/Alternatives Risks and alternatives of this type of sedation and procedure discussed with: RISK/ALTERNATIVES: Patient H & P ON CHART H & P H & P on chart and reviewed for co-morbid conditions and appropriate labs. H&P ON CHART: Yes STATUS PREG STATUS ASSESSED: Yes MEDS/ALLERGIES REVIEWED Meds/Allergies Reviewed Medications and Allergies including time and route of recently administered narcotics and sedatives. MEDS/ALLERGIES REVIEWED: Yes ASA RATING ASA RATING: II AIRWAY ASSESSMENT Airway Assessment Airway patency, oral function limitations, presence of caps, crowns, dentures, partials, and ability to extend neck assessed. AIRWAY ASSESSMENT: Yes MALLAMPATI SCORE MALLAMPATI SCORE: II PRE-SEDATION ASSESSMENT PRE-SEDATION ASSESSMENT: Yes AKI BRISENO MD September 10, 2016 12:57
--- NOTE | 2016-09-10 12:58 | PDOC ---
BRIEF OPERATIVE NOTE Pre-Op Diagnosis CRF and thrombosed AVF Post-Op Diagnosis same Procedure Performed Shuntogram, fistula decot, angioplasy and stent Surgeon Rojelio Anesthesia Type: Conscious Sedation Findings Thrombosis, tandem edge stent restenoses, arterial anastomosis stenosis, all improved after thrombolysis, angioplasty and stenting with buddhist of brisk flow Complications No immediate AKI BRISENO MD September 10, 2016 12:58
[2016-09-10] MEDS: POTASSIUM CHLORIDE 10MEQ 100 ML IV SCH (14:00)
[2016-09-10] MEDS: HYDROcodone/APAP 7.5/325MG 1 TAB TABLET PO PRN ×2 (14:29→20:35)
[2016-09-10] MEDS: AMIODARONE HCL 200 MG TABLET. PO SCH (14:29)
[2016-09-10] MEDS: ACYCLOVIR 200 MG CAPSULE. PO SCH ×2 (14:30→20:35)
[2016-09-10] MEDS ORDERED: DIALYSIS PATIENT. MC PRN ×2 (16:30)
--- NOTE | 2016-09-10 16:59 | PDOC ---
Dialysis Progress Note Dialysis Note Dialysis Note Seen on Hemodialysis, tolerating treatment Okay so far Vitals on Hemodialysis : 99/46 88 AFEB General Appearance: Awake: Alert Oriented x 1-2 Neck: No JVD or JVP Chest: CTA Kory Heart: S1 S2 Abdomen - Soft NTND Extremities - No Edema ESRD: Dialysis as below F 180 NR 3.0 Hrs 4 K 2.5 Ca 140 Na 40 HC03 Qb 350 + Qd 500+ Heparin Units Uf 0-1 Kgs or to dry weight as tolerated May give 25-50 gms of 25% Albumin if needed to maintain Hemodynamic stability Treatment plan reviewed and discussed with finisher operator Vitals Vital Signs Vital Signs Date Time Temp Pulse Resp B/P (MAP) Pulse Ox O2 Delivery O2 Flow Rate FiO2 09/10/16 16:26 Room Air 09/10/16 14:29 108/65 09/10/16 13:15 98.1 87 14 90 2.0 98.1 Labs Last Labs Laboratory Tests Test 09/09/16 05:45 09/10/16 05:50 White Blood Count 25.3 x10^3/uL (4.0-11.0) 16.6 x10^3/uL (4.0-11.0) Red Blood Count 3.16 x10^6/uL (3.50-5.40) 3.15 x10^6/uL (3.50-5.40) Hemoglobin 10.3 g/dL (12.0-15.5) 10.2 g/dL (12.0-15.5) Hematocrit 31.4 % (36.0-47.0) 31.5 % (36.0-47.0) Mean Corpuscular Volume 100 fL (79-100) 100 fL (79-100) Mean Corpuscular Hemoglobin 33 pg (25-35) 32 pg (25-35) Mean Corpuscular Hemoglobin Concent 33 g/dL (31-37) 32 g/dL (31-37) Red Cell Distribution Width 16.4 % (11.5-14.5) 16.4 % (11.5-14.5) Platelet Count 233 x10^3/uL (140-400) 240 x10^3/uL (140-400) Neutrophils (%) (Auto) 89 % (31-73) 88 % (31-73) Lymphocytes (%) (Auto) 2 % (24-48) 3 % (24-48) Monocytes (%) (Auto) 9 % (0-9) 8 % (0-9) Eosinophils (%) (Auto) 0 % (0-3) 1 % (0-3) Basophils (%) (Auto) 0 % (0-3) 0 % (0-3) Neutrophils # (Auto) 22.5 x10^3uL (1.8-7.7) 14.6 x10^3uL (1.8-7.7) Lymphocytes # (Auto) 0.6 x10^3/uL (1.0-4.8) 0.5 x10^3/uL (1.0-4.8) Monocytes # (Auto) 2.1 x10^3/uL (0.0-1.1) 1.4 x10^3/uL (0.0-1.1) Eosinophils # (Auto) 0.1 x10^3/uL (0.0-0.7) 0.1 x10^3/uL (0.0-0.7) Basophils # (Auto) 0.0 x10^3/uL (0.0-0.2) 0.1 x10^3/uL (0.0-0.2) Sodium Level 134 mmol/L (136-145) 137 mmol/L (136-145) Potassium Level 3.7 mmol/L (3.5-5.1) 2.9 mmol/L (3.5-5.1) Chloride Level 100 mmol/L (98-107) 98 mmol/L (98-107) Carbon Dioxide Level 20 mmol/L (21-32) 26 mmol/L (21-32) Anion Gap 14 (6-14) 13 (6-14) Blood Urea Nitrogen 74 mg/dL (7-20) 73 mg/dL (7-20) Creatinine 8.2 mg/dL (0.6-1.0) 7.9 mg/dL (0.6-1.0) Estimated GFR (Cockcroft-Gault) 4.9 5.1 Glucose Level 88 mg/dL (70-99) 93 mg/dL (70-99) Calcium Level 7.3 mg/dL (8.5-10.1) 7.6 mg/dL (8.5-10.1) Phosphorus Level 4.9 mg/dL (2.6-4.7) 4.1 mg/dL (2.6-4.7) Magnesium Level 2.4 mg/dL (1.8-2.4) 2.4 mg/dL (1.8-2.4) Albumin 1.8 g/dL (3.4-5.0) 1.9 g/dL (3.4-5.0) Prothrombin Time 14.6 SEC (11.7-14.0) Prothromb Time International Ratio 1.2 (0.8-1.1) Laboratory Tests Test 09/10/16 05:50 White Blood Count 16.6 x10^3/uL (4.0-11.0) Red Blood Count 3.15 x10^6/uL (3.50-5.40) Hemoglobin 10.2 g/dL (12.0-15.5) Hematocrit 31.5 % (36.0-47.0) Mean Corpuscular Volume 100 fL (79-100) Mean Corpuscular Hemoglobin 32 pg (25-35) Mean Corpuscular Hemoglobin Concent 32 g/dL (31-37) Red Cell Distribution Width 16.4 % (11.5-14.5) Platelet Count 240 x10^3/uL (140-400) Neutrophils (%) (Auto) 88 % (31-73) Lymphocytes (%) (Auto) 3 % (24-48) Monocytes (%) (Auto) 8 % (0-9) Eosinophils (%) (Auto) 1 % (0-3) Basophils (%) (Auto) 0 % (0-3) Neutrophils # (Auto) 14.6 x10^3uL (1.8-7.7) Lymphocytes # (Auto) 0.5 x10^3/uL (1.0-4.8) Monocytes # (Auto) 1.4 x10^3/uL (0.0-1.1) Eosinophils # (Auto) 0.1 x10^3/uL (0.0-0.7) Basophils # (Auto) 0.1 x10^3/uL (0.0-0.2) Prothrombin Time 14.6 SEC (11.7-14.0) Prothromb Time International Ratio 1.2 (0.8-1.1) Sodium Level 137 mmol/L (136-145) Potassium Level 2.9 mmol/L (3.5-5.1) Chloride Level 98 mmol/L (98-107) Carbon Dioxide Level 26 mmol/L (21-32) Anion Gap 13 (6-14) Blood Urea Nitrogen 73 mg/dL (7-20) Creatinine 7.9 mg/dL (0.6-1.0) Estimated GFR (Cockcroft-Gault) 5.1 Glucose Level 93 mg/dL (70-99) Calcium Level 7.6 mg/dL (8.5-10.1) Phosphorus Level 4.1 mg/dL (2.6-4.7) Magnesium Level 2.4 mg/dL (1.8-2.4) Albumin 1.9 g/dL (3.4-5.0) Assessment Assessment Problems Medical Problems: (1) Abdominal pain Status: Acute (2) Colitis Status: Acute (3) Diarrhea Status: Acute Problems: Plan Plan of Care Problems Medical Problems: (1) Abdominal pain Status: Acute (2) Colitis Status: Acute (3) Diarrhea Status: Acute EJ CARROLL MD September 10, 2016 16:59
[2016-09-10] MEDS: MIRTAZAPINE 15 MG TABLET PO SCH (20:34)
[2016-09-10] MEDS: ALPRAZolam 1 MG TABLET PO PRN (20:35)
[2016-09-11 03:00] VITALS: BP 115/58
[2016-09-11] MEDS: POTASSIUM CHLORIDE 10MEQ 100 ML IV SCH ×3 (04:30→12:09)
[2016-09-11 04:57] LABS: BASO # 0.1 x10^3/uL (0.0-0.2); BASO % 1 % (0-3); EOS % 0 % (0-3); HEMATOCRIT 29.9 % (36.0-47.0); HEMOGLOBIN 9.6 g/dL (12.0-15.5); LYMPH # 0.5 x10^3/uL (1.0-4.8); LYMPH % 4 % (24-48); MEAN CORPUSCULAR HEMOGLOBIN 32 pg (25-35); MEAN CORPUSCULAR HGB CONC 32 g/dL (31-37); MEAN CORPUSCULAR VOLUME 100 fL (79-100); MONO % 10 % (0-9); NEUT % 85 % (31-73); PLATELET COUNT 192 x10^3/uL (140-400); RED BLOOD COUNT 2.99 x10^6/uL (3.50-5.40); RED CELL DISTRIBUTION WIDTH 16.2 % (11.5-14.5); WHITE BLOOD COUNT 11.3 x10^3/uL (4.0-11.0)
[2016-09-11 05:28] LABS: CALCIUM 7.8 mg/dL (8.5-10.1); CREATININE 4.9 mg/dL (0.6-1.0); GFR 8.8; PHOSPHORUS 3.2 mg/dL (2.6-4.7); POTASSIUM 3.2 mmol/L (3.5-5.1)
[2016-09-11] MEDS: IPRATRPIUM/ALBUTEROL 0.5/2.5MG 3 ML NEBU. NEB SCH ×4 (07:00→19:39)
[2016-09-11] MEDS: BUDESONIDE 0.5 MG/2 ML NEBU. NEB SCH ×2 (07:01→19:42)
[2016-09-11] MEDS ORDERED: IV NORMAL SALINE 1000ML BAG 1,000 ML IV PRN (07:15)
[2016-09-11] MEDS ORDERED: diphenhydrAMINE 50 MG/ML VIAL IV PRN ×2 (07:15)
[2016-09-11] MEDS ORDERED: ACETAMINOPHEN 500 MG TABLET PO PRN (07:15)
[2016-09-11] MEDS ORDERED: 0.9 % SODIUM CHLORIDE 10 ML DISP.SYRIN. IV PRN ×2 (07:15)
[2016-09-11] MEDS ORDERED: ALBUMIN HUMAN 25% 200 ML IV PRN (07:15)
[2016-09-11] MEDS ORDERED: DIALYSIS PATIENT. MC PRN ×3 (07:15)
[2016-09-11 07:23] VITALS: BP 86/43
[2016-09-11] MEDS: VANCOMYCIN 125 MG/2.5 ML ORAL SOLUTION. PO SCH ×5 (09:00→21:17)
[2016-09-11] MEDS: AMIODARONE HCL 200 MG TABLET. PO SCH (09:00)
[2016-09-11] MEDS ORDERED: LENALIDOMIDE 5 MG PO SCH (09:00)
--- NOTE | 2016-09-11 09:21 | PDOC ---
Dialysis Progress Note Dialysis Note Dialysis Note Seen on Hemodialysis, tolerating treatment Okay so far Vitals on Hemodialysis : 100/50 84 AFEB General Appearance: Awake: Alert Oriented x 2-3 Neck: No JVD or JVP Chest: CTA [place] Heart: S1 S2 Abdomen - Soft NTND Extremities - No Edema ESRD: Dialysis as below F 180 NR 3.5 Hrs 4 K 2.5 Ca 140 Na 30 HC03 Qb 350 + Qd 500+ Heparin Units Uf 0 Kgs or to dry weight as tolerated May give 25-50 gms of 25% Albumin if needed to maintain Hemodynamic stability Treatment plan reviewed and discussed with supply chain assistant Vitals Vital Signs Vital Signs Date Time Temp Pulse Resp B/P (MAP) Pulse Ox O2 Delivery O2 Flow Rate FiO2 09/11/16 07:23 96.4 87 18 86/43 (57) 100 Room Air 96.4 09/10/16 13:15 2.0 Labs Last Labs Laboratory Tests Test 09/10/16 05:50 09/11/16 04:25 White Blood Count 16.6 x10^3/uL (4.0-11.0) 11.3 x10^3/uL (4.0-11.0) Red Blood Count 3.15 x10^6/uL (3.50-5.40) 2.99 x10^6/uL (3.50-5.40) Hemoglobin 10.2 g/dL (12.0-15.5) 9.6 g/dL (12.0-15.5) Hematocrit 31.5 % (36.0-47.0) 29.9 % (36.0-47.0) Mean Corpuscular Volume 100 fL (79-100) 100 fL (79-100) Mean Corpuscular Hemoglobin 32 pg (25-35) 32 pg (25-35) Mean Corpuscular Hemoglobin Concent 32 g/dL (31-37) 32 g/dL (31-37) Red Cell Distribution Width 16.4 % (11.5-14.5) 16.2 % (11.5-14.5) Platelet Count 240 x10^3/uL (140-400) 192 x10^3/uL (140-400) Neutrophils (%) (Auto) 88 % (31-73) 85 % (31-73) Lymphocytes (%) (Auto) 3 % (24-48) 4 % (24-48) Monocytes (%) (Auto) 8 % (0-9) 10 % (0-9) Eosinophils (%) (Auto) 1 % (0-3) 0 % (0-3) Basophils (%) (Auto) 0 % (0-3) 1 % (0-3) Neutrophils # (Auto) 14.6 x10^3uL (1.8-7.7) 9.6 x10^3uL (1.8-7.7) Lymphocytes # (Auto) 0.5 x10^3/uL (1.0-4.8) 0.5 x10^3/uL (1.0-4.8) Monocytes # (Auto) 1.4 x10^3/uL (0.0-1.1) 1.1 x10^3/uL (0.0-1.1) Eosinophils # (Auto) 0.1 x10^3/uL (0.0-0.7) 0.0 x10^3/uL (0.0-0.7) Basophils # (Auto) 0.1 x10^3/uL (0.0-0.2) 0.1 x10^3/uL (0.0-0.2) Prothrombin Time 14.6 SEC (11.7-14.0) Prothromb Time International Ratio 1.2 (0.8-1.1) Sodium Level 137 mmol/L (136-145) 139 mmol/L (136-145) Potassium Level 2.9 mmol/L (3.5-5.1) 3.2 mmol/L (3.5-5.1) Chloride Level 98 mmol/L (98-107) 99 mmol/L (98-107) Carbon Dioxide Level 26 mmol/L (21-32) 32 mmol/L (21-32) Anion Gap 13 (6-14) 8 (6-14) Blood Urea Nitrogen 73 mg/dL (7-20) 38 mg/dL (7-20) Creatinine 7.9 mg/dL (0.6-1.0) 4.9 mg/dL (0.6-1.0) Estimated GFR (Cockcroft-Gault) 5.1 8.8 Glucose Level 93 mg/dL (70-99) 96 mg/dL (70-99) Calcium Level 7.6 mg/dL (8.5-10.1) 7.8 mg/dL (8.5-10.1) Phosphorus Level 4.1 mg/dL (2.6-4.7) 3.2 mg/dL (2.6-4.7) Magnesium Level 2.4 mg/dL (1.8-2.4) 1.9 mg/dL (1.8-2.4) Albumin 1.9 g/dL (3.4-5.0) 2.0 g/dL (3.4-5.0) Laboratory Tests Test 09/11/16 04:25 White Blood Count 11.3 x10^3/uL (4.0-11.0) Red Blood Count 2.99 x10^6/uL (3.50-5.40) Hemoglobin 9.6 g/dL (12.0-15.5) Hematocrit 29.9 % (36.0-47.0) Mean Corpuscular Volume 100 fL (79-100) Mean Corpuscular Hemoglobin 32 pg (25-35) Mean Corpuscular Hemoglobin Concent 32 g/dL (31-37) Red Cell Distribution Width 16.2 % (11.5-14.5) Platelet Count 192 x10^3/uL (140-400) Neutrophils (%) (Auto) 85 % (31-73) Lymphocytes (%) (Auto) 4 % (24-48) Monocytes (%) (Auto) 10 % (0-9) Eosinophils (%) (Auto) 0 % (0-3) Basophils (%) (Auto) 1 % (0-3) Neutrophils # (Auto) 9.6 x10^3uL (1.8-7.7) Lymphocytes # (Auto) 0.5 x10^3/uL (1.0-4.8) Monocytes # (Auto) 1.1 x10^3/uL (0.0-1.1) Eosinophils # (Auto) 0.0 x10^3/uL (0.0-0.7) Basophils # (Auto) 0.1 x10^3/uL (0.0-0.2) Sodium Level 139 mmol/L (136-145) Potassium Level 3.2 mmol/L (3.5-5.1) Chloride Level 99 mmol/L (98-107) Carbon Dioxide Level 32 mmol/L (21-32) Anion Gap 8 (6-14) Blood Urea Nitrogen 38 mg/dL (7-20) Creatinine 4.9 mg/dL (0.6-1.0) Estimated GFR (Cockcroft-Gault) 8.8 Glucose Level 96 mg/dL (70-99) Calcium Level 7.8 mg/dL (8.5-10.1) Phosphorus Level 3.2 mg/dL (2.6-4.7) Magnesium Level 1.9 mg/dL (1.8-2.4) Albumin 2.0 g/dL (3.4-5.0) Assessment Assessment Problems Medical Problems: (1) Abdominal pain Status: Acute (2) Colitis Status: Acute (3) Diarrhea Status: Acute Problems: Plan Plan of Care Problems Medical Problems: (1) Abdominal pain Status: Acute (2) Colitis Status: Acute (3) Diarrhea Status: Acute EJ CARROLL MD September 11, 2016 09:21
--- NOTE | 2016-09-11 10:07 | PDOC ---
Subjective: Subjective: Says diarrhea better, ate yesterday, no abd pain, feeling better. Objective: Objective: Per healthcare management - confusion, situational. 10 stools charted yesterday. Vital Signs: Vital Signs Date Time Temp Pulse Resp B/P (MAP) Pulse Ox O2 Delivery O2 Flow Rate FiO2 09/11/16 07:23 96.4 87 18 86/43 (57) 100 Room Air 96.4 09/10/16 13:15 2.0 Labs: Laboratory Tests Test 09/11/16 04:25 White Blood Count 11.3 x10^3/uL Red Blood Count 2.99 x10^6/uL Hemoglobin 9.6 g/dL Hematocrit 29.9 % Mean Corpuscular Volume 100 fL Mean Corpuscular Hemoglobin 32 pg Mean Corpuscular Hemoglobin Concent 32 g/dL Red Cell Distribution Width 16.2 % Platelet Count 192 x10^3/uL Neutrophils (%) (Auto) 85 % Lymphocytes (%) (Auto) 4 % Monocytes (%) (Auto) 10 % Eosinophils (%) (Auto) 0 % Basophils (%) (Auto) 1 % Neutrophils # (Auto) 9.6 x10^3uL Lymphocytes # (Auto) 0.5 x10^3/uL Monocytes # (Auto) 1.1 x10^3/uL Eosinophils # (Auto) 0.0 x10^3/uL Basophils # (Auto) 0.1 x10^3/uL Sodium Level 139 mmol/L Potassium Level 3.2 mmol/L Chloride Level 99 mmol/L Carbon Dioxide Level 32 mmol/L Anion Gap 8 Blood Urea Nitrogen 38 mg/dL Creatinine 4.9 mg/dL Estimated GFR (Cockcroft-Gault) 8.8 Glucose Level 96 mg/dL Calcium Level 7.8 mg/dL Phosphorus Level 3.2 mg/dL Magnesium Level 1.9 mg/dL Albumin 2.0 g/dL Imagin09/10/16: shuntogram, fistula decot, angioplasty and stent PE: GEN: NAD LUNGS:coarse HEART: RRR ABD: NABS, S/ND/NT NEURO/PSYCH: knows hospital name, year, and president A/P: C Diff -ID following on po vanc -leukocytosis improving still Confusion -- Will review w/ Dr. Spence. MOMO TOVAR September 11, 2016 10:07
--- NOTE | 2016-09-11 10:20 | PDOC ---
Infectious Disease Note Subjective Subjective feeling much better ROS ROS GEN: Denies fevers, chills, sweats HEENT: Denies blurred vision, sore throat CV: Denies chest pain RESP: Denies shortness of air, cough GI: Denies n/v/d NEURO: Denies confusion, dizziness MSK: Denies weakness, joint pain/swelling Vital Sign Vital Signs Vital Signs Date Time Temp Pulse Resp B/P (MAP) Pulse Ox O2 Delivery O2 Flow Rate FiO2 09/11/16 07:23 96.4 87 18 86/43 (57) 100 Room Air 96.4 09/10/16 13:15 2.0 Physical Exam PHYSICAL EXAM GENERAL: NAD, Alert HEENT: PERRL, OC/OP NECK: Supple, no JVD, no LN LUNGS: Clear HEART: S1S2, no gallop, no murmur ABD: Soft, NT, no organomegaly, no rebound EXT: No edema, no cyanosis FRONT DESK ATTENDANT: Alert, oriented x 3, no focal neurologic deficit SKIN: No rash IV: ok Labs Lab Laboratory Tests Test 09/11/16 04:25 White Blood Count 11.3 x10^3/uL (4.0-11.0) Red Blood Count 2.99 x10^6/uL (3.50-5.40) Hemoglobin 9.6 g/dL (12.0-15.5) Hematocrit 29.9 % (36.0-47.0) Mean Corpuscular Volume 100 fL (79-100) Mean Corpuscular Hemoglobin 32 pg (25-35) Mean Corpuscular Hemoglobin Concent 32 g/dL (31-37) Red Cell Distribution Width 16.2 % (11.5-14.5) Platelet Count 192 x10^3/uL (140-400) Neutrophils (%) (Auto) 85 % (31-73) Lymphocytes (%) (Auto) 4 % (24-48) Monocytes (%) (Auto) 10 % (0-9) Eosinophils (%) (Auto) 0 % (0-3) Basophils (%) (Auto) 1 % (0-3) Neutrophils # (Auto) 9.6 x10^3uL (1.8-7.7) Lymphocytes # (Auto) 0.5 x10^3/uL (1.0-4.8) Monocytes # (Auto) 1.1 x10^3/uL (0.0-1.1) Eosinophils # (Auto) 0.0 x10^3/uL (0.0-0.7) Basophils # (Auto) 0.1 x10^3/uL (0.0-0.2) Sodium Level 139 mmol/L (136-145) Potassium Level 3.2 mmol/L (3.5-5.1) Chloride Level 99 mmol/L (98-107) Carbon Dioxide Level 32 mmol/L (21-32) Anion Gap 8 (6-14) Blood Urea Nitrogen 38 mg/dL (7-20) Creatinine 4.9 mg/dL (0.6-1.0) Estimated GFR (Cockcroft-Gault) 8.8 Glucose Level 96 mg/dL (70-99) Calcium Level 7.8 mg/dL (8.5-10.1) Phosphorus Level 3.2 mg/dL (2.6-4.7) Magnesium Level 1.9 mg/dL (1.8-2.4) Albumin 2.0 g/dL (3.4-5.0) Objective Assessment C diff colitis COPD ESRD Leukocytosis Plan Plan of Care po vanc for total 10 days supportive care avoid antibiotics education done recurrence education done ok to d/c TIFFANIE CARROLL MD September 11, 2016 10:20
[2016-09-11] MEDS: FOLIC/VIT B COMP W-C (RENAL) TABLET. PO SCH (12:14)
[2016-09-11] MEDS: FERROUS SULFATE 325 MG TABLET. PO SCH (12:15)
[2016-09-11] MEDS: MULTIVITAMIN with MINERAL TABLET. PO SCH (12:15)
[2016-09-11] MEDS: ASCORBIC ACID 500 MG TABLET PO SCH (12:15)
[2016-09-11] MEDS: MAGNESIUM OXIDE 400 MG TABLET PO SCH ×2 (12:15→18:17)
[2016-09-11] MEDS: CALCITRIOL 0.25 MCG CAPSULE. PO SCH (12:15)
[2016-09-11] MEDS: VITAMIN B COMPLEX TABLET. PO SCH (12:15)
[2016-09-11] MEDS: OMEGA-3 FATTY ACIDS/FISH OIL 1,000 MG CAPSULE. PO SCH (12:16)
[2016-09-11] MEDS: ACYCLOVIR 200 MG CAPSULE. PO SCH ×2 (12:16→21:11)
[2016-09-11] MEDS: MONTELUKAST SODIUM 10 MG TABLET. PO SCH (12:16)
[2016-09-11] MEDS: CHOLECALCIFEROL (VITAMIN D3) 1,000 UNIT TABLET PO SCH (12:16)
[2016-09-11] MEDS: AMINO AC 3%/ELECTROLYTE/GLYCER 1,000 ML IV SCH ×2 (12:19→21:17)
--- NOTE | 2016-09-11 12:29 | PDOC ---
PROGRESS NOTES Chief Complaint Chief Complaint 1. cdiff colitis 2. delirium with ESRD, sepsis 3. sepsis with 1 4. H/o NSVT on Amiodarone therapy 5. ESRD on HD MWF 6. Anemia with ESRD 7. Multiple myeloma on remission 8. H/o DVT on warfarin therapy 9. DLP 10. Hypothyroidism 11. 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 Nonischemic Cardiomyopathy 15. non function AVF 09/09 16. HYPOKalemia 17. stable Chronic systolic HF; LVEF 40% per cath 03/16/16. plan: fu with gi, id, renal, vascular, angiogram and thrombolysis by vascular 09/10 on vanco qid hd MWF, HD today hold coumadin would like to discuss with pt to see if want onco consult, but pt has been mild confused now cont home meds replete K ppn as per renal consider dc pt if mental gets better, may need to discuss with her about the tongue Ca plan which can be addressed as outpt tho. History of Present Illness History of Present Illness still severe diarrhea, slightly better today, wbc better looks very tired and miserable with diarrhea saying not taking coumadin since she was found recurrent tongue Ca ,but no treatment plan yet HD AVF not working on 09/09 with clots, angiogram 09/10 confused on 09/10 Vitals Vitals Vital Signs Date Time Temp Pulse Resp B/P (MAP) Pulse Ox O2 Delivery O2 Flow Rate FiO2 09/11/16 10:52 Room Air 09/11/16 07:23 96.4 87 18 86/43 (57) 100 96.4 09/10/16 13:15 2.0 Physical Exam General: Alert, Oriented X3, Cooperative Heart: Regular rate, Normal S1, Normal S2 Lungs: Clear, Other Abdomen: Normal bowel sounds, Soft, No hepatosplenomegaly, No masses Extremities: No clubbing, No cyanosis Skin: No breakdown, No significant lesion Labs LABS Laboratory Tests Test 09/11/16 04:25 White Blood Count 11.3 x10^3/uL (4.0-11.0) Red Blood Count 2.99 x10^6/uL (3.50-5.40) Hemoglobin 9.6 g/dL (12.0-15.5) Hematocrit 29.9 % (36.0-47.0) Mean Corpuscular Volume 100 fL (79-100) Mean Corpuscular Hemoglobin 32 pg (25-35) Mean Corpuscular Hemoglobin Concent 32 g/dL (31-37) Red Cell Distribution Width 16.2 % (11.5-14.5) Platelet Count 192 x10^3/uL (140-400) Neutrophils (%) (Auto) 85 % (31-73) Lymphocytes (%) (Auto) 4 % (24-48) Monocytes (%) (Auto) 10 % (0-9) Eosinophils (%) (Auto) 0 % (0-3) Basophils (%) (Auto) 1 % (0-3) Neutrophils # (Auto) 9.6 x10^3uL (1.8-7.7) Lymphocytes # (Auto) 0.5 x10^3/uL (1.0-4.8) Monocytes # (Auto) 1.1 x10^3/uL (0.0-1.1) Eosinophils # (Auto) 0.0 x10^3/uL (0.0-0.7) Basophils # (Auto) 0.1 x10^3/uL (0.0-0.2) Sodium Level 139 mmol/L (136-145) Potassium Level 3.2 mmol/L (3.5-5.1) Chloride Level 99 mmol/L (98-107) Carbon Dioxide Level 32 mmol/L (21-32) Anion Gap 8 (6-14) Blood Urea Nitrogen 38 mg/dL (7-20) Creatinine 4.9 mg/dL (0.6-1.0) Estimated GFR (Cockcroft-Gault) 8.8 Glucose Level 96 mg/dL (70-99) Calcium Level 7.8 mg/dL (8.5-10.1) Phosphorus Level 3.2 mg/dL (2.6-4.7) Magnesium Level 1.9 mg/dL (1.8-2.4) Albumin 2.0 g/dL (3.4-5.0) Review of Systems Review of Systems no fever, chills, sob or chest pain Assessment and Plan Assessmemt and Plan Problems Medical Problems: (1) Abdominal pain Status: Acute (2) Colitis Status: Acute (3) Diarrhea Status: Acute Problems: Comment Review of Relevant I have reviewed the following items molly (where applicable) has been applied. Labs Laboratory Tests Test 09/10/16 05:50 09/11/16 04:25 White Blood Count 16.6 x10^3/uL (4.0-11.0) 11.3 x10^3/uL (4.0-11.0) Red Blood Count 3.15 x10^6/uL (3.50-5.40) 2.99 x10^6/uL (3.50-5.40) Hemoglobin 10.2 g/dL (12.0-15.5) 9.6 g/dL (12.0-15.5) Hematocrit 31.5 % (36.0-47.0) 29.9 % (36.0-47.0) Mean Corpuscular Volume 100 fL (79-100) 100 fL (79-100) Mean Corpuscular Hemoglobin 32 pg (25-35) 32 pg (25-35) Mean Corpuscular Hemoglobin Concent 32 g/dL (31-37) 32 g/dL (31-37) Red Cell Distribution Width 16.4 % (11.5-14.5) 16.2 % (11.5-14.5) Platelet Count 240 x10^3/uL (140-400) 192 x10^3/uL (140-400) Neutrophils (%) (Auto) 88 % (31-73) 85 % (31-73) Lymphocytes (%) (Auto) 3 % (24-48) 4 % (24-48) Monocytes (%) (Auto) 8 % (0-9) 10 % (0-9) Eosinophils (%) (Auto) 1 % (0-3) 0 % (0-3) Basophils (%) (Auto) 0 % (0-3) 1 % (0-3) Neutrophils # (Auto) 14.6 x10^3uL (1.8-7.7) 9.6 x10^3uL (1.8-7.7) Lymphocytes # (Auto) 0.5 x10^3/uL (1.0-4.8) 0.5 x10^3/uL (1.0-4.8) Monocytes # (Auto) 1.4 x10^3/uL (0.0-1.1) 1.1 x10^3/uL (0.0-1.1) Eosinophils # (Auto) 0.1 x10^3/uL (0.0-0.7) 0.0 x10^3/uL (0.0-0.7) Basophils # (Auto) 0.1 x10^3/uL (0.0-0.2) 0.1 x10^3/uL (0.0-0.2) Prothrombin Time 14.6 SEC (11.7-14.0) Prothromb Time International Ratio 1.2 (0.8-1.1) Sodium Level 137 mmol/L (136-145) 139 mmol/L (136-145) Potassium Level 2.9 mmol/L (3.5-5.1) 3.2 mmol/L (3.5-5.1) Chloride Level 98 mmol/L (98-107) 99 mmol/L (98-107) Carbon Dioxide Level 26 mmol/L (21-32) 32 mmol/L (21-32) Anion Gap 13 (6-14) 8 (6-14) Blood Urea Nitrogen 73 mg/dL (7-20) 38 mg/dL (7-20) Creatinine 7.9 mg/dL (0.6-1.0) 4.9 mg/dL (0.6-1.0) Estimated GFR (Cockcroft-Gault) 5.1 8.8 Glucose Level 93 mg/dL (70-99) 96 mg/dL (70-99) Calcium Level 7.6 mg/dL (8.5-10.1) 7.8 mg/dL (8.5-10.1) Phosphorus Level 4.1 mg/dL (2.6-4.7) 3.2 mg/dL (2.6-4.7) Magnesium Level 2.4 mg/dL (1.8-2.4) 1.9 mg/dL (1.8-2.4) Albumin 1.9 g/dL (3.4-5.0) 2.0 g/dL (3.4-5.0) Laboratory Tests Test 09/11/16 04:25 White Blood Count 11.3 x10^3/uL (4.0-11.0) Red Blood Count 2.99 x10^6/uL (3.50-5.40) Hemoglobin 9.6 g/dL (12.0-15.5) Hematocrit 29.9 % (36.0-47.0) Mean Corpuscular Volume 100 fL (79-100) Mean Corpuscular Hemoglobin 32 pg (25-35) Mean Corpuscular Hemoglobin Concent 32 g/dL (31-37) Red Cell Distribution Width 16.2 % (11.5-14.5) Platelet Count 192 x10^3/uL (140-400) Neutrophils (%) (Auto) 85 % (31-73) Lymphocytes (%) (Auto) 4 % (24-48) Monocytes (%) (Auto) 10 % (0-9) Eosinophils (%) (Auto) 0 % (0-3) Basophils (%) (Auto) 1 % (0-3) Neutrophils # (Auto) 9.6 x10^3uL (1.8-7.7) Lymphocytes # (Auto) 0.5 x10^3/uL (1.0-4.8) Monocytes # (Auto) 1.1 x10^3/uL (0.0-1.1) Eosinophils # (Auto) 0.0 x10^3/uL (0.0-0.7) Basophils # (Auto) 0.1 x10^3/uL (0.0-0.2) Sodium Level 139 mmol/L (136-145) Potassium Level 3.2 mmol/L (3.5-5.1) Chloride Level 99 mmol/L (98-107) Carbon Dioxide Level 32 mmol/L (21-32) Anion Gap 8 (6-14) Blood Urea Nitrogen 38 mg/dL (7-20) Creatinine 4.9 mg/dL (0.6-1.0) Estimated GFR (Cockcroft-Gault) 8.8 Glucose Level 96 mg/dL (70-99) Calcium Level 7.8 mg/dL (8.5-10.1) Phosphorus Level 3.2 mg/dL (2.6-4.7) Magnesium Level 1.9 mg/dL (1.8-2.4) Albumin 2.0 g/dL (3.4-5.0) Microbiology 09/07/16 Urine Culture - Final, Complete 09/07/16 Urine Culture Result 1 (DIRK) - Final, Complete Medications Current Medications Iohexol (Omnipaque 300 Mg/ml) 60 ml 1X ONCE IV ; Start 09/07/16 at 18:30; Stop 09/07/16 at 18:31; Status DC Info (Do NOT chart on this entry -- for MONITORING) 1 each PRN DAILY PRN MC SEE COMMENTS; Start 09/07/16 at 18:30; Stop 09/09/16 at 18:29; Status DC Vancomycin HCl 125 mg [id number] PO Last administered on 09/10/16 20:35; Start 09/08/16 at 09:00 Vancomycin HCl 125 mg 1X ONCE PO Last administered on 09/07/16 20:58; Start at 21:00; Stop 09/07/16 at 21:01; Status DC Ceftriaxone Sodium 50 ml @ 100 mls/hr 1X ONCE IV Last administered on 20:58; Start 09/07/16 at 21:00; Stop 09/07/16 at 21:29; Status DC Ceftriaxone Sodium 1 gm/ Sodium Chloride 50 ml @ 100 mls/hr Q24H IV Last administered on 09/08/16 21:00; Start 09/08/16 at 21:00; Stop 09/09/16 at 10:37; Status DC Metronidazole 100 ml @ 100 mls/hr 1X ONCE IV Last administered on 09/07/16 21 :40; Start 09/07/16 at 21:00; Stop 09/07/16 at 21:59; Status DC Metronidazole 100 ml @ 100 mls/hr Q8HRS IV Last administered on 09/08/16 06:32 ; Start 09/08/16 at 06:00; Stop 09/08/16 at 09:01; Status DC Ondansetron HCl (Zofran) 4 mg PRN Q8HRS PRN IV NAUSEA/VOMITING Last administered on 09/08/16 00:02; Start 09/07/16 at 23:00; Stop 09/08/16 at 22:59; Status DC Fentanyl Citrate (Fentanyl 2ml Vial) 50 mcg PRN Q2HR PRN IV SEVERE PAIN Last administered on 09/08/16 00:01; Start 09/07/16 at 23:00; Stop 09/08/16 at 22:59; Status DC Acetaminophen (Tylenol) 650 mg PRN Q4HRS PRN PO FEVER; Start 09/07/16 at 23:00; Stop 09/08/16 at 22:59; Status DC Alprazolam (Xanax) 1 mg PRN Q6HRS PRN PO ANXIETY / AGITATION Last administered on 09/08/16 03:29; Start 09/08/16 at 03:15; Stop 09/09/16 at 11:00; Status DC Dicyclomine HCl (Bentyl) 10 mg PRN QID PRN PO GI SYMPTOMS Last administered on 09/08/16 03:29; Start 09/08/16 at 03:15 Magnesium Sulfate/ Dextrose 50 ml @ 25 mls/hr PRN DAILY PRN IV for Mag < 1.7 on am labs; Start 09/08/16 at 10:00 Sodium Chloride 500 ml @ 0 mls/hr PRN QID PRN IV for MAP < 65 or SBP < 100 Last administered on 09/08/16 10:31; Start 09/08/16 at 10:15 Sodium Chloride 1,000 ml @ 100 mls/hr Q10H IV Last administered on 09/08/16 10 :31; Start 09/08/16 at 10:15; Stop 09/08/16 at 20:14; Status DC Info (PHARMACY MONITORING -- do not chart) 1 each PRN DAILY PRN MC SEE COMMENTS ; Start 09/08/16 at 16:15; Stop 09/11/16 at 07:22; Status DC Acyclovir (Zovirax) 200 mg BID PO Last administered on 09/11/16 12:16; Start at 11:30 Alprazolam (Xanax) 1 mg PRN Q6HRS PRN PO ANXIETY / AGITATION Last administered on 09/10/16 20:35; Start 09/09/16 at 11:00 Amiodarone HCl (Cordarone) 200 mg DAILY PO Last administered on 09/10/16 14:29 ; Start 09/09/16 at 11:30 Calcitriol (Rocaltrol) 0.25 mcg 3X/WEEK PO Last administered on 09/11/16 12:15 ; Start 09/09/16 at 11:30 Vitamin B Complex/ Vitamin C (Emily-Ayesha) 1 tab DAILY PO Last administered on 12:14; Start 09/09/16 at 11:30 Acetaminophen/ Hydrocodone Bitart (Lortab 7.5/325) 1 tab PRN Q6HRS PRN PO PAIN Last administered on 09/10/16 20:35; Start 09/09/16 at 11:00 Magnesium Oxide (Magnesium Oxide) 400 mg [id number] PO Last administered on 12:15; Start 09/09/16 at 11:30 Montelukast Sodium (Singulair) 10 mg DAILY PO Last administered on 09/11/16 12: 16; Start 09/09/16 at 11:30 Vitamin D (Vitamin D3) 2,000 unit DAILY PO Last administered on 09/11/16 12:16 ; Start 09/09/16 at 11:30 Non-Formulary Medication 1 inh BID IH ; Start 09/09/16 at 21:00; Status UNV Non-Formulary Medication 1 each DAILY PO ; Start 09/10/16 at 09:00; Status UNV Non-Formulary Medication 5 mg 3X/WEEK PO ; Start 09/11/16 at 09:00; Status UNV Mirtazapine (Remeron) 45 mg QHS PO Last administered on 09/10/16 20:34; Start 09/09/16 at 21:00 Multivitamins (Thera M Plus) 1 tab DAILY PO Last administered on 09/11/16 12:15 ; Start 09/10/16 at 09:00 Fish Oil (Fish Oil) 1,000 mg DAILY PO Last administered on 09/11/16 12:16; Start 09/09/16 at 11:30 Non-Formulary Medication 1 cap DAILY IH ; Start 09/10/16 at 09:00; Status UNV Vitamin B Complex (Carter B) 1 tab DAILY PO Last administered on 09/11/16 12:15; Start 09/09/16 at 11:30 Acetaminophen (Tylenol) 650 mg PRN Q6HRS PRN PO FEVER; Start 09/09/16 at 11:00 Ondansetron HCl (Zofran) 4 mg PRN Q6HRS PRN IV NAUSEA/VOMITING; Start 09/09/16 at 11:00 Albuterol/ Ipratropium (Duoneb) 3 ml RTQID NEB Last administered on 09/11/16 10 :52; Start 09/09/16 at 12:00 Budesonide (Pulmicort) 0.5 mg RTBID NEB Last administered on 09/11/16 07:01; Start 09/09/16 at 11:30 Ferrous Sulfate (Feosol) 325 mg DAILYWBKFT PO Last administered on 09/11/16 12: 15; Start 09/09/16 at 11:30 Ascorbic Acid (Vitamin C) 500 mg DAILY PO Last administered on 09/11/16 12:15; Start 09/09/16 at 11:30 Sodium Bicarbonate 150 meq/Dextrose 1,150 ml @ 100 mls/hr [id number] IV Last administered on 09/09/16 14:00; Start 09/09/16 at 14:00; Stop 09/10/16 at 01:29; Status DC Potassium Chloride 100 ml @ 100 mls/hr Q1H IV Last administered on 09/11/16 12 :09; Start 09/10/16 at 09:00; Stop 09/10/16 at 12:59; Status DC Iodixanol (Visipaque 320) 50 ml STK-MED ONCE .ROUTE ; Start 09/10/16 at 09:54; Stop 09/10/16 at 09:55; Status DC Lidocaine/Sodium Bicarbonate (Buffered Lidocaine 1%) 20 ml STK-MED ONCE IJ ; Start 09/10/16 at 09:54; Stop 09/10/16 at 09:55; Status DC Heparin Sodium/ Sodium Chloride 1,000 ml @ As Directed STK-MED ONCE .ROUTE ; Start 09/10/16 at 09:54; Stop 09/10/16 at 09:55; Status DC Iodixanol (Visipaque 320) 100 ml STK-MED ONCE .ROUTE ; Start 09/10/16 at 09:54; Stop 09/10/16 at 09:55; Status DC Heparin Sodium (Porcine) (Heparin Sodium) 10,000 unit STK-MED ONCE .ROUTE ; Start 09/10/16 at 10:52; Stop 09/10/16 at 10:53; Status DC Midazolam HCl (Versed) 5 mg STK-MED ONCE .ROUTE ; Start 09/10/16 at 10:52; Stop 09/10/16 at 10:53; Status DC Fentanyl Citrate (Fentanyl 5ml Vial) 250 mcg STK-MED ONCE .ROUTE ; Start at 10:52; Stop 09/10/16 at 10:53; Status DC Alteplase, Recombinant (Cathflo) 6 mg 1X ONCE INT CAT Last administered on 09/10 12:40; Start 09/10/16 at 11:15; Stop 09/10/16 at 11:16; Status DC Lidocaine/Sodium Bicarbonate (Buffered Lidocaine 1%) 4 ml 1X ONCE IJ Last administered on 09/10/16 12:40; Start 09/10/16 at 12:15; Stop 09/10/16 at 12:22; Status DC Heparin Sodium/ Sodium Chloride 1,000 unit 1X ONCE IV Last administered on 09/10 12:39; Start 09/10/16 at 12:15; Stop 09/10/16 at 12:22; Status DC Heparin Sodium/ Sodium Chloride 1,000 unit 1X ONCE IV Last administered on 09/10 12:39; Start 09/10/16 at 12:15; Stop 09/10/16 at 12:22; Status DC Heparin Sodium (Porcine) (Heparin Sodium) 5,000 unit 1X ONCE IV Last administered on 09/10/16 12:41; Start 09/10/16 at 12:15; Stop 09/10/16 at 12:22; Status DC Midazolam HCl (Versed) 5 mg 1X ONCE IV Last administered on 09/10/16 12:41; Start 09/10/16 at 12:15; Stop 09/10/16 at 12:22; Status DC Iodixanol (Visipaque 320) 100 ml 1X ONCE IV Last administered on 09/10/16 12: 39; Start 09/10/16 at 12:15; Stop 09/10/16 at 12:22; Status DC Fentanyl Citrate (Fentanyl 2ml Vial) 75 mcg 1X ONCE IV Last administered on 12:15; Start 09/10/16 at 12:15; Stop 09/10/16 at 12:22; Status DC Cefazolin Sodium 50 ml @ As Directed STK-MED ONCE IV ; Start 09/10/16 at 12:30; Stop 09/10/16 at 12:31; Status DC Cefazolin Sodium 50 ml @ 100 mls/hr 1X ONCE IV Last administered on 09/10/16t 12:35; Start 09/10/16 at 12:45; Stop 09/10/16 at 13:14; Status DC Info (PHARMACY MONITORING -- do not chart) 1 each PRN DAILY PRN MC SEE COMMENTS ; Start 09/10/16 at 16:30; Stop 09/11/16 at 07:22; Status DC Info (PHARMACY MONITORING -- do not chart) 1 each PRN DAILY PRN MC SEE COMMENTS ; Start 09/10/16 at 16:30; Status UNV Sodium Chloride 1,000 ml @ 1,000 mls/hr Q1H PRN IV hypotension; Start 09/11/16 at 07:15; Stop 09/11/16 at 13:14 Albumin Human 200 ml @ 200 mls/hr 1X PRN PRN IV Hypotension; Start 09/11/16 at 07:15; Stop 09/11/16 at 13:14 Acetaminophen (Tylenol) 500 mg 1X PRN PRN PO MILD PAIN / TEMP; Start 09/11/16 at 07:15; Stop 09/12/16 at 07:14 Diphenhydramine HCl (Benadryl) 25 mg 1X PRN PRN IV ITCHING; Start 09/11/16 at 07 :15; Stop 09/12/16 at 07:14 Diphenhydramine HCl (Benadryl) 25 mg 1X PRN PRN IV ITCHING; Start 09/11/16 at 07 :15; Stop 09/12/16 at 07:14 Sodium Chloride (Normal Saline Flush) 10 ml 1X PRN PRN IV AP catheter pack; Start 09/11/16 at 07:15; Stop 09/12/16 at 07:14 Sodium Chloride (Normal Saline Flush) 10 ml 1X PRN PRN IV PHILOSOPHY PROFESSOR catheter pack; Start 09/11/16 at 07:15; Stop 09/12/16 at 07:14 Info (PHARMACY MONITORING -- do not chart) 1 each PRN DAILY PRN MC SEE COMMENTS ; Start 09/11/16 at 07:15; Stop 09/11/16 at 07:23; Status DC Info (PHARMACY MONITORING -- do not chart) 1 each PRN DAILY PRN MC SEE COMMENTS ; Start 09/11/16 at 07:15; Stop 09/11/16 at 07:23; Status DC Info (PHARMACY MONITORING -- do not chart) 1 each PRN DAILY PRN MC SEE COMMENTS ; Start 09/11/16 at 07:15 Amino Acids/ Glycerin/ Electrolytes 1,000 ml @ 100 mls/hr Q10H IV Last administered on 09/11/16t 12:19; Start 09/11/16 at 09:30 Active Scripts Active Reported Terbinafine Hcl 250 Mg Tablet Trazodone Hcl 50 Mg Tablet Klor-Con M20 (Potassium Chloride) 20 Meq Tab.er.prt Spiriva Respimat (Tiotropium [place]) 4 Gm Mist.inhal Cephalexin 500 Mg Capsule Mag-Oxide (Magnesium Oxide) 400 Mg Tablet 400 Mg PO [id number] Emily-Ayesha Tablet (Folic Acid/Vitamin B Comp W-C) 0.8 Mg Tablet 0.8 Mg PO DAILY Spiriva (Tiotropium [place]) 18 Mcg Cap.w.dev 1 Cap IH DAILY Super B Complex (Vitamin B Complex & Vit C No.4) 150 Mg Tablet 150 Mg PO DAILY Mirtazapine 45 Mg Tablet 45 Mg PO HS Amiodarone Hcl 200 Mg Tablet 1 Tab PO DAILY Warfarin Sodium 2 Mg Tablet 2 Mg PO DAILY16 Acyclovir 200 Mg Capsule 200 Mg PO BID Alprazolam 1 Mg Tablet 1 Mg PO PRN Q6HRS PRN Hydrocodone-Apap 7.5-325 (Hydrocodone Bit/Acetaminophen) 1 Each Tablet 1 Tab PO PRN Q6HRS PRN Advair 100-50 Diskus (Fluticasone/Salmeterol) 1 Each Disk.w.dev 1 Inh IH BID Vitron-C Tablet (Iron,Carbonyl/Ascorbic Acid) 1 Each Tablet.dr 1 Each PO DAILY Fish Oil 1,000 Mg Softgel (Castor-3 Fatty Acids/Fish Oil) 1 Each Capsule 1 Each PO DAILY Vitamin D-3 (Cholecalciferol (Vitamin D3)) 2,000 Unit Capsule 2,000 Unit PO DAILY Multivitamins (Multivitamin) 1 Each Tablet 1 Tab PO DAILY Montelukast Sodium Tablet (Montelukast Sodium) 10 Mg Tablet 1 Tab PO DAILY Calcitriol 0.25 Mcg Capsule 1 Cap PO 3X/WEEK Revlimid (Lenalidomide) 5 Mg Capsule 5 Mg PO 3X/WEEK Methocarbamol 750 Mg Tablet 750 Mg PO PRN Vitals/I & O Vital Sign - Last 24 Hours 09/10/16 09/10/16 09/10/16 09/10/16 12:51 13:00 13:15 13:30 Temp 97.5 98.1 97.5 98.1 Pulse 83 85 87 Resp 20 16 14 B/P (MAP) 113/41 (65) 106/56 (73) 106/49 (68) Pulse Ox 97 93 90 O2 Delivery Nasal Cannula Nasal Cannula Nasal Cannula O2 Flow Rate 2.0 2.0 2.0 09/10/16 09/10/16 09/10/16 09/10/16 13:45 14:29 14:29 15:00 B/P (MAP) 121/68 (85) 108/65 O2 Delivery Room Air off unit 09/10/16 09/10/16 09/10/16 09/10/16 16:26 19:00 19:40 20:00 Temp 97.8 97.8 Pulse 105 Resp 20 B/P (MAP) 95/44 (61) Pulse Ox 97 92 O2 Delivery Room Air Room Air Room Air Room Air 09/10/16 09/10/16 09/10/16 09/11/16 20:35 21:58 23:00 03:00 Temp 97.8 97.6 97.8 97.6 Pulse 88 86 Resp 18 18 20 20 B/P (MAP) 91/44 (60) 115/58 (77) Pulse Ox 91 91 O2 Delivery Room Air Room Air Room Air Room Air 09/11/16 09/11/16 09/11/16 07:01 07:23 10:52 Temp 96.4 96.4 Pulse 87 Resp 18 B/P (MAP) 86/43 (57) Pulse Ox 90 100 O2 Delivery Room Air Room Air Room Air Intake and Output 09/10/16 09/10/16 09/11/16 15:00 23:00 07:00 Intake Total 0 ml 0 ml Balance 0 ml 0 ml Nutrition Consultation Dietary Evaluation: Recommendations by RD: Increase Calorie Intake, Protein supplementation Comments: Novasource renal TID - 475kcal and 21.6g protein per serving Expected Outcomes/Goals: to meet >75% est nutr needs Malnutrition Findings: Body Fat Depletion (Non Severe: Mild Depletion Weight Status: Appropriate ENA QUEEN MD September 11, 2016 12:28
--- NOTE | 2016-09-11 13:09 | RAD ---
Procedure: Left arm fistulogram, thrombolysis, balloon angioplasty of the venous limb, balloon angioplasty of the arterial anastomosis, and stent placement. Clinical Indication: 66-year-old with thrombosed left arm AV fistula, history of prior interventions. Sedation: Conscious sedation was administered for 90 minutes. The patient was monitored by a qualified independent observer throughout the time of sedation. Please refer to the medical record for exact doses of medications utilized to achieve moderate sedation. Antibiotics: None Exposure: Kerma-Area Product: 12 Gycm2 Contrast: 39 cc of Visipaque 320 contrast media Sterility: All elements of maximal sterile barrier technique including the use of a cap, mask, sterile gown, sterile gloves, large sterile sheet, appropriate hand hygiene, and 2% chlorhexidine for cutaneous antisepsis (or acceptable alternative antiseptic per current guidelines) were followed for this procedure. Consent: The procedure was explained in its entirety to the patient or the patients designated signs sales representative by a member of the treatment team, including a discussion of the risks, benefits and commonly accepted alternatives to the procedure, as well as the expected consequences of no therapy whatsoever. Discussion of the risks included, but was not limited to, those that are most frequent and those that are rare but possibly severe or life-threatening, as well as the possibility of unforeseen complications. Technique and Findings: Following informed consent, the patient was prepped and draped in usual sterile fashion. Ultrasound interrogation of the fistula revealed a stenosis at the arterial anastomosis, followed by thrombosis throughout the entirety of the circuit. 1% lidocaine was used to achieve local anesthesia over the proximal portion of the fistula, and a 21-gauge micropuncture needle was used to gain access to the fistula under ultrasound guidance in an antegrade fashion. The needle was exchanged over a wire for 5 [place] sheath. An angled catheter and Glidewire were then advanced to the axillary level, and the catheter was exchanged for a Lyser catheter and 6 no evidence of TPA was then infused. The circuit was then massaged, and a 15 minute delay and sutured. Angiography was then performed demonstrating persistent thrombosis, with rastafari of a small flow channel. The thrombus extends to the distal margin of the stent seen at the level of the mid arm. The catheter was then advanced into the brachycephalic vein and contrast venography was performed demonstrate patency of the brachycephalic vein and SVC. The catheter was then retracted to the level of the stent seen in the mid cephalic vein, and contrast venography was performed. The cephalic vein central to the stent in the high arm is patent throughout, but diminutive, likely due to lack of inflow. A 7 mm x 80 mm angioplasty balloon was then used to angioplasty the entirety of the circuit. This revealed focal high-grade stenoses at both margins of the stent, as well as within tandem regions of the proximal portion of the fistula. Venography performed following removal of the balloon demonstrated some improvement patency with a large amount of residual thrombus. Using ultrasound guidance, a second access was obtained in a retrograde fashion into the fistula. This 21-gauge micropuncture needle was exchanged for a 5 [place] sheath, and a Glidewire and angled catheter were then advanced across the arteriovenous anastomosis. The patient was administered 5000 unit heparin intravenously. A 5 mm x 20 mm angioplasty balloon was then inflated in the brachial artery and withdrawn through the anastomosis to pull the plug of thrombus. A high-grade focal stenosis is present at the arteriovenous anastomosis. Consequently, the balloon was then positioned across the stenosis and used to angioplasty this region for 3 minutes. The balloon was then removed and angiography was performed. Fistulography at this point demonstrated rastafari of flow throughout the fistula which is fairly brisk, however there does remain a moderate amount of residual thrombus proximal to the stent, and there are 2 areas of persistent tandem moderate stenosis proximal to the stent. An 8 mm x 40 mm angioplasty balloon was then used to angioplasty these regions of the fistula. Fistulography demonstrated improved appearance, however moderate residual stenoses persist at the edges of the stent, and a small amount of residual thrombus remains within the circuit. An 8 mm x 100 mm Viabahn covered stent was then advanced into the fistula and deployed through the existing stent, extending both margins by approximately 2.5 cm. This was postdilated using 8 mm x 40 mm angioplasty balloon. Final fistulogram demonstrates brisk flow through the fistula, with wide patency of the stented regions. Couple tandem areas of [id number] residual stenosis are present within the proximal portion of the fistula, but are improved. No flow-limiting lesions are identified. A small amount of thrombus remains at the proximal margin of the stent but is also not flow limiting. The arterial venous anastomosis is widely patent. Pursestring sutures were then applied and the sheaths were removed and hemostasis was achieved with manual compression. Complications: No immediate Impression: 1. Thrombosis left brachycephalic AV fistula, with flow restored following thrombolysis. 2. Multiple unmasked proximal venous stenoses, significantly improved following angioplasty and stenting.
[2016-09-11 14:55] VITALS: BP 93/35
[2016-09-11 19:00] VITALS: BP 75/46
[2016-09-11] MEDS: ALPRAZolam 1 MG TABLET PO PRN (21:12)
[2016-09-11] MEDS: MIRTAZAPINE 15 MG TABLET PO SCH (21:12)
[2016-09-11] MEDS: HYDROcodone/APAP 7.5/325MG 1 TAB TABLET PO PRN (21:13)
[2016-09-11 23:00] VITALS: BP 77/31
[2016-09-12 05:06] LABS: BASO # 0.1 x10^3/uL (0.0-0.2); BASO % 1 % (0-3); EOS % 2 % (0-3); HEMATOCRIT 25.6 % (36.0-47.0); HEMOGLOBIN 8.3 g/dL (12.0-15.5); LYMPH # 0.6 x10^3/uL (1.0-4.8); LYMPH % 7 % (24-48); MEAN CORPUSCULAR HEMOGLOBIN 33 pg (25-35); MEAN CORPUSCULAR HGB CONC 33 g/dL (31-37); MEAN CORPUSCULAR VOLUME 101 fL (79-100); MONO % 14 % (0-9); NEUT % 76 % (31-73); PLATELET COUNT 168 x10^3/uL (140-400); RED BLOOD COUNT 2.53 x10^6/uL (3.50-5.40); RED CELL DISTRIBUTION WIDTH 16.2 % (11.5-14.5); WHITE BLOOD COUNT 8.4 x10^3/uL (4.0-11.0)
[2016-09-12 05:34] LABS: ALBUMIN 1.6 g/dL (3.4-5.0); CREATININE 2.8 mg/dL (0.6-1.0); GFR 16.8; PHOSPHORUS 2.1 mg/dL (2.6-4.7); POTASSIUM 4.3 mmol/L (3.5-5.1)
[2016-09-12 07:30] VITALS: BP 98/63
[2016-09-12] MEDS: AMINO AC 3%/ELECTROLYTE/GLYCER 1,000 ML IV SCH (07:55)
[2016-09-12] MEDS: ASCORBIC ACID 500 MG TABLET PO SCH (07:57)
[2016-09-12] MEDS: MULTIVITAMIN with MINERAL TABLET. PO SCH (07:57)
[2016-09-12] MEDS: MONTELUKAST SODIUM 10 MG TABLET. PO SCH (07:57)
[2016-09-12] MEDS: FOLIC/VIT B COMP W-C (RENAL) TABLET. PO SCH (07:57)
[2016-09-12] MEDS: OMEGA-3 FATTY ACIDS/FISH OIL 1,000 MG CAPSULE. PO SCH (07:57)
[2016-09-12] MEDS: MAGNESIUM OXIDE 400 MG TABLET PO SCH (07:57)
[2016-09-12] MEDS: FERROUS SULFATE 325 MG TABLET. PO SCH (07:57)
[2016-09-12] MEDS: CHOLECALCIFEROL (VITAMIN D3) 1,000 UNIT TABLET PO SCH (07:57)
[2016-09-12] MEDS: ACYCLOVIR 200 MG CAPSULE. PO SCH (07:57)
[2016-09-12] MEDS: VANCOMYCIN 125 MG/2.5 ML ORAL SOLUTION. PO SCH (07:58)
[2016-09-12] MEDS: VITAMIN B COMPLEX TABLET. PO SCH (07:58)
[2016-09-12] MEDS: AMIODARONE HCL 200 MG TABLET. PO SCH (07:58)
[2016-09-12] MEDS ORDERED: ADVAIR INH SCH (09:00)
[2016-09-12] MEDS ORDERED: STIOLTO IH SCH (09:00)
[2016-09-12] MEDS ORDERED: VANC125C2 PO (09:13)
--- NOTE | 2016-09-12 09:16 | PDOC3 ---
Discharge Summary Visit Information Date of Admission: September 07, 2016 Date of Discharge: September 12, 2016 Admitting Diagnosis Comment: 1. cdiff colitis 2. delirium with ESRD, sepsis 3. sepsis with 1 4. H/o NSVT on Amiodarone therapy 5. ESRD on HD MWF 6. Anemia with ESRD 7. Multiple myeloma on remission 8. H/o DVT on warfarin therapy 9. DLP 10. Hypothyroidism 11. 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 Nonischemic Cardiomyopathy 15. non function AVF 09/09 16. HYPOKalemia 17. stable Chronic systolic HF; LVEF 40% per cath 03/16/16. Final Diagnosis Problems Medical Problems: (1) Abdominal pain Status: Acute (2) Colitis Status: Acute (3) Diarrhea Status: Acute Brief Hospital Course Allergies Allergies Coded Allergies Type Severity Reaction Last Updated Verified No Known Drug Allergies 01/17/16 No Vital Signs Vital Signs Date Time Temp Pulse Resp B/P (MAP) Pulse Ox O2 Delivery O2 Flow Rate FiO2 09/12/16 08:04 Nasal Cannula 2.0 09/12/16 07:58 86 98/63 09/12/16 07:30 98.1 16 92 98.1 Lab Results Laboratory Tests Test 09/11/16 04:25 09/12/16 04:15 White Blood Count 11.3 x10^3/uL (4.0-11.0) 8.4 x10^3/uL (4.0-11.0) Red Blood Count 2.99 x10^6/uL (3.50-5.40) 2.53 x10^6/uL (3.50-5.40) Hemoglobin 9.6 g/dL (12.0-15.5) 8.3 g/dL (12.0-15.5) Hematocrit 29.9 % (36.0-47.0) 25.6 % (36.0-47.0) Mean Corpuscular Volume 100 fL (79-100) 101 fL (79-100) Mean Corpuscular Hemoglobin 32 pg (25-35) 33 pg (25-35) Mean Corpuscular Hemoglobin Concent 32 g/dL (31-37) 33 g/dL (31-37) Red Cell Distribution Width 16.2 % (11.5-14.5) 16.2 % (11.5-14.5) Platelet Count 192 x10^3/uL (140-400) 168 x10^3/uL (140-400) Neutrophils (%) (Auto) 85 % (31-73) 76 % (31-73) Lymphocytes (%) (Auto) 4 % (24-48) 7 % (24-48) Monocytes (%) (Auto) 10 % (0-9) 14 % (0-9) Eosinophils (%) (Auto) 0 % (0-3) 2 % (0-3) Basophils (%) (Auto) 1 % (0-3) 1 % (0-3) Neutrophils # (Auto) 9.6 x10^3uL (1.8-7.7) 6.4 x10^3uL (1.8-7.7) Lymphocytes # (Auto) 0.5 x10^3/uL (1.0-4.8) 0.6 x10^3/uL (1.0-4.8) Monocytes # (Auto) 1.1 x10^3/uL (0.0-1.1) 1.2 x10^3/uL (0.0-1.1) Eosinophils # (Auto) 0.0 x10^3/uL (0.0-0.7) 0.1 x10^3/uL (0.0-0.7) Basophils # (Auto) 0.1 x10^3/uL (0.0-0.2) 0.1 x10^3/uL (0.0-0.2) Sodium Level 139 mmol/L (136-145) 139 mmol/L (136-145) Potassium Level 3.2 mmol/L (3.5-5.1) 4.3 mmol/L (3.5-5.1) Chloride Level 99 mmol/L (98-107) 105 mmol/L (98-107) Carbon Dioxide Level 32 mmol/L (21-32) 28 mmol/L (21-32) Anion Gap 8 (6-14) 6 (6-14) Blood Urea Nitrogen 38 mg/dL (7-20) 25 mg/dL (7-20) Creatinine 4.9 mg/dL (0.6-1.0) 2.8 mg/dL (0.6-1.0) Estimated GFR (Cockcroft-Gault) 8.8 16.8 Glucose Level 96 mg/dL (70-99) 109 mg/dL (70-99) Calcium Level 7.8 mg/dL (8.5-10.1) 8.0 mg/dL (8.5-10.1) Phosphorus Level 3.2 mg/dL (2.6-4.7) 2.1 mg/dL (2.6-4.7) Magnesium Level 1.9 mg/dL (1.8-2.4) 1.9 mg/dL (1.8-2.4) Albumin 2.0 g/dL (3.4-5.0) 1.6 g/dL (3.4-5.0) Laboratory Tests Test 09/12/16 04:15 White Blood Count 8.4 x10^3/uL (4.0-11.0) Red Blood Count 2.53 x10^6/uL (3.50-5.40) Hemoglobin 8.3 g/dL (12.0-15.5) Hematocrit 25.6 % (36.0-47.0) Mean Corpuscular Volume 101 fL (79-100) Mean Corpuscular Hemoglobin 33 pg (25-35) Mean Corpuscular Hemoglobin Concent 33 g/dL (31-37) Red Cell Distribution Width 16.2 % (11.5-14.5) Platelet Count 168 x10^3/uL (140-400) Neutrophils (%) (Auto) 76 % (31-73) Lymphocytes (%) (Auto) 7 % (24-48) Monocytes (%) (Auto) 14 % (0-9) Eosinophils (%) (Auto) 2 % (0-3) Basophils (%) (Auto) 1 % (0-3) Neutrophils # (Auto) 6.4 x10^3uL (1.8-7.7) Lymphocytes # (Auto) 0.6 x10^3/uL (1.0-4.8) Monocytes # (Auto) 1.2 x10^3/uL (0.0-1.1) Eosinophils # (Auto) 0.1 x10^3/uL (0.0-0.7) Basophils # (Auto) 0.1 x10^3/uL (0.0-0.2) Sodium Level 139 mmol/L (136-145) Potassium Level 4.3 mmol/L (3.5-5.1) Chloride Level 105 mmol/L (98-107) Carbon Dioxide Level 28 mmol/L (21-32) Anion Gap 6 (6-14) Blood Urea Nitrogen 25 mg/dL (7-20) Creatinine 2.8 mg/dL (0.6-1.0) Estimated GFR (Cockcroft-Gault) 16.8 Glucose Level 109 mg/dL (70-99) Calcium Level 8.0 mg/dL (8.5-10.1) Phosphorus Level 2.1 mg/dL (2.6-4.7) Magnesium Level 1.9 mg/dL (1.8-2.4) Albumin 1.6 g/dL (3.4-5.0) Brief Hospital Course Ms. Garcia is a 66 old female admitted for second episode C diff, COurse remarkable for some confusion needing sitter, She also has some co morbids like ESRD on HD,. She was terated with VAnco oral and doing well, no fevers, nowhite ct, eating well PO and non toxic, Ready for dc on PO vanc x 14 days Dw RN at bedside COnsulT: ID Proc; None Pt seen and examined, dc 31 mins Discharge Information Condition at Discharge: Improved, Stable Disposition/Orders: D/C to Home Scheduled Acyclovir (Acyclovir), 200 MG PO BID, (Reported) Amiodarone Hcl (Amiodarone Hcl), 1 TAB PO DAILY, (Reported) Calcitriol (Calcitriol), 1 CAP PO 3X/WEEK, (Reported) Cholecalciferol (Vitamin D3) (Vitamin D-3), 2,000 UNIT PO DAILY, (Reported) Fluticasone/Salmeterol (Advair 100-50 Diskus), 1 INH IH BID, (Reported) Folic Acid/Vitamin B Comp W-C (Emily-Ayesha Tablet), 0.8 MG PO DAILY, (Reported) Iron,Carbonyl/Ascorbic Acid (Vitron-C Tablet), 1 EACH PO DAILY, (Reported) Lenalidomide (Revlimid), 5 MG PO 3X/WEEK, (Reported) Magnesium Oxide (Mag-Oxide), 400 MG PO BID94, (Reported) Methocarbamol (Methocarbamol), 750 MG PO PRN, (Reported) Mirtazapine (Mirtazapine), 45 MG PO HS, (Reported) Montelukast Sodium (Montelukast Sodium Tablet), 1 TAB PO DAILY, (Reported) Multivitamin (Multivitamins), 1 TAB PO DAILY, (Reported) Rice-3 Fatty Acids/Fish Oil (Fish Oil 1,000 Mg Softgel), 1 EACH PO DAILY, ( Reported) Tiotropium [place] (Spiriva), 1 CAP IH DAILY, (Reported) Vitamin B Complex & Vit C No.4 (Super B Complex), 150 MG PO DAILY, (Reported) Warfarin Sodium (Warfarin Sodium), 2 MG PO DAILY16, (Reported) Scheduled PRN Alprazolam (Alprazolam), 1 MG PO PRN Q6HRS PRN for ANXIETY / AGITATION, ( Reported) Hydrocodone Bit/Acetaminophen (Hydrocodone-Apap 7.5-325 ), 1 TAB PO PRN Q6HRS PRN for PAIN, (Reported) Miscellaneous Medications Cephalexin (Cephalexin), (Reported) Potassium Chloride (Klor-Con M20), (Reported) Terbinafine Hcl (Terbinafine Hcl), (Reported) Tiotropium [place] (Spiriva Respimat), (Reported) Trazodone Hcl (Trazodone Hcl), (Reported) MARIUM ROJAS MD September 12, 2016 09:15
--- NOTE | 2016-09-12 10:09 | PDOC ---
SUBJECTIVE ROS ESRD Doing and feeling a little better overall CVS: no Orthopnea, no CP RESP: no SOB, no LOVELACE GI: no Nausea, no Vomiting : n Dysuria, no Urgency OBJECTIVE Vital Signs Vital Signs Date Time Temp Pulse Resp B/P (MAP) Pulse Ox O2 Delivery O2 Flow Rate FiO2 09/12/16 08:04 Nasal Cannula 2.0 09/12/16 07:58 86 98/63 09/12/16 07:30 98.1 16 92 98.1 I & 0 Intake and Output 09/12/16 06:59 Intake Total 930 ml Balance 930 ml Intake Oral 930 ml # Voids 5 # Bowel Movements 3 PHYSICAL EXAM Physical Exam General Appearance: Awake Alert Oriented x 3 In no Distress Eyes: VIsion Unchanged Conjunctiva Normal EN: No EN Drainage Mucous Memb. moist Neck: no JVD min JVP Supple no Thyromegaly CVS: S1 S2 soft Murmur No Gallop No Rub no Edema Resp: no Rales no Rhonchi no Acc. Muscle use GI: BAS +ve NO Bruit Non Tender Non Distended : no CVA tenderness; no Suprapubic Tenderness SKIN: no Rashes Breast Exam deferred Mu.Sk: Adequate ROM min Muscle Atrophy Heme: Unable to palpate Obvious LAD no palp Splenomegaly NEURO: Good Strength and Tone Cranial Nerves II - XII grossly intact Psych: somewhat Depressed no Active hallucination Assessment & Plan ESRD: No emergent Indication for HD today Vol depletion - now much better after IVF and improved Diarrhea/ PO intake Clotted AV Access - Declott done. Noted to have numerous Venous stenosis Anemia: One time Epogen for hgb < 10 for now; Transfuse with next HD as needed. HypoTN: IVF bolus as ordered ? NEck / tongue Mass/ Tumor - as described by Pt - F/up [facility] ENT and or Oncology as OP hypAlbuminemia - POOR PO intake as reported by pt . now improving Discussed Plan of Care and prognosis etc. at length with family. COMMENT/RELEVANT DATA Meds Current Medications Medications (Trade) Dose Ordered Sig/Seth Start Time Stop Time Status Last Admin Dose Admin Acetaminophen (Tylenol) 500 mg 1X PRN PRN 09/11/16 07:15 09/12/16 07:14 DC Acetaminophen/ Hydrocodone Bitart (Lortab 7.5/325) 1 tab PRN Q6HRS PRN 09/09/16 11:00 09/11/16 21:13 1 TAB Acyclovir (Zovirax) 200 mg BID 09/09/16 11:30 09/12/16 07:57 200 MG Albumin Human 200 ml @ 200 mls/hr 1X PRN PRN 09/11/16 07:15 09/11/16 13:14 DC Albuterol/ Ipratropium (Duoneb) 3 ml RTQID 09/09/16 12:00 09/12/16 06:18 DC 09/11/16 19:39 3 ML Alprazolam (Xanax) 1 mg PRN Q6HRS PRN 09/09/16 11:00 09/11/16 21:12 1 MG Alteplase, Recombinant (Cathflo) 6 mg 1X ONCE 09/10/16 11:15 09/10/16 11:16 DC 09/10/16 12:40 6 MG Amino Acids/ Glycerin/ Electrolytes 1,000 ml @ 100 mls/hr Q10H 09/11/16 09:30 09/12/16 07:55 100 MLS/HR Amiodarone HCl (Cordarone) 200 mg DAILY 09/09/16 11:30 09/12/16 07:58 200 MG Ascorbic Acid (Vitamin C) 500 mg DAILY 09/09/16 11:30 09/12/16 07:57 500 MG Budesonide (Pulmicort) 0.5 mg RTBID 09/09/16 11:30 09/12/16 06:17 DC 09/11/16 19:42 0.5 MG Calcitriol (Rocaltrol) 0.25 mcg 3X/WEEK 09/09/16 11:30 09/11/16 12:15 0.25 MCG Cefazolin Sodium 50 ml @ 100 mls/hr 1X ONCE 09/10/16 12:45 09/10/16 13:14 DC 09/10/16 12:35 100 MLS/HR Ceftriaxone Sodium 1 gm/ Sodium Chloride 50 ml @ 100 mls/hr Q24H 09/08/16 21:00 09/09/16 10:37 DC 09/08/16 21:00 100 MLS/HR Ceftriaxone Sodium 50 ml @ 100 mls/hr 1X ONCE 09/07/16 21:00 09/07/16 21:29 DC 09/07/16 20:58 100 MLS/HR Dicyclomine HCl (Bentyl) 10 mg PRN QID PRN 09/08/16 03:15 09/08/16 03:29 10 MG Diphenhydramine HCl (Benadryl) 25 mg 1X PRN PRN 09/11/16 07:15 09/12/16 07:14 DC Fentanyl Citrate (Fentanyl 2ml Vial) 75 mcg 1X ONCE 09/10/16 12:15 09/10/16 12:22 DC 09/10/16 12:15 100 MCG Fentanyl Citrate (Fentanyl 5ml Vial) 250 mcg STK-MED ONCE 09/10/16 10:52 09/10/16 10:53 DC Ferrous Sulfate (Feosol) 325 mg [id number] 09/09/16 11:30 09/12/16 07:57 325 MG Fish Oil (Fish Oil) 1,000 mg DAILY 09/09/16 11:30 09/12/16 07:57 1,000 MG Heparin Sodium (Porcine) (Heparin Sodium) 5,000 unit 1X ONCE 09/10/16 12:15 09/10/16 12:22 DC 09/10/16 12:41 5,000 UNIT Heparin Sodium/ Sodium Chloride 1,000 unit 1X ONCE 09/10/16 12:15 09/10/16 12:22 DC 09/10/16 12:39 1,000 UNIT Info (Do NOT chart on this entry -- for MONITORING) 1 each PRN DAILY PRN 09/07/16 18:30 09/09/16 18:29 DC Info (PHARMACY MONITORING -- do not chart) 1 each PRN DAILY PRN 09/11/16 07:15 Iodixanol (Visipaque 320) 100 ml 1X ONCE 09/10/16 12:15 09/10/16 12:22 DC 09/10/16 12:39 39 ML Iohexol (Omnipaque 300 Mg/ml) 60 ml 1X ONCE 09/07/16 18:30 09/07/16 18:31 DC Lidocaine/Sodium Bicarbonate (Buffered Lidocaine 1%) 4 ml 1X ONCE 09/10/16 12:15 09/10/16 12:22 DC 09/10/16 12:40 4 ML Magnesium Oxide (Magnesium Oxide) 400 mg BID94 09/09/16 11:30 09/12/16 07:57 400 MG Magnesium Sulfate/ Dextrose 50 ml @ 25 mls/hr PRN DAILY PRN 09/08/16 10:00 Metronidazole 100 ml @ 100 mls/hr Q8HRS 09/08/16 06:00 09/08/16 09:01 DC 09/08/16 06:32 100 MLS/HR Midazolam HCl (Versed) 5 mg 1X ONCE 09/10/16 12:15 09/10/16 12:22 DC 09/10/16 12:41 2 MG Mirtazapine (Remeron) 45 mg QHS 09/09/16 21:00 09/11/16 21:12 45 MG Montelukast Sodium (Singulair) 10 mg DAILY 09/09/16 11:30 09/12/16 07:57 10 MG Multivitamins (Thera M Plus) 1 tab DAILY 09/10/16 09:00 09/12/16 07:57 1 TAB Non-Formulary Medication 1 inhaler DAILY 09/12/16 09:00 09/12/16 08:03 1 INHALER Ondansetron HCl (Zofran) 4 mg PRN Q6HRS PRN 09/09/16 11:00 Potassium Chloride 100 ml @ 100 mls/hr Q1H 09/10/16 09:00 09/10/16 12:59 DC 09/11/16 12:09 100 MLS/HR Sodium Bicarbonate 150 meq/Dextrose 1,150 ml @ 100 mls/hr [id number] 09/09/16 14:00 09/10/16 01:29 DC 09/09/16 14:00 100 MLS/HR Sodium Chloride (Normal Saline Flush) 10 ml 1X PRN PRN 09/11/16 07:15 09/12/16 07:14 DC Vancomycin HCl 125 mg 1X ONCE 09/07/16 21:00 09/07/16 21:01 DC 09/07/16 20:58 125 MG Vitamin B Complex (Carter B) 1 tab DAILY 09/09/16 11:30 09/12/16 07:58 1 TAB Vitamin B Complex/ Vitamin C (Emily-Ayesha) 1 tab DAILY 09/09/16 11:30 09/12/16 07:57 1 TAB Vitamin D (Vitamin D3) 2,000 unit DAILY 09/09/16 11:30 09/12/16 07:57 2,000 UNIT Lab Laboratory Tests Test 09/12/16 04:15 White Blood Count 8.4 x10^3/uL (4.0-11.0) Red Blood Count 2.53 x10^6/uL (3.50-5.40) Hemoglobin 8.3 g/dL (12.0-15.5) Hematocrit 25.6 % (36.0-47.0) Mean Corpuscular Volume 101 fL (79-100) Mean Corpuscular Hemoglobin 33 pg (25-35) Mean Corpuscular Hemoglobin Concent 33 g/dL (31-37) Red Cell Distribution Width 16.2 % (11.5-14.5) Platelet Count 168 x10^3/uL (140-400) Neutrophils (%) (Auto) 76 % (31-73) Lymphocytes (%) (Auto) 7 % (24-48) Monocytes (%) (Auto) 14 % (0-9) Eosinophils (%) (Auto) 2 % (0-3) Basophils (%) (Auto) 1 % (0-3) Neutrophils # (Auto) 6.4 x10^3uL (1.8-7.7) Lymphocytes # (Auto) 0.6 x10^3/uL (1.0-4.8) Monocytes # (Auto) 1.2 x10^3/uL (0.0-1.1) Eosinophils # (Auto) 0.1 x10^3/uL (0.0-0.7) Basophils # (Auto) 0.1 x10^3/uL (0.0-0.2) Sodium Level 139 mmol/L (136-145) Potassium Level 4.3 mmol/L (3.5-5.1) Chloride Level 105 mmol/L (98-107) Carbon Dioxide Level 28 mmol/L (21-32) Anion Gap 6 (6-14) Blood Urea Nitrogen 25 mg/dL (7-20) Creatinine 2.8 mg/dL (0.6-1.0) Estimated GFR (Cockcroft-Gault) 16.8 Glucose Level 109 mg/dL (70-99) Calcium Level 8.0 mg/dL (8.5-10.1) Phosphorus Level 2.1 mg/dL (2.6-4.7) Magnesium Level 1.9 mg/dL (1.8-2.4) Albumin 1.6 g/dL (3.4-5.0) EJ CARROLL MD September 12, 2016 10:08
[2016-09-12] MEDS ORDERED: DARBEPOETIN ALFA 60 MCG/0.3 ML DISP.SYRIN. SQ ONE (10:15)
[2016-09-12 10:41] VITALS: BP 92/42
[2016-09-15 07:25] LABS: HEP B SURFACE ABDY Non Reactive
== END 2016-09-12 12:50 | disposition home or self-care (01) | DRG 853 ==
LOC: ER 15:00 → ED HOLD 20:35 → 2 SOUTH 09-08 00:10 → 5 SOUTH 09-08 15:52
PROVIDERS: ADMIT Internal Medicine; ATTEND Internal Medicine
PROC: 5A1D60Z (ICD-10-PCS; 2016-09-09)
PROC: 057F3DZ Dilation of Left Cephalic Vein with Intraluminal Device, Percutaneous Approach (ICD-10-PCS; principal; 2016-09-10)
PROC: 03783DZ Dilation of Left Brachial Artery with Intraluminal Device, Percutaneous Approach (ICD-10-PCS; 2016-09-10)
PROC: 3E03317 Introduction of Other Thrombolytic into Peripheral Vein, Percutaneous Approach (ICD-10-PCS; 2016-09-10)
PROC: B51W1ZZ Fluoroscopy of Dialysis Shunt/Fistula using Low Osmolar Contrast (ICD-10-PCS; 2016-09-10)
DX: A41.9 Sepsis, unspecified organism (principal); N18.6 End stage renal disease; T82.868A Thrombosis due to vascular prosthetic devices, implants and grafts, initial encounter; A04.7 Enterocolitis due to Clostridium difficile; I50.22 Chronic systolic (congestive) heart failure; C90.00 Multiple myeloma not having achieved remission; I13.2 Hypertensive heart and chronic kidney disease with heart failure and with stage 5 chronic kidney disease, or end stage renal disease; I42.9 Cardiomyopathy, unspecified; Z94.84 Stem cells transplant status; B02.9 Zoster without complications; D63.1 Anemia in chronic kidney disease; E03.9 Hypothyroidism, unspecified; E11.22 Type 2 diabetes mellitus with diabetic chronic kidney disease; E78.5 Hyperlipidemia, unspecified; E87.6 Hypokalemia; F41.9 Anxiety disorder, unspecified; G47.30 Sleep apnea, unspecified; J44.9 Chronic obstructive pulmonary disease, unspecified; K21.9 Gastro-esophageal reflux disease without esophagitis; N28.1 Cyst of kidney, acquired; R32 Unspecified urinary incontinence; Y84.1 Kidney dialysis as the cause of abnormal reaction of the patient, or of later complication, without mention of misadventure at the time of the procedure; Y92.000 Kitchen of unspecified non-institutional (private) residence as the place of occurrence of the external cause; W19.XXXA Unspecified fall, initial encounter; Z79.01 Long term (current) use of anticoagulants; Z82.49 Family history of ischemic heart disease and other diseases of the circulatory system; Z83.3 Family history of diabetes mellitus; Z86.718 Personal history of other venous thrombosis and embolism; Z99.2 Dependence on renal dialysis; Z90.710 Acquired absence of both cervix and uterus
CPT/HCPCS: 36415; 36906; 51701; 70450; 72125; 74176; 80048; 80053; 80069; 81001; 83690; 83735; 85007; 85027; 85610; 86705; 86706; 87086; 87324; 87340; 87341; 93005; 94250; 94640; 94760; 96365; 96367; 96375; C1725; C1757; C1769; C1892; C1894; G0481; J0690; J0696; J2250; J2405; J2997; J3010; J3480; J3490; J7030; J7040; J7620; 99285-25

== ENCOUNTER 2016-11-04 15:37 | Inpatient (IN) | payer MEDICARE, OTHER ==
[~2016-11-04] VITALS: Ht 160 cm; Wt 54.9 kg
[~2016-11-04 15:37] MED LIST changes: +ASPI-612 PO; -ASPI81TA9 PO; +CEPH500C; -CHOL20004 PO; +CHOL200074 PO; -DOXY25TA PO; +DOXY25TA42 PO; +FOLI0.8T21 PO; +MAGN400T22 PO; +MIRT45TA3 PO; -OMEG1CAP16 PO; +OMEG1CAP27 PO; +POTA20TA4; +TERB250T8; +TIOT4MIS2; +TRAZ50TA15; +VANC125C2 PO; +VITA150T PO
[2016-11-04] MEDS ORDERED: IPRATRPIUM/ALBUTEROL 0.5/2.5MG 3 ML NEBU. NEB ONE (16:00)
[2016-11-04] MEDS ORDERED: WARFARIN 2 MG TABLET. PO ONE (16:00)
[2016-11-04] MEDS ORDERED: FUROSEMIDE 40 MG/4 ML VIAL. IVP ONE (16:00)
--- NOTE | 2016-11-04 16:17 | EKG ---
[facility] [address] [place] [address] Test Date: 2016-11-04 Test Time: 15:46:15 Pat Name: CHRSI MEJIA Department: Room: Gender: F Hat Presser: : [id number] Requested By: ANGELITA BERNAL Order Number: [id number] Reading MD: Demi Allen Measurements Intervals Mobile Rate: 108 P: ME: QRS: -114 QRSD: 186 T: 37 QT: 378 QTc: 511 Interpretive Statements SINUS RHYTHM PROBABLE PAT LEFT ANTERIOR FASCICULAR BLOCK NON SPECIFIC INTRAVENTRICULAR BLOCK RVH WITH REPOLARIZATION ABNORMALITY QRS(T) CONTOUR ABNORMALITY CONSIDER INFERIOR MYOCARDIAL DAMAGE Electronically Signed On 11-07-2016 13:50:43 CDT by Demi Allen
--- NOTE | 2016-11-04 16:21 | RAD ---
Indication: Shortness of breath. Time of exam 1606 hours. Correlation is made with prior study from 05/20/2016. The heart size is stable. The right chest wall port is noted with tip overlying the SVC. There is some patchy parenchymal density noted in the right base near the costophrenic angle. There may be some minimal infiltrate in the left base as well. The mid and upper lung russo are clear. There is no pneumothorax. Impression: Bibasilar parenchymal densities, perhaps minimal infiltrate or atelectasis. The study is otherwise unremarkable.
[2016-11-04 16:43] LABS: POTASSIUM ISTAT 7.2 mmol/L (3.5-5.0)
[2016-11-04] MEDS ORDERED: SODIUM BICARB ADULT 8.4% 50 MEQ/50 ML DISP.SYRIN. IV ONE (16:45)
[2016-11-04] MEDS ORDERED: CALCIUM GLUCONATE 1,000 MG/10 ML VIAL. IVP ONE (16:45)
[2016-11-04] MEDS ORDERED: DEXTROSE 50% 25 GM / 50ML DISP.SYRIN. IV ONE (16:45)
[2016-11-04] MEDS ORDERED: INSULIN REGULAR 100 UNIT/ML 10ML VIAL. IV ONE (16:45)
[2016-11-04 16:48] LABS: BASO % 0 % (0-3); EOS % 0 % (0-3); HEMATOCRIT 31.1 % (36.0-47.0); LYMPH # 0.1 x10^3/uL (1.0-4.8); LYMPH % 1 % (24-48); MEAN CORPUSCULAR HEMOGLOBIN 35 pg (25-35); MEAN CORPUSCULAR HGB CONC 32 g/dL (31-37); MEAN CORPUSCULAR VOLUME 107 fL (79-100); MONO % 9 % (0-9); NEUT % 89 % (31-73); PLATELET COUNT 81 x10^3/uL (140-400); RED CELL DISTRIBUTION WIDTH 16.2 % (11.5-14.5); WHITE BLOOD COUNT 7.1 x10^3/uL (4.0-11.0)
[2016-11-04] MEDS ORDERED: ALBUTEROL SULFATE 2.5 MG/3 ML NEBU. CONT NEB ONE (17:00)
[2016-11-04 17:09] LABS: ALBUMIN/GLOBULIN RATIO 1.1 (1.0-1.7); CALCIUM 8.1 mg/dL (8.5-10.1); CREATININE 4.9 mg/dL (0.6-1.0); GFR 8.8; TOTAL BILIRUBIN 0.6 mg/dL (0.2-1.0); TOTAL PROTEIN 5.7 g/dL (6.4-8.2)
[2016-11-04 17:17] LABS: CKMB MASS 2.5 ng/mL (0.0-3.6); CREATINE KINASE 102 U/L (26-192)
--- NOTE | 2016-11-04 17:20 | PHYS DOC ---
Past Medical History Past Medical History: Cancer, COPD, Renal Failure Additional Past Medical Histor: MULTIPLE MYELOMA, SHINGLES, BLOOD CLOTS IN ARM FROM CHEMO MED Past Surgical History: No Surgical History Additional Past Surgical Histo: Portacath in right chest for CA treatments, SHUNT LUE Alcohol Use: None Drug Use: None Adult General Chief Complaint Chief Complaint: SHORTNESS OF BREATH HPI HPI Patient is a 66 year old female brought to the ED by EMS from dialysis with the complaint of shortness of air. The patient states that she has dialysis once a week for fluid. She did not miss her dialysis last week. She went today that was felt to be too short of breath so she was sent in. She doesn't know when the shortness of breath started. She does have COPD. Patient denies chest pain. 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 She has a port and is getting chemotherapy. She has a dialysis fistula in her left arm. Review of Systems Review of Systems Review of systems was not able to be obtained due to the patient's critical condition Current Medications Current Medications Current Medications Medications (Trade) Dose Ordered Sig/Seth Start Time Stop Time Status Last Admin Dose Admin Albuterol/ Ipratropium (Duoneb) 3 ml 1X ONCE 11/04/16 16:00 11/04/16 16:01 DC 11/04/16 15:56 3 ML Calcium Gluconate (Calcium Gluconate) 1,000 mg 1X ONCE 11/04/16 16:45 11/04/16 16:46 DC 11/04/16 17:18 1,000 MG Dextrose (Dextrose 50%-Water Syringe) 25 gm 1X ONCE 11/04/16 16:45 11/04/16 16:46 DC 11/04/16 16:55 25 GM Furosemide (Lasix) 40 mg 1X ONCE 11/04/16 16:00 11/04/16 16:01 DC 11/04/16 16:00 40 MG Insulin Human Regular (NovoLIN R VIAL) 5 unit 1X ONCE 11/04/16 16:45 11/04/16 16:46 DC 11/04/16 16:45 5 UNIT Sodium Bicarbonate 50 meq 1X ONCE 11/04/16 16:45 11/04/16 16:46 DC 11/04/16 17:20 50 MEQ Warfarin Sodium (Coumadin) 2 mg 1X WARF ONCE 11/04/16 16:00 11/04/16 21:27 DC Allergies Allergies Allergies Coded Allergies Type Severity Reaction Last Updated Verified No Known Drug Allergies 01/17/16 No Physical Exam Physical Exam Constitutional: Thin elderly female who appears somewhat dyspneic but is alert HENT: Normocephalic, atraumatic, bilateral external ears normal, nose normal. [ ] Eyes: conjunctiva normal, no discharge. [] Neck: Normal range of motion, no stridor. [] Cardiovascular:Heart rate regular rhythm, no murmur [] Lungs & Thorax: Bilateral breath sounds clear to auscultation , no wheezes, no rales Abdomen: Bowel sounds normal, soft, no tenderness, no masses, no pulsatile masses. [] Skin: Warm, dry, no erythema, no rash. [] Extremities: No tenderness, no cyanosis, no clubbing, ROM intact, no edema. [] Neurologic: Alert and oriented X 3, normal motor function, normal sensory function, no focal deficits noted. [] Current Patient Data Vital Signs Vital Signs Date Time Temp Pulse Resp B/P (MAP) Pulse Ox O2 Delivery O2 Flow Rate FiO2 11/04/16 16:49 100 22 132/63 (86) 96 Nasal Cannula 3.0 11/04/16 15:37 97.8 97.8 Lab Values Laboratory Tests Test 11/04/16 16:35 11/04/16 16:39 11/04/16 16:40 White Blood Count 7.1 x10^3/uL (4.0-11.0) Red Blood Count 2.90 x10^6/uL (3.50-5.40) L Hemoglobin 10.0 g/dL (12.0-15.5) L Hematocrit 31.1 % (36.0-47.0) L Mean Corpuscular Volume 107 fL (79-100) H Mean Corpuscular Hemoglobin 35 pg (25-35) Mean Corpuscular Hemoglobin Concent 32 g/dL (31-37) Red Cell Distribution Width 16.2 % (11.5-14.5) H Platelet Count 81 x10^3/uL (140-400) L Neutrophils (%) (Auto) 89 % (31-73) H Lymphocytes (%) (Auto) 1 % (24-48) L Monocytes (%) (Auto) 9 % (0-9) Eosinophils (%) (Auto) 0 % (0-3) Basophils (%) (Auto) 0 % (0-3) Neutrophils # (Auto) 6.4 x10^3uL (1.8-7.7) Lymphocytes # (Auto) 0.1 x10^3/uL (1.0-4.8) L Monocytes # (Auto) 0.6 x10^3/uL (0.0-1.1) Eosinophils # (Auto) 0.0 x10^3/uL (0.0-0.7) Basophils # (Auto) 0.0 x10^3/uL (0.0-0.2) Sodium Level 137 mmol/L (136-145) Potassium Level 7.7 mmol/L (3.5-5.1) *H Chloride Level 101 mmol/L (98-107) Carbon Dioxide Level 25 mmol/L (21-32) Anion Gap 11 (6-14) 15 mmol/L (6-14) H Blood Urea Nitrogen 73 mg/dL (7-20) H Creatinine 4.9 mg/dL (0.6-1.0) H Estimated GFR (Cockcroft-Gault) 8.8 BUN/Creatinine Ratio 15 (6-20) Glucose Level 146 mg/dL (70-99) H 134 mg/dL (70-99) H Calcium Level 8.1 mg/dL (8.5-10.1) L Total Bilirubin 0.6 mg/dL (0.2-1.0) Aspartate Amino Transferase (AST) 269 U/L (15-37) H Alanine Aminotransferase (ALT) 314 U/L (14-59) H Alkaline Phosphatase 168 U/L (46-116) H Creatine Kinase 102 U/L (26-192) Creatine Kinase MB (Mass) 2.5 ng/mL (0.0-3.6) Creatine Kinase MB Relative Index 2.5 % (0-4) Troponin I Quantitative 0.313 ng/mL (0.000-0.055) UW-Fit-G-Type Natriuretic Peptide > 20282 pg/mL (0-124) H Total Protein 5.7 g/dL (6.4-8.2) L Albumin 3.0 g/dL (3.4-5.0) L Albumin/Globulin Ratio 1.1 (1.0-1.7) POC Hemoglobin 10.5 g/dL (12-15) L POC Hematocrit 31 % (36-40) L POC Sodium 133 mmol/L (135-145) L POC Potassium 7.2 mmol/L (3.5-5.0) H POC Chloride 105 mmol/L (98-110) POC Total CO2 21 mmol/L (23-32) L POC Blood Urea Nitrogen 64 mg/dL (8-26) H POC Creatinine 5.0 mg/dL (0.5-1.4) H POC Ionized Calcium (Suki) 1.00 mmol/L (1.13-1.32) L Prothrombin Time 14.8 SEC (11.7-14.0) H Prothrombin Time INR 1.2 (0.8-1.1) H Laboratory Tests 11/04/16 16:35 Laboratory Tests 11/04/16 16:35 11/04/16 16:39 EKG EKG 12-lead EKG read by me. Sinus rhythm. Heart rate 108. The QRS is widened. There is an episode of accelerated rhythm to the rate of about 100 for 6 beats. The remainder of the EKG is the same complex with a rate of about 60. I compared this EKG to a previous EKG in the patient's record. The QRS widening and morphology is a new finding. No STEMI. Concerning for hyperkalemia. 1546 Repeat 12-lead EKG read by me. The patient's heart rate has changed and EKG was repeated. Unclear rhythm. Widened QRS is again seen. Again concerning for hyperkalemia. No STEMI. 1640] Radiology/Procedures Radiology/Procedures One view portable chest x-ray read by me. No acute findings. [] Course & Med Decision Making Course & Med Decision Making Pertinent Labs and Imaging studies reviewed. (See chart for details) 66-year-old female who was brought from dialysis without having any dialysis with shortness of air. Her initial EKG tracing is worrisome for hyperkalemia with widened QRS, her heart rate accelerated and her QRS became a little bit more widened, before we were able to get any labs back. I was concerned for symptomatic hyperkalemia. I initiated treatment with IV bicarbonate, D50, insulin, calcium, as well as a continuous nebulized albuterol. Shortly after these medications were started, the QRS improved with narrowing in the patient became sinus rhythm. During this entire time, the patient remained stable, talking, and alert. I-STAT was obtained showing a potassium over 7. Feel that the patient's symptoms today and her abnormal EKG are related to hyperkalemia. I discussed the case with Dr. Todd, on-call for nephrology, and I recommended that the patient needs emergent dialysis. He will arrange that. I discussed the case with Dr. Pinto, [facility], who will admit the patient. I wrote ICU bridge orders. Critical care time 60 minutes including bedside evaluation and reevaluation, review of old records and old EKGs, evaluation and treatment of hyperkalemia, writing orders, documentation. [] Dragon Disclaimer Dragon Disclaimer This electronic medical record was generated, in whole or in part, using a voice recognition dictation system. Departure Departure Impression: Primary Impression: Hyperkalemia Additional Impression: Renal failure Disposition: ADMITTED INPATIENT Admitting Physician: Other Condition: GUARDED Referrals: ELANA ACEVEDO MD (PCP) Problem Qualifiers ANGELITA BERNAL MD Nov 04, 2016 17:20
[2016-11-04 17:23] LABS: POTASSIUM 7.7 mmol/L (3.5-5.1)
--- NOTE | 2016-11-04 17:43 | ACF ---
Admission Forms Criteria HYPONATREMIA; HYPERNATREMIA; HYPOKALEMIA; HYPERKALEMIA; HYPOCALCEMIA; HYPERCALCEMIA Clinical Indications for Inpatient Care (Place 'X' for any and all applicable criteria): Ongoing inpatient care may be indicated for ANY ONE of the following [G](1)(2)(3 )(5): [ ]I. Hyponatremia with ANY ONE of the following: [ ]a) Sodium less than 130 mEq/L (mmol/L) (new) (6)(22) [ ]b) Sodium less than 135 mEq/L (mmol/L) with ANY ONE of the following: [ ]i) Severe medical etiology requiring inpatient management (eg, heart failure, hypovolemia) [ ]ii) Altered mental status [ ]iii) Seizures [ ]II. Hypernatremia with ANY ONE of the following: [ ]a) Sodium greater than 155 mEq/L (mmol/L) [ ]b) Sodium greater than 150 mEq/L (mmol/L) with ANY ONE of the following: [ ] i) Altered mental status [ ]ii) Seizures [ ]iii) Severe medical etiology (eg, hypovolemia, diabetes insipidus) [ ]iv) Severe weakness [ ]v) Severe medical etiology (eg, hemolysis, infection, drug overdose) [ ]III. Hypokalemia with ANY ONE of the following: [ ]a) Potassium less than 2.5 mEq/L (mmol/L) despite outpatient and emergency treatment [ ]b) Potassium less than 3.0 mEq/L (mmol/L) with ANY ONE of the following: [ ]i) Weakness [ ]ii) Cardiac abnormality (eg, arrhythmia, conduction disturbance) [ ]iii) Cardiac ischemia [ ]iv) Ileus [ ]v) Ongoing medical cause requiring inpatient management. ( e.g., acute renal wasting, SIADH) [ ]vi) Other severe symptoms [X ] IV. Hyperkalemia with ANY ONE of the following: [X ]a) Potassium greater than 6.5 mEq/L (mmol/L) [ ]b) Potassium greater than 5 mEq/L (mmol/L) with ANY ONE of the following: [ ]i) Severe ECG findings [H] [ ]ii) Acute worsening of renal failure (creatinine greater than 2.5 mg/dL (221 micromoles/L) or significant elevation for age and size) [ ] V. Hypocalcemia with ANY ONE of the following: [ ]a) Calcium less than 7 mg/dL (1.75 mmol/L) despite outpatient and emergency treatment(19) [ ]b) Calcium less than 8 mg/dL (2 mmol/L) with significant symptoms or findings; examples include: [ ]i) Cardiac abnormality (eg, arrhythmia or conduction disturbance) [ ]ii) Altered mental status [ ]iii) Seizures [ ]iv) Breathing difficulty [ ]v) Muscle spasms [ ]. Hypercalcemia with ANY ONE of the following: [ ]a) Calcium greater than 14 mg/dL (3.5 mmol/L) [ ]b) Calcium greater than 12 mg/dL (3 mmol/L) with ANY ONE of the following: [ ]i) Significant dehydration or hypovolemia as indicated by ANY ONE of the following(2): [ ]1. Clinically significant dehydration as indicated by ANY ONE of the following: [ ]A. Acute loss of weight from baseline (5% of body weight in adults, 9% in pediatric patients) [ ]B. Hemodynamic instability [ ]C. Acute renal failure [ ]D. Serum sodium greater than 150 mEq/L (mmol/L) [ ]2) Dehydration that is persistent indicated by ALL of the following: [ ]A. Oral rehydration therapy not tolerated or insufficient to adequately correct dehydration [ ]B. Appropriate intravenous treatment (eg, fluids ) does not readily correct dehydration ie, after 12 to 24 hours of treatment) [ ]ii) Significant symptoms or findings; examples include: [ ]1) Altered mental status [ ]2) Cardiac abnormality (eg, arrhythmia, conduction disturbance) [ ]3) Cardiac abnormality (eg, arrhythmia, conduction disturbance) The original [facility] content created by [facility] has been revised. The portions of the content which have been revised are identified through the use of italic text or in bold, and [email or web address] has neither reviewed nor approved the modified material. All other unmodified content is copyright [email or web address] Please see references footnoted in the original [facility] edition 2016 Admission Criteria Met?: Yes SERVANDO AMADOR Nov 04, 2016 17:43
[2016-11-04 19:00] VITALS: BP 123/59
[2016-11-04 19:14] VITALS: BP 130/76
[2016-11-04] MEDS ORDERED: METHOCARBAMOL 750 MG TABLET PO PRN (19:15)
[2016-11-04] MEDS ORDERED: ALPRAZolam 1 MG TABLET PO PRN (19:15)
--- NOTE | 2016-11-04 19:38 | PDOC1 ---
History and Physical Date of Admission Date of Admission DATE: 11/04/16 TIME: 18:52 Identification/Chief Complaint Chief Complaint Malaise K 7.7 Problems: Source Source: Chart review, Patient History of Present Illness History of Present Illness Mrs Garcia is a 66 y/o woman with ESRD, on HD since March 2017, as well as CHF and COPD and laryngeal CA, who presented to her HD facility with c/ o not feeling well since Wednesday. She was found with K 7.7 and referred to ER. Her EKG showed abn c/w hyperkalemia, and she was given lasix, insulin and calcium gluconate in response. In addition, her proBNP was found at greater than 35,000. She deneid any fevers, chills, N/V. did receive her weekly chemo dose along with daily radiation yesterday, she does not know what meds she is getting. She is now admitted to the ICU for further management Past Medical History Cardiovascular: CHF, HTN Pulmonary: COPD GI: No pertinent hx, Constipation Heme/Onc: Anemia NOS, Cancer (laryngeal CA, receiving concurrent chemo/rad. Hx MM, s/p autoBMT) Hepatobiliary: No pertinent hx Psych: Anxiety Rheumatologic: No pertinent hx Renal/: Chronic renal failure Endocrine: Hyperparathyroidism Past Surgical History Past Surgical History: Hysterectomy, Other Family History Family History: Diabetes, Hypertension Social History Smoke: Quit ALCOHOL: none Drugs: None Current Medications Current Medications Current Medications Albuterol/ Ipratropium (Duoneb) 3 ml 1X ONCE NEB Last administered on 15:56; Start 11/04/16 at 16:00; Stop 11/04/16 at 16:01; Status DC Furosemide (Lasix) 40 mg 1X ONCE IVP Last administered on 11/04/16 16:00; Start 11/04/16 at 16:00; Stop 11/04/16 at 16:01; Status DC Dextrose (Dextrose 50%-Water Syringe) 25 gm 1X ONCE IV Last administered on 16:55; Start 11/04/16 at 16:45; Stop 11/04/16 at 16:46; Status DC Insulin Human Regular (NovoLIN R VIAL) 5 unit 1X ONCE IV Last administered on 11/04/16 16:45; Start 11/04/16 at 16:45; Stop 11/04/16 at 16:46; Status DC Calcium Gluconate (Calcium Gluconate) 1,000 mg 1X ONCE IVP Last administered on 11/04/16 17:18; Start 11/04/16 at 16:45; Stop 11/04/16 at 16:46; Status DC Sodium Bicarbonate 50 meq 1X ONCE IV Last administered on 11/04/16 17:20; Start 11/04/16 at 16:45; Stop 11/04/16 at 16:46; Status DC Albuterol Sulfate (Ventolin Neb Soln) 10 mg 1X ONCE CONT NEB Last administered on 11/04/16 17:00; Start 11/04/16 at 17:00; Stop 11/04/16 at 17:01 ; Status DC Active Scripts Active Vancomycin Hcl 125 Mg Capsule 125 Mg PO QID 14 Days Reported Terbinafine Hcl 250 Mg Tablet Trazodone Hcl 50 Mg Tablet Klor-Con M20 (Potassium Chloride) 20 Meq Tab.er.prt Spiriva Respimat (Tiotropium [place]) 4 Gm Mist.inhal Mag-Oxide (Magnesium Oxide) 400 Mg Tablet 400 Mg PO BID94 Emily-Ayesha Tablet (Folic Acid/Vitamin B Comp W-C) 0.8 Mg Tablet 0.8 Mg PO DAILY Spiriva (Tiotropium [place]) 18 Mcg Cap.w.dev 1 Cap IH DAILY Super B Complex (Vitamin B Complex & Vit C No.4) 150 Mg Tablet 150 Mg PO DAILY Mirtazapine 45 Mg Tablet 45 Mg PO HS Amiodarone Hcl 200 Mg Tablet 1 Tab PO DAILY Warfarin Sodium 2 Mg Tablet 2 Mg PO DAILY16 Acyclovir 200 Mg Capsule 200 Mg PO BID Alprazolam 1 Mg Tablet 1 Mg PO PRN Q6HRS PRN Hydrocodone-Apap 7.5-325 (Hydrocodone Bit/Acetaminophen) 1 Each Tablet 1 Tab PO PRN Q6HRS PRN Advair 100-50 Diskus (Fluticasone/Salmeterol) 1 Each Disk.w.dev 1 Inh IH BID Vitron-C Tablet (Iron,Carbonyl/Ascorbic Acid) 1 Each Tablet.dr 1 Each PO DAILY Fish Oil 1,000 Mg Softgel ([place]-3 Fatty Acids/Fish Oil) 1 Each Capsule 1 Each PO DAILY Vitamin D-3 (Cholecalciferol (Vitamin D3)) 2,000 Unit Capsule 2,000 Unit PO DAILY Multivitamins (Multivitamin) 1 Each Tablet 1 Tab PO DAILY Montelukast Sodium Tablet (Montelukast Sodium) 10 Mg Tablet 1 Tab PO DAILY Calcitriol 0.25 Mcg Capsule 1 Cap PO 3X/WEEK Revlimid (Lenalidomide) 5 Mg Capsule 5 Mg PO 3X/WEEK Methocarbamol 750 Mg Tablet 750 Mg PO PRN Allergies Allergies: Coded Allergies: No Known Drug Allergies (Unverified , 01/17/16) ROS General: YES: Fatigue, Malaise, No: Chills PSYCHOLOGICAL ROS: YES: Anxiety Eyes: No Blurry vision HEENT: No: Heacaches ALLERGY AND IMMUNOLOGY: YES: Nasal Congestion Hematological and Lymphatic: YES: Brusing (on coumadin) Respiratory: YES: Cough, Shortness of breath Cardiovascular: No Chest Pain, No Palpitations, No Paroxysmal Noc. Dyspnea Gastrointestinal: No Nausea, No Vomiting Genitourinary: No Dysuria Musculoskeletal: No Gait Disturbance, No Joint Swelling Skin: No Rash Physical Exam General: Alert, Oriented X3, Cooperative, No acute distress HEENT: Atraumatic, EOMI Lungs: Clear to auscultation Heart: RRR Abdomen: Normal bowel sounds, Soft, No tenderness Extremities: No clubbing, Other (trace edema B LE) Neuro: Normal speech Psych/Mental Status: Mental status NL Vitals Vitals Vital Signs Date Time Temp Pulse Resp B/P (MAP) Pulse Ox O2 Delivery O2 Flow Rate FiO2 11/04/16 17:14 Nasal Cannula 3.0 11/04/16 15:56 90 11/04/16 15:37 97.8 60 25 118/58 (78) 97.8 Labs Labs Laboratory Tests Test 11/04/16 16:35 11/04/16 16:39 White Blood Count 7.1 x10^3/uL (4.0-11.0) Red Blood Count 2.90 x10^6/uL (3.50-5.40) Hemoglobin 10.0 g/dL (12.0-15.5) Hematocrit 31.1 % (36.0-47.0) Mean Corpuscular Volume 107 fL (79-100) Mean Corpuscular Hemoglobin 35 pg (25-35) Mean Corpuscular Hemoglobin Concent 32 g/dL (31-37) Red Cell Distribution Width 16.2 % (11.5-14.5) Platelet Count 81 x10^3/uL (140-400) Neutrophils (%) (Auto) 89 % (31-73) Lymphocytes (%) (Auto) 1 % (24-48) Monocytes (%) (Auto) 9 % (0-9) Eosinophils (%) (Auto) 0 % (0-3) Basophils (%) (Auto) 0 % (0-3) Neutrophils # (Auto) 6.4 x10^3uL (1.8-7.7) Lymphocytes # (Auto) 0.1 x10^3/uL (1.0-4.8) Monocytes # (Auto) 0.6 x10^3/uL (0.0-1.1) Eosinophils # (Auto) 0.0 x10^3/uL (0.0-0.7) Basophils # (Auto) 0.0 x10^3/uL (0.0-0.2) Sodium Level 137 mmol/L (136-145) Potassium Level 7.7 mmol/L (3.5-5.1) Chloride Level 101 mmol/L (98-107) Carbon Dioxide Level 25 mmol/L (21-32) Anion Gap 11 (6-14) 15 mmol/L (6-14) Blood Urea Nitrogen 73 mg/dL (7-20) Creatinine 4.9 mg/dL (0.6-1.0) Estimated GFR (Cockcroft-Gault) 8.8 BUN/Creatinine Ratio 15 (6-20) Glucose Level 146 mg/dL (70-99) 134 mg/dL (70-99) Calcium Level 8.1 mg/dL (8.5-10.1) Total Bilirubin 0.6 mg/dL (0.2-1.0) Aspartate Amino Transf (AST/SGOT) 269 U/L (15-37) Alanine Aminotransferase (ALT/SGPT) 314 U/L (14-59) Alkaline Phosphatase 168 U/L (46-116) Creatine Kinase 102 U/L (26-192) Creatine Kinase MB (Mass) 2.5 ng/mL (0.0-3.6) Creatine Kinase MB Relative Index 2.5 % (0-4) Troponin I Quantitative 0.313 ng/mL (0.000-0.055) OP-Zvt-C-Type Natriuretic Peptide > 27836 pg/mL (0-124) Total Protein 5.7 g/dL (6.4-8.2) Albumin 3.0 g/dL (3.4-5.0) Albumin/Globulin Ratio 1.1 (1.0-1.7) Bedside Hemoglobin 10.5 g/dL (12-15) Bedside Hematocrit 31 % (36-40) Bedside Sodium 133 mmol/L (135-145) Bedside Potassium 7.2 mmol/L (3.5-5.0) Bedside Chloride 105 mmol/L (98-110) Bedside Total CO2 21 mmol/L (23-32) Bedside Blood Urea Nitrogen 64 mg/dL (8-26) Bedside Creatinine 5.0 mg/dL (0.5-1.4) Bedside Ionized Calcium (Suki) 1.00 mmol/L (1.13-1.32) Laboratory Tests Test 11/04/16 16:35 11/04/16 16:39 White Blood Count 7.1 x10^3/uL (4.0-11.0) Red Blood Count 2.90 x10^6/uL (3.50-5.40) Hemoglobin 10.0 g/dL (12.0-15.5) Hematocrit 31.1 % (36.0-47.0) Mean Corpuscular Volume 107 fL (79-100) Mean Corpuscular Hemoglobin 35 pg (25-35) Mean Corpuscular Hemoglobin Concent 32 g/dL (31-37) Red Cell Distribution Width 16.2 % (11.5-14.5) Platelet Count 81 x10^3/uL (140-400) Neutrophils (%) (Auto) 89 % (31-73) Lymphocytes (%) (Auto) 1 % (24-48) Monocytes (%) (Auto) 9 % (0-9) Eosinophils (%) (Auto) 0 % (0-3) Basophils (%) (Auto) 0 % (0-3) Neutrophils # (Auto) 6.4 x10^3uL (1.8-7.7) Lymphocytes # (Auto) 0.1 x10^3/uL (1.0-4.8) Monocytes # (Auto) 0.6 x10^3/uL (0.0-1.1) Eosinophils # (Auto) 0.0 x10^3/uL (0.0-0.7) Basophils # (Auto) 0.0 x10^3/uL (0.0-0.2) Sodium Level 137 mmol/L (136-145) Potassium Level 7.7 mmol/L (3.5-5.1) Chloride Level 101 mmol/L (98-107) Carbon Dioxide Level 25 mmol/L (21-32) Anion Gap 11 (6-14) 15 mmol/L (6-14) Blood Urea Nitrogen 73 mg/dL (7-20) Creatinine 4.9 mg/dL (0.6-1.0) Estimated GFR (Cockcroft-Gault) 8.8 BUN/Creatinine Ratio 15 (6-20) Glucose Level 146 mg/dL (70-99) 134 mg/dL (70-99) Calcium Level 8.1 mg/dL (8.5-10.1) Total Bilirubin 0.6 mg/dL (0.2-1.0) Aspartate Amino Transf (AST/SGOT) 269 U/L (15-37) Alanine Aminotransferase (ALT/SGPT) 314 U/L (14-59) Alkaline Phosphatase 168 U/L (46-116) Creatine Kinase 102 U/L (26-192) Creatine Kinase MB (Mass) 2.5 ng/mL (0.0-3.6) Creatine Kinase MB Relative Index 2.5 % (0-4) Troponin I Quantitative 0.313 ng/mL (0.000-0.055) HT-Vxh-S-Type Natriuretic Peptide > 67204 pg/mL (0-124) Total Protein 5.7 g/dL (6.4-8.2) Albumin 3.0 g/dL (3.4-5.0) Albumin/Globulin Ratio 1.1 (1.0-1.7) Bedside Hemoglobin 10.5 g/dL (12-15) Bedside Hematocrit 31 % (36-40) Bedside Sodium 133 mmol/L (135-145) Bedside Potassium 7.2 mmol/L (3.5-5.0) Bedside Chloride 105 mmol/L (98-110) Bedside Total CO2 21 mmol/L (23-32) Bedside Blood Urea Nitrogen 64 mg/dL (8-26) Bedside Creatinine 5.0 mg/dL (0.5-1.4) Bedside Ionized Calcium (Suki) 1.00 mmol/L (1.13-1.32) VTE Prophylaxis Ordered VTE Prophylaxis Devices: Yes VTE Pharmacological Prophylaxi: No Assessment/Plan Assessment/Plan Mrs Garcia is a 66 y/o woman with PMH ESRD, CHF, COPD ans well as laryngeal CA, currently undergoing chemo/rad. She was found at HD facility with K 7.7 and referred to ER for urgent admission. Hyperkalemia: did receive lasix, insulin/Ca glucoante in ER. Dr Todd has been consulted, and she will receive urgent HD tonight as well. monitor lytes. of note, pt has potassium listed as home med; was not renewed... CHF: acute on chronic, systolic (EF 40% on echo in July 2016) as well as mild diastolic dysfxn. She is symptomatic with SOB. and a massively elevated will need ultrafiltration to correct. HTN/HLD: no acute issues. continue home meds COPD: nebs Hx DVT: on coumadin Laryngeal CA: on cocurrent Chemo/rad. consult Dr Renny Walters myeloma: s/p Auto BMT, on maintenance revlimid [place] REYNOSO MD Nov 04, 2016 19:38
[2016-11-04 19:56] LABS: INR 1.2 (0.8-1.1); PROTHROMBIN TIME PATIENT 14.8 SEC (11.7-14.0)
[2016-11-04 20:00] VITALS: BP 128/64
[2016-11-04 21:00] VITALS: BP 120/53
[2016-11-04] MEDS ORDERED: IV NORMAL SALINE 1000ML BAG 1,000 ML IV PRN ×2 (21:05)
[2016-11-04] MEDS ORDERED: DIALYSIS PATIENT. MC PRN (21:15)
[2016-11-04] MEDS ORDERED: diphenhydrAMINE 50 MG/ML VIAL IV PRN ×2 (21:15)
[2016-11-04] MEDS ORDERED: WARFARIN 5 MG TABLET. PO ONE (21:30)
[2016-11-04] MEDS: ACYCLOVIR 200 MG CAPSULE. PO SCH (21:40)
[2016-11-04] MEDS: MIRTAZAPINE 15 MG TABLET PO SCH (21:41)
[2016-11-04] MEDS: traZODone 50 MG TABLET. PO SCH (21:41)
[2016-11-04] MEDS: HYDROcodone/APAP 7.5/325MG 1 TAB TABLET PO PRN (21:42)
[2016-11-04] MEDS: LIDO:MAALOX:BENADRYL 1:1:1 180 ML BOTTLE. PO PRN (21:42)
[2016-11-04 22:00] VITALS: BP 102/47
[2016-11-04 23:00] VITALS: BP 132/60
[2016-11-05] VITALS (24 sets, daily range): BP systolic 73–149; BP diastolic 43–65
[2016-11-05 06:56] LABS: BASO % 0 % (0-3); EOS % 0 % (0-3); HEMATOCRIT 25.6 % (36.0-47.0); HEMOGLOBIN 8.4 g/dL (12.0-15.5); LYMPH % 2 % (24-48); MEAN CORPUSCULAR HEMOGLOBIN 34 pg (25-35); MEAN CORPUSCULAR HGB CONC 33 g/dL (31-37); MEAN CORPUSCULAR VOLUME 105 fL (79-100); MONO % 8 % (0-9); NEUT % 89 % (31-73); PLATELET COUNT 49 x10^3/uL (140-400); RED BLOOD COUNT 2.44 x10^6/uL (3.50-5.40); RED CELL DISTRIBUTION WIDTH 15.6 % (11.5-14.5)
[2016-11-05 07:01] LABS: INR 1.7 (0.8-1.1); PROTHROMBIN TIME PATIENT 18.6 SEC (11.7-14.0)
--- NOTE | 2016-11-05 07:05 | EKG ---
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
[2016-11-05 07:15] LABS: WHITE BLOOD COUNT 1.2 x10^3/uL (4.0-11.0)
[2016-11-05 07:23] LABS: ALBUMIN/GLOBULIN RATIO 0.8 (1.0-1.7); CALCIUM 6.8 mg/dL (8.5-10.1); CREATININE 2.4 mg/dL (0.6-1.0); GFR 20.1; POTASSIUM 3.7 mmol/L (3.5-5.1); TOTAL BILIRUBIN 0.4 mg/dL (0.2-1.0); TOTAL PROTEIN 4.4 g/dL (6.4-8.2)
[2016-11-05] MEDS: AMIODARONE HCL 200 MG TABLET. PO SCH (08:48)
[2016-11-05] MEDS: MONTELUKAST SODIUM 10 MG TABLET. PO SCH (08:48)
[2016-11-05] MEDS: ACYCLOVIR 200 MG CAPSULE. PO SCH ×2 (08:48→21:00)
[2016-11-05] MEDS: FOLIC/VIT B COMP W-C (RENAL) TABLET. PO SCH (08:49)
[2016-11-05] MEDS: MAGNESIUM OXIDE 400 MG TABLET PO SCH ×2 (08:49→16:00)
[2016-11-05] MEDS: HYDROcodone/APAP 7.5/325MG 1 TAB TABLET PO PRN (08:56)
[2016-11-05] MEDS: LIDO:MAALOX:BENADRYL 1:1:1 180 ML BOTTLE. PO PRN (08:56)
[2016-11-05] MEDS ORDERED: IV NORMAL SALINE 500ML BAG 500 ML IV ONE (10:30)
--- NOTE | 2016-11-05 12:11 | PDOC2 ---
CONSULT Date of Consult Date of Consult DATE: 11/05/16 TIME: 12:06 Reason for Consult Reason for Consult: HYPERKALEMIA Referring Physician Referring Physician: EDGARDO Identification/Chief Complaint Chief Complaint LOW HR Problems: Source Source: Chart review History of Present Illness Reason for Visit: THIS IS A 66 YR OLD ADMITTED WITH BRADYCARDIA AND THEN TACHYCARDIA. POSSIBLE AFIB. SHE HAS ESRD AND WENT TO DIALYSIS AND DUE TO HER UNSTABLE STATUS SHE WAS SENT TO THE ER. HER K WAS 7.7. SHE IS ALSO NEUTROPENIC AND HAS BEEN GETTING CHEMO AND RAD FOR HER LARYNGEAL CANCER. LABS ARE C/W ESRD Past Medical History Cardiovascular: CHF, HTN Pulmonary: COPD GI: No pertinent hx, Constipation Heme/Onc: Anemia NOS, Cancer (laryngeal CA, receiving concurrent chemo/rad. Hx MM, s/p autoBMT) Hepatobiliary: No pertinent hx Psych: Anxiety Rheumatologic: No pertinent hx Renal/: Chronic renal failure Endocrine: Hyperparathyroidism Past Surgical History Past Surgical History: Hysterectomy, Other Family History Family History: Diabetes, Hypertension Social History Quit ALCOHOL: none Drugs: None Lives: with Family Current Problem List Problem List Problems Medical Problems: (1) Hyperkalemia Status: Acute (2) Renal failure Status: Acute Current Medications Current Medications Current Medications Albuterol/ Ipratropium (Duoneb) 3 ml 1X ONCE NEB Last administered on 15:56; Start 11/04/16 at 16:00; Stop 11/04/16 at 16:01; Status DC Furosemide (Lasix) 40 mg 1X ONCE IVP Last administered on 11/04/16 16:00; Start 11/04/16 at 16:00; Stop 11/04/16 at 16:01; Status DC Dextrose (Dextrose 50%-Water Syringe) 25 gm 1X ONCE IV Last administered on 16:55; Start 11/04/16 at 16:45; Stop 11/04/16 at 16:46; Status DC Insulin Human Regular (NovoLIN R VIAL) 5 unit 1X ONCE IV Last administered on 11/04/16 16:45; Start 11/04/16 at 16:45; Stop 11/04/16 at 16:46; Status DC Calcium Gluconate (Calcium Gluconate) 1,000 mg 1X ONCE IVP Last administered on 11/04/16 17:18; Start 11/04/16 at 16:45; Stop 11/04/16 at 16:46; Status DC Sodium Bicarbonate 50 meq 1X ONCE IV Last administered on 11/04/16 17:20; Start 11/04/16 at 16:45; Stop 11/04/16 at 16:46; Status DC Albuterol Sulfate (Ventolin Neb Soln) 10 mg 1X ONCE CONT NEB Last administered on 11/04/16 17:00; Start 11/04/16 at 17:00; Stop 11/04/16 at 17:01 ; Status DC Acyclovir (Zovirax) 200 mg BID PO Last administered on 11/05/16 08:48; Start 11/04/16 at 21:00 Alprazolam (Xanax) 1 mg PRN Q6HRS PRN PO ANXIETY / AGITATION; Start 11/04/16 at 19:15 Amiodarone HCl (Cordarone) 200 mg DAILY PO Last administered on 11/05/16 08:48 ; Start 11/05/16 at 09:00 Calcitriol (Rocaltrol) 0.25 mcg 3X/WEEK PO ; Start 11/06/16 at 09:00 Vitamin B Complex/ Vitamin C (Emily-Ayesha) 1 tab DAILY PO Last administered on 08:49; Start 11/05/16 at 09:00 Acetaminophen/ Hydrocodone Bitart (Lortab 7.5/325) 1 tab PRN Q6HRS PRN PO PAIN Last administered on 11/05/16 08:56; Start 11/04/16 at 19:15 Magnesium Oxide (Magnesium Oxide) 400 mg BID94 PO Last administered on 08:49; Start 11/05/16 at 09:00 Methocarbamol (Robaxin) 750 mg DAILY PRN PO muscle spasms; Start 11/04/16 at 19 :15 Montelukast Sodium (Singulair) 10 mg DAILY PO Last administered on 11/05/16 08 :48; Start 11/05/16 at 09:00 Trazodone HCl (Desyrel) 50 mg QHS PO Last administered on 11/04/16 21:41; Start 11/04/16 at 21:00 Warfarin Sodium (Coumadin) 2 mg DAILY16 PO ; Start 11/05/16 at 16:00; Stop 11/05 at 16:00; Status DC Mirtazapine (Remeron) 45 mg QHS PO Last administered on 11/04/16 21:41; Start 11/04/16 at 21:00 Warfarin Sodium (Coumadin Per Physician) 1 each PRN DAILY PRN MC SEE COMMENTS; Start 11/04/16 at 19:30; Stop 11/04/16 at 20:24; Status DC Multi-Ingredient Mouthwash/Gargle (Magic Mouthwash) 10 ml PRN QID PRN PO MOUTH PAIN Last administered on 11/05/16 08:56; Start 11/04/16 at 19:45 Warfarin Sodium (Coumadin Per Pharmacy) 1 each PRN DAILY PRN MC SEE COMMENTS Last administered on 11/05/16 09:13; Start 11/04/16 at 19:45 Warfarin Sodium (Coumadin) 2 mg 1X WARF ONCE PO ; Start 11/04/16 at 16:00; Stop 11/04/16 at 21:27; Status DC Sodium Chloride 1,000 ml @ 1,000 mls/hr Q1H PRN IV hypotension; Start 11/04/16 at 21:05; Stop 11/05/16 at 03:04; Status DC Diphenhydramine HCl (Benadryl) 25 mg 1X PRN PRN IV ITCHING; Start 11/04/16 at 21:15; Stop 11/05/16 at 21:14 Diphenhydramine HCl (Benadryl) 25 mg 1X PRN PRN IV ITCHING; Start 11/04/16 at 21:15; Stop 11/05/16 at 21:14 Sodium Chloride 1,000 ml @ 400 mls/hr Q2H30M PRN IV PATENCY; Start 11/04/16 at 21:05; Stop 11/05/16 at 09:04; Status DC Info (PHARMACY MONITORING -- do not chart) 1 each PRN DAILY PRN MC SEE COMMENTS ; Start 11/04/16 at 21:15 Warfarin Sodium (Coumadin) 5 mg 1X WARF ONCE PO Last administered on 21:40; Start 11/04/16 at 21:30; Stop 11/04/16 at 21:31; Status DC Warfarin Sodium (Coumadin) 2 mg 1X WARF ONCE PO ; Start 11/05/16 at 16:00; Stop 11/05/16 at 16:01 Sodium Chloride 500 ml @ 500 mls/hr 1X ONCE IV Last administered on t 10:30; Start 11/05/16 at 10:30; Stop 11/05/16 at 11:29; Status DC Active Scripts Active Vancomycin Hcl 125 Mg Capsule 125 Mg PO QID 14 Days Reported Terbinafine Hcl 250 Mg Tablet Trazodone Hcl 50 Mg Tablet Klor-Con M20 (Potassium Chloride) 20 Meq Tab.er.prt Spiriva Respimat (Tiotropium [place]) 4 Gm Mist.inhal Mag-Oxide (Magnesium Oxide) 400 Mg Tablet 400 Mg PO BID94 Emily-Ayesha Tablet (Folic Acid/Vitamin B Comp W-C) 0.8 Mg Tablet 0.8 Mg PO DAILY Spiriva (Tiotropium [place]) 18 Mcg Cap.w.dev 1 Cap IH DAILY Super B Complex (Vitamin B Complex & Vit C No.4) 150 Mg Tablet 150 Mg PO DAILY Mirtazapine 45 Mg Tablet 45 Mg PO HS Amiodarone Hcl 200 Mg Tablet 1 Tab PO DAILY Warfarin Sodium 2 Mg Tablet 2 Mg PO DAILY16 Acyclovir 200 Mg Capsule 200 Mg PO BID Alprazolam 1 Mg Tablet 1 Mg PO PRN Q6HRS PRN Hydrocodone-Apap 7.5-325 (Hydrocodone Bit/Acetaminophen) 1 Each Tablet 1 Tab PO PRN Q6HRS PRN Advair 100-50 Diskus (Fluticasone/Salmeterol) 1 Each Disk.w.dev 1 Inh IH BID Vitron-C Tablet (Iron,Carbonyl/Ascorbic Acid) 1 Each Tablet.dr 1 Each PO DAILY Fish Oil 1,000 Mg Softgel ([place]-3 Fatty Acids/Fish Oil) 1 Each Capsule 1 Each PO DAILY Vitamin D-3 (Cholecalciferol (Vitamin D3)) 2,000 Unit Capsule 2,000 Unit PO DAILY Multivitamins (Multivitamin) 1 Each Tablet 1 Tab PO DAILY Montelukast Sodium Tablet (Montelukast Sodium) 10 Mg Tablet 1 Tab PO DAILY Calcitriol 0.25 Mcg Capsule 1 Cap PO 3X/WEEK Revlimid (Lenalidomide) 5 Mg Capsule 5 Mg PO 3X/WEEK Methocarbamol 750 Mg Tablet 750 Mg PO PRN Allergies Allergies: Coded Allergies: No Known Drug Allergies (Unverified , 9/9/16) ROS Review of System CONFUSED Physical Exam General: Cooperative HEENT: Atraumatic, PERRLA, EOMI Heart: Regular rate Abdomen: Normal bowel sounds, No tenderness Extremities: No clubbing, No edema Skin: No breakdown Neuro: Other (NO ASYMMETRY BUT CONFUSED) Psych/Mental Status: Other (CONFUSED) MUSCULOSKELETAL: No deformity Vitals VITALS Vital Signs Date Time Temp Pulse Resp B/P (MAP) Pulse Ox O2 Delivery O2 Flow Rate FiO2 11/05/16 12:01 88 27 91/49 (63) 97 Nasal Cannula 4.0 11/05/16 08:05 99.6 99.6 Labs Labs Laboratory Tests Test 11/04/16 16:35 11/04/16 16:39 11/04/16 16:40 11/05/16 05:30 White Blood Count 7.1 x10^3/uL (4.0-11.0) 1.2 x10^3/uL (4.0-11.0) Red Blood Count 2.90 x10^6/uL (3.50-5.40) 2.44 x10^6/uL (3.50-5.40) Hemoglobin 10.0 g/dL (12.0-15.5) 8.4 g/dL (12.0-15.5) Hematocrit 31.1 % (36.0-47.0) 25.6 % (36.0-47.0) Mean Corpuscular Volume 107 fL (79-100) 105 fL (79-100) Mean Corpuscular Hemoglobin 35 pg (25-35) 34 pg (25-35) Mean Corpuscular Hemoglobin Concent 32 g/dL (31-37) 33 g/dL (31-37) Red Cell Distribution Width 16.2 % (11.5-14.5) 15.6 % (11.5-14.5) Platelet Count 81 x10^3/uL (140-400) 49 x10^3/uL (140-400) Neutrophils (%) (Auto) 89 % (31-73) 89 % (31-73) Lymphocytes (%) (Auto) 1 % (24-48) 2 % (24-48) Monocytes (%) (Auto) 9 % (0-9) 8 % (0-9) Eosinophils (%) (Auto) 0 % (0-3) 0 % (0-3) Basophils (%) (Auto) 0 % (0-3) 0 % (0-3) Neutrophils # (Auto) 6.4 x10^3uL (1.8-7.7) 1.1 x10^3uL (1.8-7.7) Lymphocytes # (Auto) 0.1 x10^3/uL (1.0-4.8) 0.0 x10^3/uL (1.0-4.8) Monocytes # (Auto) 0.6 x10^3/uL (0.0-1.1) 0.1 x10^3/uL (0.0-1.1) Eosinophils # (Auto) 0.0 x10^3/uL (0.0-0.7) 0.0 x10^3/uL (0.0-0.7) Basophils # (Auto) 0.0 x10^3/uL (0.0-0.2) 0.0 x10^3/uL (0.0-0.2) Sodium Level 137 mmol/L (136-145) 142 mmol/L (136-145) Potassium Level 7.7 mmol/L (3.5-5.1) 3.7 mmol/L (3.5-5.1) Chloride Level 101 mmol/L (98-107) 105 mmol/L (98-107) Carbon Dioxide Level 25 mmol/L (21-32) 28 mmol/L (21-32) Anion Gap 11 (6-14) 15 mmol/L (6-14) 9 (6-14) Blood Urea Nitrogen 73 mg/dL (7-20) 27 mg/dL (7-20) Creatinine 4.9 mg/dL (0.6-1.0) 2.4 mg/dL (0.6-1.0) Estimated GFR (Cockcroft-Gault) 8.8 20.1 BUN/Creatinine Ratio 15 (6-20) 11 (6-20) Glucose Level 146 mg/dL (70-99) 134 mg/dL (70-99) 73 mg/dL (70-99) Calcium Level 8.1 mg/dL (8.5-10.1) 6.8 mg/dL (8.5-10.1) Total Bilirubin 0.6 mg/dL (0.2-1.0) 0.4 mg/dL (0.2-1.0) Aspartate Amino Transf (AST/SGOT) 269 U/L (15-37) 136 U/L (15-37) Alanine Aminotransferase (ALT/SGPT) 314 U/L (14-59) 211 U/L (14-59) Alkaline Phosphatase 168 U/L (46-116) 109 U/L (46-116) Creatine Kinase 102 U/L (26-192) Creatine Kinase MB (Mass) 2.5 ng/mL (0.0-3.6) Creatine Kinase MB Relative Index 2.5 % (0-4) Troponin I Quantitative 0.313 ng/mL (0.000-0.055) BH-Kwh-S-Type Natriuretic Peptide > 39320 pg/mL (0-124) Total Protein 5.7 g/dL (6.4-8.2) 4.4 g/dL (6.4-8.2) Albumin 3.0 g/dL (3.4-5.0) 2.0 g/dL (3.4-5.0) Albumin/Globulin Ratio 1.1 (1.0-1.7) 0.8 (1.0-1.7) Bedside Hemoglobin 10.5 g/dL (12-15) Bedside Hematocrit 31 % (36-40) Bedside Sodium 133 mmol/L (135-145) Bedside Potassium 7.2 mmol/L (3.5-5.0) Bedside Chloride 105 mmol/L (98-110) Bedside Total CO2 21 mmol/L (23-32) Bedside Blood Urea Nitrogen 64 mg/dL (8-26) Bedside Creatinine 5.0 mg/dL (0.5-1.4) Bedside Ionized Calcium (Suki) 1.00 mmol/L (1.13-1.32) Prothrombin Time 14.8 SEC (11.7-14.0) 18.6 SEC (11.7-14.0) Prothromb Time International Ratio 1.2 (0.8-1.1) 1.7 (0.8-1.1) Laboratory Tests Test 11/04/16 16:35 11/04/16 16:39 11/04/16 16:40 11/05/16 05:30 White Blood Count 7.1 x10^3/uL (4.0-11.0) 1.2 x10^3/uL (4.0-11.0) Red Blood Count 2.90 x10^6/uL (3.50-5.40) 2.44 x10^6/uL (3.50-5.40) Hemoglobin 10.0 g/dL (12.0-15.5) 8.4 g/dL (12.0-15.5) Hematocrit 31.1 % (36.0-47.0) 25.6 % (36.0-47.0) Mean Corpuscular Volume 107 fL (79-100) 105 fL (79-100) Mean Corpuscular Hemoglobin 35 pg (25-35) 34 pg (25-35) Mean Corpuscular Hemoglobin Concent 32 g/dL (31-37) 33 g/dL (31-37) Red Cell Distribution Width 16.2 % (11.5-14.5) 15.6 % (11.5-14.5) Platelet Count 81 x10^3/uL (140-400) 49 x10^3/uL (140-400) Neutrophils (%) (Auto) 89 % (31-73) 89 % (31-73) Lymphocytes (%) (Auto) 1 % (24-48) 2 % (24-48) Monocytes (%) (Auto) 9 % (0-9) 8 % (0-9) Eosinophils (%) (Auto) 0 % (0-3) 0 % (0-3) Basophils (%) (Auto) 0 % (0-3) 0 % (0-3) Neutrophils # (Auto) 6.4 x10^3uL (1.8-7.7) 1.1 x10^3uL (1.8-7.7) Lymphocytes # (Auto) 0.1 x10^3/uL (1.0-4.8) 0.0 x10^3/uL (1.0-4.8) Monocytes # (Auto) 0.6 x10^3/uL (0.0-1.1) 0.1 x10^3/uL (0.0-1.1) Eosinophils # (Auto) 0.0 x10^3/uL (0.0-0.7) 0.0 x10^3/uL (0.0-0.7) Basophils # (Auto) 0.0 x10^3/uL (0.0-0.2) 0.0 x10^3/uL (0.0-0.2) Sodium Level 137 mmol/L (136-145) 142 mmol/L (136-145) Potassium Level 7.7 mmol/L (3.5-5.1) 3.7 mmol/L (3.5-5.1) Chloride Level 101 mmol/L (98-107) 105 mmol/L (98-107) Carbon Dioxide Level 25 mmol/L (21-32) 28 mmol/L (21-32) Anion Gap 11 (6-14) 15 mmol/L (6-14) 9 (6-14) Blood Urea Nitrogen 73 mg/dL (7-20) 27 mg/dL (7-20) Creatinine 4.9 mg/dL (0.6-1.0) 2.4 mg/dL (0.6-1.0) Estimated GFR (Cockcroft-Gault) 8.8 20.1 BUN/Creatinine Ratio 15 (6-20) 11 (6-20) Glucose Level 146 mg/dL (70-99) 134 mg/dL (70-99) 73 mg/dL (70-99) Calcium Level 8.1 mg/dL (8.5-10.1) 6.8 mg/dL (8.5-10.1) Total Bilirubin 0.6 mg/dL (0.2-1.0) 0.4 mg/dL (0.2-1.0) Aspartate Amino Transf (AST/SGOT) 269 U/L (15-37) 136 U/L (15-37) Alanine Aminotransferase (ALT/SGPT) 314 U/L (14-59) 211 U/L (14-59) Alkaline Phosphatase 168 U/L (46-116) 109 U/L (46-116) Creatine Kinase 102 U/L (26-192) Creatine Kinase MB (Mass) 2.5 ng/mL (0.0-3.6) Creatine Kinase MB Relative Index 2.5 % (0-4) Troponin I Quantitative 0.313 ng/mL (0.000-0.055) FB-Zen-H-Type Natriuretic Peptide > 41493 pg/mL (0-124) Total Protein 5.7 g/dL (6.4-8.2) 4.4 g/dL (6.4-8.2) Albumin 3.0 g/dL (3.4-5.0) 2.0 g/dL (3.4-5.0) Albumin/Globulin Ratio 1.1 (1.0-1.7) 0.8 (1.0-1.7) Bedside Hemoglobin 10.5 g/dL (12-15) Bedside Hematocrit 31 % (36-40) Bedside Sodium 133 mmol/L (135-145) Bedside Potassium 7.2 mmol/L (3.5-5.0) Bedside Chloride 105 mmol/L (98-110) Bedside Total CO2 21 mmol/L (23-32) Bedside Blood Urea Nitrogen 64 mg/dL (8-26) Bedside Creatinine 5.0 mg/dL (0.5-1.4) Bedside Ionized Calcium (Suki) 1.00 mmol/L (1.13-1.32) Prothrombin Time 14.8 SEC (11.7-14.0) 18.6 SEC (11.7-14.0) Prothromb Time International Ratio 1.2 (0.8-1.1) 1.7 (0.8-1.1) Assessment/Plan Assessment/Plan IMP ESRD ANEMIA HYPERKALEMIA NEUTROPENIA PROBABLE SEPSIS AFIB LARYNGEAL CANCER S/P CHEMO AND RAD TX MET ENCEPHALOPATHY PLAN ANTIBIOTICS EMERGENT HD DONE LAST NIGHT CARDIOLOGY EVAL AND TX HEME/ONC TO SEE PT NEUTROPENIC PRECAUTIONS HD MWF START ARANESP SUPPORTIVE CARE POOL YAÑEZ MD Nov 05, 2016 12:11
--- NOTE | 2016-11-05 12:43 | PDOC ---
PROGRESS NOTES Chief Complaint Chief Complaint Symptomatic hyperkalemia ASSESSMENT AND PLAN: 1. Hyperkalemia: respolved post urgent HD last night. monitor closely. 2. Laryngeal CA: currently undergoing chemo/rad, having received weekly chemo on . 3. Dysphagia: coughing with PO. high suspicion for aspiration; formal speech eval 4. Neutropenic fever: borderline on both accounts; with suspicion for aspiration (and mult causes for immunosuppression), will be proactive with starting Abx. obtain CXR. consult Dr.s Willis and Breana 5. ESRD: on HD as per nephrology. 6. CHF: acute on chronic, systolic (EF 40% on echo in July 2016) as well as mild diastolic dysfxn. fluid overload improved post HD 7. HTN/HLD: no acute issues. continue home meds 8. COPD: nebs 10. DVT: on coumadin 11. Mult myeloma: s/p Auto BMT, on maintenance revlimid (hold for now) Addendum: did fail swallow study as expected. NPO. she and daughter had d/w her oncologist, Dr Hess, about PEG in the past. she wants to go ahead. GI consult, but will need to wait for CBC improvement. switch to IV/SQ meds. History of Present Illness History of Present Illness difficulty swallowing. cough. Vitals Vitals Vital Signs Date Time Temp Pulse Resp B/P (MAP) Pulse Ox O2 Delivery O2 Flow Rate FiO2 11/05/16 12:15 Nasal Cannula 4.0 11/05/16 12:01 88 27 91/49 (63) 97 11/05/16 08:05 99.6 99.6 Physical Exam General: Alert, Cooperative, No acute distress Heart: Regular rate Lungs: Other (coarse UA rhonchi) Abdomen: Normal bowel sounds, No tenderness Extremities: No clubbing, No edema Skin: No breakdown Labs LABS Laboratory Tests Test 11/04/16 16:35 11/04/16 16:39 11/04/16 16:40 11/05/16 05:30 White Blood Count 7.1 x10^3/uL (4.0-11.0) 1.2 x10^3/uL (4.0-11.0) Red Blood Count 2.90 x10^6/uL (3.50-5.40) 2.44 x10^6/uL (3.50-5.40) Hemoglobin 10.0 g/dL (12.0-15.5) 8.4 g/dL (12.0-15.5) Hematocrit 31.1 % (36.0-47.0) 25.6 % (36.0-47.0) Mean Corpuscular Volume 107 fL (79-100) 105 fL (79-100) Mean Corpuscular Hemoglobin 35 pg (25-35) 34 pg (25-35) Mean Corpuscular Hemoglobin Concent 32 g/dL (31-37) 33 g/dL (31-37) Red Cell Distribution Width 16.2 % (11.5-14.5) 15.6 % (11.5-14.5) Platelet Count 81 x10^3/uL (140-400) 49 x10^3/uL (140-400) Neutrophils (%) (Auto) 89 % (31-73) 89 % (31-73) Lymphocytes (%) (Auto) 1 % (24-48) 2 % (24-48) Monocytes (%) (Auto) 9 % (0-9) 8 % (0-9) Eosinophils (%) (Auto) 0 % (0-3) 0 % (0-3) Basophils (%) (Auto) 0 % (0-3) 0 % (0-3) Neutrophils # (Auto) 6.4 x10^3uL (1.8-7.7) 1.1 x10^3uL (1.8-7.7) Lymphocytes # (Auto) 0.1 x10^3/uL (1.0-4.8) 0.0 x10^3/uL (1.0-4.8) Monocytes # (Auto) 0.6 x10^3/uL (0.0-1.1) 0.1 x10^3/uL (0.0-1.1) Eosinophils # (Auto) 0.0 x10^3/uL (0.0-0.7) 0.0 x10^3/uL (0.0-0.7) Basophils # (Auto) 0.0 x10^3/uL (0.0-0.2) 0.0 x10^3/uL (0.0-0.2) Sodium Level 137 mmol/L (136-145) 142 mmol/L (136-145) Potassium Level 7.7 mmol/L (3.5-5.1) 3.7 mmol/L (3.5-5.1) Chloride Level 101 mmol/L (98-107) 105 mmol/L (98-107) Carbon Dioxide Level 25 mmol/L (21-32) 28 mmol/L (21-32) Anion Gap 11 (6-14) 15 mmol/L (6-14) 9 (6-14) Blood Urea Nitrogen 73 mg/dL (7-20) 27 mg/dL (7-20) Creatinine 4.9 mg/dL (0.6-1.0) 2.4 mg/dL (0.6-1.0) Estimated GFR (Cockcroft-Gault) 8.8 20.1 BUN/Creatinine Ratio 15 (6-20) 11 (6-20) Glucose Level 146 mg/dL (70-99) 134 mg/dL (70-99) 73 mg/dL (70-99) Calcium Level 8.1 mg/dL (8.5-10.1) 6.8 mg/dL (8.5-10.1) Total Bilirubin 0.6 mg/dL (0.2-1.0) 0.4 mg/dL (0.2-1.0) Aspartate Amino Transf (AST/SGOT) 269 U/L (15-37) 136 U/L (15-37) Alanine Aminotransferase (ALT/SGPT) 314 U/L (14-59) 211 U/L (14-59) Alkaline Phosphatase 168 U/L (46-116) 109 U/L (46-116) Creatine Kinase 102 U/L (26-192) Creatine Kinase MB (Mass) 2.5 ng/mL (0.0-3.6) Creatine Kinase MB Relative Index 2.5 % (0-4) Troponin I Quantitative 0.313 ng/mL (0.000-0.055) AF-Ofp-J-Type Natriuretic Peptide > 13400 pg/mL (0-124) Total Protein 5.7 g/dL (6.4-8.2) 4.4 g/dL (6.4-8.2) Albumin 3.0 g/dL (3.4-5.0) 2.0 g/dL (3.4-5.0) Albumin/Globulin Ratio 1.1 (1.0-1.7) 0.8 (1.0-1.7) Bedside Hemoglobin 10.5 g/dL (12-15) Bedside Hematocrit 31 % (36-40) Bedside Sodium 133 mmol/L (135-145) Bedside Potassium 7.2 mmol/L (3.5-5.0) Bedside Chloride 105 mmol/L (98-110) Bedside Total CO2 21 mmol/L (23-32) Bedside Blood Urea Nitrogen 64 mg/dL (8-26) Bedside Creatinine 5.0 mg/dL (0.5-1.4) Bedside Ionized Calcium (Suki) 1.00 mmol/L (1.13-1.32) Prothrombin Time 14.8 SEC (11.7-14.0) 18.6 SEC (11.7-14.0) Prothromb Time International Ratio 1.2 (0.8-1.1) 1.7 (0.8-1.1) Nutrition Consultation Dietary Evaluation: Recommendations by RD: Increase Calorie Intake, Protein supplementation Comments: Rec. the mechanical soft diet per pt request Add Novasource Renal BID Expected Outcomes/Goals: meet 75% estimated nutrition needs Interpretation of weight loss: >10% in 6 months Malnutrition Findings: Body Fat Depletion (Non Severe: Mild Depletion Reduced [employer]electronics Technician Strength: N/A Reduced Microelectronics Technician Strength (Non-Sev: N/A Malnutrition related to morbid: No Weight Status: Appropriate Fluid Accumulation (N/A): N/A [place] REYNOSO MD Nov 05, 2016 12:42
[2016-11-05 13:10] LABS: NUCLEATED RBC 1
[2016-11-05 13:11] LABS: ANISOCYTOSIS SLIGHT; OVALOCYTES FEW; PLT ESTIMATE DECREASED (ADEQUATE); POLYCHROMASIA SLIGHT
[2016-11-05 13:59] LABS: HCO3 ABG 25 mmol/L (21-28); PCO2 ABG 50 mmHg (35-46); PH ABG 7.32 (7.35-7.45); PO2 ABG 56 mmHg (65-108); SAT O2 ABG 83 % (92-99)
[2016-11-05 14:08] LABS: FIO2 ABG 36%
--- NOTE | 2016-11-05 14:10 | RAD ---
Indication: Possible aspiration. Time of exam 1349 hours. Correlation is made with prior study from 11/04/2016. The heart size is stable. There is increasing density to the left base, now with obscuration of the left hemidiaphragm consistent with increasing left basilar infiltrate. There is also developing airspace infiltrate in the right base. There may be small bilateral effusions. There is also some minimal patchy left upper lobe infiltrate that is new since yesterday. A right chest wall port remains in place. No pneumothorax is seen. Impression: Increasing bilateral pulmonary infiltrates and small effusions when compared with examination 1 day earlier.
[2016-11-05] MEDS: MICAFUNGIN 100 MG in IV DEXTROSE 5% 100 ML IV SCH (15:03)
[2016-11-05] MEDS ORDERED: TPN PER PHARMACY MC PRN (15:30)
[2016-11-05] MEDS ORDERED: WARFARIN 2 MG TABLET. PO SCH (16:00)
[2016-11-05] MEDS ORDERED: WARFARIN 2 MG TABLET. PO ONE (16:00)
--- NOTE | 2016-11-05 16:04 | PDOC2 ---
GI CONSULT Reason For Consult: PEG HPI: HPI: 66 y/o female w/ laryngeal cancer on current radiation and chemo. Also ESRD on HD, admitted w/ hyperkalemia. Also h/o CHF, BNP >77042 on admit. Per RN, unable to swallow, seems aspiration likely. Had [employer] eval, NPO recommended. GI consult this afternoon for PEG placement. She's not sure she wants to proceed but says her daughter is in charge. Most recent labs significant for neutropenia, thrombocytopenia, INR 1.7. We saw her last month for C Diff which was treated w/ vancomycin. Occasional heartburn treated w/ Tums. No previous EGD or colonoscopy. Currently dysphagia is her only GI complaint. PMH: PMH: laryngeal cancer on chemo and radiation, HTN, HLD, CHF, COPD, DVT, ESRD on HD, multiple myeloma s/p stem cell transplant, herpes zoster, C Diff, hysterectomy FH: Family History: No pertinent hx Social History: Smoke: Quit ALCOHOL: none Drugs: None ROS: GEN: Denies fevers, chills, sweats HEENT: +hoarseness CV: Denies chest pain RESP: Denies shortness of air, cough GI: Per HPI : Denies hematuria, dysuria ENDO: +weight loss NEURO: Denies confusion, dizziness MSK: +weakness SKIN: Denies jaundice, pruritus Vitals: Vitals: Vital Signs Date Time Temp Pulse Resp B/P (MAP) Pulse Ox O2 Delivery O2 Flow Rate FiO2 11/05/16 15:05 99.2 95 25 80/46 (57) 92 Nasal Cannula 4.0 99.2 Labs: Labs: Laboratory Tests Test 11/04/16 16:35 11/04/16 16:39 11/04/16 16:40 11/04/16 18:30 White Blood Count 7.1 x10^3/uL (4.0-11.0) Red Blood Count 2.90 x10^6/uL (3.50-5.40) Hemoglobin 10.0 g/dL (12.0-15.5) Hematocrit 31.1 % (36.0-47.0) Mean Corpuscular Volume 107 fL (79-100) Mean Corpuscular Hemoglobin 35 pg (25-35) Mean Corpuscular Hemoglobin Concent 32 g/dL (31-37) Red Cell Distribution Width 16.2 % (11.5-14.5) Platelet Count 81 x10^3/uL (140-400) Neutrophils (%) (Auto) 89 % (31-73) Lymphocytes (%) (Auto) 1 % (24-48) Monocytes (%) (Auto) 9 % (0-9) Eosinophils (%) (Auto) 0 % (0-3) Basophils (%) (Auto) 0 % (0-3) Neutrophils # (Auto) 6.4 x10^3uL (1.8-7.7) Lymphocytes # (Auto) 0.1 x10^3/uL (1.0-4.8) Monocytes # (Auto) 0.6 x10^3/uL (0.0-1.1) Eosinophils # (Auto) 0.0 x10^3/uL (0.0-0.7) Basophils # (Auto) 0.0 x10^3/uL (0.0-0.2) Sodium Level 137 mmol/L (136-145) Potassium Level 7.7 mmol/L (3.5-5.1) Chloride Level 101 mmol/L (98-107) Carbon Dioxide Level 25 mmol/L (21-32) Anion Gap 11 (6-14) 15 mmol/L (6-14) Blood Urea Nitrogen 73 mg/dL (7-20) Creatinine 4.9 mg/dL (0.6-1.0) Estimated GFR (Cockcroft-Gault) 8.8 BUN/Creatinine Ratio 15 (6-20) Glucose Level 146 mg/dL (70-99) 134 mg/dL (70-99) Calcium Level 8.1 mg/dL (8.5-10.1) Total Bilirubin 0.6 mg/dL (0.2-1.0) Aspartate Amino Transf (AST/SGOT) 269 U/L (15-37) Alanine Aminotransferase (ALT/SGPT) 314 U/L (14-59) Alkaline Phosphatase 168 U/L (46-116) Creatine Kinase 102 U/L (26-192) Creatine Kinase MB (Mass) 2.5 ng/mL (0.0-3.6) Creatine Kinase MB Relative Index 2.5 % (0-4) Troponin I Quantitative 0.313 ng/mL (0.000-0.055) GL-Eoo-J-Type Natriuretic Peptide > 90387 pg/mL (0-124) Total Protein 5.7 g/dL (6.4-8.2) Albumin 3.0 g/dL (3.4-5.0) Albumin/Globulin Ratio 1.1 (1.0-1.7) Bedside Hemoglobin 10.5 g/dL (12-15) Bedside Hematocrit 31 % (36-40) Bedside Sodium 133 mmol/L (135-145) Bedside Potassium 7.2 mmol/L (3.5-5.0) Bedside Chloride 105 mmol/L (98-110) Bedside Total CO2 21 mmol/L (23-32) Bedside Blood Urea Nitrogen 64 mg/dL (8-26) Bedside Creatinine 5.0 mg/dL (0.5-1.4) Bedside Ionized Calcium (Suki) 1.00 mmol/L (1.13-1.32) Prothrombin Time 14.8 SEC (11.7-14.0) Prothromb Time International Ratio 1.2 (0.8-1.1) Nasal Screen MRSA (PCR) Negative (Negative) Test 11/05/16 05:30 11/05/16 13:39 White Blood Count 1.2 x10^3/uL (4.0-11.0) Red Blood Count 2.44 x10^6/uL (3.50-5.40) Hemoglobin 8.4 g/dL (12.0-15.5) Hematocrit 25.6 % (36.0-47.0) Mean Corpuscular Volume 105 fL (79-100) Mean Corpuscular Hemoglobin 34 pg (25-35) Mean Corpuscular Hemoglobin Concent 33 g/dL (31-37) Red Cell Distribution Width 15.6 % (11.5-14.5) Platelet Count 49 x10^3/uL (140-400) Neutrophils (%) (Auto) 89 % (31-73) Lymphocytes (%) (Auto) 2 % (24-48) Monocytes (%) (Auto) 8 % (0-9) Eosinophils (%) (Auto) 0 % (0-3) Basophils (%) (Auto) 0 % (0-3) Neutrophils # (Auto) 1.1 x10^3uL (1.8-7.7) Lymphocytes # (Auto) 0.0 x10^3/uL (1.0-4.8) Monocytes # (Auto) 0.1 x10^3/uL (0.0-1.1) Eosinophils # (Auto) 0.0 x10^3/uL (0.0-0.7) Basophils # (Auto) 0.0 x10^3/uL (0.0-0.2) Segmented Neutrophils % 40 % (35-66) Band Neutrophils % 47 % (0-9) Lymphocytes % 3 % (24-48) Monocytes % 6 % (0-10) Metamyelocytes % 2 % (0-0) Myelocytes % 2 % (0-0) Nucleated Red Blood Cells 1 Dohle Bodies Few Platelet Estimate Decreased (ADEQUATE) Polychromasia Slight Anisocytosis Slight Macrocytosis Present Ovalocytes Few Prothrombin Time 18.6 SEC (11.7-14.0) Prothromb Time International Ratio 1.7 (0.8-1.1) Sodium Level 142 mmol/L (136-145) Potassium Level 3.7 mmol/L (3.5-5.1) Chloride Level 105 mmol/L (98-107) Carbon Dioxide Level 28 mmol/L (21-32) Anion Gap 9 (6-14) Blood Urea Nitrogen 27 mg/dL (7-20) Creatinine 2.4 mg/dL (0.6-1.0) Estimated GFR (Cockcroft-Gault) 20.1 BUN/Creatinine Ratio 11 (6-20) Glucose Level 73 mg/dL (70-99) Calcium Level 6.8 mg/dL (8.5-10.1) Total Bilirubin 0.4 mg/dL (0.2-1.0) Aspartate Amino Transf (AST/SGOT) 136 U/L (15-37) Alanine Aminotransferase (ALT/SGPT) 211 U/L (14-59) Alkaline Phosphatase 109 U/L (46-116) Total Protein 4.4 g/dL (6.4-8.2) Albumin 2.0 g/dL (3.4-5.0) Albumin/Globulin Ratio 0.8 (1.0-1.7) O2 Saturation 83 % (92-99) Arterial Blood pH 7.32 (7.35-7.45) Arterial Blood pCO2 at Patient Temp 50 mmHg (35-46) Arterial Blood pO2 at Patient Temp 56 mmHg (65-108) Arterial Blood HCO3 25 mmol/L (21-28) Arterial Blood Base Excess -2 mmol/L (-3-3) FiO2 36% Allergies: Coded Allergies: No Known Drug Allergies (Unverified , 01/17/16) Medications: Current Medications Medications (Trade) Dose Ordered Sig/Seth Route PRN Reason Start Time Stop Time Status Last Admin Dose Admin Albuterol/ Ipratropium (Duoneb) 3 ml 1X ONCE NEB 11/04/16 16:00 11/04/16 16:01 DC 11/04/16 15:56 Furosemide (Lasix) 40 mg 1X ONCE IVP 11/04/16 16:00 11/04/16 16:01 DC 11/04/16 16:00 Dextrose (Dextrose 50%-Water Syringe) 25 gm 1X ONCE IV 11/04/16 16:45 11/04/16 16:46 DC 11/04/16 16:55 Insulin Human Regular (NovoLIN R VIAL) 5 unit 1X ONCE IV 11/04/16 16:45 11/04/16 16:46 DC 11/04/16 16:45 Calcium Gluconate (Calcium Gluconate) 1,000 mg 1X ONCE IVP 11/04/16 16:45 11/04/16 16:46 DC 11/04/16 17:18 Sodium Bicarbonate 50 meq 1X ONCE IV 11/04/16 16:45 11/04/16 16:46 DC 11/04/16 17:20 Albuterol Sulfate (Ventolin Neb Soln) 10 mg 1X ONCE CONT NEB 11/04/16 17:00 11/04/16 17:01 DC 11/04/16 17:00 Acyclovir (Zovirax) 200 mg BID PO 11/04/16 21:00 11/05/16 08:48 Amiodarone HCl (Cordarone) 200 mg DAILY PO 11/05/16 09:00 11/05/16 08:48 Vitamin B Complex/ Vitamin C (Emily-Ayesha) 1 tab DAILY PO 11/05/16 09:00 11/05/16 08:49 Acetaminophen/ Hydrocodone Bitart (Lortab 7.5/325) 1 tab PRN Q6HRS PRN PO PAIN 11/04/16 19:15 11/05/16 08:56 Magnesium Oxide (Magnesium Oxide) 400 mg BID94 PO 11/05/16 09:00 11/05/16 08:49 Montelukast Sodium (Singulair) 10 mg DAILY PO 11/05/16 09:00 11/05/16 08:48 Trazodone HCl (Desyrel) 50 mg QHS PO 11/04/16 21:00 11/04/16 21:41 Mirtazapine (Remeron) 45 mg QHS PO 11/04/16 21:00 11/04/16 21:41 Multi-Ingredient Mouthwash/Gargle (Magic Mouthwash) 10 ml PRN QID PRN PO MOUTH PAIN 11/04/16 19:45 11/05/16 08:56 Warfarin Sodium (Coumadin Per Pharmacy) 1 each PRN DAILY PRN MC SEE COMMENTS 11/04/16 19:45 11/05/16 15:22 DC 11/05/16 09:13 Warfarin Sodium (Coumadin) 5 mg 1X WARF ONCE PO 11/04/16 21:30 11/04/16 21:31 DC 11/04/16 21:40 Sodium Chloride 500 ml @ 500 mls/hr 1X ONCE IV 11/05/16 10:30 11/05/16 11:29 DC 11/05/16 10:30 Micafungin Sodium 100 mg/Dextrose 100 ml @ 100 mls/hr Q24H IV 11/05/16 15:00 11/05/16 15:03 Imaging: Imaging: [employer] Bedside Swallow Eval 11/05/16 Bedside swallow eval completed. IMPRESSIONS: Mod-severe dysphagia including both odynophagia and pharyngeal dysphagia. Swallow is both weak and delayed w/pt exhibiting visible struggle when trying to initiate swallow of a small, single ice chip. Pt is at HIGH risk of aspiration on all consistencies, including her own secretions. No safe consistency is identified, including ice chips. Etiology of dysphagia is c/w laryngeal ca dx and changes r/t XRT. Prognosis is poor for resuming safe po intake in immediate future. Pt will need non-oral nutrition, potentially of a more long-term nature, given the severity of current dysphagia and the potential for dysphagia associated w/her dx and tx. RECOMMENDATIONS: NPO meds and nutrition. Results explained to pt and dtr along w /need for good oral care to reduce risk of aspiration pneumonia r/t aspiration of pt's own secretions. Explained high risk of aspiration and related complications. Would not rec pleasure feeds if goals remain for other than comfort. Suggested swish & spit for oral comfort. [employer] tx not indicated given etiology of dysphagia and acute med status. CXR 11/05/16 Impression: Increasing bilateral pulmonary infiltrates and small effusions when compared with examination 1 day earlier. PE: GEN: NAD, thin HEENT: Atraumatic, PERRL LUNGS: diminished HEART: RRR ABD: NABS, S/ND/NT EXTREMITY: No edema SKIN: No rashes, no jaundice NEURO/PSYCH: A & O 3 A/P: A/P: Laryngeal cancer on chem/rad, dysphagia ESRD on HD, CHF Neutropenia, thrombocytopenia -- PEG procedure, etc. discussed. She will consider, d/w her daughter. Regardless , need improvement in labs before proceeding. MOMO TOVAR Nov 05, 2016 16:04
[2016-11-05] MEDS: AMINO AC 3%/ELECTROLYTE/GLYCER 1,000 ML IV SCH (16:08)
[2016-11-05] MEDS: VANCOMYCIN PER PHARMACY MC PRN (16:15)
[2016-11-05] MEDS ORDERED: IV NORMAL SALINE 1000ML BAG 1,000 ML IV ONE (16:15)
[2016-11-05] MEDS ORDERED: DOXYCYCLINE HYCLATE 100 MG TABLET PO SCH (16:15)
[2016-11-05] MEDS ORDERED: VANCOMYCIN 1.25 GM in IV NORMAL SALINE 250ML 250 ML IV ONE (16:30)
[2016-11-05] MEDS: PIPERACILLIN/TAZOBACTAM 2.25 GM in IV NORMAL SALINE 50ML 50 ML IV SCH ×2 (16:50→22:00)
--- NOTE | 2016-11-05 17:00 | PDOC2 ---
CONSULT Date of Consult Date of Consult DATE: 11/05/16 TIME: 12:49 Reason for Consult Reason for Consult: Squamous cell carcinoma of base of tongue Referring Physician Referring Physician: Dr Pinto Identification/Chief Complaint Chief Complaint Squamous cell carcinoma of base of tongue on chemo now has neutropenia. Problems: History of Present Illness Reason for Visit: Squamous cell carcinoma of base of tongue on chemo now has neutropenia. ~ She has been having some swallowing difficulties dating back to her hospitalizations from the end of last year.~ Initially she still thought it was thrush and they did try to treat it and subsequently gave her antibiotics but it did not improve.~ She was ultimately referred to ENT and she had an evaluation at [place] and by exam she reports she was found to have a mass at the base of her tongue.~ I do not have all the records but I do have a CT scan from [facility] on 08/17/2016 which is shown a 3.5 x 4 x 2.37 m hyperenhancing solid mass at the base of the tongue slightly to the left and there was a necrotic right level 2 lymph node 3 x 2.1 cm and on the left a partially necrotic level 2 node measuring 2 x 1.7 cm and numerous other enlarged lymph nodes with a small amount of central necrosis.~ She had a biopsy of this area by Dr. Roy done at [facility] September 03, 2016 showing invasive nonkeratinizing squamous cell carcinoma. She was subsequently admitted to [facility] from September 07- with what proved to be C. difficile colitis.~ She has multiple other comorbidities and they also mentioned seeing a boiler/chiller operator because of concern about cardiomyopathy but I do not think we have records in that regard at this time. She does have a long history of smoking but quit recently and is remained abstinent. Her PET scan was completed September 17, 2016 and showed large hypermetabolic base of tongue mass with bilateral cervical adenopathy.~ She is currently receiving a weekly dose of cisplatin due to her her end-stage renal disease and she began therapy October 20 and her third week of chemotherapy on November [id number].~ She had been tolerating things well but really in the last 3- 4 days she has noticed more swallowing difficulty.~ She had been using oxycodone and was given a prescription for Magic mouthwash.~ She had been able to get things down orally including solid foods and she has been doing some boost but indicated it was only about half a can so I really encouraged her to take more of that.~ She goes to dialysis on a Wednesday schedule so she has been getting dialyzed after the [place] and is seemed to do well with that regard with not a lot of nausea or other issues. ~ She presented to her HD facility with c/o not feeling well since Wednesday. She was found with K 7.7 and referred to ER. Her EKG showed abn c/w hyperkalemia, and she was given lasix, insulin and calcium gluconate in response. In addition , her proBNP was found at greater than 35,000. She deneid any fevers, chills, N /V. She is now admitted to the ICU for further management Past Medical History Cardiovascular: CHF, HTN Pulmonary: COPD GI: No pertinent hx, Constipation Heme/Onc: Anemia NOS, Cancer (laryngeal CA, receiving concurrent chemo/rad. Hx MM, s/p autoBMT) Hepatobiliary: No pertinent hx Psych: Anxiety Rheumatologic: No pertinent hx Renal/: Chronic renal failure Endocrine: Hyperparathyroidism Past Surgical History Past Surgical History: Hysterectomy, Other Family History Family History: Diabetes, Hypertension Social History Quit ALCOHOL: none Drugs: None Lives: with Family Current Problem List Problem List Problems Medical Problems: (1) Hyperkalemia Status: Acute (2) Renal failure Status: Acute Current Medications Current Medications Current Medications Albuterol/ Ipratropium (Duoneb) 3 ml 1X ONCE NEB Last administered on 15:56; Start 11/04/16 at 16:00; Stop 11/04/16 at 16:01; Status DC Furosemide (Lasix) 40 mg 1X ONCE IVP Last administered on 11/04/16 16:00; Start 11/04/16 at 16:00; Stop 11/04/16 at 16:01; Status DC Dextrose (Dextrose 50%-Water Syringe) 25 gm 1X ONCE IV Last administered on 16:55; Start 11/04/16 at 16:45; Stop 11/04/16 at 16:46; Status DC Insulin Human Regular (NovoLIN R VIAL) 5 unit 1X ONCE IV Last administered on 11/04/16 16:45; Start 11/04/16 at 16:45; Stop 11/04/16 at 16:46; Status DC Calcium Gluconate (Calcium Gluconate) 1,000 mg 1X ONCE IVP Last administered on 11/04/16 17:18; Start 11/04/16 at 16:45; Stop 11/04/16 at 16:46; Status DC Sodium Bicarbonate 50 meq 1X ONCE IV Last administered on 11/04/16 17:20; Start 11/04/16 at 16:45; Stop 11/04/16 at 16:46; Status DC Albuterol Sulfate (Ventolin Neb Soln) 10 mg 1X ONCE CONT NEB Last administered on 11/04/16 17:00; Start 11/04/16 at 17:00; Stop 11/04/16 at 17:01 ; Status DC Acyclovir (Zovirax) 200 mg BID PO Last administered on 11/05/16 08:48; Start 11/04/16 at 21:00 Alprazolam (Xanax) 1 mg PRN Q6HRS PRN PO ANXIETY / AGITATION; Start 11/04/16 at 19:15 Amiodarone HCl (Cordarone) 200 mg DAILY PO Last administered on 11/05/16 08:48 ; Start 11/05/16 at 09:00 Calcitriol (Rocaltrol) 0.25 mcg 3X/WEEK PO ; Start 11/06/16 at 09:00 Vitamin B Complex/ Vitamin C (Emily-Ayesha) 1 tab DAILY PO Last administered on 08:49; Start 11/05/16 at 09:00 Acetaminophen/ Hydrocodone Bitart (Lortab 7.5/325) 1 tab PRN Q6HRS PRN PO PAIN Last administered on 11/05/16 08:56; Start 11/04/16 at 19:15 Magnesium Oxide (Magnesium Oxide) 400 mg BID94 PO Last administered on 08:49; Start 11/05/16 at 09:00 Methocarbamol (Robaxin) 750 mg DAILY PRN PO muscle spasms; Start 11/04/16 at 19 :15 Montelukast Sodium (Singulair) 10 mg DAILY PO Last administered on 11/05/16 08 :48; Start 11/05/16 at 09:00 Trazodone HCl (Desyrel) 50 mg QHS PO Last administered on 11/04/16 21:41; Start 11/04/16 at 21:00 Warfarin Sodium (Coumadin) 2 mg DAILY16 PO ; Start 11/05/16 at 16:00; Stop 11/05 at 16:00; Status DC Mirtazapine (Remeron) 45 mg QHS PO Last administered on 11/04/16 21:41; Start 11/04/16 at 21:00 Warfarin Sodium (Coumadin Per Physician) 1 each PRN DAILY PRN MC SEE COMMENTS; Start 11/04/16 at 19:30; Stop 11/04/16 at 20:24; Status DC Multi-Ingredient Mouthwash/Gargle (Magic Mouthwash) 10 ml PRN QID PRN PO MOUTH PAIN Last administered on 11/05/16 08:56; Start 11/04/16 at 19:45 Warfarin Sodium (Coumadin Per Pharmacy) 1 each PRN DAILY PRN MC SEE COMMENTS Last administered on 11/05/16 09:13; Start 11/04/16 at 19:45; Stop 11/05/16 at 15:22; Status DC Warfarin Sodium (Coumadin) 2 mg 1X WARF ONCE PO ; Start 11/04/16 at 16:00; Stop 11/04/16 at 21:27; Status DC Sodium Chloride 1,000 ml @ 1,000 mls/hr Q1H PRN IV hypotension; Start 11/04/16 at 21:05; Stop 11/05/16 at 03:04; Status DC Diphenhydramine HCl (Benadryl) 25 mg 1X PRN PRN IV ITCHING; Start 11/04/16 at 21:15; Stop 11/05/16 at 21:14 Diphenhydramine HCl (Benadryl) 25 mg 1X PRN PRN IV ITCHING; Start 11/04/16 at 21:15; Stop 11/05/16 at 21:14 Sodium Chloride 1,000 ml @ 400 mls/hr Q2H30M PRN IV PATENCY; Start 11/04/16 at 21:05; Stop 11/05/16 at 09:04; Status DC Info (PHARMACY MONITORING -- do not chart) 1 each PRN DAILY PRN MC SEE COMMENTS ; Start 11/04/16 at 21:15 Warfarin Sodium (Coumadin) 5 mg 1X WARF ONCE PO Last administered on 21:40; Start 11/04/16 at 21:30; Stop 11/04/16 at 21:31; Status DC Warfarin Sodium (Coumadin) 2 mg 1X WARF ONCE PO ; Start 11/05/16 at 16:00; Stop 11/05/16 at 16:01; Status DC Sodium Chloride 500 ml @ 500 mls/hr 1X ONCE IV Last administered on 10:30; Start 11/05/16 at 10:30; Stop 11/05/16 at 11:29; Status DC Darbepoetin Donnie (Aranesp) 60 mcg Th@2100 SQ ; Start 11/05/16 at 21:00 Tbo-Filgrastim (Granix) 300 mcg QHS SQ ; Start 11/05/16 at 21:00 Micafungin Sodium 100 mg/Dextrose 100 ml @ 100 mls/hr Q24H IV Last administered on 11/05/16 15:03; Start 11/05/16 at 15:00 Heparin Sodium (Porcine) (Heparin Sq) 5,000 unit Q8HRS SQ ; Start 11/06/16 at 06 :00 Amino Acids/ Glycerin/ Electrolytes 1,000 ml @ 80 mls/hr [id number] IV Last administered on 11/05/16 16:08; Start 11/05/16 at 15:30 Info 1 each PRN DAILY PRN MC SEE COMMENTS; Start 11/05/16 at 15:30 Sodium Chloride 1,000 ml @ 1,000 mls/hr 1X ONCE IV Last administered on 16:08; Start 11/05/16 at 16:15; Stop 11/05/16 at 17:14 Vancomycin HCl (Vanco Per Pharmacy) 1 each PRN DAILY PRN MC SEE COMMENTS Last administered on 11/05/16 16:15; Start 11/05/16 at 16:15 Doxycycline Hyclate (Vibra-Tab) 100 mg BID PO ; Start 11/05/16 at 16:15; Stop at 16:20; Status DC Piperacillin Sod/ Tazobactam Sod 2.25 gm/Sodium Chloride 50 ml @ 100 mls/hr Q8HRS IV ; Start 11/05/16 at 16:30 Vancomycin HCl 1.25 gm/Sodium Chloride 250 ml @ 166.667 mls/hr 1X ONCE IV ; Start 11/05/16 at 16:30; Stop 11/05/16 at 17:59 Doxycycline Hyclate 100 mg/ Dextrose 100 ml @ 50 mls/hr Q12HR IV ; Start at 16:30 Vancomycin HCl 1 each 1X ONCE MC ; Start 11/07/16 at 05:00; Stop 11/07/16 at 05: 01 Active Scripts Active Vancomycin Hcl 125 Mg Capsule 125 Mg PO QID 14 Days Reported Terbinafine Hcl 250 Mg Tablet Trazodone Hcl 50 Mg Tablet Klor-Con M20 (Potassium Chloride) 20 Meq Tab.er.prt Spiriva Respimat (Tiotropium Gilbert) 4 Gm Mist.inhal Mag-Oxide (Magnesium Oxide) 400 Mg Tablet 400 Mg PO BID94 Emily-Ayesha Tablet (Folic Acid/Vitamin B Comp W-C) 0.8 Mg Tablet 0.8 Mg PO DAILY Spiriva (Tiotropium Gilbert) 18 Mcg Cap.w.dev 1 Cap IH DAILY Super B Complex (Vitamin B Complex & Vit C No.4) 150 Mg Tablet 150 Mg PO DAILY Mirtazapine 45 Mg Tablet 45 Mg PO HS Amiodarone Hcl 200 Mg Tablet 1 Tab PO DAILY Warfarin Sodium 2 Mg Tablet 2 Mg PO DAILY16 Acyclovir 200 Mg Capsule 200 Mg PO BID Alprazolam 1 Mg Tablet 1 Mg PO PRN Q6HRS PRN Hydrocodone-Apap 7.5-325 (Hydrocodone Bit/Acetaminophen) 1 Each Tablet 1 Tab PO PRN Q6HRS PRN Advair 100-50 Diskus (Fluticasone/Salmeterol) 1 Each Disk.w.dev 1 Inh IH BID Vitron-C Tablet (Iron,Carbonyl/Ascorbic Acid) 1 Each Tablet.dr 1 Each PO DAILY Fish Oil 1,000 Mg Softgel ([place]lina-3 Fatty Acids/Fish Oil) 1 Each Capsule 1 Each PO DAILY Vitamin D-3 (Cholecalciferol (Vitamin D3)) 2,000 Unit Capsule 2,000 Unit PO DAILY Multivitamins (Multivitamin) 1 Each Tablet 1 Tab PO DAILY Montelukast Sodium Tablet (Montelukast Sodium) 10 Mg Tablet 1 Tab PO DAILY Calcitriol 0.25 Mcg Capsule 1 Cap PO 3X/WEEK Revlimid (Lenalidomide) 5 Mg Capsule 5 Mg PO 3X/WEEK Methocarbamol 750 Mg Tablet 750 Mg PO PRN Allergies Allergies: Coded Allergies: No Known Drug Allergies (Unverified , 01/17/16) ROS General: YES: Fatigue, Malaise PSYCHOLOGICAL ROS: YES: Concentration difficultie Eyes: Yes Other (neg) HEENT: YES: Other (had trush) ALLERGY AND IMMUNOLOGY: YES: Other (neg) Hematological and Lymphatic: YES: Other (neg) Respiratory: YES: SOB with excertion Cardiovascular: yes Other (neg) Gastrointestinal: Yes Other (has dysphagia) Genitourinary: YES Other Musculoskeletal: Yes Other (neg) Neurological: Yes Confusion Skin: Yes Other (neg) Physical Exam General: Alert, Cooperative HEENT: Atraumatic Lungs: Clear to auscultation Heart: Normal S1, Normal S2 Abdomen: Soft Extremities: No clubbing Skin: No rashes Neuro: Normal speech Psych/Mental Status: Mental status NL MUSCULOSKELETAL: No deformity Vitals VITALS Vital Signs Date Time Temp Pulse Resp B/P (MAP) Pulse Ox O2 Delivery O2 Flow Rate FiO2 11/05/16 16:05 89 17 87/53 (64) 95 Nasal Cannula 4.0 11/05/16 15:05 99.2 99.2 Labs Labs Laboratory Tests Test 11/04/16 16:35 11/04/16 16:39 11/04/16 16:40 11/04/16 18:30 White Blood Count 7.1 x10^3/uL (4.0-11.0) Red Blood Count 2.90 x10^6/uL (3.50-5.40) Hemoglobin 10.0 g/dL (12.0-15.5) Hematocrit 31.1 % (36.0-47.0) Mean Corpuscular Volume 107 fL (79-100) Mean Corpuscular Hemoglobin 35 pg (25-35) Mean Corpuscular Hemoglobin Concent 32 g/dL (31-37) Red Cell Distribution Width 16.2 % (11.5-14.5) Platelet Count 81 x10^3/uL (140-400) Neutrophils (%) (Auto) 89 % (31-73) Lymphocytes (%) (Auto) 1 % (24-48) Monocytes (%) (Auto) 9 % (0-9) Eosinophils (%) (Auto) 0 % (0-3) Basophils (%) (Auto) 0 % (0-3) Neutrophils # (Auto) 6.4 x10^3uL (1.8-7.7) Lymphocytes # (Auto) 0.1 x10^3/uL (1.0-4.8) Monocytes # (Auto) 0.6 x10^3/uL (0.0-1.1) Eosinophils # (Auto) 0.0 x10^3/uL (0.0-0.7) Basophils # (Auto) 0.0 x10^3/uL (0.0-0.2) Sodium Level 137 mmol/L (136-145) Potassium Level 7.7 mmol/L (3.5-5.1) Chloride Level 101 mmol/L (98-107) Carbon Dioxide Level 25 mmol/L (21-32) Anion Gap 11 (6-14) 15 mmol/L (6-14) Blood Urea Nitrogen 73 mg/dL (7-20) Creatinine 4.9 mg/dL (0.6-1.0) Estimated GFR (Cockcroft-Gault) 8.8 BUN/Creatinine Ratio 15 (6-20) Glucose Level 146 mg/dL (70-99) 134 mg/dL (70-99) Calcium Level 8.1 mg/dL (8.5-10.1) Total Bilirubin 0.6 mg/dL (0.2-1.0) Aspartate Amino Transf (AST/SGOT) 269 U/L (15-37) Alanine Aminotransferase (ALT/SGPT) 314 U/L (14-59) Alkaline Phosphatase 168 U/L (46-116) Creatine Kinase 102 U/L (26-192) Creatine Kinase MB (Mass) 2.5 ng/mL (0.0-3.6) Creatine Kinase MB Relative Index 2.5 % (0-4) Troponin I Quantitative 0.313 ng/mL (0.000-0.055) FQ-Yiz-W-Type Natriuretic Peptide > 74884 pg/mL (0-124) Total Protein 5.7 g/dL (6.4-8.2) Albumin 3.0 g/dL (3.4-5.0) Albumin/Globulin Ratio 1.1 (1.0-1.7) Bedside Hemoglobin 10.5 g/dL (12-15) Bedside Hematocrit 31 % (36-40) Bedside Sodium 133 mmol/L (135-145) Bedside Potassium 7.2 mmol/L (3.5-5.0) Bedside Chloride 105 mmol/L (98-110) Bedside Total CO2 21 mmol/L (23-32) Bedside Blood Urea Nitrogen 64 mg/dL (8-26) Bedside Creatinine 5.0 mg/dL (0.5-1.4) Bedside Ionized Calcium (Suki) 1.00 mmol/L (1.13-1.32) Prothrombin Time 14.8 SEC (11.7-14.0) Prothromb Time International Ratio 1.2 (0.8-1.1) Nasal Screen MRSA (PCR) Negative (Negative) Test 11/05/16 05:30 11/05/16 13:39 White Blood Count 1.2 x10^3/uL (4.0-11.0) Red Blood Count 2.44 x10^6/uL (3.50-5.40) Hemoglobin 8.4 g/dL (12.0-15.5) Hematocrit 25.6 % (36.0-47.0) Mean Corpuscular Volume 105 fL (79-100) Mean Corpuscular Hemoglobin 34 pg (25-35) Mean Corpuscular Hemoglobin Concent 33 g/dL (31-37) Red Cell Distribution Width 15.6 % (11.5-14.5) Platelet Count 49 x10^3/uL (140-400) Neutrophils (%) (Auto) 89 % (31-73) Lymphocytes (%) (Auto) 2 % (24-48) Monocytes (%) (Auto) 8 % (0-9) Eosinophils (%) (Auto) 0 % (0-3) Basophils (%) (Auto) 0 % (0-3) Neutrophils # (Auto) 1.1 x10^3uL (1.8-7.7) Lymphocytes # (Auto) 0.0 x10^3/uL (1.0-4.8) Monocytes # (Auto) 0.1 x10^3/uL (0.0-1.1) Eosinophils # (Auto) 0.0 x10^3/uL (0.0-0.7) Basophils # (Auto) 0.0 x10^3/uL (0.0-0.2) Segmented Neutrophils % 40 % (35-66) Band Neutrophils % 47 % (0-9) Lymphocytes % 3 % (24-48) Monocytes % 6 % (0-10) Metamyelocytes % 2 % (0-0) Myelocytes % 2 % (0-0) Nucleated Red Blood Cells 1 Dohle Bodies Few Platelet Estimate Decreased (ADEQUATE) Polychromasia Slight Anisocytosis Slight Macrocytosis Present Ovalocytes Few Prothrombin Time 18.6 SEC (11.7-14.0) Prothromb Time International Ratio 1.7 (0.8-1.1) Sodium Level 142 mmol/L (136-145) Potassium Level 3.7 mmol/L (3.5-5.1) Chloride Level 105 mmol/L (98-107) Carbon Dioxide Level 28 mmol/L (21-32) Anion Gap 9 (6-14) Blood Urea Nitrogen 27 mg/dL (7-20) Creatinine 2.4 mg/dL (0.6-1.0) Estimated GFR (Cockcroft-Gault) 20.1 BUN/Creatinine Ratio 11 (6-20) Glucose Level 73 mg/dL (70-99) Calcium Level 6.8 mg/dL (8.5-10.1) Total Bilirubin 0.4 mg/dL (0.2-1.0) Aspartate Amino Transf (AST/SGOT) 136 U/L (15-37) Alanine Aminotransferase (ALT/SGPT) 211 U/L (14-59) Alkaline Phosphatase 109 U/L (46-116) Total Protein 4.4 g/dL (6.4-8.2) Albumin 2.0 g/dL (3.4-5.0) Albumin/Globulin Ratio 0.8 (1.0-1.7) O2 Saturation 83 % (92-99) Arterial Blood pH 7.32 (7.35-7.45) Arterial Blood pCO2 at Patient Temp 50 mmHg (35-46) Arterial Blood pO2 at Patient Temp 56 mmHg (65-108) Arterial Blood HCO3 25 mmol/L (21-28) Arterial Blood Base Excess -2 mmol/L (-3-3) FiO2 36% Laboratory Tests Test 11/04/16 18:30 11/05/16 05:30 11/05/16 13:39 Nasal Screen MRSA (PCR) Negative (Negative) White Blood Count 1.2 x10^3/uL (4.0-11.0) Red Blood Count 2.44 x10^6/uL (3.50-5.40) Hemoglobin 8.4 g/dL (12.0-15.5) Hematocrit 25.6 % (36.0-47.0) Mean Corpuscular Volume 105 fL (79-100) Mean Corpuscular Hemoglobin 34 pg (25-35) Mean Corpuscular Hemoglobin Concent 33 g/dL (31-37) Red Cell Distribution Width 15.6 % (11.5-14.5) Platelet Count 49 x10^3/uL (140-400) Neutrophils (%) (Auto) 89 % (31-73) Lymphocytes (%) (Auto) 2 % (24-48) Monocytes (%) (Auto) 8 % (0-9) Eosinophils (%) (Auto) 0 % (0-3) Basophils (%) (Auto) 0 % (0-3) Neutrophils # (Auto) 1.1 x10^3uL (1.8-7.7) Lymphocytes # (Auto) 0.0 x10^3/uL (1.0-4.8) Monocytes # (Auto) 0.1 x10^3/uL (0.0-1.1) Eosinophils # (Auto) 0.0 x10^3/uL (0.0-0.7) Basophils # (Auto) 0.0 x10^3/uL (0.0-0.2) Segmented Neutrophils % 40 % (35-66) Band Neutrophils % 47 % (0-9) Lymphocytes % 3 % (24-48) Monocytes % 6 % (0-10) Metamyelocytes % 2 % (0-0) Myelocytes % 2 % (0-0) Nucleated Red Blood Cells 1 Dohle Bodies Few Platelet Estimate Decreased (ADEQUATE) Polychromasia Slight Anisocytosis Slight Macrocytosis Present Ovalocytes Few Prothrombin Time 18.6 SEC (11.7-14.0) Prothromb Time International Ratio 1.7 (0.8-1.1) Sodium Level 142 mmol/L (136-145) Potassium Level 3.7 mmol/L (3.5-5.1) Chloride Level 105 mmol/L (98-107) Carbon Dioxide Level 28 mmol/L (21-32) Anion Gap 9 (6-14) Blood Urea Nitrogen 27 mg/dL (7-20) Creatinine 2.4 mg/dL (0.6-1.0) Estimated GFR (Cockcroft-Gault) 20.1 BUN/Creatinine Ratio 11 (6-20) Glucose Level 73 mg/dL (70-99) Calcium Level 6.8 mg/dL (8.5-10.1) Total Bilirubin 0.4 mg/dL (0.2-1.0) Aspartate Amino Transf (AST/SGOT) 136 U/L (15-37) Alanine Aminotransferase (ALT/SGPT) 211 U/L (14-59) Alkaline Phosphatase 109 U/L (46-116) Total Protein 4.4 g/dL (6.4-8.2) Albumin 2.0 g/dL (3.4-5.0) Albumin/Globulin Ratio 0.8 (1.0-1.7) O2 Saturation 83 % (92-99) Arterial Blood pH 7.32 (7.35-7.45) Arterial Blood pCO2 at Patient Temp 50 mmHg (35-46) Arterial Blood pO2 at Patient Temp 56 mmHg (65-108) Arterial Blood HCO3 25 mmol/L (21-28) Arterial Blood Base Excess -2 mmol/L (-3-3) FiO2 36% Assessment/Plan Assessment/Plan 1. Squamous cell carcinoma of base of tongue (HCC) ~ Staging form: Pharynx - Oropharynx, AJCC 7th Edition ~~~ Clinical stage from 09/17/2016: Stage GIOVANNA (T2, N2c, M0) s/p chemo with cisplatin 11/03/16. Monitor for toxicities. 2. Neutropenia - start granix. 3. Oropharyngeal candidiasis - consult ID 4. ESRD on HD - i d/w Dr Todd 5. Multiple myeloma I d/w YASMINE HARRIS MD Nov 05, 2016 17:00
[2016-11-05] MEDS: DOXYCYCLINE HYCLATE 100 MG in IV DEXTROSE 5% 100 ML IV SCH (18:29)
[2016-11-05] MEDS ORDERED: fentaNYL PF VIAL 100 MCG/2 ML VIAL IV PRN (20:30)
[2016-11-05] MEDS: traZODone 50 MG TABLET. PO SCH (21:00)
[2016-11-05] MEDS: MIRTAZAPINE 15 MG TABLET PO SCH (21:00)
[2016-11-05] MEDS ORDERED: DARBEPOETIN ALFA 60 MCG/0.3 ML DISP.SYRIN. SQ SCH (21:00)
[2016-11-05] MEDS: TBO-FILGRASTIM 300 MCG/0.5 ML SYRINGE. SQ SCH (21:59)
[2016-11-05 23:39] LABS: HCO3 ABG 24 mmol/L (21-28); PCO2 ABG 49 mmHg (35-46); PO2 ABG 73 mmHg (65-108); SAT O2 ABG 92 % (92-99)
[2016-11-05 23:41] LABS: FIO2 ABG 50; PH ABG 7.31 (7.35-7.45)
[2016-11-06] VITALS (34 sets, daily range): BP systolic 69–140; BP diastolic 39–72
[2016-11-06] MEDS: AMINO AC 3%/ELECTROLYTE/GLYCER 1,000 ML IV SCH ×2 (03:17→17:11)
[2016-11-06 04:48] LABS: HEMOGLOBIN 8.8 g/dL (12.0-15.5); RED BLOOD COUNT 2.55 x10^6/uL (3.50-5.40); RED CELL DISTRIBUTION WIDTH 16.1 % (11.5-14.5)
[2016-11-06 04:51] LABS: PROTHROMBIN TIME PATIENT 29.1 SEC (11.7-14.0)
[2016-11-06 04:53] LABS: WHITE BLOOD COUNT 1.1 x10^3/uL (4.0-11.0)
[2016-11-06] MEDS: PIPERACILLIN/TAZOBACTAM 2.25 GM in IV NORMAL SALINE 50ML 50 ML IV SCH ×3 (05:49→22:08)
[2016-11-06] MEDS: HEPARIN PF for SUB-Q USE 5,000 UNIT/0.5 ML VIAL. SQ SCH ×3 (06:00→22:07)
--- NOTE | 2016-11-06 08:08 | RAD ---
Portable AP semiupright chest x-ray performed at 06 37 History: Respiratory distress. On BiPAP. Follow-up study. Comparison: November 05, 2016. Findings: Again seen is bilateral interstitial lung infiltrates which have not changed. Persistent left lung base consolidation is seen which has improved. This may be due to improvement of left-sided pleural effusion. Right lung base consolidation has improved slightly as well. Persistent small right-sided pleural effusion is unchanged. There is a new consolidative lung infiltrate within the lateral right midlung zone however. No pneumothorax is seen. The heart size and mediastinum and pulmonary vasculature are stable. Right subclavian Port-A-Cath is unchanged in position. IMPRESSION: Since the prior study, there is a new finding of a consolidative lung infiltrate within the lateral right midlung zone.
[2016-11-06 08:13] LABS: HCO3 ABG 24 mmol/L (21-28); PCO2 ABG 54 mmHg (35-46); PH ABG 7.26 (7.35-7.45); PO2 ABG 63 mmHg (65-108); SAT O2 ABG 87 % (92-99)
[2016-11-06 08:14] LABS: FIO2 ABG 70
[2016-11-06] MEDS: NOREPINEPHRIN PREMIX 250 ML IV PRN ×2 (08:15→20:53)
[2016-11-06] MEDS ORDERED: IV NORMAL SALINE 1000ML BAG 1,000 ML IV PRN ×2 (08:26)
[2016-11-06 08:28] LABS: ALBUMIN 1.7 g/dL (3.4-5.0); ALBUMIN/GLOBULIN RATIO 0.6 (1.0-1.7); CALCIUM 7.5 mg/dL (8.5-10.1); CREATININE 4.2 mg/dL (0.6-1.0); GFR 10.5; POTASSIUM 5.4 mmol/L (3.5-5.1); TOTAL BILIRUBIN 0.4 mg/dL (0.2-1.0); TOTAL PROTEIN 4.7 g/dL (6.4-8.2)
[2016-11-06] MEDS ORDERED: diphenhydrAMINE 50 MG/ML VIAL IV PRN ×2 (08:30)
[2016-11-06] MEDS ORDERED: DIALYSIS PATIENT. MC PRN (08:30)
[2016-11-06] MEDS ORDERED: ALBUMIN HUMAN 25% 200 ML IV ONE (08:30)
[2016-11-06] MEDS: ACYCLOVIR 200 MG CAPSULE. PO SCH ×2 (09:00→21:00)
[2016-11-06] MEDS: MAGNESIUM OXIDE 400 MG TABLET PO SCH ×2 (09:00→16:00)
[2016-11-06] MEDS: AMIODARONE HCL 200 MG TABLET. PO SCH (09:00)
[2016-11-06] MEDS: FOLIC/VIT B COMP W-C (RENAL) TABLET. PO SCH (09:00)
[2016-11-06] MEDS ORDERED: CALCITRIOL 0.25 MCG CAPSULE. PO SCH (09:00)
[2016-11-06] MEDS: MONTELUKAST SODIUM 10 MG TABLET. PO SCH (09:00)
[2016-11-06] MEDS: VANCOMYCIN PER PHARMACY MC PRN (10:11)
--- NOTE | 2016-11-06 11:04 | PDOC2 ---
PALLIATIVE CARE Palliative Care Note Palliative Care Consult requested by Dr. Pinto to assist with plan of care Diagnosis: Admitted with hyperkalemia; Laryngeal Cancer (receiving daily radiation txs and weekly chemotherapy, CRF MWF dialysis since 2016; elevated BNP 07/23/16 EF 40%; Hx COPD; HTN, Myeloma Patient currently on BiPap 80%; does not respond to verbal stimuli--received Ativan early am. Patient has daughter Renae--DPOA; 2 sons. Dialysis, Levophed gtt. Current treatment plan: Full Code Full Aggressive Care. Family: Renae JOHNSTON; 2 sons. 1105: Dr. Strong spoke with family: code status changed to DNR/DNI 1340 Patient declining. Increased respiratory effort with BiPap. Desat 70% with mouth care per staff. Family Meeting at 1400. BROOK PETERSON Nov 06, 2016 11:04
--- NOTE | 2016-11-06 11:11 | PDOC2 ---
MONICA HENDERSON TEXTILE ARTIST 11/06/16 1111: Consult: DICTATION SYSTEM DOWN: Consult date: November 05, [address] Willis for oropharyngeal candidiasis. This is a 66 year old woman admitted from dialysis with acute on chronic CHF, respiratory failure and hyperkalemia. She is currently in MICU, lethargic, on BiPAP, unable to provide HPI, PMH and ROS. 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 She has been undergoing radiation as well as chemotherapy consisting of cisplatin. (3rd round 11/03/2016). She has been having difficulty swallowing and is now NPO after failing swallow study. PEG placement is being considered. Meanwhile PPN is running. She has been running fevers and counts are low. Dr. Toussaint was notified and initiated broad-spectrum antibiotics as well as micafungin. PMH: C. difficile colitis, 09/08/2016, DVT, Chronic CHF, CKD on hemodialysis, Multiple myeloma s/p autoBMT, COPD, anxiety, hyperparathyroidism PSH: AV fistula. Port-a-cath placement FH: Positive for diabetes and hypertension SH: Former smoker ALLERGIES: NKDA MEDS: Reviewed on JUL. Include vancomycin, Zosyn, doxycycline, micafungin, Acyclovir, Granix, Levophed, Coumadin & amiodarone ROS: Unobtainable Physical exam: GENERAL: On BiPAP, dialyzing, mitten on right hand HENT: Pupils equally round, oral exam limited, LUNGS: Diminished aeration w/ rhonchi right lung russo. HEART: Normal S1 and S2, tachy ABDOMEN: Hypoactive bowel sounds, soft, no grimace or guarding to palpation : [place] EXTREMITIES: No gross edema. No cyanosis. Left AV fistula SKIN: Without rash REGENERATOR OPERATOR: Minimally responsive Port: clean LABS: Reviewed. WBC 1.1, hgb 8.8, PLT 125, Cr 4.2, K 5.4, BNP >35,000, Troponin 0.313, albumin 1.7 Portable AP semiupright chest x-ray performed at 06 37 History: Respiratory distress. On BiPAP. Follow-up study. Comparison: November 05, 2016. Findings: Again seen is bilateral interstitial lung infiltrates which have not changed. Persistent left lung base consolidation is seen which has improved. This may be due to improvement of left-sided pleural effusion. Right lung base consolidation has improved slightly as well. Persistent small right-sided pleural effusion is unchanged. There is a new consolidative lung infiltrate within the lateral right midlung zone however. No pneumothorax is seen. The heart size and mediastinum and pulmonary vasculature are stable. Right subclavian Port-A-Cath is unchanged in position. IMPRESSION: Since the prior study, there is a new finding of a consolidative lung infiltrate within the lateral right midlung zone. IMPRESSION: Neutropenic fever Sepsis with hypotension, now on Levophed 14 mcg Right lung infiltrate, new Acute encephalopathy Dysphagia, ? oral candidiasis, exam limited at this time Loose stools, h/o C. difficile (09/08/16). Acute on chronic CHF Acute respiratory failure, requiring BiPAP CKD on HD Stage GIOVANNA squamosus cell carcinoma base of tongue, undergoing radiation and chemo, cisplatin h/o Multiple myeloma PLAN: Continue vanc, Zosyn, Doxycycline and Micafungin Acyclovir Draw BC x2; sputum C & S. Monitor counts D/w Dr. Strong Thank you TIFFANIE CARROLL MD 11/06/16 1358: Attending Co-Sign The patient was seen and interviewed as well as examined at the bedside. The chart was reviewed. The case was discussed. Agree with the plan of care. d/w daughter in detail, prognosis poor MONICA HENDERSON APRN Nov 06, 2016 11:11 TIFFANIE CARROLL MD Nov 06, 2016 13:58
--- NOTE | 2016-11-06 11:14 | PDOC ---
PROGRESS NOTES Chief Complaint Chief Complaint Symptomatic hyperkalemia ASSESSMENT AND PLAN: 1. Hyperkalemia: resolved. monitor. adjust with HD as indicated 2. Laryngeal CA: currently undergoing chemo/rad, having received weekly chemo on . 3. Dysphagia: coughing with PO. failed swallow study; NPO 4. RML PNA: suspicious for aspir. on Abx. clinical deterioration O/N, requiring BiPAP with high O2. D/w daughter Renae (POA) and son: would not do well with intubation or trach given base of zuly tngue CA, currently receiving treatment. Dr Strong spoke with family as well - DNR. 4. Neutropenic fever: on broad spectrum Abx; appreciate Dr Toussaint's help w/ management! on G-CSF 5. ESRD: on HD as per nephrology. 6. CHF: acute on chronic, systolic (EF 40% on echo in July 2016) as well as mild diastolic dysfxn. fluid overload improved post HD; will be an ongoing issue with IV Abx, PPN/TPN 7. Nutrition: currently on PPN; will need multilumen central access for multi -drugs, nutrition; VIR to place. 8. HTN/HLD: no acute issues. continue home meds 9. COPD: nebs 10. DVT: on coumadin; switch to SQ heparin 11. Mult myeloma: s/p Auto BMT, on maintenance revlimid (hold for now) Condition: critical; Prognosis: poor CC time: 45 min History of Present Illness History of Present Illness on BiPAP, receiving HD Vitals Vitals Vital Signs Date Time Temp Pulse Resp B/P (MAP) Pulse Ox O2 Delivery O2 Flow Rate FiO2 11/06/16 11:03 109 27 100/52 (68) 88 BiPAP/CPAP 11/06/16 08:00 4.0 11/06/16 07:00 98.8 98.8 Physical Exam General: Cooperative, Other (lethargic, responding to verbal input b opening eyes briefly) Heart: Regular rate Lungs: Crackles, Other (coarse UA rhonchi) Abdomen: Normal bowel sounds, Soft, No tenderness Extremities: No clubbing, No edema Skin: No rashes Labs LABS Laboratory Tests Test 11/05/16 13:39 11/05/16 22:42 11/06/16 04:30 11/06/16 08:00 O2 Saturation 83 % (92-99) 92 % (92-99) 87 % (92-99) Arterial Blood pH 7.32 (7.35-7.45) 7.31 (7.35-7.45) 7.26 (7.35-7.45) Arterial Blood pCO2 at Patient Temp 50 mmHg (35-46) 49 mmHg (35-46) 54 mmHg (35-46) Arterial Blood pO2 at Patient Temp 56 mmHg (65-108) 73 mmHg (65-108) 63 mmHg (65-108) Arterial Blood HCO3 25 mmol/L (21-28) 24 mmol/L (21-28) 24 mmol/L (21-28) Arterial Blood Base Excess -2 mmol/L (-3-3) -2 mmol/L (-3-3) -4 mmol/L (-3-3) FiO2 36% 50 70 White Blood Count 1.1 x10^3/uL (4.0-11.0) Red Blood Count 2.55 x10^6/uL (3.50-5.40) Hemoglobin 8.8 g/dL (12.0-15.5) Hematocrit 27.0 % (36.0-47.0) Mean Corpuscular Volume 106 fL (79-100) Mean Corpuscular Hemoglobin 35 pg (25-35) Mean Corpuscular Hemoglobin Concent 33 g/dL (31-37) Red Cell Distribution Width 16.1 % (11.5-14.5) Platelet Count 25 x10^3/uL (140-400) Prothrombin Time 29.1 SEC (11.7-14.0) Prothromb Time International Ratio 3.0 (0.8-1.1) Sodium Level 137 mmol/L (136-145) Potassium Level 5.4 mmol/L (3.5-5.1) Chloride Level 102 mmol/L (98-107) Carbon Dioxide Level 29 mmol/L (21-32) Anion Gap 6 (6-14) Blood Urea Nitrogen 47 mg/dL (7-20) Creatinine 4.2 mg/dL (0.6-1.0) Estimated GFR (Cockcroft-Gault) 10.5 BUN/Creatinine Ratio 11 (6-20) Glucose Level 120 mg/dL (70-99) Lactic Acid Level 2.1 mmol/L (0.4-2.0) Calcium Level 7.5 mg/dL (8.5-10.1) Total Bilirubin 0.4 mg/dL (0.2-1.0) Aspartate Amino Transf (AST/SGOT) 96 U/L (15-37) Alanine Aminotransferase (ALT/SGPT) 174 U/L (14-59) Alkaline Phosphatase 82 U/L (46-116) Total Protein 4.7 g/dL (6.4-8.2) Albumin 1.7 g/dL (3.4-5.0) Albumin/Globulin Ratio 0.6 (1.0-1.7) Test 11/06/16 09:10 Lactic Acid Level 1.8 mmol/L (0.4-2.0) Nutrition Consultation Dietary Evaluation: Recommendations by RD: Increase Calorie Intake, Protein supplementation Comments: Rec. the mechanical soft diet per pt request Add Novasource Renal BID Expected Outcomes/Goals: meet 75% estimated nutrition needs Interpretation of weight loss: >10% in 6 months Malnutrition Findings: Body Fat Depletion (Non Severe: Mild Depletion Reduced Ditch Cleaner Strength: N/A Reduced Ditch Cleaner Strength (Non-Sev: N/A Malnutrition related to morbid: No Weight Status: Appropriate Fluid Accumulation (N/A): N/A FLOR[place] REYNOSO MD Nov 06, 2016 11:14
--- NOTE | 2016-11-06 11:49 | PDOC2 ---
CONSULT Date of Consult Date of Consult DATE: 11/06/16 TIME: 11:39 Reason for Consult Reason for Consult: RF/SEPTIC SHOCK Referring Physician Referring Physician: DR CHOWDARY Identification/Chief Complaint Chief Complaint DYSPNEA Problems: History of Present Illness Reason for Visit: This is a 66 year old woman admitted from dialysis with acute on chronic CHF, respiratory failure and hyperkalemia. She is currently in MICU, lethargic, on BiPAP, unable to provide HPI, PMH and ROS. 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 She has been undergoing radiation as well as chemotherapy consisting of cisplatin. (3rd round 11/03/2016). She has been having difficulty swallowing. She is non-responsive and ABG c/w acute hypercapnic/hypoxic RF. she is in shock, on high dose levophed. She has been running fevers and counts are low. Dr. Toussaint was notified and initiated broad-spectrum antibiotics as well as micafungin. I had a long discussion with entire family and they all agree with DNR/DNI Past Medical History Cardiovascular: CHF, HTN Pulmonary: COPD GI: No pertinent hx, Constipation Heme/Onc: Anemia NOS, Cancer (laryngeal CA, receiving concurrent chemo/rad. Hx MM, s/p autoBMT) Hepatobiliary: No pertinent hx Psych: Anxiety Rheumatologic: No pertinent hx Renal/: Chronic renal failure Endocrine: Hyperparathyroidism Past Surgical History Past Surgical History: Hysterectomy, Other Family History Family History: Diabetes, Hypertension Social History Quit ALCOHOL: none Drugs: None Lives: with Family Current Problem List Problem List Problems Medical Problems: (1) Hyperkalemia Status: Acute (2) Renal failure Status: Acute Current Medications Current Medications Current Medications Albuterol/ Ipratropium (Duoneb) 3 ml 1X ONCE NEB Last administered on 15:56; Start 11/04/16 at 16:00; Stop 11/04/16 at 16:01; Status DC Furosemide (Lasix) 40 mg 1X ONCE IVP Last administered on 11/04/16 16:00; Start 11/04/16 at 16:00; Stop 11/04/16 at 16:01; Status DC Dextrose (Dextrose 50%-Water Syringe) 25 gm 1X ONCE IV Last administered on 16:55; Start 11/04/16 at 16:45; Stop 11/04/16 at 16:46; Status DC Insulin Human Regular (NovoLIN R VIAL) 5 unit 1X ONCE IV Last administered on 11/04/16 16:45; Start 11/04/16 at 16:45; Stop 11/04/16 at 16:46; Status DC Calcium Gluconate (Calcium Gluconate) 1,000 mg 1X ONCE IVP Last administered on 11/04/16 17:18; Start 11/04/16 at 16:45; Stop 11/04/16 at 16:46; Status DC Sodium Bicarbonate 50 meq 1X ONCE IV Last administered on 11/04/16 17:20; Start 11/04/16 at 16:45; Stop 11/04/16 at 16:46; Status DC Albuterol Sulfate (Ventolin Neb Soln) 10 mg 1X ONCE CONT NEB Last administered on 11/04/16 17:00; Start 11/04/16 at 17:00; Stop 11/04/16 at 17:01 ; Status DC Acyclovir (Zovirax) 200 mg BID PO Last administered on 11/05/16 08:48; Start 11/04/16 at 21:00 Alprazolam (Xanax) 1 mg PRN Q6HRS PRN PO ANXIETY / AGITATION; Start 11/04/16 at 19:15 Amiodarone HCl (Cordarone) 200 mg DAILY PO Last administered on 11/05/16 08:48 ; Start 11/05/16 at 09:00 Calcitriol (Rocaltrol) 0.25 mcg 3X/WEEK PO ; Start 11/06/16 at 09:00 Vitamin B Complex/ Vitamin C (Emily-Ayesha) 1 tab DAILY PO Last administered on 08:49; Start 11/05/16 at 09:00 Acetaminophen/ Hydrocodone Bitart (Lortab 7.5/325) 1 tab PRN Q6HRS PRN PO PAIN Last administered on 11/05/16 08:56; Start 11/04/16 at 19:15 Magnesium Oxide (Magnesium Oxide) 400 mg BID94 PO Last administered on 08:49; Start 11/05/16 at 09:00 Methocarbamol (Robaxin) 750 mg DAILY PRN PO muscle spasms; Start 11/04/16 at 19 :15 Montelukast Sodium (Singulair) 10 mg DAILY PO Last administered on 11/05/16 08 :48; Start 11/05/16 at 09:00 Trazodone HCl (Desyrel) 50 mg QHS PO Last administered on 11/04/16 21:41; Start 11/04/16 at 21:00 Warfarin Sodium (Coumadin) 2 mg DAILY16 PO ; Start 11/05/16 at 16:00; Stop 11/05 at 16:00; Status DC Mirtazapine (Remeron) 45 mg QHS PO Last administered on 11/04/16 21:41; Start 11/04/16 at 21:00 Warfarin Sodium (Coumadin Per Physician) 1 each PRN DAILY PRN MC SEE COMMENTS; Start 11/04/16 at 19:30; Stop 11/04/16 at 20:24; Status DC Multi-Ingredient Mouthwash/Gargle (Magic Mouthwash) 10 ml PRN QID PRN PO MOUTH PAIN Last administered on 11/05/16 08:56; Start 11/04/16 at 19:45 Warfarin Sodium (Coumadin Per Pharmacy) 1 each PRN DAILY PRN MC SEE COMMENTS Last administered on 11/05/16 09:13; Start 11/04/16 at 19:45; Stop 11/05/16 at 15:22; Status DC Warfarin Sodium (Coumadin) 2 mg 1X WARF ONCE PO ; Start 11/04/16 at 16:00; Stop 11/04/16 at 21:27; Status DC Sodium Chloride 1,000 ml @ 1,000 mls/hr Q1H PRN IV hypotension; Start 11/04/16 at 21:05; Stop 11/05/16 at 03:04; Status DC Diphenhydramine HCl (Benadryl) 25 mg 1X PRN PRN IV ITCHING; Start 11/04/16 at 21:15; Stop 11/05/16 at 21:14; Status DC Diphenhydramine HCl (Benadryl) 25 mg 1X PRN PRN IV ITCHING; Start 11/04/16 at 21:15; Stop 11/05/16 at 21:14; Status DC Sodium Chloride 1,000 ml @ 400 mls/hr Q2H30M PRN IV PATENCY; Start 11/04/16 at 21:05; Stop 11/05/16 at 09:04; Status DC Info (PHARMACY MONITORING -- do not chart) 1 each PRN DAILY PRN MC SEE COMMENTS ; Start 11/04/16 at 21:15 Warfarin Sodium (Coumadin) 5 mg 1X WARF ONCE PO Last administered on 21:40; Start 11/04/16 at 21:30; Stop 11/04/16 at 21:31; Status DC Warfarin Sodium (Coumadin) 2 mg 1X WARF ONCE PO ; Start 11/05/16 at 16:00; Stop 11/05/16 at 16:01; Status DC Sodium Chloride 500 ml @ 500 mls/hr 1X ONCE IV Last administered on 10:30; Start 11/05/16 at 10:30; Stop 11/05/16 at 11:29; Status DC Darbepoetin Donnie (Aranesp) 60 mcg Th@2100 SQ Last administered on 11/05/16 21: 59; Start 11/05/16 at 21:00 Tbo-Filgrastim (Granix) 300 mcg QHS SQ Last administered on 11/05/16 21:59; Start 11/05/16 at 21:00 Micafungin Sodium 100 mg/Dextrose 100 ml @ 100 mls/hr Q24H IV Last administered on 11/05/16 15:03; Start 11/05/16 at 15:00 Heparin Sodium (Porcine) (Heparin Sq) 5,000 unit Q8HRS SQ ; Start 11/06/16 at 06 :00 Amino Acids/ Glycerin/ Electrolytes 1,000 ml @ 80 mls/hr [id number] IV Last administered on 11/06/16 03:17; Start 11/05/16 at 15:30 Info 1 each PRN DAILY PRN MC SEE COMMENTS; Start 11/05/16 at 15:30 Sodium Chloride 1,000 ml @ 1,000 mls/hr 1X ONCE IV Last administered on 16:08; Start 11/05/16 at 16:15; Stop 11/05/16 at 17:14; Status DC Vancomycin HCl (Vanco Per Pharmacy) 1 each PRN DAILY PRN MC SEE COMMENTS Last administered on 11/06/16 10:11; Start 11/05/16 at 16:15 Doxycycline Hyclate (Vibra-Tab) 100 mg BID PO ; Start 11/05/16 at 16:15; Stop at 16:20; Status DC Piperacillin Sod/ Tazobactam Sod 2.25 gm/Sodium Chloride 50 ml @ 100 mls/hr Q8HRS IV Last administered on 11/06/16 05:49; Start 11/05/16 at 16:30 Vancomycin HCl 1.25 gm/Sodium Chloride 250 ml @ 166.667 mls/hr 1X ONCE IV Last administered on 11/05/16 17:55; Start 11/05/16 at 16:30; Stop 11/05/16 at 17:59; Status DC Doxycycline Hyclate 100 mg/ Dextrose 100 ml @ 50 mls/hr Q12HR IV Last administered on 11/05/16 18:29; Start 11/05/16 at 16:30 Vancomycin HCl 1 each 1X ONCE MC ; Start 11/07/16 at 05:00; Stop 11/07/16 at 05: 01 Fentanyl Citrate (Fentanyl 2ml Vial) 25 mcg PRN Q2HR PRN IV PAIN Last administered on 11/05/16 22:00; Start 11/05/16 at 20:30 Lorazepam (Ativan) 0.5 mg PRN Q6HRS PRN IV ANXIETY / AGITATION Last administered on 11/06/16 03:16; Start 11/05/16 at 20:30 Norepinephrine Bitartrate 250 ml @ 0 mls/hr CONT PRN IV SEE I/O RECORD Last administered on 11/06/16 08:15; Start 11/06/16 at 08:15 Sodium Chloride 1,000 ml @ 1,000 mls/hr Q1H PRN IV hypotension; Start 11/06/16 at 08:26; Stop 11/06/16 at 14:25 Albumin Human 200 ml @ 200 mls/hr 1X ONCE IV Last administered on 11/06/16 09:23; Start 11/06/16 at 08:30; Stop 11/06/16 at 09:29; Status DC Diphenhydramine HCl (Benadryl) 25 mg 1X PRN PRN IV ITCHING; Start 11/06/16 at 08:30; Stop 11/07/16 at 08:29 Diphenhydramine HCl (Benadryl) 25 mg 1X PRN PRN IV ITCHING; Start 11/06/16 at 08:30; Stop 11/07/16 at 08:29 Sodium Chloride 1,000 ml @ 400 mls/hr Q2H30M PRN IV PATENCY; Start 11/06/16 at 08:26; Stop 11/06/16 at 20:25 Info (PHARMACY MONITORING -- do not chart) 1 each PRN DAILY PRN MC SEE COMMENTS ; Start 11/06/16 at 08:30; Status UNV Active Scripts Active Vancomycin Hcl 125 Mg Capsule 125 Mg PO QID 14 Days Reported Terbinafine Hcl 250 Mg Tablet Trazodone Hcl 50 Mg Tablet Klor-Con M20 (Potassium Chloride) 20 Meq Tab.er.prt Spiriva Respimat (Tiotropium [place]) 4 Gm Mist.inhal Mag-Oxide (Magnesium Oxide) 400 Mg Tablet 400 Mg PO BID94 Emily-Ayesha Tablet (Folic Acid/Vitamin B Comp W-C) 0.8 Mg Tablet 0.8 Mg PO DAILY Spiriva (Tiotropium [place]) 18 Mcg Cap.w.dev 1 Cap IH DAILY Super B Complex (Vitamin B Complex & Vit C No.4) 150 Mg Tablet 150 Mg PO DAILY Mirtazapine 45 Mg Tablet 45 Mg PO HS Amiodarone Hcl 200 Mg Tablet 1 Tab PO DAILY Warfarin Sodium 2 Mg Tablet 2 Mg PO DAILY16 Acyclovir 200 Mg Capsule 200 Mg PO BID Alprazolam 1 Mg Tablet 1 Mg PO PRN Q6HRS PRN Hydrocodone-Apap 7.5-325 (Hydrocodone Bit/Acetaminophen) 1 Each Tablet 1 Tab PO PRN Q6HRS PRN Advair 100-50 Diskus (Fluticasone/Salmeterol) 1 Each Disk.w.dev 1 Inh IH BID Vitron-C Tablet (Iron,Carbonyl/Ascorbic Acid) 1 Each Tablet.dr 1 Each PO DAILY Fish Oil 1,000 Mg Softgel ([place]-3 Fatty Acids/Fish Oil) 1 Each Capsule 1 Each PO DAILY Vitamin D-3 (Cholecalciferol (Vitamin D3)) 2,000 Unit Capsule 2,000 Unit PO DAILY Multivitamins (Multivitamin) 1 Each Tablet 1 Tab PO DAILY Montelukast Sodium Tablet (Montelukast Sodium) 10 Mg Tablet 1 Tab PO DAILY Calcitriol 0.25 Mcg Capsule 1 Cap PO 3X/WEEK Revlimid (Lenalidomide) 5 Mg Capsule 5 Mg PO 3X/WEEK Methocarbamol 750 Mg Tablet 750 Mg PO PRN Allergies Allergies: Coded Allergies: No Known Drug Allergies (Unverified , 01/17/16) ROS Review of System UNABLE TO OBTAIN FROM PATIENT Physical Exam General: mild distress Lungs: Other (decrease bs) Heart: Regular rate, Other (tachycardia) Abdomen: Other (decrease bs) Extremities: Other (echymosis) Vitals VITALS Vital Signs Date Time Temp Pulse Resp B/P (MAP) Pulse Ox O2 Delivery O2 Flow Rate FiO2 11/06/16 11:18 96 BiPAP/CPAP 11/06/16 11:03 109 27 100/52 (68) 11/06/16 08:00 4.0 11/06/16 07:00 98.8 98.8 Labs Labs Laboratory Tests Test 11/04/16 16:35 11/04/16 16:39 11/04/16 16:40 11/04/16 18:30 White Blood Count 7.1 x10^3/uL (4.0-11.0) Red Blood Count 2.90 x10^6/uL (3.50-5.40) Hemoglobin 10.0 g/dL (12.0-15.5) Hematocrit 31.1 % (36.0-47.0) Mean Corpuscular Volume 107 fL (79-100) Mean Corpuscular Hemoglobin 35 pg (25-35) Mean Corpuscular Hemoglobin Concent 32 g/dL (31-37) Red Cell Distribution Width 16.2 % (11.5-14.5) Platelet Count 81 x10^3/uL (140-400) Neutrophils (%) (Auto) 89 % (31-73) Lymphocytes (%) (Auto) 1 % (24-48) Monocytes (%) (Auto) 9 % (0-9) Eosinophils (%) (Auto) 0 % (0-3) Basophils (%) (Auto) 0 % (0-3) Neutrophils # (Auto) 6.4 x10^3uL (1.8-7.7) Lymphocytes # (Auto) 0.1 x10^3/uL (1.0-4.8) Monocytes # (Auto) 0.6 x10^3/uL (0.0-1.1) Eosinophils # (Auto) 0.0 x10^3/uL (0.0-0.7) Basophils # (Auto) 0.0 x10^3/uL (0.0-0.2) Sodium Level 137 mmol/L (136-145) Potassium Level 7.7 mmol/L (3.5-5.1) Chloride Level 101 mmol/L (98-107) Carbon Dioxide Level 25 mmol/L (21-32) Anion Gap 11 (6-14) 15 mmol/L (6-14) Blood Urea Nitrogen 73 mg/dL (7-20) Creatinine 4.9 mg/dL (0.6-1.0) Estimated GFR (Cockcroft-Gault) 8.8 BUN/Creatinine Ratio 15 (6-20) Glucose Level 146 mg/dL (70-99) 134 mg/dL (70-99) Calcium Level 8.1 mg/dL (8.5-10.1) Total Bilirubin 0.6 mg/dL (0.2-1.0) Aspartate Amino Transf (AST/SGOT) 269 U/L (15-37) Alanine Aminotransferase (ALT/SGPT) 314 U/L (14-59) Alkaline Phosphatase 168 U/L (46-116) Creatine Kinase 102 U/L (26-192) Creatine Kinase MB (Mass) 2.5 ng/mL (0.0-3.6) Creatine Kinase MB Relative Index 2.5 % (0-4) Troponin I Quantitative 0.313 ng/mL (0.000-0.055) OY-Uiw-T-Type Natriuretic Peptide > 72275 pg/mL (0-124) Total Protein 5.7 g/dL (6.4-8.2) Albumin 3.0 g/dL (3.4-5.0) Albumin/Globulin Ratio 1.1 (1.0-1.7) Bedside Hemoglobin 10.5 g/dL (12-15) Bedside Hematocrit 31 % (36-40) Bedside Sodium 133 mmol/L (135-145) Bedside Potassium 7.2 mmol/L (3.5-5.0) Bedside Chloride 105 mmol/L (98-110) Bedside Total CO2 21 mmol/L (23-32) Bedside Blood Urea Nitrogen 64 mg/dL (8-26) Bedside Creatinine 5.0 mg/dL (0.5-1.4) Bedside Ionized Calcium (Suki) 1.00 mmol/L (1.13-1.32) Prothrombin Time 14.8 SEC (11.7-14.0) Prothromb Time International Ratio 1.2 (0.8-1.1) Nasal Screen MRSA (PCR) Negative (Negative) Test 11/05/16 05:30 11/05/16 13:39 11/05/16 22:42 11/06/16 04:30 White Blood Count 1.2 x10^3/uL (4.0-11.0) 1.1 x10^3/uL (4.0-11.0) Red Blood Count 2.44 x10^6/uL (3.50-5.40) 2.55 x10^6/uL (3.50-5.40) Hemoglobin 8.4 g/dL (12.0-15.5) 8.8 g/dL (12.0-15.5) Hematocrit 25.6 % (36.0-47.0) 27.0 % (36.0-47.0) Mean Corpuscular Volume 105 fL (79-100) 106 fL (79-100) Mean Corpuscular Hemoglobin 34 pg (25-35) 35 pg (25-35) Mean Corpuscular Hemoglobin Concent 33 g/dL (31-37) 33 g/dL (31-37) Red Cell Distribution Width 15.6 % (11.5-14.5) 16.1 % (11.5-14.5) Platelet Count 49 x10^3/uL (140-400) 25 x10^3/uL (140-400) Neutrophils (%) (Auto) 89 % (31-73) Lymphocytes (%) (Auto) 2 % (24-48) Monocytes (%) (Auto) 8 % (0-9) Eosinophils (%) (Auto) 0 % (0-3) Basophils (%) (Auto) 0 % (0-3) Neutrophils # (Auto) 1.1 x10^3uL (1.8-7.7) Lymphocytes # (Auto) 0.0 x10^3/uL (1.0-4.8) Monocytes # (Auto) 0.1 x10^3/uL (0.0-1.1) Eosinophils # (Auto) 0.0 x10^3/uL (0.0-0.7) Basophils # (Auto) 0.0 x10^3/uL (0.0-0.2) Segmented Neutrophils % 40 % (35-66) Band Neutrophils % 47 % (0-9) Lymphocytes % 3 % (24-48) Monocytes % 6 % (0-10) Metamyelocytes % 2 % (0-0) Myelocytes % 2 % (0-0) Nucleated Red Blood Cells 1 Dohle Bodies Few Platelet Estimate Decreased (ADEQUATE) Polychromasia Slight Anisocytosis Slight Macrocytosis Present Ovalocytes Few Prothrombin Time 18.6 SEC (11.7-14.0) 29.1 SEC (11.7-14.0) Prothromb Time International Ratio 1.7 (0.8-1.1) 3.0 (0.8-1.1) Sodium Level 142 mmol/L (136-145) 137 mmol/L (136-145) Potassium Level 3.7 mmol/L (3.5-5.1) 5.4 mmol/L (3.5-5.1) Chloride Level 105 mmol/L (98-107) 102 mmol/L (98-107) Carbon Dioxide Level 28 mmol/L (21-32) 29 mmol/L (21-32) Anion Gap 9 (6-14) 6 (6-14) Blood Urea Nitrogen 27 mg/dL (7-20) 47 mg/dL (7-20) Creatinine 2.4 mg/dL (0.6-1.0) 4.2 mg/dL (0.6-1.0) Estimated GFR (Cockcroft-Gault) 20.1 10.5 BUN/Creatinine Ratio 11 (6-20) 11 (6-20) Glucose Level 73 mg/dL (70-99) 120 mg/dL (70-99) Calcium Level 6.8 mg/dL (8.5-10.1) 7.5 mg/dL (8.5-10.1) Total Bilirubin 0.4 mg/dL (0.2-1.0) 0.4 mg/dL (0.2-1.0) Aspartate Amino Transf (AST/SGOT) 136 U/L (15-37) 96 U/L (15-37) Alanine Aminotransferase (ALT/SGPT) 211 U/L (14-59) 174 U/L (14-59) Alkaline Phosphatase 109 U/L (46-116) 82 U/L (46-116) Total Protein 4.4 g/dL (6.4-8.2) 4.7 g/dL (6.4-8.2) Albumin 2.0 g/dL (3.4-5.0) 1.7 g/dL (3.4-5.0) Albumin/Globulin Ratio 0.8 (1.0-1.7) 0.6 (1.0-1.7) O2 Saturation 83 % (92-99) 92 % (92-99) Arterial Blood pH 7.32 (7.35-7.45) 7.31 (7.35-7.45) Arterial Blood pCO2 at Patient Temp 50 mmHg (35-46) 49 mmHg (35-46) Arterial Blood pO2 at Patient Temp 56 mmHg (65-108) 73 mmHg (65-108) Arterial Blood HCO3 25 mmol/L (21-28) 24 mmol/L (21-28) Arterial Blood Base Excess -2 mmol/L (-3-3) -2 mmol/L (-3-3) FiO2 36% 50 Lactic Acid Level 2.1 mmol/L (0.4-2.0) Test 11/06/16 08:00 11/06/16 09:10 O2 Saturation 87 % (92-99) Arterial Blood pH 7.26 (7.35-7.45) Arterial Blood pCO2 at Patient Temp 54 mmHg (35-46) Arterial Blood pO2 at Patient Temp 63 mmHg (65-108) Arterial Blood HCO3 24 mmol/L (21-28) Arterial Blood Base Excess -4 mmol/L (-3-3) FiO2 70 Lactic Acid Level 1.8 mmol/L (0.4-2.0) Laboratory Tests Test 11/05/16 13:39 11/05/16 22:42 11/06/16 04:30 11/06/16 08:00 O2 Saturation 83 % (92-99) 92 % (92-99) 87 % (92-99) Arterial Blood pH 7.32 (7.35-7.45) 7.31 (7.35-7.45) 7.26 (7.35-7.45) Arterial Blood pCO2 at Patient Temp 50 mmHg (35-46) 49 mmHg (35-46) 54 mmHg (35-46) Arterial Blood pO2 at Patient Temp 56 mmHg (65-108) 73 mmHg (65-108) 63 mmHg (65-108) Arterial Blood HCO3 25 mmol/L (21-28) 24 mmol/L (21-28) 24 mmol/L (21-28) Arterial Blood Base Excess -2 mmol/L (-3-3) -2 mmol/L (-3-3) -4 mmol/L (-3-3) FiO2 36% 50 70 White Blood Count 1.1 x10^3/uL (4.0-11.0) Red Blood Count 2.55 x10^6/uL (3.50-5.40) Hemoglobin 8.8 g/dL (12.0-15.5) Hematocrit 27.0 % (36.0-47.0) Mean Corpuscular Volume 106 fL (79-100) Mean Corpuscular Hemoglobin 35 pg (25-35) Mean Corpuscular Hemoglobin Concent 33 g/dL (31-37) Red Cell Distribution Width 16.1 % (11.5-14.5) Platelet Count 25 x10^3/uL (140-400) Prothrombin Time 29.1 SEC (11.7-14.0) Prothromb Time International Ratio 3.0 (0.8-1.1) Sodium Level 137 mmol/L (136-145) Potassium Level 5.4 mmol/L (3.5-5.1) Chloride Level 102 mmol/L (98-107) Carbon Dioxide Level 29 mmol/L (21-32) Anion Gap 6 (6-14) Blood Urea Nitrogen 47 mg/dL (7-20) Creatinine 4.2 mg/dL (0.6-1.0) Estimated GFR (Cockcroft-Gault) 10.5 BUN/Creatinine Ratio 11 (6-20) Glucose Level 120 mg/dL (70-99) Lactic Acid Level 2.1 mmol/L (0.4-2.0) Calcium Level 7.5 mg/dL (8.5-10.1) Total Bilirubin 0.4 mg/dL (0.2-1.0) Aspartate Amino Transf (AST/SGOT) 96 U/L (15-37) Alanine Aminotransferase (ALT/SGPT) 174 U/L (14-59) Alkaline Phosphatase 82 U/L (46-116) Total Protein 4.7 g/dL (6.4-8.2) Albumin 1.7 g/dL (3.4-5.0) Albumin/Globulin Ratio 0.6 (1.0-1.7) Test 11/06/16 09:10 Lactic Acid Level 1.8 mmol/L (0.4-2.0) Images Images CXR reviewed new consolidation RUL bilateral infiltrates Assessment/Plan Assessment/Plan Acute hypoxic and hypercapnic RF/ multifactorial, on BIPAP Suspect aspiration pneumonia cannot exclude focal alveolar hemorrhage Neutropenic fever Sepsis with hypotension, in shock, now on Levophed 14 mcg Acute encephalopathy Dysphagia, ? oral candidiasis, exam limited at this time Loose stools, h/o C. difficile (09/08/16). 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 Advance directives discussed and grim prognosis explained. They agree for DNR/DNI No Trach BIPAP vasopressor Continue vanc, Zosyn, Doxycycline and Micafungin Acyclovir BC x2; sputum C & S. Monitor counts Neutropenic precautions Monitor CXR d/w RN/RTand PCP DNR/DNI cct 45 min MILTON ANGELES MD Nov 06, 2016 11:49
--- NOTE | 2016-11-06 12:19 | PDOC ---
Renal-Progress Notes Subjective Notes Notes ON BIPAP History of Present Illness Hx of present illness IN SERIOUS CONDITION Vitals Vitals Vital Signs Date Time Temp Pulse Resp B/P (MAP) Pulse Ox O2 Delivery O2 Flow Rate FiO2 11/06/16 12:07 108 22 103/66 (78) 93 BiPAP/CPAP 11/06/16 12:05 4.0 11/06/16 07:00 98.8 98.8 Weight Weight [ ] I.O. Intake and Output Intake and Output 11/06/16 07:00 Intake Total 2710 ml Output Total 0 ml Balance 2710 ml Intake Oral 0 ml IV Total 2710 ml Output Urine Total 0 ml Labs Labs Laboratory Tests Test 11/05/16 13:39 11/05/16 22:42 11/06/16 04:30 11/06/16 08:00 O2 Saturation 83 % (92-99) 92 % (92-99) 87 % (92-99) Arterial Blood pH 7.32 (7.35-7.45) 7.31 (7.35-7.45) 7.26 (7.35-7.45) Arterial Blood pCO2 at Patient Temp 50 mmHg (35-46) 49 mmHg (35-46) 54 mmHg (35-46) Arterial Blood pO2 at Patient Temp 56 mmHg (65-108) 73 mmHg (65-108) 63 mmHg (65-108) Arterial Blood HCO3 25 mmol/L (21-28) 24 mmol/L (21-28) 24 mmol/L (21-28) Arterial Blood Base Excess -2 mmol/L (-3-3) -2 mmol/L (-3-3) -4 mmol/L (-3-3) FiO2 36% 50 70 White Blood Count 1.1 x10^3/uL (4.0-11.0) Red Blood Count 2.55 x10^6/uL (3.50-5.40) Hemoglobin 8.8 g/dL (12.0-15.5) Hematocrit 27.0 % (36.0-47.0) Mean Corpuscular Volume 106 fL (79-100) Mean Corpuscular Hemoglobin 35 pg (25-35) Mean Corpuscular Hemoglobin Concent 33 g/dL (31-37) Red Cell Distribution Width 16.1 % (11.5-14.5) Platelet Count 25 x10^3/uL (140-400) Prothrombin Time 29.1 SEC (11.7-14.0) Prothromb Time International Ratio 3.0 (0.8-1.1) Sodium Level 137 mmol/L (136-145) Potassium Level 5.4 mmol/L (3.5-5.1) Chloride Level 102 mmol/L (98-107) Carbon Dioxide Level 29 mmol/L (21-32) Anion Gap 6 (6-14) Blood Urea Nitrogen 47 mg/dL (7-20) Creatinine 4.2 mg/dL (0.6-1.0) Estimated GFR (Cockcroft-Gault) 10.5 BUN/Creatinine Ratio 11 (6-20) Glucose Level 120 mg/dL (70-99) Lactic Acid Level 2.1 mmol/L (0.4-2.0) Calcium Level 7.5 mg/dL (8.5-10.1) Total Bilirubin 0.4 mg/dL (0.2-1.0) Aspartate Amino Transf (AST/SGOT) 96 U/L (15-37) Alanine Aminotransferase (ALT/SGPT) 174 U/L (14-59) Alkaline Phosphatase 82 U/L (46-116) Total Protein 4.7 g/dL (6.4-8.2) Albumin 1.7 g/dL (3.4-5.0) Albumin/Globulin Ratio 0.6 (1.0-1.7) Test 11/06/16 09:10 Lactic Acid Level 1.8 mmol/L (0.4-2.0) Review of Systems Constitutional: yes: no symptom reported Physical Exam General Appearance: moderate distress Skin: warm Respiratory: decreased breath sounds Heart: S1S2 Abdomen: soft, bowel sounds present Extremities: pulses present Neurology: confused Assessment Assessment IMP SEPSIS NEUTROPENIA ANEMIA PNEUMONIA RESP FAILURE ESRD LARYNGEAL CA PLAN ANTIBIOTICS SUPPORTIVE CARE DNR/DNI HD TODAY UF TO 2 LITERS IF TOLERATED D/W POOL RUSSELL MD Nov 06, 2016 12:19
[2016-11-06] MEDS: DOXYCYCLINE HYCLATE 100 MG in IV DEXTROSE 5% 100 ML IV SCH ×2 (13:26→21:45)
[2016-11-06] MEDS ORDERED: LIDOCAINE 1% / SOD BICARB 8.4% 20 ML VIAL. IJ ONE (13:58)
--- NOTE | 2016-11-06 14:06 | PDOC ---
PROGRESS NOTES Subjective Subjective c/c - f/u of Squamous cell carcinoma of base of tongue ROS - on BIPAP Objective Objective Vital Signs Date Time Temp Pulse Resp B/P (MAP) Pulse Ox O2 Delivery O2 Flow Rate FiO2 11/06/16 13:51 103 24 89/55 (66) 97 BiPAP/CPAP 11/06/16 12:05 4.0 11/06/16 07:00 98.8 98.8 Intake and Output 11/06/16 07:00 Intake Total 2710 ml Output Total 0 ml Balance 2710 ml Intake Oral 0 ml IV Total 2710 ml Output Urine Total 0 ml Physical Exam Heart: Normal S1, Normal S2 Lungs: Clear to auscultation Psych/Mental Status: Mental status NL Assessment Assessment Problems Medical Problems: (1) Hyperkalemia Status: Acute (2) Renal failure Status: Acute Assessment/Plan 1. Squamous cell carcinoma of base of tongue (HCC) ~ Staging form: Pharynx - Oropharynx, AJCC 7th Edition ~~~ Clinical stage from 09/17/2016: Stage GIOVANNA (T2, N2c, M0) s/p chemo with cisplatin 11/03/16. Monitor for toxicities. 2. Neutropenic fever - started granix 11/05/16. 3. Oropharyngeal candidiasis - consulted ID. Appreciate eval and management. 4. ESRD on HD - i d/w Dr Todd 5. Multiple myeloma 6. Thrombocytopenia, transfuse platelets if Plt count <20. Platelets today at 25. 7. Sepsis - consulted ID. Appreciate eval and management. I d/w RN Comment Review of Relevant I have reviewed the following items molly (where applicable) has been applied. Labs Laboratory Tests Test 11/04/16 16:35 11/04/16 16:39 11/04/16 16:40 11/04/16 18:30 White Blood Count 7.1 x10^3/uL (4.0-11.0) Red Blood Count 2.90 x10^6/uL (3.50-5.40) Hemoglobin 10.0 g/dL (12.0-15.5) Hematocrit 31.1 % (36.0-47.0) Mean Corpuscular Volume 107 fL (79-100) Mean Corpuscular Hemoglobin 35 pg (25-35) Mean Corpuscular Hemoglobin Concent 32 g/dL (31-37) Red Cell Distribution Width 16.2 % (11.5-14.5) Platelet Count 81 x10^3/uL (140-400) Neutrophils (%) (Auto) 89 % (31-73) Lymphocytes (%) (Auto) 1 % (24-48) Monocytes (%) (Auto) 9 % (0-9) Eosinophils (%) (Auto) 0 % (0-3) Basophils (%) (Auto) 0 % (0-3) Neutrophils # (Auto) 6.4 x10^3uL (1.8-7.7) Lymphocytes # (Auto) 0.1 x10^3/uL (1.0-4.8) Monocytes # (Auto) 0.6 x10^3/uL (0.0-1.1) Eosinophils # (Auto) 0.0 x10^3/uL (0.0-0.7) Basophils # (Auto) 0.0 x10^3/uL (0.0-0.2) Sodium Level 137 mmol/L (136-145) Potassium Level 7.7 mmol/L (3.5-5.1) Chloride Level 101 mmol/L (98-107) Carbon Dioxide Level 25 mmol/L (21-32) Anion Gap 11 (6-14) 15 mmol/L (6-14) Blood Urea Nitrogen 73 mg/dL (7-20) Creatinine 4.9 mg/dL (0.6-1.0) Estimated GFR (Cockcroft-Gault) 8.8 BUN/Creatinine Ratio 15 (6-20) Glucose Level 146 mg/dL (70-99) 134 mg/dL (70-99) Calcium Level 8.1 mg/dL (8.5-10.1) Total Bilirubin 0.6 mg/dL (0.2-1.0) Aspartate Amino Transf (AST/SGOT) 269 U/L (15-37) Alanine Aminotransferase (ALT/SGPT) 314 U/L (14-59) Alkaline Phosphatase 168 U/L (46-116) Creatine Kinase 102 U/L (26-192) Creatine Kinase MB (Mass) 2.5 ng/mL (0.0-3.6) Creatine Kinase MB Relative Index 2.5 % (0-4) Troponin I Quantitative 0.313 ng/mL (0.000-0.055) AA-Xpq-F-Type Natriuretic Peptide > 73132 pg/mL (0-124) Total Protein 5.7 g/dL (6.4-8.2) Albumin 3.0 g/dL (3.4-5.0) Albumin/Globulin Ratio 1.1 (1.0-1.7) Bedside Hemoglobin 10.5 g/dL (12-15) Bedside Hematocrit 31 % (36-40) Bedside Sodium 133 mmol/L (135-145) Bedside Potassium 7.2 mmol/L (3.5-5.0) Bedside Chloride 105 mmol/L (98-110) Bedside Total CO2 21 mmol/L (23-32) Bedside Blood Urea Nitrogen 64 mg/dL (8-26) Bedside Creatinine 5.0 mg/dL (0.5-1.4) Bedside Ionized Calcium (Suki) 1.00 mmol/L (1.13-1.32) Prothrombin Time 14.8 SEC (11.7-14.0) Prothromb Time International Ratio 1.2 (0.8-1.1) Nasal Screen MRSA (PCR) Negative (Negative) Test 11/05/16 05:30 11/05/16 13:39 11/05/16 22:42 11/06/16 04:30 White Blood Count 1.2 x10^3/uL (4.0-11.0) 1.1 x10^3/uL (4.0-11.0) Red Blood Count 2.44 x10^6/uL (3.50-5.40) 2.55 x10^6/uL (3.50-5.40) Hemoglobin 8.4 g/dL (12.0-15.5) 8.8 g/dL (12.0-15.5) Hematocrit 25.6 % (36.0-47.0) 27.0 % (36.0-47.0) Mean Corpuscular Volume 105 fL (79-100) 106 fL (79-100) Mean Corpuscular Hemoglobin 34 pg (25-35) 35 pg (25-35) Mean Corpuscular Hemoglobin Concent 33 g/dL (31-37) 33 g/dL (31-37) Red Cell Distribution Width 15.6 % (11.5-14.5) 16.1 % (11.5-14.5) Platelet Count 49 x10^3/uL (140-400) 25 x10^3/uL (140-400) Neutrophils (%) (Auto) 89 % (31-73) Lymphocytes (%) (Auto) 2 % (24-48) Monocytes (%) (Auto) 8 % (0-9) Eosinophils (%) (Auto) 0 % (0-3) Basophils (%) (Auto) 0 % (0-3) Neutrophils # (Auto) 1.1 x10^3uL (1.8-7.7) Lymphocytes # (Auto) 0.0 x10^3/uL (1.0-4.8) Monocytes # (Auto) 0.1 x10^3/uL (0.0-1.1) Eosinophils # (Auto) 0.0 x10^3/uL (0.0-0.7) Basophils # (Auto) 0.0 x10^3/uL (0.0-0.2) Segmented Neutrophils % 40 % (35-66) Band Neutrophils % 47 % (0-9) Lymphocytes % 3 % (24-48) Monocytes % 6 % (0-10) Metamyelocytes % 2 % (0-0) Myelocytes % 2 % (0-0) Nucleated Red Blood Cells 1 Dohle Bodies Few Platelet Estimate Decreased (ADEQUATE) Polychromasia Slight Anisocytosis Slight Macrocytosis Present Ovalocytes Few Prothrombin Time 18.6 SEC (11.7-14.0) 29.1 SEC (11.7-14.0) Prothromb Time International Ratio 1.7 (0.8-1.1) 3.0 (0.8-1.1) Sodium Level 142 mmol/L (136-145) 137 mmol/L (136-145) Potassium Level 3.7 mmol/L (3.5-5.1) 5.4 mmol/L (3.5-5.1) Chloride Level 105 mmol/L (98-107) 102 mmol/L (98-107) Carbon Dioxide Level 28 mmol/L (21-32) 29 mmol/L (21-32) Anion Gap 9 (6-14) 6 (6-14) Blood Urea Nitrogen 27 mg/dL (7-20) 47 mg/dL (7-20) Creatinine 2.4 mg/dL (0.6-1.0) 4.2 mg/dL (0.6-1.0) Estimated GFR (Cockcroft-Gault) 20.1 10.5 BUN/Creatinine Ratio 11 (6-20) 11 (6-20) Glucose Level 73 mg/dL (70-99) 120 mg/dL (70-99) Calcium Level 6.8 mg/dL (8.5-10.1) 7.5 mg/dL (8.5-10.1) Total Bilirubin 0.4 mg/dL (0.2-1.0) 0.4 mg/dL (0.2-1.0) Aspartate Amino Transf (AST/SGOT) 136 U/L (15-37) 96 U/L (15-37) Alanine Aminotransferase (ALT/SGPT) 211 U/L (14-59) 174 U/L (14-59) Alkaline Phosphatase 109 U/L (46-116) 82 U/L (46-116) Total Protein 4.4 g/dL (6.4-8.2) 4.7 g/dL (6.4-8.2) Albumin 2.0 g/dL (3.4-5.0) 1.7 g/dL (3.4-5.0) Albumin/Globulin Ratio 0.8 (1.0-1.7) 0.6 (1.0-1.7) O2 Saturation 83 % (92-99) 92 % (92-99) Arterial Blood pH 7.32 (7.35-7.45) 7.31 (7.35-7.45) Arterial Blood pCO2 at Patient Temp 50 mmHg (35-46) 49 mmHg (35-46) Arterial Blood pO2 at Patient Temp 56 mmHg (65-108) 73 mmHg (65-108) Arterial Blood HCO3 25 mmol/L (21-28) 24 mmol/L (21-28) Arterial Blood Base Excess -2 mmol/L (-3-3) -2 mmol/L (-3-3) FiO2 36% 50 Lactic Acid Level 2.1 mmol/L (0.4-2.0) Test 11/06/16 08:00 11/06/16 09:10 O2 Saturation 87 % (92-99) Arterial Blood pH 7.26 (7.35-7.45) Arterial Blood pCO2 at Patient Temp 54 mmHg (35-46) Arterial Blood pO2 at Patient Temp 63 mmHg (65-108) Arterial Blood HCO3 24 mmol/L (21-28) Arterial Blood Base Excess -4 mmol/L (-3-3) FiO2 70 Lactic Acid Level 1.8 mmol/L (0.4-2.0) Laboratory Tests Test 11/05/16 22:42 11/06/16 04:30 11/06/16 08:00 11/06/16 09:10 O2 Saturation 92 % (92-99) 87 % (92-99) Arterial Blood pH 7.31 (7.35-7.45) 7.26 (7.35-7.45) Arterial Blood pCO2 at Patient Temp 49 mmHg (35-46) 54 mmHg (35-46) Arterial Blood pO2 at Patient Temp 73 mmHg (65-108) 63 mmHg (65-108) Arterial Blood HCO3 24 mmol/L (21-28) 24 mmol/L (21-28) Arterial Blood Base Excess -2 mmol/L (-3-3) -4 mmol/L (-3-3) FiO2 50 70 White Blood Count 1.1 x10^3/uL (4.0-11.0) Red Blood Count 2.55 x10^6/uL (3.50-5.40) Hemoglobin 8.8 g/dL (12.0-15.5) Hematocrit 27.0 % (36.0-47.0) Mean Corpuscular Volume 106 fL (79-100) Mean Corpuscular Hemoglobin 35 pg (25-35) Mean Corpuscular Hemoglobin Concent 33 g/dL (31-37) Red Cell Distribution Width 16.1 % (11.5-14.5) Platelet Count 25 x10^3/uL (140-400) Prothrombin Time 29.1 SEC (11.7-14.0) Prothromb Time International Ratio 3.0 (0.8-1.1) Sodium Level 137 mmol/L (136-145) Potassium Level 5.4 mmol/L (3.5-5.1) Chloride Level 102 mmol/L (98-107) Carbon Dioxide Level 29 mmol/L (21-32) Anion Gap 6 (6-14) Blood Urea Nitrogen 47 mg/dL (7-20) Creatinine 4.2 mg/dL (0.6-1.0) Estimated GFR (Cockcroft-Gault) 10.5 BUN/Creatinine Ratio 11 (6-20) Glucose Level 120 mg/dL (70-99) Lactic Acid Level 2.1 mmol/L (0.4-2.0) 1.8 mmol/L (0.4-2.0) Calcium Level 7.5 mg/dL (8.5-10.1) Total Bilirubin 0.4 mg/dL (0.2-1.0) Aspartate Amino Transf (AST/SGOT) 96 U/L (15-37) Alanine Aminotransferase (ALT/SGPT) 174 U/L (14-59) Alkaline Phosphatase 82 U/L (46-116) Total Protein 4.7 g/dL (6.4-8.2) Albumin 1.7 g/dL (3.4-5.0) Albumin/Globulin Ratio 0.6 (1.0-1.7) Medications Current Medications Albuterol/ Ipratropium (Duoneb) 3 ml 1X ONCE NEB Last administered on 15:56; Start 11/04/16 at 16:00; Stop 11/04/16 at 16:01; Status DC Furosemide (Lasix) 40 mg 1X ONCE IVP Last administered on 11/04/16 16:00; Start 11/04/16 at 16:00; Stop 11/04/16 at 16:01; Status DC Dextrose (Dextrose 50%-Water Syringe) 25 gm 1X ONCE IV Last administered on 16:55; Start 11/04/16 at 16:45; Stop 11/04/16 at 16:46; Status DC Insulin Human Regular (NovoLIN R VIAL) 5 unit 1X ONCE IV Last administered on 11/04/16 16:45; Start 11/04/16 at 16:45; Stop 11/04/16 at 16:46; Status DC Calcium Gluconate (Calcium Gluconate) 1,000 mg 1X ONCE IVP Last administered on 11/04/16 17:18; Start 11/04/16 at 16:45; Stop 11/04/16 at 16:46; Status DC Sodium Bicarbonate 50 meq 1X ONCE IV Last administered on 11/04/16 17:20; Start 11/04/16 at 16:45; Stop 11/04/16 at 16:46; Status DC Albuterol Sulfate (Ventolin Neb Soln) 10 mg 1X ONCE CONT NEB Last administered on 11/04/16 17:00; Start 11/04/16 at 17:00; Stop 11/04/16 at 17:01 ; Status DC Acyclovir (Zovirax) 200 mg BID PO Last administered on 11/05/16 08:48; Start 11/04/16 at 21:00 Alprazolam (Xanax) 1 mg PRN Q6HRS PRN PO ANXIETY / AGITATION; Start 11/04/16 at 19:15 Amiodarone HCl (Cordarone) 200 mg DAILY PO Last administered on 11/05/16 08:48 ; Start 11/05/16 at 09:00 Calcitriol (Rocaltrol) 0.25 mcg 3X/WEEK PO ; Start 11/06/16 at 09:00 Vitamin B Complex/ Vitamin C (Emily-Ayesha) 1 tab DAILY PO Last administered on 08:49; Start 11/05/16 at 09:00 Acetaminophen/ Hydrocodone Bitart (Lortab 7.5/325) 1 tab PRN Q6HRS PRN PO PAIN Last administered on 11/05/16 08:56; Start 11/04/16 at 19:15 Magnesium Oxide (Magnesium Oxide) 400 mg [id number] PO Last administered on 08:49; Start 11/05/16 at 09:00 Methocarbamol (Robaxin) 750 mg DAILY PRN PO muscle spasms; Start 11/04/16 at 19 :15 Montelukast Sodium (Singulair) 10 mg DAILY PO Last administered on 11/05/16 08 :48; Start 11/05/16 at 09:00 Trazodone HCl (Desyrel) 50 mg QHS PO Last administered on 11/04/16 21:41; Start 11/04/16 at 21:00 Warfarin Sodium (Coumadin) 2 mg DAILY16 PO ; Start 11/05/16 at 16:00; Stop 11/05 at 16:00; Status DC Mirtazapine (Remeron) 45 mg QHS PO Last administered on 11/04/16 21:41; Start 11/04/16 at 21:00 Warfarin Sodium (Coumadin Per Physician) 1 each PRN DAILY PRN MC SEE COMMENTS; Start 11/04/16 at 19:30; Stop 11/04/16 at 20:24; Status DC Multi-Ingredient Mouthwash/Gargle (Magic Mouthwash) 10 ml PRN QID PRN PO MOUTH PAIN Last administered on 11/05/16 08:56; Start 11/04/16 at 19:45 Warfarin Sodium (Coumadin Per Pharmacy) 1 each PRN DAILY PRN MC SEE COMMENTS Last administered on 11/05/16 09:13; Start 11/04/16 at 19:45; Stop 11/05/16 at 15:22; Status DC Warfarin Sodium (Coumadin) 2 mg 1X WARF ONCE PO ; Start 11/04/16 at 16:00; Stop 11/04/16 at 21:27; Status DC Sodium Chloride 1,000 ml @ 1,000 mls/hr Q1H PRN IV hypotension; Start 11/04/16 at 21:05; Stop 11/05/16 at 03:04; Status DC Diphenhydramine HCl (Benadryl) 25 mg 1X PRN PRN IV ITCHING; Start 11/04/16 at 21:15; Stop 11/05/16 at 21:14; Status DC Diphenhydramine HCl (Benadryl) 25 mg 1X PRN PRN IV ITCHING; Start 11/04/16 at 21:15; Stop 11/05/16 at 21:14; Status DC Sodium Chloride 1,000 ml @ 400 mls/hr Q2H30M PRN IV PATENCY; Start 11/04/16 at 21:05; Stop 11/05/16 at 09:04; Status DC Info (PHARMACY MONITORING -- do not chart) 1 each PRN DAILY PRN MC SEE COMMENTS ; Start 11/04/16 at 21:15 Warfarin Sodium (Coumadin) 5 mg 1X WARF ONCE PO Last administered on 21:40; Start 11/04/16 at 21:30; Stop 11/04/16 at 21:31; Status DC Warfarin Sodium (Coumadin) 2 mg 1X WARF ONCE PO ; Start 11/05/16 at 16:00; Stop 11/05/16 at 16:01; Status DC Sodium Chloride 500 ml @ 500 mls/hr 1X ONCE IV Last administered on 10:30; Start 11/05/16 at 10:30; Stop 11/05/16 at 11:29; Status DC Darbepoetin Donnie (Aranesp) 60 mcg Th@2100 SQ Last administered on 11/05/16 21: 59; Start 11/05/16 at 21:00 Tbo-Filgrastim (Granix) 300 mcg QHS SQ Last administered on 11/05/16 21:59; Start 11/05/16 at 21:00 Micafungin Sodium 100 mg/Dextrose 100 ml @ 100 mls/hr Q24H IV Last administered on 11/05/16 15:03; Start 11/05/16 at 15:00 Heparin Sodium (Porcine) (Heparin Sq) 5,000 unit Q8HRS SQ ; Start 11/06/16 at 06 :00 Amino Acids/ Glycerin/ Electrolytes 1,000 ml @ 80 mls/hr [id number] IV Last administered on 11/06/16 03:17; Start 11/05/16 at 15:30 Info 1 each PRN DAILY PRN MC SEE COMMENTS; Start 11/05/16 at 15:30 Sodium Chloride 1,000 ml @ 1,000 mls/hr 1X ONCE IV Last administered on 16:08; Start 11/05/16 at 16:15; Stop 11/05/16 at 17:14; Status DC Vancomycin HCl (Vanco Per Pharmacy) 1 each PRN DAILY PRN MC SEE COMMENTS Last administered on 11/06/16 10:11; Start 11/05/16 at 16:15 Doxycycline Hyclate (Vibra-Tab) 100 mg BID PO ; Start 11/05/16 at 16:15; Stop at 16:20; Status DC Piperacillin Sod/ Tazobactam Sod 2.25 gm/Sodium Chloride 50 ml @ 100 mls/hr Q8HRS IV Last administered on 11/06/16 05:49; Start 11/05/16 at 16:30 Vancomycin HCl 1.25 gm/Sodium Chloride 250 ml @ 166.667 mls/hr 1X ONCE IV Last administered on 11/05/16 17:55; Start 11/05/16 at 16:30; Stop 11/05/16 at 17:59; Status DC Doxycycline Hyclate 100 mg/ Dextrose 100 ml @ 50 mls/hr Q12HR IV Last administered on 11/06/16 13:26; Start 11/05/16 at 16:30 Vancomycin HCl 1 each 1X ONCE MC ; Start 11/07/16 at 05:00; Stop 11/07/16 at 05: 01 Fentanyl Citrate (Fentanyl 2ml Vial) 25 mcg PRN Q2HR PRN IV PAIN Last administered on 11/05/16 22:00; Start 11/05/16 at 20:30 Lorazepam (Ativan) 0.5 mg PRN Q6HRS PRN IV ANXIETY / AGITATION Last administered on 11/06/16 03:16; Start 11/05/16 at 20:30 Norepinephrine Bitartrate 250 ml @ 0 mls/hr CONT PRN IV SEE I/O RECORD Last administered on 11/06/16 08:15; Start 11/06/16 at 08:15 Sodium Chloride 1,000 ml @ 1,000 mls/hr Q1H PRN IV hypotension; Start 11/06/16 at 08:26; Stop 11/06/16 at 14:25 Albumin Human 200 ml @ 200 mls/hr 1X ONCE IV Last administered on 11/06/16 09:23; Start 11/06/16 at 08:30; Stop 11/06/16 at 09:29; Status DC Diphenhydramine HCl (Benadryl) 25 mg 1X PRN PRN IV ITCHING; Start 11/06/16 at 08:30; Stop 11/07/16 at 08:29 Diphenhydramine HCl (Benadryl) 25 mg 1X PRN PRN IV ITCHING; Start 11/06/16 at 08:30; Stop 11/07/16 at 08:29 Sodium Chloride 1,000 ml @ 400 mls/hr Q2H30M PRN IV PATENCY; Start 11/06/16 at 08:26; Stop 11/06/16 at 20:25 Info (PHARMACY MONITORING -- do not chart) 1 each PRN DAILY PRN MC SEE COMMENTS ; Start 11/06/16 at 08:30; Status UNV Lidocaine/Sodium Bicarbonate (Buffered Lidocaine 1%) 20 ml STK-MED ONCE IJ ; Start 11/06/16 at 13:58; Stop 11/06/16 at 13:59; Status DC Heparin Sodium/ Sodium Chloride 500 ml @ As Directed STK-MED ONCE .ROUTE ; Start 11/06/16 at 13:58; Stop 11/06/16 at 13:59; Status DC Active Scripts Active Vancomycin Hcl 125 Mg Capsule 125 Mg PO QID 14 Days Reported Terbinafine Hcl 250 Mg Tablet Trazodone Hcl 50 Mg Tablet Klor-Con M20 (Potassium Chloride) 20 Meq Tab.er.prt Spiriva Respimat (Tiotropium [place]) 4 Gm Mist.inhal Mag-Oxide (Magnesium Oxide) 400 Mg Tablet 400 Mg PO BID94 Emily-Ayesha Tablet (Folic Acid/Vitamin B Comp W-C) 0.8 Mg Tablet 0.8 Mg PO DAILY Spiriva (Tiotropium [place]) 18 Mcg Cap.w.dev 1 Cap IH DAILY Super B Complex (Vitamin B Complex & Vit C No.4) 150 Mg Tablet 150 Mg PO DAILY Mirtazapine 45 Mg Tablet 45 Mg PO HS Amiodarone Hcl 200 Mg Tablet 1 Tab PO DAILY Warfarin Sodium 2 Mg Tablet 2 Mg PO DAILY16 Acyclovir 200 Mg Capsule 200 Mg PO BID Alprazolam 1 Mg Tablet 1 Mg PO PRN Q6HRS PRN Hydrocodone-Apap 7.5-325 (Hydrocodone Bit/Acetaminophen) 1 Each Tablet 1 Tab PO PRN Q6HRS PRN Advair 100-50 Diskus (Fluticasone/Salmeterol) 1 Each Disk.w.dev 1 Inh IH BID Vitron-C Tablet (Iron,Carbonyl/Ascorbic Acid) 1 Each Tablet.dr 1 Each PO DAILY Fish Oil 1,000 Mg Softgel ([place]-3 Fatty Acids/Fish Oil) 1 Each Capsule 1 Each PO DAILY Vitamin D-3 (Cholecalciferol (Vitamin D3)) 2,000 Unit Capsule 2,000 Unit PO DAILY Multivitamins (Multivitamin) 1 Each Tablet 1 Tab PO DAILY Montelukast Sodium Tablet (Montelukast Sodium) 10 Mg Tablet 1 Tab PO DAILY Calcitriol 0.25 Mcg Capsule 1 Cap PO 3X/WEEK Revlimid (Lenalidomide) 5 Mg Capsule 5 Mg PO 3X/WEEK Methocarbamol 750 Mg Tablet 750 Mg PO PRN Vitals/I & O Vital Sign - Last 24 Hours 11/05/16 11/05/16 11/05/16 11/05/16 15:05 16:04 16:05 17:05 Temp 99.2 99.2 Pulse 95 89 87 Resp B/P (MAP) 80/46 (57) 87/53 (64) 103/52 (69) Pulse Ox 92 95 96 O2 Delivery Nasal Cannula Nasal Cannula Nasal Cannula Nasal Cannula O2 Flow Rate 4.0 4.0 4.0 4.0 11/05/16 11/05/16 11/05/16 11/05/16 18:02 19:04 20:00 20:00 Temp 98.3 98.3 Pulse 86 90 105 Resp B/P (MAP) 104/61 (75) 106/55 (72) 111/58 (75) Pulse Ox 94 90 85 O2 Delivery Nasal Cannula Nasal Cannula Venturi Mask Venturi Mask O2 Flow Rate 4.0 4.0 15.0 15.0 11/05/16 11/05/16 11/05/16 11/05/16 21:00 22:00 22:00 22:30 Pulse 105 108 Resp B/P (MAP) 133/64 (87) 114/59 (77) Pulse Ox 89 90 85 96 O2 Delivery Venturi Mask Nasal Cannula Venturi Mask Venturi Mask O2 Flow Rate 15.0 4.0 15.0 4.0 11/05/16 11/05/16 11/06/16 11/06/16 23:00 23:59 00:00 01:00 Temp 101.2 101.2 Pulse 108 104 106 Resp B/P (MAP) 114/55 (74) 91/42 (58) 101/46 (64) Pulse Ox 96 95 91 O2 Delivery BiPAP/CPAP Bi-pap BiPAP/CPAP BiPAP/CPAP 11/06/16 11/06/16 11/06/16 11/06/16 02:00 03:00 04:00 04:00 Temp 98.9 98.9 Pulse 104 106 106 Resp B/P (MAP) 85/44 (58) 119/52 (74) 82/46 (58) Pulse Ox 92 92 92 O2 Delivery BiPAP/CPAP BiPAP/CPAP Bi-pap BiPAP/CPAP 11/06/16 11/06/16 11/06/16 11/06/16 05:00 05:43 06:00 07:00 Temp 98.8 98.8 Pulse 109 109 108 Resp B/P (MAP) 98/51 (67) 99/48 (65) 80/45 (57) Pulse Ox 91 90 87 89 O2 Delivery BiPAP/CPAP BiPAP/CPAP BiPAP/CPAP BiPAP/CPAP 11/06/16 11/06/16 11/06/16 11/06/16 07:53 08:00 08:00 08:00 Pulse 105 Resp B/P (MAP) 112/64 (80) Pulse Ox 86 94 O2 Delivery BiPAP/CPAP Bi-pap BiPAP/CPAP O2 Flow Rate 15.0 4.0 11/06/16 11/06/16 11/06/16 11/06/16 08:15 08:30 08:45 09:00 Pulse 106 104 104 107 Resp B/P (MAP) 84/44 (57) 112/46 (68) 112/64 (80) 120/50 Pulse Ox 88 94 94 O2 Delivery BiPAP/CPAP BiPAP/CPAP BiPAP/CPAP 11/06/16 11/06/16 11/06/16 11/06/16 09:00 09:15 09:25 09:30 Pulse 106 108 106 Resp B/P (MAP) 120/50 (73) 116/55 (75) 102/52 (69) Pulse Ox 94 94 93 92 O2 Delivery BiPAP/CPAP BiPAP/CPAP BiPAP/CPAP BiPAP/CPAP 11/06/16 11/06/16 11/06/16 11/06/16 09:45 10:00 11:03 11:18 Pulse 108 108 109 Resp B/P (MAP) 79/39 (52) 69/44 (52) 100/52 (68) Pulse Ox 92 97 88 96 O2 Delivery BiPAP/CPAP BiPAP/CPAP BiPAP/CPAP BiPAP/CPAP 11/06/16 11/06/16 11/06/16 11/06/16 12:05 12:05 12:07 12:15 Pulse 108 108 Resp 31 B/P (MAP) 103/66 (78) 82/68 (73) Pulse Ox 93 96 O2 Delivery Bi-pap BiPAP/CPAP BiPAP/CPAP O2 Flow Rate 15.0 4.0 11/06/16 11/06/16 11/06/16 12:33 13:34 13:51 Pulse 106 103 Resp 24 B/P (MAP) 140/67 (91) 89/55 (66) Pulse Ox 98 94 97 O2 Delivery BiPAP/CPAP BiPAP/CPAP BiPAP/CPAP Intake and Output 11/05/16 11/05/16 11/06/16 15:00 23:00 07:00 Intake Total 500 ml 1250 ml 960 ml Output Total 0 ml 0 ml Balance 500 ml 1250 ml 960 ml Nutrition Consultation Dietary Evaluation: Recommendations by RD: Increase Calorie Intake, Protein supplementation Comments: PPN running at 80 ml/hr Plans for PICC placement/TPN. Rec. TPN macros as follows: Dextrose 150 grams, Lipids 20 grams, Amino Acids 60 grams Consider dobhoff / PEG TF's as appropriate Expected Outcomes/Goals: meet 75% estimated nutrition needs Interpretation of weight loss: >10% in 6 months Malnutrition Findings: Body Fat Depletion (Non Severe: Mild Depletion Reduced Gun [employer] Maker Strength: N/A Reduced Gun Stock Maker Strength (Non-Sev: N/A Malnutrition related to morbid: No Weight Status: Appropriate Fluid Accumulation (N/A): N/A YASMINE PAULA MD Nov 06, 2016 14:06
--- NOTE | 2016-11-06 14:31 | PDOC ---
Objective: Objective: IR in ICU for possible PICC placement when I stopped by. D/w RN - hallucinating today, family meeting w/ Pat at 2:30. Vital Signs: Vital Signs Date Time Temp Pulse Resp B/P (MAP) Pulse Ox O2 Delivery O2 Flow Rate FiO2 11/06/16 13:51 103 24 89/55 (66) 97 BiPAP/CPAP 11/06/16 12:05 4.0 11/06/16 07:00 98.8 98.8 Labs: Laboratory Tests Test 11/05/16 22:42 11/06/16 04:30 11/06/16 08:00 11/06/16 09:10 O2 Saturation 92 % 87 % Arterial Blood pH 7.31 7.26 Arterial Blood pCO2 at Patient Temp 49 mmHg 54 mmHg Arterial Blood pO2 at Patient Temp 73 mmHg 63 mmHg Arterial Blood HCO3 24 mmol/L 24 mmol/L Arterial Blood Base Excess -2 mmol/L -4 mmol/L FiO2 50 70 White Blood Count 1.1 x10^3/uL Red Blood Count 2.55 x10^6/uL Hemoglobin 8.8 g/dL Hematocrit 27.0 % Mean Corpuscular Volume 106 fL Mean Corpuscular Hemoglobin 35 pg Mean Corpuscular Hemoglobin Concent 33 g/dL Red Cell Distribution Width 16.1 % Platelet Count 25 x10^3/uL Prothrombin Time 29.1 SEC Prothromb Time International Ratio 3.0 Sodium Level 137 mmol/L Potassium Level 5.4 mmol/L Chloride Level 102 mmol/L Carbon Dioxide Level 29 mmol/L Anion Gap 6 Blood Urea Nitrogen 47 mg/dL Creatinine 4.2 mg/dL Estimated GFR (Cockcroft-Gault) 10.5 BUN/Creatinine Ratio 11 Glucose Level 120 mg/dL Lactic Acid Level 2.1 mmol/L 1.8 mmol/L Calcium Level 7.5 mg/dL Total Bilirubin 0.4 mg/dL Aspartate Amino Transf (AST/SGOT) 96 U/L Alanine Aminotransferase (ALT/SGPT) 174 U/L Alkaline Phosphatase 82 U/L Total Protein 4.7 g/dL Albumin 1.7 g/dL Albumin/Globulin Ratio 0.6 PE: no exam A/P: SCC, base of tongue, dysphagia, neutropenia, thrombocytopenia -- Await family meeting. MOMO TOVAR Nov 06, 2016 14:31
[2016-11-06] MEDS: MICAFUNGIN 100 MG in IV DEXTROSE 5% 100 ML IV SCH (16:33)
[2016-11-06] MEDS: traZODone 50 MG TABLET. PO SCH (21:00)
[2016-11-06] MEDS: TBO-FILGRASTIM 300 MCG/0.5 ML SYRINGE. SQ SCH (21:00)
[2016-11-06] MEDS: MIRTAZAPINE 15 MG TABLET PO SCH (21:00)
[2016-11-07] VITALS (22 sets, daily range): BP systolic 0–94; BP diastolic 0–50
[2016-11-07] MEDS: NOREPINEPHRIN PREMIX 250 ML IV PRN ×3 (04:39→14:41)
[2016-11-07] MEDS ORDERED: VANCOMYCIN RANDOM LEVEL. MC ONE (05:00)
[2016-11-07] MEDS: PIPERACILLIN/TAZOBACTAM 2.25 GM in IV NORMAL SALINE 50ML 50 ML IV SCH ×2 (06:06→13:56)
[2016-11-07] MEDS: AMINO AC 3%/ELECTROLYTE/GLYCER 1,000 ML IV SCH (06:07)
[2016-11-07 06:33] LABS: INR 3.1 (0.8-1.1); PROTHROMBIN TIME PATIENT 30.1 SEC (11.7-14.0)
[2016-11-07] MEDS: VANCOMYCIN PER PHARMACY MC PRN (07:33)
--- NOTE | 2016-11-07 07:45 | RAD ---
Portable chest, 11/07/2016: History: Pneumonia Comparison is made to a study from 11/06/2016. A right Port-A-Cath remains in place extending into the superior vena cava. The heart appears to be within normal limits in size. Bilateral pulmonary infiltrates continue to worsened slightly. The infiltrates are most dense laterally in the right mid lung and in both lung bases. There is loss of margination of the underlying pulmonary vascularity. There is blunting of lateral costophrenic angle suggesting a small amount of associated pleural fluid. IMPRESSION: 1. Slight interval worsening of the moderate bilateral pulmonary infiltrates compatible with pneumonia, although a component of pulmonary edema is a possibility. 2. Small bilateral pleural effusions.
[2016-11-07 08:26] LABS: HCO3 ABG 36 mmol/L (21-28); PO2 ABG 77 mmHg (65-108); SAT O2 ABG 91 % (92-99)
[2016-11-07 08:31] LABS: FIO2 ABG 85; PCO2 ABG 127 mmHg (35-46); PH ABG 7.07 (7.35-7.45)
[2016-11-07 08:34] LABS: ALBUMIN 1.8 g/dL (3.4-5.0); ALBUMIN/GLOBULIN RATIO 0.7 (1.0-1.7); CALCIUM 7.4 mg/dL (8.5-10.1); CREATININE 2.8 mg/dL (0.6-1.0); GFR 16.8; MAGNESIUM 2.1 mg/dL (1.8-2.4); PHOSPHORUS 6.6 mg/dL (2.6-4.7); POTASSIUM 4.5 mmol/L (3.5-5.1); TOTAL BILIRUBIN 0.6 mg/dL (0.2-1.0); TOTAL PROTEIN 4.4 g/dL (6.4-8.2)
[2016-11-07] MEDS: AMIODARONE HCL 200 MG TABLET. PO SCH (08:42)
[2016-11-07] MEDS: FOLIC/VIT B COMP W-C (RENAL) TABLET. PO SCH (08:43)
[2016-11-07] MEDS: ACYCLOVIR 200 MG CAPSULE. PO SCH (08:43)
[2016-11-07] MEDS: MONTELUKAST SODIUM 10 MG TABLET. PO SCH (08:43)
[2016-11-07] MEDS: MAGNESIUM OXIDE 400 MG TABLET PO SCH ×2 (08:43→14:01)
[2016-11-07] MEDS: DOXYCYCLINE HYCLATE 100 MG in IV DEXTROSE 5% 100 ML IV SCH (08:48)
[2016-11-07] MEDS: HEPARIN PF for SUB-Q USE 5,000 UNIT/0.5 ML VIAL. SQ SCH (08:50)
--- NOTE | 2016-11-07 09:40 | PDOC ---
PROGRESS NOTES Chief Complaint Chief Complaint Symptomatic hyperkalemia ASSESSMENT AND PLAN: 1 RML PNA: suspicious for aspir. on Abx. clinical deterioration O/N, requiring BiPAP with high O2. Arterial blood gases critical today. anticipate demise today. family notified 2. Neutropenic fever: on broad spectrum Abx; ID service following. on G-CSF 3. Laryngeal CA: currently undergoing chemo/rad, having received weekly chemo (cis) on . 4. Dysphagia: coughing with PO. failed swallow study; NPO 5. Hyperkalemia: resolved. monitor. adjust with HD as indicated 6. ESRD: on HD as per nephrology. 7. CHF: acute on chronic, systolic (EF 40% on echo in July 2016) as well as mild diastolic dysfxn. fluid overload improved post HD; will be an ongoing issue with IV Abx, PPN/TPN 8. COPD: nebs 9. Nutrition: currently on PPN; 10. HTN/HLD: no acute issues. continue home meds. 11. DVT: on coumadin; switch to SQ heparin - hold for plts <50K 11. Mult myeloma: s/p Auto BMT, on maintenance revlimid (hold for now) 12. Code Status: DNR Condition: critical; Prognosis: poor CC time: 35 min History of Present Illness History of Present Illness on BiPAP, obtunded Vitals Vitals Vital Signs Date Time Temp Pulse Resp B/P (MAP) Pulse Ox O2 Delivery O2 Flow Rate FiO2 11/07/16 08:02 95 BiPAP/CPAP 11/07/16 08:00 15.0 11/07/16 06:15 97.6 97 19 81/40 (54) 97.6 Physical Exam General: Cooperative, Other (lethargic, responding to verbal input b opening eyes briefly) Heart: Regular rate Lungs: Crackles, Other (coarse UA rhonchi) Abdomen: Normal bowel sounds, Soft, No tenderness Extremities: No clubbing, No edema Skin: No rashes Labs LABS Laboratory Tests Test 11/07/16 06:00 11/07/16 08:15 Prothrombin Time 30.1 SEC (11.7-14.0) Prothromb Time International Ratio 3.1 (0.8-1.1) Sodium Level 140 mmol/L (136-145) Potassium Level 4.5 mmol/L (3.5-5.1) Chloride Level 102 mmol/L (98-107) Carbon Dioxide Level 33 mmol/L (21-32) Anion Gap 5 (6-14) Blood Urea Nitrogen 34 mg/dL (7-20) Creatinine 2.8 mg/dL (0.6-1.0) Estimated GFR (Cockcroft-Gault) 16.8 BUN/Creatinine Ratio 12 (6-20) Glucose Level 105 mg/dL (70-99) Calcium Level 7.4 mg/dL (8.5-10.1) Phosphorus Level 6.6 mg/dL (2.6-4.7) Magnesium Level 2.1 mg/dL (1.8-2.4) Total Bilirubin 0.6 mg/dL (0.2-1.0) Aspartate Amino Transf (AST/SGOT) 63 U/L (15-37) Alanine Aminotransferase (ALT/SGPT) 94 U/L (14-59) Alkaline Phosphatase 70 U/L (46-116) Total Protein 4.4 g/dL (6.4-8.2) Albumin 1.8 g/dL (3.4-5.0) Albumin/Globulin Ratio 0.7 (1.0-1.7) Triglycerides Level 138 mg/dL (0-150) Random Vancomycin Level 9.4 mcg/mL O2 Saturation 91 % (92-99) Arterial Blood pH 7.07 (7.35-7.45) Arterial Blood pCO2 at Patient Temp 127 mmHg (35-46) Arterial Blood pO2 at Patient Temp 77 mmHg (65-108) Arterial Blood HCO3 36 mmol/L (21-28) Arterial Blood Base Excess 4 mmol/L (-3-3) FiO2 85 Nutrition Consultation Dietary Evaluation: Recommendations by RD: Increase Calorie Intake, Protein supplementation Comments: PPN running at 80 ml/hr Plans for PICC placement/TPN. Rec. TPN macros as follows: Dextrose 150 grams, Lipids 20 grams, Amino Acids 60 grams Consider dobhoff / PEG TF's as appropriate Expected Outcomes/Goals: meet 75% estimated nutrition needs Interpretation of weight loss: >10% in 6 months Malnutrition Findings: Body Fat Depletion (Non Severe: Mild Depletion Reduced Sign Letterer Strength: N/A Reduced Sign Letterer Strength (Non-Sev: N/A Malnutrition related to morbid: No Weight Status: Appropriate Fluid Accumulation (N/A): N/A REJANETTHFLORIDA MD Nov 07, 2016 09:39
[2016-11-07 10:17] LABS: BASO % 0 % (0-3); EOS % 0 % (0-3); HEMATOCRIT 23.2 % (36.0-47.0); HEMOGLOBIN 7.2 g/dL (12.0-15.5); LYMPH % 1 % (24-48); MEAN CORPUSCULAR HEMOGLOBIN 34 pg (25-35); MEAN CORPUSCULAR HGB CONC 31 g/dL (31-37); MEAN CORPUSCULAR VOLUME 110 fL (79-100); MONO % 2 % (0-9); NEUT % 96 % (31-73); RED CELL DISTRIBUTION WIDTH 16.8 % (11.5-14.5); WHITE BLOOD COUNT 2.9 x10^3/uL (4.0-11.0)
--- NOTE | 2016-11-07 10:25 | PDOC ---
PULMONARY PROGRESS NOTES Subjective remains unresponsive worsening hypercapnia worsening shock Vitals Vital Signs Date Time Temp Pulse Resp B/P (MAP) Pulse Ox O2 Delivery O2 Flow Rate FiO2 11/07/16 09:34 95 BiPAP/CPAP 11/07/16 09:00 98 33 77/41 (53) 11/07/16 08:00 15.0 11/07/16 08:00 97.7 97.7 General: Lethargic Lungs: Other (coarse UA rhonchi) Cardiovascular: S1, S2 Abdomen: Soft, Non-tender Extremities: Other (1+edema) Labs Laboratory Tests Test 11/05/16 13:39 11/05/16 22:42 11/06/16 04:30 11/06/16 08:00 O2 Saturation 83 % (92-99) 92 % (92-99) 87 % (92-99) Arterial Blood pH 7.32 (7.35-7.45) 7.31 (7.35-7.45) 7.26 (7.35-7.45) Arterial Blood pCO2 at Patient Temp 50 mmHg (35-46) 49 mmHg (35-46) 54 mmHg (35-46) Arterial Blood pO2 at Patient Temp 56 mmHg (65-108) 73 mmHg (65-108) 63 mmHg (65-108) Arterial Blood HCO3 25 mmol/L (21-28) 24 mmol/L (21-28) 24 mmol/L (21-28) Arterial Blood Base Excess -2 mmol/L (-3-3) -2 mmol/L (-3-3) -4 mmol/L (-3-3) FiO2 36% 50 70 White Blood Count 1.1 x10^3/uL (4.0-11.0) Red Blood Count 2.55 x10^6/uL (3.50-5.40) Hemoglobin 8.8 g/dL (12.0-15.5) Hematocrit 27.0 % (36.0-47.0) Mean Corpuscular Volume 106 fL (79-100) Mean Corpuscular Hemoglobin 35 pg (25-35) Mean Corpuscular Hemoglobin Concent 33 g/dL (31-37) Red Cell Distribution Width 16.1 % (11.5-14.5) Platelet Count 25 x10^3/uL (140-400) Prothrombin Time 29.1 SEC (11.7-14.0) Prothromb Time International Ratio 3.0 (0.8-1.1) Sodium Level 137 mmol/L (136-145) Potassium Level 5.4 mmol/L (3.5-5.1) Chloride Level 102 mmol/L (98-107) Carbon Dioxide Level 29 mmol/L (21-32) Anion Gap 6 (6-14) Blood Urea Nitrogen 47 mg/dL (7-20) Creatinine 4.2 mg/dL (0.6-1.0) Estimated GFR (Cockcroft-Gault) 10.5 BUN/Creatinine Ratio 11 (6-20) Glucose Level 120 mg/dL (70-99) Lactic Acid Level 2.1 mmol/L (0.4-2.0) Calcium Level 7.5 mg/dL (8.5-10.1) Total Bilirubin 0.4 mg/dL (0.2-1.0) Aspartate Amino Transf (AST/SGOT) 96 U/L (15-37) Alanine Aminotransferase (ALT/SGPT) 174 U/L (14-59) Alkaline Phosphatase 82 U/L (46-116) Total Protein 4.7 g/dL (6.4-8.2) Albumin 1.7 g/dL (3.4-5.0) Albumin/Globulin Ratio 0.6 (1.0-1.7) Test 11/06/16 09:10 11/07/16 06:00 11/07/16 08:15 Lactic Acid Level 1.8 mmol/L (0.4-2.0) Prothrombin Time 30.1 SEC (11.7-14.0) Prothromb Time International Ratio 3.1 (0.8-1.1) Sodium Level 140 mmol/L (136-145) Potassium Level 4.5 mmol/L (3.5-5.1) Chloride Level 102 mmol/L (98-107) Carbon Dioxide Level 33 mmol/L (21-32) Anion Gap 5 (6-14) Blood Urea Nitrogen 34 mg/dL (7-20) Creatinine 2.8 mg/dL (0.6-1.0) Estimated GFR (Cockcroft-Gault) 16.8 BUN/Creatinine Ratio 12 (6-20) Glucose Level 105 mg/dL (70-99) Calcium Level 7.4 mg/dL (8.5-10.1) Phosphorus Level 6.6 mg/dL (2.6-4.7) Magnesium Level 2.1 mg/dL (1.8-2.4) Total Bilirubin 0.6 mg/dL (0.2-1.0) Aspartate Amino Transf (AST/SGOT) 63 U/L (15-37) Alanine Aminotransferase (ALT/SGPT) 94 U/L (14-59) Alkaline Phosphatase 70 U/L (46-116) Total Protein 4.4 g/dL (6.4-8.2) Albumin 1.8 g/dL (3.4-5.0) Albumin/Globulin Ratio 0.7 (1.0-1.7) Triglycerides Level 138 mg/dL (0-150) Random Vancomycin Level 9.4 mcg/mL O2 Saturation 91 % (92-99) Arterial Blood pH 7.07 (7.35-7.45) Arterial Blood pCO2 at Patient Temp 127 mmHg (35-46) Arterial Blood pO2 at Patient Temp 77 mmHg (65-108) Arterial Blood HCO3 36 mmol/L (21-28) Arterial Blood Base Excess 4 mmol/L (-3-3) FiO2 85 Laboratory Tests Test 11/07/16 06:00 11/07/16 08:15 Prothrombin Time 30.1 SEC (11.7-14.0) Prothromb Time International Ratio 3.1 (0.8-1.1) Sodium Level 140 mmol/L (136-145) Potassium Level 4.5 mmol/L (3.5-5.1) Chloride Level 102 mmol/L (98-107) Carbon Dioxide Level 33 mmol/L (21-32) Anion Gap 5 (6-14) Blood Urea Nitrogen 34 mg/dL (7-20) Creatinine 2.8 mg/dL (0.6-1.0) Estimated GFR (Cockcroft-Gault) 16.8 BUN/Creatinine Ratio 12 (6-20) Glucose Level 105 mg/dL (70-99) Calcium Level 7.4 mg/dL (8.5-10.1) Phosphorus Level 6.6 mg/dL (2.6-4.7) Magnesium Level 2.1 mg/dL (1.8-2.4) Total Bilirubin 0.6 mg/dL (0.2-1.0) Aspartate Amino Transf (AST/SGOT) 63 U/L (15-37) Alanine Aminotransferase (ALT/SGPT) 94 U/L (14-59) Alkaline Phosphatase 70 U/L (46-116) Total Protein 4.4 g/dL (6.4-8.2) Albumin 1.8 g/dL (3.4-5.0) Albumin/Globulin Ratio 0.7 (1.0-1.7) Triglycerides Level 138 mg/dL (0-150) Random Vancomycin Level 9.4 mcg/mL O2 Saturation 91 % (92-99) Arterial Blood pH 7.07 (7.35-7.45) Arterial Blood pCO2 at Patient Temp 127 mmHg (35-46) Arterial Blood pO2 at Patient Temp 77 mmHg (65-108) Arterial Blood HCO3 36 mmol/L (21-28) Arterial Blood Base Excess 4 mmol/L (-3-3) FiO2 85 Medications Active Scripts Medications Dose Route/Sig Max Daily Dose Days Date Category Vancomycin Hcl 125 Mg Capsule 125 Mg PO QID 14 09/12/16 Rx Terbinafine Hcl 250 Mg Tablet 09/09/16 Reported Trazodone Hcl 50 Mg Tablet 09/09/16 Reported Klor-Con M20 (Potassium Chloride) 20 Meq Tab.er.prt 09/09/16 Reported Spiriva Respimat (Tiotropium [place]) 4 Gm Mist.inhal 09/09/16 Reported Mag-Oxide (Magnesium Oxide) 400 Mg Tablet 400 Mg PO BID94 09/08/16 Reported Emily-Ayesha Tablet (Folic Acid/Vitamin B Comp W-C) 0.8 Mg Tablet 0.8 Mg PO DAILY 09/08/16 Reported Spiriva (Tiotropium [place]) 18 Mcg Cap.w.dev 1 Cap IH DAILY 09/08/16 Reported Super B Complex (Vitamin B Complex & Vit C No.4) 150 Mg Tablet 150 Mg PO DAILY 09/08/16 Reported Mirtazapine 45 Mg Tablet 45 Mg PO HS 09/08/16 Reported Amiodarone Hcl 200 Mg Tablet 1 Tab PO DAILY 03/17/16 Reported Warfarin Sodium 2 Mg Tablet 2 Mg PO DAILY16 03/10/16 Reported Acyclovir 200 Mg Capsule 200 Mg PO BID 01/16/16 Reported Alprazolam 1 Mg Tablet 1 Mg PO PRN Q6HRS PRN 01/16/16 Reported Hydrocodone-Apap 7.5-325 (Hydrocodone Bit/Acetaminophen) 1 Each Tablet 1 Tab PO PRN Q6HRS PRN 01/16/16 Reported Advair 100-50 Diskus (Fluticasone/Salmeterol) 1 Each Disk.w.dev 1 Inh IH BID 08/14/15 Reported Vitron-C Tablet (Iron,Carbonyl/Ascorbic Acid) 1 Each Tablet.dr 1 Each PO DAILY 07/15/15 Reported Fish Oil 1,000 Mg Softgel ([place]-3 Fatty Acids/Fish Oil) 1 Each Capsule 1 Each PO DAILY 07/15/15 Reported Vitamin D-3 (Cholecalciferol (Vitamin D3)) 2,000 Unit Capsule 2,000 Unit PO DAILY 07/15/15 Reported Multivitamins (Multivitamin) 1 Each Tablet 1 Tab PO DAILY 07/15/15 Reported Montelukast Sodium Tablet (Montelukast Sodium) 10 Mg Tablet 1 Tab PO DAILY 07/15/15 Reported Calcitriol 0.25 Mcg Capsule 1 Cap PO 3X/WEEK 07/15/15 Reported Revlimid (Lenalidomide) 5 Mg Capsule 5 Mg PO 3X/WEEK 05/25/13 Reported Methocarbamol 750 Mg Tablet 750 Mg PO PRN 05/25/13 Reported Impression . Acute hypoxic and hypercapnic RF/ multifactorial, on BIPAP, worsening hypercapnia Suspect aspiration pneumonia, worsening CXR cannot exclude focal alveolar hemorrhage Neutropenic fever Sepsis with hypotension, in shock, now on Levophed 26 mcg Acute encephalopathy Dysphagia, ? oral candidiasis, exam limited at this time Loose stools, h/o C. difficile (09/08/16). 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 BIPAP Long discussion with family 11/06. Advance directives discussed and grim prognosis explained. They agree for DNR/DNI No Trach BIPAP vasopressor Continue vanc, Zosyn, Doxycycline and Micafungin Acyclovir BC x2; sputum C & S. Monitor counts Neutropenic precautions Monitor CXR d/w RN/RTand PCP DNR/DNI I would recommend comfort care. Family is coming today cct 25 min MILTON ANGELES MD Nov 07, 2016 10:25
--- NOTE | 2016-11-07 10:25 | PDOC ---
Infectious Disease Note Subjective Subjective Remains on BiPAP, increase O2 demands, now on FiO2 85%. Hypotensive, increase Levophed, now on 28 mcg No fever Loose stools PPN ROS ROS Unobtainable Vital Sign Vital Signs Vital Signs Date Time Temp Pulse Resp B/P (MAP) Pulse Ox O2 Delivery O2 Flow Rate FiO2 11/07/16 09:34 95 BiPAP/CPAP 11/07/16 09:00 98 33 77/41 (53) 11/07/16 08:00 15.0 11/07/16 08:00 97.7 97.7 Physical Exam PHYSICAL EXAM GENERAL: On BiPAP, HENT: Oral mucosa dry, no lesions seen, though limited exam. LUNGS: Diminished aeration w/ less right lung rhonchi HEART: Normal S1 and S2, tachy ABDOMEN: Distended, hypoactive bowel sounds, soft, no grimace or guarding to palpation : No [place] EXTREMITIES: No gross edema. No cyanosis. 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 Port: clean Labs Lab Laboratory Tests Test 11/07/16 06:00 11/07/16 08:15 Prothrombin Time 30.1 SEC (11.7-14.0) Prothromb Time International Ratio 3.1 (0.8-1.1) Sodium Level 140 mmol/L (136-145) Potassium Level 4.5 mmol/L (3.5-5.1) Chloride Level 102 mmol/L (98-107) Carbon Dioxide Level 33 mmol/L (21-32) Anion Gap 5 (6-14) Blood Urea Nitrogen 34 mg/dL (7-20) Creatinine 2.8 mg/dL (0.6-1.0) Estimated GFR (Cockcroft-Gault) 16.8 BUN/Creatinine Ratio 12 (6-20) Glucose Level 105 mg/dL (70-99) Calcium Level 7.4 mg/dL (8.5-10.1) Phosphorus Level 6.6 mg/dL (2.6-4.7) Magnesium Level 2.1 mg/dL (1.8-2.4) Total Bilirubin 0.6 mg/dL (0.2-1.0) Aspartate Amino Transf (AST/SGOT) 63 U/L (15-37) Alanine Aminotransferase (ALT/SGPT) 94 U/L (14-59) Alkaline Phosphatase 70 U/L (46-116) Total Protein 4.4 g/dL (6.4-8.2) Albumin 1.8 g/dL (3.4-5.0) Albumin/Globulin Ratio 0.7 (1.0-1.7) Triglycerides Level 138 mg/dL (0-150) Random Vancomycin Level 9.4 mcg/mL O2 Saturation 91 % (92-99) Arterial Blood pH 7.07 (7.35-7.45) Arterial Blood pCO2 at Patient Temp 127 mmHg (35-46) Arterial Blood pO2 at Patient Temp 77 mmHg (65-108) Arterial Blood HCO3 36 mmol/L (21-28) Arterial Blood Base Excess 4 mmol/L (-3-3) FiO2 85 Chest x-ray IMPRESSION: 1. Slight interval worsening of the moderate bilateral pulmonary infiltrates compatible with pneumonia, although a component of pulmonary edema is a possibility. 2. Small bilateral pleural effusions. Objective Assessment Neutropenic fever Sepsis with hypotension, now on Levophed 28 mcg Right lung infiltrate, new Acute encephalopathy Dysphagia, ? oral candidiasis, exam limited at this time Loose stools, h/o C. difficile (09/08/16). Acute on chronic CHF Acute respiratory failure, requiring BiPAP CKD on HD. 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 today's, CBC pending Random vanc 9.4 Neutropenic precautions Critically ill Attending Co-Sign The patient was seen and interviewed as well as examined at the bedside. The chart was reviewed. The case was discussed. Agree with the plan of care. MONICA HENDERSON APRN Nov 07, 2016 10:25 TIFFANIE CARROLL MD Nov 07, 2016 13:23
[2016-11-07 10:35] LABS: PLATELET COUNT 6 x10^3/uL (140-400)
[2016-11-07 11:02] LABS: NUCLEATED RBC 2; PLT ESTIMATE DECREASED (ADEQUATE)
[2016-11-07 11:03] LABS: ANISOCYTOSIS PRESENT; POLYCHROMASIA PRESENT
[2016-11-07 11:05] LABS: OVALOCYTES FEW; POIKILOCYTOSIS PRESENT; SCHISTOCYTES OCC; TOXIC VACUOLATION SLIGHT
[2016-11-07] MEDS: MICAFUNGIN 100 MG in IV DEXTROSE 5% 100 ML IV SCH (14:40)
[2016-11-07] MEDS ORDERED: MORPHINE SULFATE 2 MG/ML DISP.SYRIN. IV PRN (15:45)
[2016-11-07] MEDS ORDERED: VANCOMYCIN 500 MG in IV NORMAL SALINE 100ML 100 ML IV SCH (16:00)
--- NOTE | 2016-11-08 18:51 | PDOC3 ---
Discharge Summary* Date of Admission: Nov 04, 2016 Date of Discharge: Nov 06, 2016 Admitting Diagnosis Hyperkalemia Problems: Final Diagnosis Aspiration pneumonia Neutropenic fever Hypoxic respir failure CONSULTS Nephrology Pulmonology Cardiology Infectious disease Oncology Brief Hospital Course Mrs Garcia is a 66 y/o woman with ESRD, on HD since March 2017, as well as CHF and COPD and laryngeal CA, who presented to her HD facility with c/ o not feeling well since Wednesday. She was found with K 7.7 and referred to ER. Her EKG showed abn c/w hyperkalemia, and she was given lasix, insulin and calcium gluconate in response. In addition, her proBNP was found at greater than 35,000. She denied any fevers, chills, N/V. did receive her weekly chemo dose along with daily radiation yesterday, she does not know what meds she is getting. She was admitted to the ICU for further management 1 RML PNA: suspicious for aspir. on Abx. clinical deterioration O/N, requiring BiPAP with high O2. Arterial blood gases critical. 2. Neutropenic fever: on broad spectrum Abx; ID service following. on G-CSF 3. Laryngeal CA: currently undergoing chemo/rad, having received weekly chemo (cis) on . 4. Dysphagia: coughing with PO. failed swallow study; NPO 5. Hyperkalemia: resolved. monitor. adjust with HD as indicated 6. ESRD: on HD as per nephrology. 7. CHF: acute on chronic, systolic (EF 40% on echo in July 2016) as well as mild diastolic dysfxn. fluid overload improved post HD; will be an ongoing issue with IV Abx, PPN/TPN 8. COPD: nebs 9. Nutrition: currently on PPN; 10. HTN/HLD: no acute issues. continue home meds. 11. DVT: on coumadin; switch to SQ heparin - hold for plts <50K 11. Mult myeloma: s/p Auto BMT, on maintenance revlimid (hold for now) 12. 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 family was present at bedside, when patient peacefully at 1617. Disposition/Orders: CONDITION AT DISCHARGE: Improved, Stable Scheduled Acyclovir (Acyclovir), 200 MG PO BID, (Reported) Amiodarone Hcl (Amiodarone Hcl), 1 TAB PO DAILY, (Reported) Calcitriol (Calcitriol), 1 CAP PO 3X/WEEK, (Reported) Cholecalciferol (Vitamin D3) (Vitamin D-3), 2,000 UNIT PO DAILY, (Reported) Fluticasone/Salmeterol (Advair 100-50 Diskus), 1 INH IH BID, (Reported) Folic Acid/Vitamin B Comp W-C (Emily-Ayesha Tablet), 0.8 MG PO DAILY, (Reported) Iron,Carbonyl/Ascorbic Acid (Vitron-C Tablet), 1 EACH PO DAILY, (Reported) Lenalidomide (Revlimid), 5 MG PO 3X/WEEK, (Reported) Magnesium Oxide (Mag-Oxide), 400 MG PO BID94, (Reported) Methocarbamol (Methocarbamol), 750 MG PO PRN, (Reported) Mirtazapine (Mirtazapine), 45 MG PO HS, (Reported) Montelukast Sodium (Montelukast Sodium Tablet), 1 TAB PO DAILY, (Reported) Multivitamin (Multivitamins), 1 TAB PO DAILY, (Reported) [place]-3 Fatty Acids/Fish Oil (Fish Oil 1,000 Mg Softgel), 1 EACH PO DAILY, ( Reported) Tiotropium [place] (Spiriva), 1 CAP IH DAILY, (Reported) Vancomycin Hcl (Vancomycin Hcl), 125 MG PO QID Vitamin B Complex & Vit C No.4 (Super B Complex), 150 MG PO DAILY, (Reported) Warfarin Sodium (Warfarin Sodium), 2 MG PO DAILY16, (Reported) Scheduled PRN Alprazolam (Alprazolam), 1 MG PO PRN Q6HRS PRN for ANXIETY / AGITATION, ( Reported) Hydrocodone Bit/Acetaminophen (Hydrocodone-Apap 7.5-325 ), 1 TAB PO PRN Q6HRS PRN for PAIN, (Reported) Miscellaneous Medications Potassium Chloride (Klor-Con M20), (Reported) Terbinafine Hcl (Terbinafine Hcl), (Reported) Tiotropium [place] (Spiriva Respimat), (Reported) Trazodone Hcl (Trazodone Hcl), (Reported) Time Spent Total time spent with patient [] minutes for coordination of care, counseling, and education. [place] REYNOSO MD Nov 08, 2016 18:51
== END 2016-11-07 16:17 | disposition expired | DRG 871 ==
LOC: ER 15:37 → 1 WEST ICU 16:50
PROVIDERS: ADMIT Internal Medicine Hematology & Oncology; ATTEND Internal Medicine Hematology & Oncology
PROC: 5A09457 Assistance with Respiratory Ventilation, 24-96 Consecutive Hours, Continuous Positive Airway Pressure (ICD-10-PCS; principal; 2016-11-04)
PROC: 5A1D00Z (ICD-10-PCS; 2016-11-04)
DX: A41.9 Sepsis, unspecified organism (principal); I50.23 Acute on chronic systolic (congestive) heart failure; N18.6 End stage renal disease; J69.0 Pneumonitis due to inhalation of food and vomit; G93.41 Metabolic encephalopathy; J96.01 Acute respiratory failure with hypoxia; R65.21 Severe sepsis with septic shock; J96.02 Acute respiratory failure with hypercapnia; C90.00 Multiple myeloma not having achieved remission; B37.0 Candidal stomatitis; B37.89 Other sites of candidiasis; Z94.84 Stem cells transplant status; I13.0 Hypertensive heart and chronic kidney disease with heart failure and stage 1 through stage 4 chronic kidney disease, or unspecified chronic kidney disease; R13.10 Dysphagia, unspecified; E21.3 Hyperparathyroidism, unspecified; C10.9 Malignant neoplasm of oropharynx, unspecified; C01 Malignant neoplasm of base of tongue; D69.6 Thrombocytopenia, unspecified; F41.9 Anxiety disorder, unspecified; E87.5 Hyperkalemia; E78.5 Hyperlipidemia, unspecified; D70.9 Neutropenia, unspecified; C32.9 Malignant neoplasm of larynx, unspecified; J44.9 Chronic obstructive pulmonary disease, unspecified; R50.81 Fever presenting with conditions classified elsewhere; D64.9 Anemia, unspecified; I48.91 Unspecified atrial fibrillation; Z51.5 Encounter for palliative care; Z66 Do not resuscitate; Z82.49 Family history of ischemic heart disease and other diseases of the circulatory system; Z85.21 Personal history of malignant neoplasm of larynx; Z83.3 Family history of diabetes mellitus; Z86.718 Personal history of other venous thrombosis and embolism; Z87.891 Personal history of nicotine dependence; Z92.21 Personal history of antineoplastic chemotherapy; Z92.3 Personal history of irradiation; Z99.2 Dependence on renal dialysis; Z90.710 Acquired absence of both cervix and uterus; Z79.899 Other long term (current) drug therapy; Z79.1 Long term (current) use of non-steroidal anti-inflammatories (NSAID); Z79.2 Long term (current) use of antibiotics
CPT/HCPCS: 36415; 36600; 71010; 80047; 80053; 80202; 82553; 82805; 83605; 83735; 83880; 84100; 84478; 84484; 85007; 85027; 85610; 87040; 87205; 87641; 93005; 94640; 94644; 94660; 96374; 96375; J0610; J0881; J1815; J1940; J2060; J2248; J2270; J2543; J3010; J3370; J3490; J7030; J7040; J7042; J7050; J7620; P9046; 92610; 99291-25; J1442